=== PATIENT | male | born 1955 | race Caucasian/White ===

== ENCOUNTER 2018-09-17 19:09 | Observation (INO) | payer SELFPAY ==
--- NOTE | 2018-09-17 08:00 | DI.ECHO.S_ITS ---
Echocardiogram Report + + :Name: NEPTALI PEARSON Study Date: 09/18/2018 Height: 72 in : :Hospital Exam Location: [facility] Weight: 197 lb : : Gender: Male BSA: 2.1 m2 : :: 1955 Age: 62 yrs BP: 148/93 mmHg: :Reason For Study: Atrial fibrillation/ Hypertension : :Ordering Physician: [place] : :Hospitalist Performed By: Kylie Page : :Referring: AURA CHRISTINE : + + Interpretation Summary The left ventricle is normal in size. The ejection fraction is estimated to be 65-70%. The right ventricle is normal in size and function. The left atrium is severely dilated. No significant valvular pathology seen. The aortic root is mildly dilated. The ascending aorta is mild-moderately enlarged. The IVC is dilated (diameter is greater than 2.1 cm) yet it collapses greater than 50% with a sniff. This suggests a right atrial pressure of 8 mm Hg. Procedure: A two-dimensional transthoracic echocardiogram with color flow and Doppler was performed. The study quality was technically adequate. There is no prior echocardiogram noted for this patient. The patient was in normal sinus rhythm during the exam. Left Ventricle: Left ventricular wall thickness is mildly increased. The left ventricle is normal in size. Proximal septal thickening is noted. There is no echo evidence for significant left ventricular outflow tract obstruction. A false chord is noted (normal variant). The ejection fraction is estimated to be 65-70%. There are no focal wall motion abnormalities. MV E/A: 1.1 Med Peak E' Román: 6.7 cm/sec E/E' med: 10.9. Right Ventricle: The right ventricle is normal in size and function. Atria: The left atrium is severely dilated. Right atrial size is normal. There is no Doppler evidence for an interatrial shunt. Mitral Valve: The mitral valve is normal. There is mild mitral regurgitation. Aortic Valve: The aortic valve is not well visualized. The aortic valve opens well. There is no aortic valve stenosis. No aortic regurgitation is present. Tricuspid Valve: The tricuspid valve is normal in structure and function. There is a trace or physiologic amount of tricuspid regurgitation. Pulmonary artery pressures cannot be estimated because of the lack of a measurable TR jet velocity. Pulmonic Valve: The pulmonic valve is not well visualized. There is trace pulmonic regurgitation. Great Vessels: The aortic root is mildly dilated. The ascending aorta is mild-moderately enlarged. The pulmonary is not well visualized. The IVC is dilated (diameter is greater than 2.1 cm) yet it collapses greater than 50% with a sniff. This suggests a right atrial pressure of 8 mm Hg. Pericardium/ Pleura There is no pericardial effusion. There is no pleural effusion. MMode/2D Measurements & Calculations LVIDd: 5.4 cm LVOT diam: 2.5 cm LVIDs: 3.4 cm Ao root diam: 4.2 cm FS: 36.5 % asc Aorta Diam: 4.1 cm EPSS: 0.37 cm IVSd: 1.3 cm LVPWd: 1.0 cm LV gutierrez. diameter/BSA (cm/m^2): 2.5 LV sys. diameter/BSA (cm/m^2): 1.6 LA A2 area: 38.9 cm2 RA long axis: 5.4 cm LA A4 area: 28.4 cm2 RA area: 21.1 cm2 LA length (vol): 6.3 cm RA vol: 69.5 ml LA vol: 149.8 ml RA : 32.8 ml/m2 LA vol index: 70.8 ml/m2 IVC diam: 2.3 cm RVD1 (basal): 3.7 cm Doppler Measurements & Calculations Ao V2 max: 150.6 cm/sec LVOT Max Román: 111.6 cm/sec Ao V2 mean: 105.8 cm/sec LV V1 max P.0 mmHg Ao max P.1 mmHg LV V1 VTI: 21.2 cm Ao mean P.9 mmHg AARON(I,D): 3.4 cm2 Ao V2 VTI: 29.9 cm AARON(V,D): 3.5 cm2 sev ratio: 0.71 AARON indexed to BSA (cm^2/m^2): 1.6 MV E max román: 73.2 cm/sec PA V2 max: 91.2 cm/sec MV A max román: 69.7 cm/sec PA V2 mean: 63.4 cm/sec MV E/A: 1.1 PA mean P.8 mmHg Med Peak E' Román: 6.7 cm/sec E/E' med: 10.9 Lat Peak E' Román: 10.3 cm/sec E/E' lat: 7.1 E/e' average: 9.0 MV dec time: 0.24 sec MV P1/2t: 69.3 msec MV P1/2t max román: 72.8 cm/sec SV(LVOT): 100.6 ml MVA(P1/2t): 3.2 cm2 _ Reading Physician:NADEEN
[2018-09-17 19:11] VITALS: BP 204/103; PULSE 133; RESP 20; TEMP 37.3; O2SAT 100; BMI 27.1
--- NOTE | 2018-09-17 19:26 | DI.RAD.S_ITS ---
PROCEDURE: XR CHEST 1V INDICATIONS: chest pain TECHNIQUE: One view of the chest was acquired. COMPARISON: [facility], , CHEST 2 VIEW, 02/08/2017, 15:23. FINDINGS: Surgical changes and devices: None. Lungs and pleura: Mild diffuse reticulonodular density. No pleural effusions or pneumothorax. Mediastinum: Mediastinal contours appear normal. Heart size is normal. Bones and chest wall: No suspicious bony lesions. Overlying soft tissues appear unremarkable. IMPRESSION: Mild atypical pneumonia. Dictated by: Marzena Perales M.D. on 09/17/2018 at 19:45 Approved by: Marzena Perales M.D. on 09/17/2018 at 19:46
[2018-09-17] MEDS: SODIUM CHLORIDE 0.9% 1,000 ML 1000 ML IV (19:37)
[2018-09-17 19:39] LABS: Add Manual Diff / Slide Review NO; Basophils Absolute Auto 100 /uL (0-100); Basophils Percent Auto 0.7 % (0-2); Eosinophils Absolute Auto 500 /uL (0-450); Hematocrit 45.6 % (41-53); Hemoglobin 15.5 g/dL (13.5-17.5); Lymphocytes Absolute Auto 2800 /uL (1100-4500); Lymphocytes Percent Auto 23.7 % (25-40); Mean Corpuscular HGB Conc 34.1 % (30-36); Mean Corpuscular Hemoglobin 30.8 PG (26-34); Mean Corpuscular Volume 90.4 fL (80-100); Monocytes Absolute Auto 900 /uL (0-900); Monocytes Percent Auto 7.7 % (3-14); Neutrophils Absolute Auto 7500 /uL (1500-7000); Neutrophils Percent Auto 63.9 % (50-75); Platelet Count 266 X10^3/uL (150-400); Red Blood Cell Count 5.04 X10^6/uL (4.5-5.9); Red Cell Distribution Width 14.3 % (11.6-14.8); White Blood Cell Count 11.8 X10^3/uL (4.5-11.0)
[2018-09-17 19:40] VITALS: BP 166/130; PULSE 162
[2018-09-17] MEDS: dilTIAZem 5 MG/ML SDV 20 MG IV (19:40)
[2018-09-17 19:51] LABS: INR 0.9 (0.9-1.3); Prothrombin Time 10.6 SECONDS (10.1-12.7)
[2018-09-17 19:54] LABS: PTT Partial Thromboplastin Tim 32 SECONDS (26.4-36.2)
[2018-09-17 19:55] LABS: Alanine Aminotransferase 44 IU/L (21-72); Albumin 4.6 g/dL (3.5-5.0); Albumin Globulin Ratio 1.3 (1.0-2.8); Alkaline Phosphatase 75 U/L (38-126); Aspartate Aminotransferase 32 IU/L (17-59); Bilirubin Total 0.3 mg/dL (0.2-1.3); Blood Urea Nitrogen 21 mg/dL (9-20); Calcium 9.4 mg/dL (8.4-10.2); Carbon Dioxide 27 mmol/L (22-32); Chloride 102 mmol/L (98-107); Creatine Kinase 129 U/L (55-170); Estimated Glomerular Filt Rate > 60.0 mL/min (>60); Globulin 3.6 g/dL (1.7-4.1); Glucose 146 mg/dL (80-110); HEMOLYSIS 29 (0-50); Magnesium 1.8 mg/dL (1.6-2.3); Potassium 3.8 mmol/L (3.4-5.1); Sodium 141 mmol/L (137-145); Total Protein 8.2 g/dL (6.3-8.2)
[2018-09-17 20:07] LABS: Troponin I 0.026 ng/mL (0.01-0.034)
[2018-09-17 20:11] LABS: CKMB % Relative Index 1.9 % (1.5-5.0)
--- NOTE | 2018-09-17 20:13 | ED_ITS ---
HPI - Chest Pain General Chief Complaint: Chest Pain Stated Complaint: HEART FLUTTER HIGH BLOOD PRESSURE Time Seen by Provider: 09/17/18 19:26 Source: patient Mode of arrival: ambulatory Limitations: no limitations History of Present Illness HPI narrative: Patient is a 62-year-old male who presents with heart fluttering in his chest. He is noted to be in AFib with RVR. He said he laid down after dinner woke up and felt something was wrong in his chest. He has no shortness of breath no dizziness but feels his heart flip-flopping around. This has never happened to him in the past. He states that he does have hypertension but is noncompliant with his medication. He states that he really drinks alcohol. He denies any fever or productive cough. He admits to having 2 beers this evening or yesterday but denies any recent binge drinking. MD complaint: chest pain Onset (ago): minute(s) Duration: constant Related Data Previous Rx's Medication Instructions Recorded ciprofloxacin HCl [Cipro] 500 mg PO BID 14 Days #0 tab 04/03/17 Allergies Allergy/AdvReac Type Severity Reaction Status Date / Time No Known Drug Allergies Allergy Verified 09/17/18 19:11 Review of Systems Review of Systems ROS Unobtainable: All systems reviewed & are unremarkable except as noted in HPI and below Constitutional Denies chills, Denies fever(s), Denies lethargy and Denies weakness ENT Ears, Nose, Mouth, and Throat: Denies change in voice, Denies neck pain and Denies sore throat Cardiovascular Denies chest pain, Reports irregular heart rhythm, Denies lightheadedness, Reports palpitations, Denies dyspnea, Denies dyspnea on exertion and Denies orthopnea Respiratory Denies cough, Denies dyspnea, Denies dyspnea on exertion and Denies wheezing Gastrointestinal Gastrointestinal: Denies abdominal pain, Denies change in bowel habits, Denies diarrhea, Denies nausea and Denies vomiting Musculoskeletal Denies neck pain Integumentary/Breasts Denies pruritus, Denies erythema, Denies rash and Denies wounds Neurologic Denies weakness Endocrine Reports palpitations Allergic/Immunologic Denies wheezing PFSH Medical History Hypertension (Acute) Social History Smoking Status: Current every day smoker Social History Smoking Status: Current every day smoker Exam Initial Vital Signs Initial Vital Signs: Vital Signs Temperature 99.1 F 09/17/18 19:11 Pulse Rate 133 H 09/17/18 19:11 Respiratory Rate 20 09/17/18 19:11 Blood Pressure 204/103 H 09/17/18 19:11 Pulse Oximetry 100 09/17/18 19:11 GENERAL: [Well-appearing, well-nourished] and in [no acute] distress. HEENT: Head atraumatic,EOMI, pupils reactive CARDIOVASCULAR: tachycardic irregularly irregular RESPIRATORY: Breath sounds equal bilaterally, no wheezes rales or rhonchi. ABDOMEN: Soft, nontender. Normoactive bowel sounds all 4 quadrants. No guarding or rebound. EXTREMITIES: Normal range of motion, no clubbing or edema. Neurovascularly intact NEUROLOGICAL: Alert and oriented x4.Normal gait and speech. SKIN: Warm, dry, no laceration, no petechiae, no rashes or lesions. Course Orders Ordered: ED Orders 09/17/18 19:26 XR chest 1V Stat EKG-12 Lead Stat 09/17/18 19:35 Complete Blood Count AUTO DIFF Stat Comprehensive Metabolic Panel Stat Magnesium Stat Partial Thromboplastin Time Stat Prothrombin Time INR Stat Thyroid Stimulating Hormone Stat Troponin & CK Cardiac Panel Stat 09/17/18 20:21 EKG-12 Lead Stat 09/17/18 21:30 Troponin I Stat 09/17/18 23:51 Education, smoking cessation ONGOING Heparin Sodium (Porcine) (Heparin) 5,000 unit SUBCUT BID CONSTANTINO Sodium Chloride (Normal Saline 0.9%) 1,000 mls @ 1,000 mls/hr IV CONT CONSTANTINO Last Infusion: 09/17/18 21:46 Dose: 0 mls/hr Admin: 09/17/18 19:37 Dose: 1,000 mls/hr Discontinued Medications Aspirin (Aspirin Chew) 324 mg PO NOW ONE Stop: 09/17/18 20:39 Last Admin: 09/17/18 20:44 Dose: 324 mg Diltiazem HCl (Cardizem) 20 mg IV NOW ONE Stop: 09/17/18 19:38 Last Admin: 09/17/18 19:40 Dose: 20 mg Vital Signs - 8 hr 09/17/18 19:11 09/17/18 19:40 09/17/18 20:30 Temperature 99.1 F Pulse Rate 133 H 162 H 75 Respiratory Rate 20 17 Blood Pressure 204/103 H 166/130 H Blood Pressure [Left Arm] 128/68 Pulse Oximetry 100 96 09/17/18 22:12 09/17/18 22:39 09/18/18 00:34 Temperature Pulse Rate 97 H 82 64 Respiratory Rate 18 19 14 Blood Pressure 137/76 Blood Pressure [Left Arm] 120/61 137/53 L Pulse Oximetry 98 100 98 MDM - Chest Pain Lab Data Attestation: I reviewed the patient's lab results. Result diagrams: 09/17/18 19:35 09/17/18 19:35 Lab Results 09/17/18 09/17/18 09/17/18 Range/Units 19:35 19:35 19:35 WBC 11.8 H (4.5-11.0) X10^3/uL RBC 5.04 (4.5-5.9) X10^6/uL Hgb 15.5 (13.5-17.5) g/dL Hct 45.6 (41-53) % MCV 90.4 (80-100) fL MCH 30.8 (26-34) PG MCHC 34.1 (30-36) % RDW 14.3 (11.6-14.8) % Plt Count 266 (150-400) X10^3/uL Neut % (Auto) 63.9 (50-75) % Lymph % (Auto) 23.7 L (25-40) % [place] % (Auto) 7.7 (3-14) % Eos % (Auto) 4.0 (2-4) % Baso % (Auto) 0.7 (0-2) % Neut # (Auto) 7500 H (6037-9330) /uL Lymph # (Auto) 2800 (2192-7504) /uL [place] # (Auto) 900 (0-900) /uL Eos # (Auto) 500 H (0-450) /uL Baso # (Auto) 100 (0-100) /uL PT 10.6 (10.1-12.7) SECONDS INR 0.9 (0.9-1.3) APTT 32 (26.4-36.2) SECONDS Sodium 141 (137-145) mmol/L Potassium 3.8 (3.4-5.1) mmol/L Chloride 102 (98-107) mmol/L Carbon Dioxide 27 (22-32) mmol/L BUN 21 H (9-20) mg/dL Creatinine 0.70 (0.66-1.25) mg/dL Estimated GFR > 60.0 (>60) mL/min BUN/Creatinine Ratio 30.0 H (6-22) Glucose 146 H (80-110) mg/dL Calcium 9.4 (8.4-10.2) mg/dL Magnesium 1.8 (1.6-2.3) mg/dL Total Bilirubin 0.3 (0.2-1.3) mg/dL AST 32 (17-59) IU/L ALT 44 (21-72) IU/L Alkaline Phosphatase 75 (38-126) U/L Total Creatine Kinase 129 (55-170) U/L CK-MB (CK-2) 2.50 H (<2.37) ng/mL CK-MB (CK-2) Rel Index 1.9 (1.5-5.0) % Troponin I 0.026 (0.01-0.034) ng/mL Total Protein 8.2 (6.3-8.2) g/dL Albumin 4.6 (3.5-5.0) g/dL Globulin 3.6 (1.7-4.1) g/dL Albumin/Globulin Ratio 1.3 (1.0-2.8) TSH (0.47-4.68) uIU/mL 09/17/18 09/17/18 Range/Units 19:35 21:30 WBC (4.5-11.0) X10^3/uL RBC (4.5-5.9) X10^6/uL Hgb (13.5-17.5) g/dL Hct (41-53) % MCV (80-100) fL MCH (26-34) PG MCHC (30-36) % RDW (11.6-14.8) % Plt Count (150-400) X10^3/uL Neut % (Auto) (50-75) % Lymph % (Auto) (25-40) % [place] % (Auto) (3-14) % Eos % (Auto) (2-4) % Baso % (Auto) (0-2) % Neut # (Auto) (3160-6849) /uL Lymph # (Auto) (7747-6226) /uL M[place] # (Auto) (0-900) /uL Eos # (Auto) (0-450) /uL Baso # (Auto) (0-100) /uL PT (10.1-12.7) SECONDS INR (0.9-1.3) APTT (26.4-36.2) SECONDS Sodium (137-145) mmol/L Potassium (3.4-5.1) mmol/L Chloride (98-107) mmol/L Carbon Dioxide (22-32) mmol/L BUN (9-20) mg/dL Creatinine (0.66-1.25) mg/dL Estimated GFR (>60) mL/min BUN/Creatinine Ratio (6-22) Glucose (80-110) mg/dL Calcium (8.4-10.2) mg/dL Magnesium (1.6-2.3) mg/dL Total Bilirubin (0.2-1.3) mg/dL AST (17-59) IU/L ALT (21-72) IU/L Alkaline Phosphatase (38-126) U/L Total Creatine Kinase (55-170) U/L CK-MB (CK-2) (<2.37) ng/mL CK-MB (CK-2) Rel Index (1.5-5.0) % Troponin I 0.039 H (0.01-0.034) ng/mL Total Protein (6.3-8.2) g/dL Albumin (3.5-5.0) g/dL Globulin (1.7-4.1) g/dL Albumin/Globulin Ratio (1.0-2.8) TSH 2.06 (0.47-4.68) uIU/mL Imaging Data Chest x-ray: Radiologist's impression: PROCEDURE: XR CHEST 1V INDICATIONS: chest pain TECHNIQUE: One view of the chest was acquired. COMPARISON: [facility], , CHEST 2 VIEW, 02/08/2017, 15:23. FINDINGS: Surgical changes and devices: None. Lungs and pleura: Mild diffuse reticulonodular density. No pleural effusions or pneumothorax. Mediastinum: Mediastinal contours appear normal. Heart size is normal. Bones and chest wall: No suspicious bony lesions. Overlying soft tissues appear unremarkable. IMPRESSION: Mild atypical pneumonia. Dictated by: Marzena Perales M.D. on 09/17/2018 at 19:45 ECG Data Attestation: I personally reviewed and interpreted this ECG as follows: Prior ECG tracings: not available for review Interpretation: EKG 1.: AFib with RVR rate 137 no priors to compare EKG 2. Normal sinus rhythm rate 72 WV interval 151 LVH strain noted, inferior leads 2 and AVF have some slight ST depression less than [address] elevation no T-wave inversions is no sign of ischemia EKG 3. Sinus rhythm rate 71 LVH noted, LVH strain noted no overall ST depressions in inferior leads the artifact is noted MDM Narrative Medical decision making narrative: patient's heart rate responded well to Cardizem. He actually converted back to normal sinus rhythm on his own. The patient's x-ray does show mild atypical pneumonia however patient has no signs or symptoms of pneumonia. I do notice a left upper lobe nodule patient is a known smoker. Patient does not have any PCP at this time. He has a rising troponin, may be due to demand ischemia or recent tachycardia. the patient remains completely asymptomatic. patient has new onset AFib now converted his with rising troponin, without close followup. At this time patient should be admitted to observation her echocardiogram and serial troponins. Hospitalist Dexter agrees with observation. TAYLOR?DS?-VASc Score for Atrial Fibrillation Stroke Risk from [email or web address] on 2018 All calculations should be rechecked by clinician prior to use RESULT SUMMARY: 1 points Stroke risk was 0.6% per year in >90,000 patients (the [place] Atrial Fibrillation Cohort Study) and 0.9% risk of stroke/TIA/systemic embolism. One recommendation suggests a 0 score is ?low? risk and may not require anticoagulation; a 1 score is ?low-moderate? risk and should consider antiplatelet or anticoagulation, and score 2 or greater is ?moderate-high? risk and should otherwise be an anticoagulation candidate. INPUTS: Age ?> 0 = <65 Sex ?> 0 = Male <abbr title='Congestive heart failure'>CHF</abbr> history ?> 0 = No Hypertension history ?> 1 = Yes Stroke / TIA / Thromboembolism history ?> 0 = No Vascular disease history ?> 0 = No Diabetes history ?> 0 = No Discharge Plan Departure Patient Disposition: Admitted as Observation Clinical Impression: Atrial fibrillation, new onset Discharge Date/Time: 09/18/18 00:34 Interventions: ED Discharge Assessment Last Done: 09/18/18 00:34 Admit Date/Time: 09/17/18 22:59 Admit Provider: Hayley Renteria
[2018-09-17 20:28] LABS: Thyroid Stimulating Hormone 2.06 uIU/mL (0.47-4.68)
[2018-09-17 20:30] VITALS: BP 128/68; PULSE 75; RESP 17; O2SAT 96
[2018-09-17] MEDS: ASPIRIN 81 MG TAB 324 MG PO (20:44)
[2018-09-17 22:05] LABS: Troponin I 0.039 ng/mL (0.01-0.034)
[2018-09-17 22:12] VITALS: BP 120/61; PULSE 97; RESP 18; O2SAT 98
[2018-09-17 22:39] VITALS: BP 137/53; PULSE 82; RESP 19; O2SAT 100
[2018-09-18] VITALS (13 sets, daily range): BP systolic 130–165; BP diastolic 72–103; PULSE 64–74; RESP 14–18; TEMP 36.6–37.5; O2SAT 93–100; BMI 26.8
--- NOTE | 2018-09-18 00:03 | PM.HP.1 ---
History of Present Illness Date Patient Seen: 09/18/18 Time Patient Seen: 00:04 Chief complaint: HEART FLUTTER HIGH BLOOD PRESSURE Narrative: The patient is a 62-year-old male with PMH significant for HTN, cardiomyopathy, and tobacco dependence. Patient presented to the ED on 09/17/2018 at approximately 1911 with palpitations. In the ED found to be in AFIB RVR. Onset of symptoms as sudden at approximately 1800. Patient just finished eating dinner. Onset of symptoms is acute. Associated symptoms include headache. Denies change in vision, chest pain, arm heaviness/paresthesia, diaphoresis, dizziness, lightheadedness, syncopal events, PND, orthopnea, peripheral edema, dyspnea, nausea, and vomiting. Patient reports being off anti-hypertensives for two months. Does not have a PCP. Previously on lisinopril-HCTZ 20-25 mg QD. Reports elevated BP at home but unable to provide range. Patient reports experiencing headache for period of 6 months. Does not wish to elaborate on the headache and further believes it is related to his neck. Headache noted to be constant and described to have a pressure like sensation at the base of the skull. Denies focal neurological symptoms with the headache. Denies prior history of a stroke, TIA, thrombosis, vascular disease. No prior history of a cardiac workup per patient. ED Work-Up BP 204/103 HR 133 RR 20 SpO2 100% RA T 99.1F GCS 15 EKG AFIB / RVR Received 1L NS bolus PMH: HTN, cardiomyopathy (from remote viral infection), COPD, tobacco dependence, cannabis use, and persistent headache PSH: cervical spine surgery, FHx: father () - heart disease; mother (alive) - DM2T Patient History Medical History Hypertension (Acute) Social History household members: none Smoking Status: Current every day smoker alcohol intake: current Family & Social History Safety & Behavioral: Feels Safe in Current Yes Environment Been Physically Hurt or No Threatened By a Person Tobacco & Substance use: Smoking Status Current every day smoker alcohol intake frequency a few times a week Substance Use Type marijuana Meds Home Medications Medication Instructions Recorded Confirmed Type ciprofloxacin HCl [Cipro] 500 mg PO BID 14 Days #0 tab 04/03/17 Rx Allergies Allergy/AdvReac Type Severity Reaction Status Date / Time No Known Drug Allergies Allergy Verified 09/17/18 19:11 Review of Systems Review of Systems All systems reviewed & are unremarkable except as noted in HPI and below Exam Vital Signs (past 8 hours): - 09/17/18 19:11 09/17/18 19:40 09/17/18 20:30 Temperature 99.1 F Pulse Rate 133 H 162 H 75 Respiratory Rate 20 17 Blood Pressure 204/103 H 166/130 H Blood Pressure [Left Arm] 128/68 Pulse Oximetry 100 96 09/17/18 22:12 09/17/18 22:39 Temperature Pulse Rate 97 H 82 Respiratory Rate 18 19 Blood Pressure Blood Pressure [Left Arm] 120/61 137/53 L Pulse Oximetry 98 100 Oxygen Delivery Method Room Air Narrative Exam Narrative: Constitutional: NAD Neurologic: AOx3, no focal neurological deficits Head: NC, AT Eyes: PERRL, EOMI, gaze conjugate Ears: external ears normal, no otorrhea Nose: external nose normal, no rhinorrhea or epistaxis Throat: dry MM, oropharynx w/o exudate Neck: no masses, lymphadenopathy, or JVD Chest / Respiratory: equal chest rise, unlabored respiratory effort, no tachypnea, breath sounds diminished Heart / CV: S1S2, no murmur Abdomen / GI: round, NT, ND, + BS, no organomegaly : no suprapubic tenderness, no CVA Peripheral / Vascular: warm to touch, DP and PT pulses palpable, no edema Musc: full ROM of upper and lower extremities, adequate muscle tone and bulk Skin: no ecchymosis or suspicious lesions / ulcers Objective Labs Result Diagrams: 09/17/18 19:35 09/18/18 05:14 Labs: Laboratory Results - last 24 hr 09/17/18 09/17/18 09/17/18 19:35 19:35 19:35 WBC 11.8 H RBC 5.04 Hgb 15.5 Hct 45.6 MCV 90.4 MCH 30.8 MCHC 34.1 RDW 14.3 Plt Count 266 Neut % (Auto) 63.9 Lymph % (Auto) 23.7 L [place] % (Auto) 7.7 Eos % (Auto) 4.0 Baso % (Auto) 0.7 Neut # (Auto) 7500 H Lymph # (Auto) 2800 [place] # (Auto) 900 Eos # (Auto) 500 H Baso # (Auto) 100 PT 10.6 INR 0.9 APTT 32 Sodium 141 Potassium 3.8 Chloride 102 Carbon Dioxide 27 BUN 21 H Creatinine 0.70 Estimated GFR > 60.0 BUN/Creatinine Ratio 30.0 H Glucose 146 H Calcium 9.4 Magnesium 1.8 Total Bilirubin 0.3 AST 32 ALT 44 Alkaline Phosphatase 75 Total Creatine Kinase 129 CK-MB (CK-2) 2.50 H CK-MB (CK-2) Rel Index 1.9 Troponin I 0.026 Total Protein 8.2 Albumin 4.6 Globulin 3.6 Albumin/Globulin Ratio 1.3 TSH 09/17/18 09/17/18 19:35 21:30 WBC RBC Hgb Hct MCV MCH MCHC RDW Plt Count Neut % (Auto) Lymph % (Auto) [place] % (Auto) Eos % (Auto) Baso % (Auto) Neut # (Auto) Lymph # (Auto) [place] # (Auto) Eos # (Auto) Baso # (Auto) PT INR APTT Sodium Potassium Chloride Carbon Dioxide BUN Creatinine Estimated GFR BUN/Creatinine Ratio Glucose Calcium Magnesium Total Bilirubin AST ALT Alkaline Phosphatase Total Creatine Kinase CK-MB (CK-2) CK-MB (CK-2) Rel Index Troponin I 0.039 H Total Protein Albumin Globulin Albumin/Globulin Ratio TSH 2.06 Assessment & Plan Plan: Assessment/Plan Narrative: Atrial fibrillation with rapid ventricular rate, new onset RF: HTN, cardiomyopathy, suspected sleep apnea Converted to sinus rhythm with bolus dose of 20 mg IV Cardizem [id number] (HTN), potentially to given degree of cardiomyopathy. - Echo - Check BNP, TSH, UA, and UDS now; CBC, BMP, Mg in am - Replete electrolyte deficiencies accordingly, goal K >4 and Mg > 2 - ASA 81 mg q.d., patient is an intermediate risk for cardio-embolic events - Consider starting oral BB (metoprolol tartrate) for BP and rhythm control, avoid lowering BP more than 25% in the 1st 24 hrs Hypertensive urgency, SBP 204/103 mmHg on presentation H/O noncompliance with antihypertensive medication regimen - Trend BP, do not lower more than 25 percent in the first 24 hours - Start on metoprolol tartrate 12.5 mg BID in am Elevated troponin No chest pain or angina like symptoms - Trend troponin New daily persistent headache Headache in the setting of hypertensive urgency versus new daily persistent headache Patient believes the headache is related to neck pain and does not wish to provide any further details. Headache is constant, predominantly over occipital aspect of the head, No change in level of consciousness. No focal neurological deficits. - Consider CT of Head w/o contrast COPD without acute exacerbation, stable chronic condition Tobacco dependence - Nicotine patch - Smoking cessation education
--- NOTE | 2018-09-18 01:57 | PC.ADMIT ---
[id number] Admission Note: The patient,Evaristo Reynolds,62 y/o, was given written information regarding hospital policies, unit procedures and contact persons. Patient's smoking status: Current every day smoker. Vital Signs - 8 hr 09/17/18 19:11 09/17/18 19:40 09/17/18 20:30 Temperature 99.1 F Pulse Rate 133 H 162 H 75 Respiratory Rate 20 17 Blood Pressure 204/103 H 166/130 H Blood Pressure [Left Arm] 128/68 Pulse Oximetry 100 96 09/17/18 22:12 09/17/18 22:39 09/18/18 00:30 Temperature 98.2 F Pulse Rate 97 H 82 69 Respiratory Rate 18 19 15 Blood Pressure 148/93 H Blood Pressure [Left Arm] 120/61 137/53 L Pulse Oximetry 98 100 95 09/18/18 00:34 Temperature Pulse Rate 64 Respiratory Rate 14 Blood Pressure 137/76 Blood Pressure [Left Arm] Pulse Oximetry 98 Pt arrived from ED via stretcher at approx 0030. Denies chest pain, pressure, palpitations, or sob. Reports chronic headache. Tele on. Hospitalist in for assessment. Oriented to room and Call system. Pt verbalized he will call for needs.
[2018-09-18 02:36] LABS: Lactate (Lactic Acid) 0.9 mmol/L (0.7-2.1)
[2018-09-18 02:48] LABS: Hemoglobin A1C% w Est Avg Glu 5.7 % (4.0-6.0)
[2018-09-18 02:49] LABS: B Type Natriuretic Peptide < 100 (<100)
[2018-09-18 03:03] LABS: Troponin I 0.042 ng/mL (0.01-0.034)
[2018-09-18 03:07] LABS: Procalcitonin < 0.05 ng/mL (<0.5)
[2018-09-18 03:24] LABS: Bacteria Urine None Seen; WBC Urine None Seen (0-5/HPF)
[2018-09-18] MEDS: MAGNESIUM SULFATE 2 GM/50 ML PIGGYBACK IV (03:24)
[2018-09-18] MEDS: POTASSIUM CHLORIDE 20 MEQ/15 ML UDC PO (03:24)
[2018-09-18 03:25] LABS: Appearance Urine UA CLEAR; Bilirubin Urine UA NEGATIVE (NEGATIVE); Color Urine UA YELLOW; Glucose Urine UA NEGATIVE (Negative); Ketones Urine UA NEGATIVE (NEGATIVE); Leukocyte Esterase Urine UA NEGATIVE (NEGATIVE); Nitrite Urine UA NEGATIVE (Negative); Occult Blood Urine UA 1+ (Negative); Protein Urine UA NEGATIVE (Negative); Specific Gravity Urine UA 1.025 (1.000-1.035); Urobilinogen Urine UA 0.2 E.U./dL (0.2); pH Urine UA 5.5 (4.5-8.0)
[2018-09-18 03:29] LABS: Urine Amphetamines Negative (Negative); Urine Barbiturates Negative (Negative); Urine Benzodiazepines Negative (Negative); Urine Cocaine Negative (Negative); Urine MDMA Negative (Negative); Urine Methadone Negative (Negative); Urine Methamphetamines Negative (Negative); Urine Morphine/Opi cutoff 2000 Negative (Negative); Urine Oxycodone Negative (Negative); Urine Phencyclidine Negative (Negative); Urine Tetrahydrocannabinol Negative (Negative); Urine Tricyclic Antidepressant Negative (Negative)
[2018-09-18 03:38] LABS: Culture Indicated Urine Cult Not Indicated; RBC Urine 0-1/HPF (0-5/HPF)
[2018-09-18 07:00] LABS: BUN Creatinine Ratio 26.7 (6-22); Blood Urea Nitrogen 16 mg/dL (9-20); Calcium 8.5 mg/dL (8.4-10.2); Carbon Dioxide 24 mmol/L (22-32); Chloride 108 mmol/L (98-107); Cholesterol 125 mg/dL (140-199); Estimated Glomerular Filt Rate > 60.0 mL/min (>60); Glucose 123 mg/dL (80-110); HDL Cholesterol 39 mg/dL (40-60); HEMOLYSIS < 15 (0-50); LDL Cholesterol Calculated 76 mg/dL (<100); Magnesium 1.8 mg/dL (1.6-2.3); Potassium 4.3 mmol/L (3.4-5.1); Sodium 139 mmol/L (137-145); Triglycerides 48 mg/dL (35-150); Troponin I 0.033 ng/mL (0.01-0.034); VLDL Cholesterol Calculated 10 mg/dL (2-30)
[2018-09-18 09:08] LABS: Add Manual Diff / Slide Review NO; Basophils Percent Auto 0.7 % (0-2); Eosinophils Percent Auto 3.5 % (2-4); Hematocrit 42.5 % (41-53); Lymphocytes Percent Auto 19.9 % (25-40); Mean Corpuscular Hemoglobin 30.3 PG (26-34); Mean Corpuscular Volume 91.8 fL (80-100); Neutrophils Absolute Auto 7 /uL (1500-7000); Neutrophils Percent Auto 67.9 % (50-75); Platelet Count 240 X10^3/uL (150-400); Red Blood Cell Count 4.63 X10^6/uL (4.5-5.9); Red Cell Distribution Width 14.3 % (11.6-14.8); White Blood Cell Count 10.4 X10^3/uL (4.5-11.0)
[2018-09-18 09:09] LABS: Basophils Absolute Auto 0 /uL (0-100); Eosinophils Absolute Auto 0 /uL (0-450); Lymphocytes Absolute Auto 2 /uL (1100-4500); Monocytes Absolute Auto 1 /uL (0-900)
--- NOTE | 2018-09-18 09:11 | CM.DANOTE ---
Addendum entered by Denise Coreas R.N. 09/18/18 13:36: Patient's [employer] insurance is inactive. Is currently making 20.00 per hour, 40 hours a week, and does not qualify. Was given a dedrick application to fill out, by admissions counselor Original Note: Addendum entered by Denise Coreas R.N. 09/18/18 12:12: Called [facility] here in [place] to inquire if they are taking new patients, and if they accepted [facility], and stated that they do accept, and are taking new patients. Gave phone number to patient, since he has no primary provider. Original Note: DCP: Case received, EMR reviewed and met with patient. Introduced self and role. DCP template completed with information currently available. Patient is a 62 year old male who admitted yesterday evening to the care of the hospitalist team. PCP: Has no primary doctor at this time. Payer: confirmed: [facility] Healthy Options/Medicaid. Patient came to hospital with symptoms of racing heart, flutter. Patient has history of cardiomyopathy, and was noted to be in A-Fib/RVR. Met briefly with patient, alert and oriented. Stated, he is feeling better, but this has never happened before. Discussed getting primary provider, and he is aware that he needs to locate someone to follow up. Lives alone, and is independent. P: DCP to continue to follow. Should be able to go home when stable, but will need to follow up with primary doctor or package checker. Denise Coreas RN/[employer]
[2018-09-18] MEDS: ASPIRIN EC 81 MG TABLET PO (09:49)
[2018-09-18] MEDS: NICOTINE 21 MG PATCH TOP (09:53)
[2018-09-18] MEDS: HEPARIN 5,000 UNIT/ML VIAL 5000 UNIT SUBCUT ×2 (10:00→22:08)
--- NOTE | 2018-09-18 10:19 | PC.NURSE ---
Addendum entered by Dilia Dixon R.N. 09/18/18 14:09: CARDIAC - per discussion with , the stress test is cancelled, new orders for bp meds lisinipril and hctz, per , may continue with the 12.5mg earlier metoprolol, held this am for stress test. Original Note: Addendum entered by Dilia Dixon R.N. 09/18/18 12:26: CARDIAC - the pt echo completed, verified with Natal[facility] that the stress test cannot be done today, per will prob be done as outpt, may have reg diet. Original Note: AM NOTE - pt mildly anxious as he was trying to reach friends and employer and his cell phone battery , assisted pt w/phone charge, denies chest pain or headache, does have some chronic neck discomfort w/hx surgery, hr reg, no nausea, spoke to Natalia in nuclear med re stress test and unable to determine yet this am if they will be able to complete this am, did give pt ice chips, fluids and dish oatmeal, no caffeine or beta renato.
[2018-09-18] MEDS: LISINOPRIL 20 MG TABLET 40 MG PO (14:04)
[2018-09-18] MEDS: METOPROLOL IR 25 MG TABLET 12.5 MG PO ×2 (14:04→22:08)
[2018-09-18] MEDS: hydroCHLOROthiazide 25 MG TABLET PO (14:05)
--- NOTE | 2018-09-18 19:03 | PC.NURSE ---
Addendum entered by Kassandra Stockton R.N. 09/18/18 22:56: Relatively uneventful evening. Condition remains essentially unchanged. Denies any discomfort. Call light w/in reach. Continue w/plan of care. Original Note: Pt resting quietly, Had a shower this evening. Lungs clear, SpO2 97% RA. Tele showing NSR per ICU staff. Denies any C/O @ this time. Call light w/in reach.
[2018-09-19 00:25] VITALS: BP 156/92; PULSE 64; RESP 16; TEMP 36.8; O2SAT 95
[2018-09-19 04:27] VITALS: BP 139/92; PULSE 65; TEMP 36.8; O2SAT 95
[2018-09-19 06:19] LABS: Add Manual Diff / Slide Review NO; Basophils Absolute Auto 100 /uL (0-100); Basophils Percent Auto 0.7 % (0-2); Eosinophils Absolute Auto 300 /uL (0-450); Hematocrit 43.3 % (41-53); Hemoglobin 14.7 g/dL (13.5-17.5); Lymphocytes Absolute Auto 1900 /uL (1100-4500); Lymphocytes Percent Auto 22.3 % (25-40); Mean Corpuscular HGB Conc 33.9 % (30-36); Mean Corpuscular Hemoglobin 30.8 PG (26-34); Mean Corpuscular Volume 90.8 fL (80-100); Monocytes Absolute Auto 800 /uL (0-900); Monocytes Percent Auto 8.8 % (3-14); Neutrophils Absolute Auto 5600 /uL (1500-7000); Neutrophils Percent Auto 65.2 % (50-75); Platelet Count 241 X10^3/uL (150-400); Red Blood Cell Count 4.77 X10^6/uL (4.5-5.9); Red Cell Distribution Width 14.1 % (11.6-14.8); White Blood Cell Count 8.5 X10^3/uL (4.5-11.0)
[2018-09-19 06:31] LABS: Blood Urea Nitrogen 21 mg/dL (9-20); Calcium 8.9 mg/dL (8.4-10.2); Carbon Dioxide 26 mmol/L (22-32); Chloride 102 mmol/L (98-107); Estimated Glomerular Filt Rate > 60.0 mL/min (>60); Glucose 113 mg/dL (80-110); HEMOLYSIS < 15 (0-50); Potassium 4.2 mmol/L (3.4-5.1); Sodium 138 mmol/L (137-145)
[2018-09-19 08:00] VITALS: BP 145/85; PULSE 65; RESP 16; TEMP 36.6; O2SAT 95
[2018-09-19 09:00] VITALS: O2SAT 93
[2018-09-19] MEDS: hydroCHLOROthiazide 25 MG TABLET PO (09:01)
[2018-09-19] MEDS: METOPROLOL IR 25 MG TABLET 12.5 MG PO (09:01)
[2018-09-19] MEDS: ASPIRIN EC 81 MG TABLET PO (09:01)
[2018-09-19 09:02] VITALS: BP 145/85; PULSE 65
[2018-09-19] MEDS: LISINOPRIL 20 MG TABLET 40 MG PO (09:02)
[2018-09-19] MEDS: HEPARIN 5,000 UNIT/ML VIAL 5000 UNIT SUBCUT (09:03)
[2018-09-19] MEDS: NICOTINE 21 MG PATCH TOP (09:03)
--- NOTE | 2018-09-19 09:43 | PC.NURSE ---
Addendum entered by Dilia Dixon R.N. 09/19/18 12:38: dc - pt stated he had to leave for the job site now was dressed and heading out, spoke to who came in to dc pt, removed the tele and hep lock, spoke about pt will not wait for dc paperwork, his scripts will be sent electronically to the [facility] in [facility], the student nurse assisted with gathering belongings, including cell phone and clothing and the pt was escorted by student nurse to his car. Original Note: AM NOTE - Alert, no complaint chest discomfort or sob, hr reg 66, ra 93%, no nausea, wyatt gen diet, anxious to dc home today.
--- NOTE | 2018-09-19 12:46 | P.DS_ITS ---
History of Present Illness Chief complaint: HEART FLUTTER HIGH BLOOD PRESSURE Narrative: The patient is a 62-year-old male with PMH significant for HTN, cardiomyopathy, and tobacco dependence. Patient presented to the ED on 09/17/2018 at approximately 1911 with palpitations. In the ED found to be in AFIB RVR. Onset of symptoms as sudden at approximately 1800. Patient just finished eating dinner. Onset of symptoms is acute. Associated symptoms include headache. Denies change in vision, chest pain, arm heaviness/paresthesia, diaphoresis, dizziness, lightheadedness, syncopal events, PND, orthopnea, peripheral edema, dyspnea, nausea, and vomiting. Patient reports being off anti-hypertensives for two months. Does not have a PCP. Previously on lisinopril-HCTZ 20-25 mg QD. Reports elevated BP at home but unable to provide range. Patient reports experiencing headache for period of 6 months. Does not wish to elaborate on the headache and further believes it is related to his neck. Headache noted to be constant and described to have a pressure like sensation at the base of the skull. Denies focal neurological symptoms with the headache. Denies prior history of a stroke, TIA, thrombosis, vascular disease. No prior history of a cardiac workup per patient. Discharge Providers Date of admission: 09/17/18 22:59 Discharge provider: Taurus Aleman MD Discharge Date: 09/19/18 Summary Discharge Diagnosis: 1. Paroxysmal atrial fibrillation with RVR 2. Hypertensive urgency 3. Cigarette dependence Hospital Course: Patient presented with rapid heart rate due to AFib, headache, severe hypertension BP 204/103, had been off of his antihypertensive m edications. He received IV Cardizem in the ER for AFib and converted to sinus rhythm. TSH was normal. Renal function normal. He is not good candidate for anticoagulation due to current lack of insurance, limited finances, and no established PCP. For hypertension, he was started back on his regimen of lisinopril and HCTZ. He was also started on low-dose of metoprolol for the atrial fibrillation. At time of discharge she is feeling back to baseline with blood pressure of 145/85 and resting heart rate in the 60s. He received prescriptions for 1 month supply without refills. He understands need to establish with primary care provider for continuation of care. He is also advised to quit smoking. Status at Discharge Functional status at discharge: independent ambulation Overall status at discharge: patient is back to baseline Time Spent with Patient Less than 30 minutes Exam Vital Signs (past 8 hours): - 09/19/18 08:00 09/19/18 09:00 09/19/18 09:02 Temperature 98 F Pulse Rate 65 65 Respiratory Rate 16 Blood Pressure 145/85 H 145/85 H Pulse Oximetry 95 93 Oxygen Delivery Method Room Air Objective Labs Result Diagrams: 09/19/18 05:49 09/19/18 05:49 Labs: Laboratory Results - last 24 hr 09/19/18 09/19/18 05:49 05:49 WBC 8.5 RBC 4.77 Hgb 14.7 Hct 43.3 MCV 90.8 MCH 30.8 MCHC 33.9 RDW 14.1 Plt Count 241 Neut % (Auto) 65.2 Lymph % (Auto) 22.3 L [place] % (Auto) 8.8 Eos % (Auto) 3.0 Baso % (Auto) 0.7 Neut # (Auto) 5600 Lymph # (Auto) 1900 [place] # (Auto) 800 Eos # (Auto) 300 Baso # (Auto) 100 Sodium 138 Potassium 4.2 Chloride 102 Carbon Dioxide 26 BUN 21 H Creatinine 0.60 L Estimated GFR > 60.0 BUN/Creatinine Ratio 35.0 H Glucose 113 H Calcium 8.9 Magnesium 2.0 Discharge Plan Discharge Plan Patient Disposition: Home Discharge Med Rec/Prescriptions Prescriptions: New aspirin 81 mg Tablet,Delayed Release (Dr/Ec) 81 mg PO DAILY Qty: 30 RF: 0 hydrochlorothiazide 25 mg Tablet 25 mg PO DAILY Qty: 30 RF: 0 metoprolol succinate 25 mg tablet extended release 24 hr 25 mg PO DAILY Qty: 30 RF: 0 lisinopril 40 mg tablet 40 mg PO DAILY Qty: 30 RF: 0 Discontinued ciprofloxacin HCl [Cipro] 500 MG tablet 500 mg PO BID 14 Days Qty: 0 RF: 0 Provider Discharge Instructions Diet: Diet as Tolerated Visit Report/Discharge Packet Instructions: Essential Hypertension, DI for Arrhythmias Discharge Data Attending Provider: Hayley Renteria Admit Date/Time: 09/17/18 22:59 Quality VTE Deep Vein Thrombosis/Pulmonary Embolism Present on Admission: No
== END 2018-09-19 13:00 | disposition home or self-care (01) ==
LOC: ED 22:54 → AC 23:00
PROVIDERS: Internal Medicine; Admitting Provider Nurse Practitioner Gerontology; Emergency Provider Emergency Medicine; Visit Provider Nurse Practitioner Gerontology
DX: I48.0 Paroxysmal atrial fibrillation (principal); R07.9 Chest pain, unspecified; I10 Essential (primary) hypertension; F17.210 Nicotine dependence, cigarettes, uncomplicated; J44.9 Chronic obstructive pulmonary disease, unspecified; I16.0 Hypertensive urgency; T46.4X6A Underdosing of angiotensin-converting-enzyme inhibitors, initial encounter; I42.9 Cardiomyopathy, unspecified; R51 Headache
CPT/HCPCS: 36415; 36591; 71045; 80048; 80053; 80061; 80305; 81001; 82550; 82553; 83036; 83605; 83735; 83880; 84145; 84443; 84484; 85025; 85610; 85730; 93005; 93306; 96361; 96374; 99283; 99285; G0378; J1644

== ENCOUNTER 2018-10-23 23:25 | Emergency (ER) | payer SELFPAY ==
[2018-09-18 01:41] VITALS: BMI 26.8
[2018-10-23 23:47] VITALS: BMI 25.7
[2018-10-24] VITALS (9 sets, daily range): BP systolic 100–151; BP diastolic 40–95; PULSE 71–134; RESP 18–22; O2SAT 94–100
[2018-10-24 00:08] LABS: Add Manual Diff / Slide Review NO; Basophils Absolute Auto 0 /uL (0-100); Basophils Percent Auto 0.6 % (0-2); Eosinophils Absolute Auto 300 /uL (0-450); Eosinophils Percent Auto 3.5 % (2-4); Hematocrit 42.9 % (41-53); Hemoglobin 14.6 g/dL (13.5-17.5); Lymphocytes Absolute Auto 2400 /uL (1100-4500); Lymphocytes Percent Auto 32.1 % (25-40); Mean Corpuscular HGB Conc 33.9 % (30-36); Mean Corpuscular Hemoglobin 30.6 PG (26-34); Monocytes Absolute Auto 700 /uL (0-900); Monocytes Percent Auto 8.8 % (3-14); Neutrophils Absolute Auto 4200 /uL (1500-7000); Platelet Count 241 X10^3/uL (150-400); Red Blood Cell Count 4.77 X10^6/uL (4.5-5.9); Red Cell Distribution Width 13.8 % (11.6-14.8); White Blood Cell Count 7.6 X10^3/uL (4.5-11.0)
[2018-10-24] MEDS: METOPROLOL TARTRATE 5 MG/5 ML INJ IV (00:16)
[2018-10-24] MEDS: SODIUM CHLORIDE 0.9% 1,000 ML 150 ML IV (00:17)
[2018-10-24 00:19] LABS: INR 0.9 (0.9-1.3); Prothrombin Time 10.6 SECONDS (10.1-12.7)
[2018-10-24 00:21] LABS: PTT Partial Thromboplastin Tim 32 SECONDS (26.4-36.2)
[2018-10-24 00:23] LABS: Alanine Aminotransferase 41 IU/L (21-72); Albumin 4.2 g/dL (3.5-5.0); Albumin Globulin Ratio 1.2 (1.0-2.8); Alkaline Phosphatase 66 U/L (38-126); Aspartate Aminotransferase 27 IU/L (17-59); BUN Creatinine Ratio 24.3 (6-22); Bilirubin Total 0.2 mg/dL (0.2-1.3); Blood Urea Nitrogen 17 mg/dL (9-20); Calcium 9.3 mg/dL (8.4-10.2); Carbon Dioxide 27 mmol/L (22-32); Chloride 104 mmol/L (98-107); Creatine Kinase 97 U/L (55-170); Estimated Glomerular Filt Rate > 60.0 mL/min (>60); Globulin 3.4 g/dL (1.7-4.1); Glucose 113 mg/dL (80-110); HEMOLYSIS 19 (0-50); Lipase 142 U/L (23-300); Potassium 3.8 mmol/L (3.4-5.1); Sodium 143 mmol/L (137-145); Total Protein 7.6 g/dL (6.3-8.2)
[2018-10-24 00:24] LABS: Magnesium 1.9 mg/dL (1.6-2.3)
[2018-10-24 00:54] LABS: Thyroid Stimulating Hormone 2.36 uIU/mL (0.47-4.68)
--- NOTE | 2018-10-24 01:51 | ED.ARRPALP ---
HPI - Arrhythmia/Palpitations General Chief Complaint: Arrhythmia/Palpitations Stated Complaint: Heart racing/fluttering Time Seen by Provider: 10/23/18 23:36 Source: patient and family Mode of arrival: ambulatory Limitations: no limitations History of Present Illness HPI narrative: 62-year-old male smoker with history of hypertension and recent diagnosis of atrial fibrillation presents with a rapid heart rate and palpitations that started about 45 min ago. He denies chest pain or shortness of breath. He is not anticoagulated. His initial diagnosis of AFib was about 1 month ago. He denies nausea, vomiting or diarrhea. MD complaint: rapid heart beat and heart racing Duration: constant Severity: moderate Context: occurred during rest Arrhythmia history: atrial fibrillation Associated symptoms: denies other symptoms Related Data Previous Rx's Medication Instructions Recorded aspirin 81 mg PO DAILY #30 tab 09/19/18 hydrochlorothiazide 25 mg PO DAILY #30 tab 09/19/18 lisinopril 40 mg PO DAILY #30 tab 09/19/18 metoprolol succinate 25 mg PO DAILY #30 tab 09/19/18 hydrochlorothiazide 25 mg PO DAILY #30 tab 10/24/18 lisinopril 40 mg PO DAILY #30 tab 10/24/18 metoprolol succinate 25 mg PO DAILY #30 tab 10/24/18 Allergies Allergy/AdvReac Type Severity Reaction Status Date / Time No Known Drug Allergies Allergy Verified 09/17/18 19:11 Review of Systems Constitutional Denies chills, Denies fever(s), Denies lethargy and Denies weakness Eyes Denies change in vision, Denies eye discharge, Denies irritation and Denies loss of vision ENT Ears, Nose, Mouth, and Throat: Denies change in voice, Denies neck pain and Denies sore throat Cardiovascular Denies chest pain, Denies irregular heart rhythm, Denies lightheadedness, Reports palpitations, Denies dyspnea, Denies dyspnea on exertion and Denies orthopnea Respiratory Denies cough, Denies dyspnea, Denies dyspnea on exertion and Denies wheezing Gastrointestinal Gastrointestinal: Denies abdominal pain, Denies change in bowel habits, Denies diarrhea, Denies nausea and Denies vomiting Genitourinary Denies hematuria, Denies flank pain, Denies urinary incontinence and Denies urinary urgency Musculoskeletal Denies neck pain Integumentary/Breasts Denies pruritus, Denies erythema, Denies rash and Denies wounds Neurologic Denies confusion, Denies loss of vision and Denies weakness Psychiatric Denies anxiety, Denies confusion, Denies depression, Denies homicidal ideation and Denies suicidal ideation Endocrine Reports palpitations Hematologic/Lymphatic Denies easy bruising Allergic/Immunologic Denies wheezing [facility] Medical History Hypertension (Acute) Social History household members: none Smoking Status: Current every day smoker alcohol intake: current Social History household members: none Smoking Status: Current every day smoker alcohol intake: current Exam Narrative Exam Narrative: GENERAL: This is a well-nourished, well-developed patient, in mild distress. HEAD: Atraumatic. Normocephalic. No temporal or scalp tenderness. EYES: Pupils equal round and reactive. Extraocular motions intact. No scleral icterus. No injection or drainage. ENT: Nose without bleeding, purulent drainage or septal hematoma. Throat without erythema, tonsillar hypertrophy or exudate. Uvula midline. Airway patent. NECK: Trachea midline. No JVD or lymphadenopathy. Supple, nontender, no meningeal signs. CARDIOVASCULAR: Rapid rate and irregular rhythm without murmurs, gallops, or rubs. RESPIRATORY: Clear to auscultation. Breath sounds equal bilaterally. No wheezes, rales, or rhonchi. GASTROINTESTINAL: Abdomen soft, non-tender, nondistended. No hepato-splenomegaly, or palpable masses. No guarding. EXTREMITIES: No clubbing, cyanosis, or edema. No joint tenderness, effusion, or edema noted. BACK: Nontender without deformity or crepitance. No flank tenderness. NEURO: AOx3. SKIN: No rash or erythema. Initial Vital Signs Initial Vital Signs: Vital Signs Pulse Rate 110 H 10/24/18 00:17 Blood Pressure 121/81 10/24/18 00:17 Procedures Cardioversion Consent Signed: Yes Cardiac rhythm prior to cardioversion: Rapid AFib Stability: Stable Time out performed: Yes Preparation: campus monitor applied, pulse oximeter, supplemental O2 applied and suction/airway equipment at bedside IV Propofol Dose (mgs): 100 Total Time of Sedation (Min): 10 Number of attempts (shocks): 1 Joules used: 150 Cardiac rhythm post-cardioversion: Normal sinus Patient tolerated procedure sedation: Well Complications sedation: none Procedural Sedation Patient Age: Patient is 5yrs or older Consent signed: Yes Time out performed: Yes Indication: other (Cardioversion) ASA Class: II Mallampati Airway Classification: Class I Time of Last PO Intake: 14:00 Preparation: campus monitor applied, pulse oximeter, capnometry used, supplemental O2 applied, suction/airway equipment at bedside and IV secured IV Propofol dose (mg): 100 Intraservice time/total sedation time (min): 10 ED Sedation Level: Moderate (Concious) Patient Tolerated Procedure: Well Complications: none Scores CHADS-VASc Congestive heart failure: no Hypertension: yes Age 75 years or older: no Diabetes mellitus: no Stroke, TIA, or TE: no Vascular disease: no Age 65 to 74 years: no Sex category (female): Male CHADS-VASc Score: 1 Course Orders Ordered: ED Orders 10/24/18 00:01 Complete Blood Count AUTO DIFF Stat Comprehensive Metabolic Panel Stat Lipase Stat Magnesium Stat Partial Thromboplastin Time Stat Prothrombin Time INR Stat Thyroid Stimulating Hormone Stat Troponin & CK Cardiac Panel Stat Discontinued Medications Sodium Chloride (Normal Saline 0.9%) 1,000 mls @ 150 mls/hr IV CONT CONSTANTINO Last Infusion: 10/24/18 02:06 Dose: 0 mls/hr Admin: 10/24/18 00:17 Dose: 150 mls/hr Metoprolol Tartrate (Lopressor) 5 mg IV NOW ONE Stop: 10/24/18 00:02 Last Admin: 10/24/18 00:16 Dose: 5 mg Propofol (Diprivan) 100 mg IV NOW ONE Stop: 10/24/18 01:56 Last Admin: 10/24/18 01:57 Dose: 100 mg Vital Signs - 8 hr 10/24/18 00:17 10/24/18 00:30 10/24/18 01:02 Pulse Rate 110 H 120 H 101 H Respiratory Rate 18 22 Blood Pressure [Left Arm] 121/81 113/75 151/95 H Pulse Oximetry 99 97 10/24/18 01:15 10/24/18 01:22 10/24/18 01:24 Pulse Rate 132 H 134 H 90 Respiratory Rate 18 18 18 Blood Pressure [Left Arm] 143/84 H 130/95 H 134/80 Pulse Oximetry 100 99 94 10/24/18 01:30 10/24/18 01:35 10/24/18 01:58 Pulse Rate 81 78 71 Respiratory Rate 18 18 18 Blood Pressure [Left Arm] 124/81 100/40 L 135/84 Pulse Oximetry 94 100 98 MDM - Arrhythmia/Palpitations Lab Data Attestation: I reviewed the patient's lab results. Result diagrams: 10/24/18 00:01 10/24/18 00:01 Lab Results 10/24/18 10/24/18 10/24/18 Range/Units 00:01 00:01 00:01 WBC 7.6 (4.5-11.0) X10^3/uL RBC 4.77 (4.5-5.9) X10^6/uL Hgb 14.6 (13.5-17.5) g/dL Hct 42.9 (41-53) % MCV 90.0 (80-100) fL MCH 30.6 (26-34) PG MCHC 33.9 (30-36) % RDW 13.8 (11.6-14.8) % Plt Count 241 (150-400) X10^3/uL Neut % (Auto) 55.0 (50-75) % Lymph % (Auto) 32.1 (25-40) % [place] % (Auto) 8.8 (3-14) % Eos % (Auto) 3.5 (2-4) % Baso % (Auto) 0.6 (0-2) % Neut # (Auto) 4200 (1863-0567) /uL Lymph # (Auto) 2400 (4166-3051) /uL [place] # (Auto) 700 (0-900) /uL Eos # (Auto) 300 (0-450) /uL Baso # (Auto) 0 (0-100) /uL PT 10.6 (10.1-12.7) SECONDS INR 0.9 (0.9-1.3) APTT 32 (26.4-36.2) SECONDS Sodium 143 (137-145) mmol/L Potassium 3.8 (3.4-5.1) mmol/L Chloride 104 (98-107) mmol/L Carbon Dioxide 27 (22-32) mmol/L BUN 17 (9-20) mg/dL Creatinine 0.70 (0.66-1.25) mg/dL Estimated GFR > 60.0 (>60) mL/min BUN/Creatinine Ratio 24.3 H (6-22) Glucose 113 H (80-110) mg/dL Calcium 9.3 (8.4-10.2) mg/dL Magnesium (1.6-2.3) mg/dL Total Bilirubin 0.2 (0.2-1.3) mg/dL AST 27 (17-59) IU/L ALT 41 (21-72) IU/L Alkaline Phosphatase 66 (38-126) U/L Total Creatine Kinase 97 (55-170) U/L CK-MB (CK-2) TNP CK-MB (CK-2) Rel Index TNP Troponin I 0.020 (0.01-0.034) ng/mL Total Protein 7.6 (6.3-8.2) g/dL Albumin 4.2 (3.5-5.0) g/dL Globulin 3.4 (1.7-4.1) g/dL Albumin/Globulin Ratio 1.2 (1.0-2.8) Lipase 142 (23-300) U/L TSH (0.47-4.68) uIU/mL 10/24/18 10/24/18 Range/Units 00:01 00:01 WBC (4.5-11.0) X10^3/uL RBC (4.5-5.9) X10^6/uL Hgb (13.5-17.5) g/dL Hct (41-53) % MCV (80-100) fL MCH (26-34) PG MCHC (30-36) % RDW (11.6-14.8) % Plt Count (150-400) X10^3/uL Neut % (Auto) (50-75) % Lymph % (Auto) (25-40) % [place] % (Auto) (3-14) % Eos % (Auto) (2-4) % Baso % (Auto) (0-2) % Neut # (Auto) (3986-6965) /uL Lymph # (Auto) (6344-9041) /uL [place] # (Auto) (0-900) /uL Eos # (Auto) (0-450) /uL Baso # (Auto) (0-100) /uL PT (10.1-12.7) SECONDS INR (0.9-1.3) APTT (26.4-36.2) SECONDS Sodium (137-145) mmol/L Potassium (3.4-5.1) mmol/L Chloride (98-107) mmol/L Carbon Dioxide (22-32) mmol/L BUN (9-20) mg/dL Creatinine (0.66-1.25) mg/dL Estimated GFR (>60) mL/min BUN/Creatinine Ratio (6-22) Glucose (80-110) mg/dL Calcium (8.4-10.2) mg/dL Magnesium 1.9 (1.6-2.3) mg/dL Total Bilirubin (0.2-1.3) mg/dL AST (17-59) IU/L ALT (21-72) IU/L Alkaline Phosphatase (38-126) U/L Total Creatine Kinase (55-170) U/L CK-MB (CK-2) CK-MB (CK-2) Rel Index Troponin I (0.01-0.034) ng/mL Total Protein (6.3-8.2) g/dL Albumin (3.5-5.0) g/dL Globulin (1.7-4.1) g/dL Albumin/Globulin Ratio (1.0-2.8) Lipase (23-300) U/L TSH 2.36 (0.47-4.68) uIU/mL ECG Data Attestation: I personally reviewed and interpreted this ECG as follows: Prior ECG tracings: not available for review Interpretation: Rapid AFib without signs of ischemia Post cardioversion notes a normal sinus rhythm in the 70s Discharge Plan Departure Patient Disposition: Home Clinical Impression: Atrial fibrillation Qualifiers: Atrial fibrillation type: paroxysmal Qualified Code(s): I48.0 - Paroxysmal atrial fibrillation Discharge Date/Time: 10/24/18 02:08 Interventions: ED Discharge Assessment Last Done: 10/24/18 02:07 Instructions: DI for Atrial Fibrillation Activity Restrictions/Additional Instructions: *You have been diagnosed with [ rapid AFib] *What to do: *Take medications as directed *Follow up with your primary care provider in 2-3 days, call for an appointment. Let them know you were seen in the Emergency Department and that we ask that you be seen in follow up *Return to ER if you should have any new, worsening or concerning symptoms Prescriptions: New hydrochlorothiazide 25 mg tablet 25 mg PO DAILY Qty: 30 RF: 0 metoprolol succinate 25 mg tablet extended release 24 hr 25 mg PO DAILY Qty: 30 RF: 0 lisinopril 40 mg tablet 40 mg PO DAILY Qty: 30 RF: 0 Continued hydrochlorothiazide 25 mg Tablet 25 mg PO DAILY Qty: 30 RF: 0 metoprolol succinate 25 mg tablet extended release 24 hr 25 mg PO DAILY Qty: 30 RF: 0 lisinopril 40 mg tablet 40 mg PO DAILY Qty: 30 RF: 0 No Action aspirin 81 mg Tablet,Delayed Release (Dr/Ec) 81 mg PO DAILY Qty: 30 RF: 0
[2018-10-24] MEDS: PROPOFOL 200 MG/20 ML VIAL 100 MG IV (01:57)
--- NOTE | 2018-10-24 06:10 | ED_ITS ---
HPI - Arrhythmia/Palpitations General Chief Complaint: Arrhythmia/Palpitations Stated Complaint: Heart racing/fluttering Time Seen by Provider: 10/23/18 23:36 Source: patient and family Mode of arrival: ambulatory Limitations: no limitations History of Present Illness HPI narrative: 62-year-old male smoker with history of hypertension and recent diagnosis of atrial fibrillation presents with a rapid heart rate and palpitations that started about 45 min ago. He denies chest pain or shortness of breath. He is not anticoagulated. His initial diagnosis of AFib was about 1 month ago. He denies nausea, vomiting or diarrhea. MD complaint: rapid heart beat and heart racing Duration: constant Severity: moderate Context: occurred during rest Arrhythmia history: atrial fibrillation Associated symptoms: denies other symptoms Related Data Previous Rx's Medication Instructions Recorded aspirin 81 mg PO DAILY #30 tab 09/19/18 hydrochlorothiazide 25 mg PO DAILY #30 tab 09/19/18 lisinopril 40 mg PO DAILY #30 tab 09/19/18 metoprolol succinate 25 mg PO DAILY #30 tab 09/19/18 hydrochlorothiazide 25 mg PO DAILY #30 tab 10/24/18 lisinopril 40 mg PO DAILY #30 tab 10/24/18 metoprolol succinate 25 mg PO DAILY #30 tab 10/24/18 Allergies Allergy/AdvReac Type Severity Reaction Status Date / Time No Known Drug Allergies Allergy Verified 09/17/18 19:11 Review of Systems Constitutional Denies chills, Denies fever(s), Denies lethargy and Denies weakness Eyes Denies change in vision, Denies eye discharge, Denies irritation and Denies loss of vision ENT Ears, Nose, Mouth, and Throat: Denies change in voice, Denies neck pain and Denies sore throat Cardiovascular Denies chest pain, Denies irregular heart rhythm, Denies lightheadedness, Reports palpitations, Denies dyspnea, Denies dyspnea on exertion and Denies orthopnea Respiratory Denies cough, Denies dyspnea, Denies dyspnea on exertion and Denies wheezing Gastrointestinal Gastrointestinal: Denies abdominal pain, Denies change in bowel habits, Denies diarrhea, Denies nausea and Denies vomiting Genitourinary Denies hematuria, Denies flank pain, Denies urinary incontinence and Denies urinary urgency Musculoskeletal Denies neck pain Integumentary/Breasts Denies pruritus, Denies erythema, Denies rash and Denies wounds Neurologic Denies confusion, Denies loss of vision and Denies weakness Psychiatric Denies anxiety, Denies confusion, Denies depression, Denies homicidal ideation and Denies suicidal ideation Endocrine Reports palpitations Hematologic/Lymphatic Denies easy bruising Allergic/Immunologic Denies wheezing [facility] Medical History Hypertension (Acute) Social History household members: none Smoking Status: Current every day smoker alcohol intake: current Social History household members: none Smoking Status: Current every day smoker alcohol intake: current Exam Narrative Exam Narrative: GENERAL: This is a well-nourished, well-developed patient, in mild distress. HEAD: Atraumatic. Normocephalic. No temporal or scalp tenderness. EYES: Pupils equal round and reactive. Extraocular motions intact. No scleral icterus. No injection or drainage. ENT: Nose without bleeding, purulent drainage or septal hematoma. Throat without erythema, tonsillar hypertrophy or exudate. Uvula midline. Airway patent. NECK: Trachea midline. No JVD or lymphadenopathy. Supple, nontender, no meningeal signs. CARDIOVASCULAR: Rapid rate and irregular rhythm without murmurs, gallops, or rubs. RESPIRATORY: Clear to auscultation. Breath sounds equal bilaterally. No wheezes, rales, or rhonchi. GASTROINTESTINAL: Abdomen soft, non-tender, nondistended. No hepato- splenomegaly, or palpable masses. No guarding. EXTREMITIES: No clubbing, cyanosis, or edema. No joint tenderness, effusion, or edema noted. BACK: Nontender without deformity or crepitance. No flank tenderness. NEURO: AOx3. SKIN: No rash or erythema. Initial Vital Signs Initial Vital Signs: Vital Signs Pulse Rate 110 H 10/24/18 00:17 Blood Pressure 121/81 10/24/18 00:17 Procedures Cardioversion Consent Signed: Yes Cardiac rhythm prior to cardioversion: Rapid AFib Stability: Stable Time out performed: Yes Preparation: cardiac tech applied, pulse oximeter, supplemental O2 applied and suction/airway equipment at bedside IV Propofol Dose (mgs): 100 Total Time of Sedation (Min): 10 Number of attempts (shocks): 1 Joules used: 150 Cardiac rhythm post-cardioversion: Normal sinus Patient tolerated procedure sedation: Well Complications sedation: none Procedural Sedation Patient Age: Patient is 5yrs or older Consent signed: Yes Time out performed: Yes Indication: other (Cardioversion) ASA Class: II Mallampati Airway Classification: Class I Time of Last PO Intake: 14:00 Preparation: cardiac tech applied, pulse oximeter, capnometry used, supplemental O2 applied, suction/airway equipment at bedside and IV secured IV Propofol dose (mg): 100 Intraservice time/total sedation time (min): 10 ED Sedation Level: Moderate (Concious) Patient Tolerated Procedure: Well Complications: none Scores CHADS-VASc Congestive heart failure: no Hypertension: yes Age 75 years or older: no Diabetes mellitus: no Stroke, TIA, or TE: no Vascular disease: no Age 65 to 74 years: no Sex category (female): Male CHADS-VASc Score: 1 Course Orders Ordered: ED Orders 10/24/18 00:01 Complete Blood Count AUTO DIFF Stat Comprehensive Metabolic Panel Stat Lipase Stat Magnesium Stat Partial Thromboplastin Time Stat Prothrombin Time INR Stat Thyroid Stimulating Hormone Stat Troponin & CK Cardiac Panel Stat Discontinued Medications Sodium Chloride (Normal Saline 0.9%) 1,000 mls @ 150 mls/hr IV CONT CONSTANTINO Last Infusion: 10/24/18 02:06 Dose: 0 mls/hr Admin: 10/24/18 00:17 Dose: 150 mls/hr Metoprolol Tartrate (Lopressor) 5 mg IV NOW ONE Stop: 10/24/18 00:02 Last Admin: 10/24/18 00:16 Dose: 5 mg Propofol (Diprivan) 100 mg IV NOW ONE Stop: 10/24/18 01:56 Last Admin: 10/24/18 01:57 Dose: 100 mg Vital Signs - 8 hr 10/24/18 00:17 10/24/18 00:30 10/24/18 01:02 Pulse Rate 110 H 120 H 101 H Respiratory Rate 18 22 Blood Pressure [Left Arm] 121/81 113/75 151/95 H Pulse Oximetry 99 97 10/24/18 01:15 10/24/18 01:22 10/24/18 01:24 Pulse Rate 132 H 134 H 90 Respiratory Rate 18 18 18 Blood Pressure [Left Arm] 143/84 H 130/95 H 134/80 Pulse Oximetry 100 99 94 10/24/18 01:30 10/24/18 01:35 10/24/18 01:58 Pulse Rate 81 78 71 Respiratory Rate 18 18 18 Blood Pressure [Left Arm] 124/81 100/40 L 135/84 Pulse Oximetry 94 100 98 MDM - Arrhythmia/Palpitations Lab Data Attestation: I reviewed the patient's lab results. Result diagrams: 10/24/18 00:01 10/24/18 00:01 Lab Results 10/24/18 10/24/18 10/24/18 Range/Units 00:01 00:01 00:01 WBC 7.6 (4.5-11.0) X10^3/uL RBC 4.77 (4.5-5.9) X10^6/uL Hgb 14.6 (13.5-17.5) g/dL Hct 42.9 (41-53) % MCV 90.0 (80-100) fL MCH 30.6 (26-34) PG MCHC 33.9 (30-36) % RDW 13.8 (11.6-14.8) % Plt Count 241 (150-400) X10^3/uL Neut % (Auto) 55.0 (50-75) % Lymph % (Auto) 32.1 (25-40) % [place] % (Auto) 8.8 (3-14) % Eos % (Auto) 3.5 (2-4) % Baso % (Auto) 0.6 (0-2) % Neut # (Auto) 4200 (5359-7691) /uL Lymph # (Auto) 2400 (0308-3795) /uL [place] # (Auto) 700 (0-900) /uL Eos # (Auto) 300 (0-450) /uL Baso # (Auto) 0 (0-100) /uL PT 10.6 (10.1-12.7) SECONDS INR 0.9 (0.9-1.3) APTT 32 (26.4-36.2) SECONDS Sodium 143 (137-145) mmol/L Potassium 3.8 (3.4-5.1) mmol/L Chloride 104 (98-107) mmol/L Carbon Dioxide 27 (22-32) mmol/L BUN 17 (9-20) mg/dL Creatinine 0.70 (0.66-1.25) mg/dL Estimated GFR > 60.0 (>60) mL/min BUN/Creatinine Ratio 24.3 H (6-22) Glucose 113 H (80-110) mg/dL Calcium 9.3 (8.4-10.2) mg/dL Magnesium (1.6-2.3) mg/dL Total Bilirubin 0.2 (0.2-1.3) mg/dL AST 27 (17-59) IU/L ALT 41 (21-72) IU/L Alkaline Phosphatase 66 (38-126) U/L Total Creatine Kinase 97 (55-170) U/L CK-MB (CK-2) TNP CK-MB (CK-2) Rel Index TNP Troponin I 0.020 (0.01-0.034) ng/mL Total Protein 7.6 (6.3-8.2) g/dL Albumin 4.2 (3.5-5.0) g/dL Globulin 3.4 (1.7-4.1) g/dL Albumin/Globulin Ratio 1.2 (1.0-2.8) Lipase 142 (23-300) U/L TSH (0.47-4.68) uIU/mL 10/24/18 10/24/18 Range/Units 00:01 00:01 WBC (4.5-11.0) X10^3/uL RBC (4.5-5.9) X10^6/uL Hgb (13.5-17.5) g/dL Hct (41-53) % MCV (80-100) fL MCH (26-34) PG MCHC (30-36) % RDW (11.6-14.8) % Plt Count (150-400) X10^3/uL Neut % (Auto) (50-75) % Lymph % (Auto) (25-40) % [place] % (Auto) (3-14) % Eos % (Auto) (2-4) % Baso % (Auto) (0-2) % Neut # (Auto) (7786-4454) /uL Lymph # (Auto) (9768-0615) /uL [place] # (Auto) (0-900) /uL Eos # (Auto) (0-450) /uL Baso # (Auto) (0-100) /uL PT (10.1-12.7) SECONDS INR (0.9-1.3) APTT (26.4-36.2) SECONDS Sodium (137-145) mmol/L Potassium (3.4-5.1) mmol/L Chloride (98-107) mmol/L Carbon Dioxide (22-32) mmol/L BUN (9-20) mg/dL Creatinine (0.66-1.25) mg/dL Estimated GFR (>60) mL/min BUN/Creatinine Ratio (6-22) Glucose (80-110) mg/dL Calcium (8.4-10.2) mg/dL Magnesium 1.9 (1.6-2.3) mg/dL Total Bilirubin (0.2-1.3) mg/dL AST (17-59) IU/L ALT (21-72) IU/L Alkaline Phosphatase (38-126) U/L Total Creatine Kinase (55-170) U/L CK-MB (CK-2) CK-MB (CK-2) Rel Index Troponin I (0.01-0.034) ng/mL Total Protein (6.3-8.2) g/dL Albumin (3.5-5.0) g/dL Globulin (1.7-4.1) g/dL Albumin/Globulin Ratio (1.0-2.8) Lipase (23-300) U/L TSH 2.36 (0.47-4.68) uIU/mL ECG Data Attestation: I personally reviewed and interpreted this ECG as follows: Prior ECG tracings: not available for review Interpretation: Rapid AFib without signs of ischemia Post cardioversion notes a normal sinus rhythm in the 70s Discharge Plan Departure Patient Disposition: Home Clinical Impression: Atrial fibrillation Qualifiers: Atrial fibrillation type: paroxysmal Qualified Code(s): I48.0 - Paroxysmal atrial fibrillation Discharge Date/Time: 10/24/18 02:08 Interventions: ED Discharge Assessment Last Done: 10/24/18 02:07 Instructions: DI for Atrial Fibrillation Activity Restrictions/Additional Instructions: *You have been diagnosed with [ rapid AFib] *What to do: *Take medications as directed *Follow up with your primary care provider in 2-3 days, call for an appointment. Let them know you were seen in the Emergency Department and that we ask that you be seen in follow up *Return to ER if you should have any new, worsening or concerning symptoms Prescriptions: New hydrochlorothiazide 25 mg tablet 25 mg PO DAILY Qty: 30 RF: 0 metoprolol succinate 25 mg tablet extended release 24 hr 25 mg PO DAILY Qty: 30 RF: 0 lisinopril 40 mg tablet 40 mg PO DAILY Qty: 30 RF: 0 Continued hydrochlorothiazide 25 mg Tablet 25 mg PO DAILY Qty: 30 RF: 0 metoprolol succinate 25 mg tablet extended release 24 hr 25 mg PO DAILY Qty: 30 RF: 0 lisinopril 40 mg tablet 40 mg PO DAILY Qty: 30 RF: 0 No Action aspirin 81 mg Tablet,Delayed Release (Dr/Ec) 81 mg PO DAILY Qty: 30 RF: 0
--- NOTE | 2020-05-18 10:19 | ONC.MSW ---
Description: T/C re: referral Activity: Left message for pt re: confirming that we've received his referral, requested a call back to discuss scheduling.
== END 2018-10-24 02:08 | disposition home or self-care (01) ==
PROVIDERS: Emergency Provider Emergency Medicine
DX: I48.0 Paroxysmal atrial fibrillation (principal)
CPT/HCPCS: 36591; 80053; 82550; 83690; 83735; 84443; 84484; 85025; 85610; 85730; 92960; 93005; 94770; 96361; 96374; 96375; 99152; 99284; 99285; J2704

== ENCOUNTER 2018-11-28 13:13 | Emergency (ER) | payer SELFPAY ==
[2018-09-18 01:41] VITALS: BMI 26.8
[2018-11-28 13:15] VITALS: BP 162/75; PULSE 74; RESP 15; TEMP 36.6; O2SAT 98; BMI 25.7
--- NOTE | 2018-11-28 13:31 | ED_ITS ---
HPI - Recheck/Abnormal Lab/Rx <DERECK Maldonado - Last Filed: 11/28/18 13:39> General Chief Complaint: Recheck/Abnormal Lab/Rx Stated Complaint: High blood pressure Time Seen by Provider: 11/28/18 13:23 Source: patient Mode of arrival: ambulatory Limitations: no limitations History of Present Illness HPI narrative: The patient is a 62-year-old male current smoker who presents by himself requesting medication refills. He has a history of hypertension AFib and has been out of his lisinopril, hydrochlorothiazide and metoprolol for 4 days. He states he is trying to get in with a primary care provider, but he is unable to at this point time. He also states he needs to get pain before anything. He denies any chest pain headache nausea vomiting diarrhea or any symptoms. He states he only wants medication refills and does not want any workup. Related Data Previous Rx's Medication Instructions Recorded aspirin 81 mg PO DAILY #30 tab 09/19/18 hydrochlorothiazide 25 mg PO DAILY #30 tab 09/19/18 lisinopril 40 mg PO DAILY #30 tab 09/19/18 metoprolol succinate 25 mg PO DAILY #30 tab 09/19/18 hydrochlorothiazide 25 mg PO DAILY #30 tab 10/24/18 lisinopril 40 mg PO DAILY #30 tab 10/24/18 metoprolol succinate 25 mg PO DAILY #30 tab 10/24/18 hydrochlorothiazide 25 mg PO DAILY #30 tab 11/28/18 lisinopril 40 mg PO DAILY #30 tab 11/28/18 metoprolol succinate 25 mg PO DAILY #30 tab 11/28/18 Allergies Allergy/AdvReac Type Severity Reaction Status Date / Time No Known Drug Allergies Allergy Verified 11/28/18 13:15 Review of Systems <DERECK Maldonado - Last Filed: 11/28/18 13:39> Review of Systems GENERAL: Denies chills, fatigue, malaise, fever, sweats. HEENT: Denies sinus pain, ear pain, sore throat, difficulty swallowing, dizziness. RESPIRATORY: Denies dyspnea, cough, wheezing, hemoptysis, sputum. CARDIOVASCULAR: Denies chest pain, palpitations, orthopnea, edema, GASTROINTESTINAL: Denies nausea, vomiting, abdominal pain, diarrhea, constipation, melena. : Denies dysuria, frequency, incontinence, hematuria, urinary retention. MUSCULOSKELETAL: denies weakness, joint pain, or bony pain SKIN: Denies rash, skin lesions, or other NEUROLOGIC: Denies weakness, headache, numbness, change in speech, confusion, seizures, incoordination. PSYCHIATRIC: No concerning psychosocial issues. 12 point review of systems is negative except for those stated above PFSH <DERECK Maldonado - Last Filed: 11/28/18 13:39> Medical History Hypertension (Acute) Social History household members: none Smoking Status: Current every day smoker alcohol intake: current Social History household members: none Smoking Status: Current every day smoker alcohol intake: current Exam <DERECK Maldonado - Last Filed: 11/28/18 13:39> Narrative Exam Narrative: GENERAL: This is a well-nourished, well-developed patient, in no acute distress HEAD: Atraumatic. Normocephalic. No temporal or scalp tenderness. EYES: Pupils equal round and reactive. Extraocular motions intact. No scleral icterus. No injection or drainage. ENT: Nose without bleeding, purulent drainage or septal hematoma. Throat without erythema, tonsillar hypertrophy or exudate. Uvula midline. Airway patent. poor dentition noted NECK: Trachea midline. No JVD or lymphadenopathy. Supple, nontender, no meningeal signs. CARDIOVASCULAR: Regular rate and rhythm without murmurs, gallops, or rubs. RESPIRATORY: Clear to auscultation. Breath sounds equal bilaterally. No wheezes, rales, or rhonchi. No cough. No increased respiratory effort. GASTROINTESTINAL: Abdomen soft, non-tender, nondistended. No hepato- splenomegaly, or palpable masses. No guarding. EXTREMITIES: No clubbing, cyanosis, or edema. No joint tenderness, effusion, or edema noted. active bowel sounds. No palpable pulsatile mass. BACK: Nontender without deformity or crepitance. No flank tenderness. NEURO: AOx3. SKIN: No rash or erythema. Initial Vital Signs Initial Vital Signs: Vital Signs Temperature 97.9 F 11/28/18 13:15 Pulse Rate 74 11/28/18 13:15 Respiratory Rate 15 11/28/18 13:15 Blood Pressure 162/75 H 11/28/18 13:15 Pulse Oximetry 98 11/28/18 13:15 <Terri Brooks DO - Last Filed: 12/01/18 19:02> Initial Vital Signs Initial Vital Signs: Vital Signs Temperature 97.9 F 11/28/18 13:15 Pulse Rate 74 11/28/18 13:15 Respiratory Rate 15 11/28/18 13:15 Blood Pressure 162/75 H 11/28/18 13:15 Pulse Oximetry 98 11/28/18 13:15 Course <DERECK Maldonado - Last Filed: 11/28/18 13:39> Vital Signs - 8 hr 11/28/18 13:15 Temperature 97.9 F Pulse Rate 74 Respiratory Rate 15 Blood Pressure 162/75 H Pulse Oximetry 98 <Terri Brooks DO - Last Filed: 12/01/18 19:02> Vital Signs - 8 hr 11/28/18 13:15 Temperature 97.9 F Pulse Rate 74 Respiratory Rate 15 Blood Pressure 162/75 H Pulse Oximetry 98 MDM - Recheck/Abnormal Lab/Rx <DERECK Maldonado - Last Filed: 11/28/18 13:39> MDM Narrative Medical decision making narrative: The patient is a 62-year-old male who presents requesting medication refills. He denies any symptoms such as chest pain or headache. I did discuss that his medications need monitoring, such as monitoring his kidney function for his lisinopril and his electrolytes for his hydrochlorothiazide. The patient declined any workup or evaluation or lab work today. He states he just wants refills. He does agree to follow up with primary care provider, so I gave him contact information for the [facility] at [facility]. Discussed the importance of follow-up. Patient has no questions or concerns upon discharge and is hemodynamically stable sergiou mauricio. Discharge Plan Departure Patient Disposition: Home Clinical Impression: Encounter for medication refill Discharge Date/Time: 11/28/18 13:39 Interventions: ED Discharge Assessment Last Done: 11/28/18 13:38 Instructions: DI for High Blood Pressure, DI for Safely Taking and Storing Medications -- Adults Activity Restrictions/Additional Instructions: I am giving you 1 month's worth of her lisinopril hydrochlorothiazide and metoprolol. As I discussed these medications need monitoring and you need follow-up. Please contact the [facility] [place] at [phone]. They can help you find a primary care provider. Prescriptions: New hydrochlorothiazide 25 mg tablet 25 mg PO DAILY Qty: 30 RF: 0 metoprolol succinate 25 mg tablet extended release 24 hr 25 mg PO DAILY Qty: 30 RF: 0 lisinopril 40 mg tablet 40 mg PO DAILY Qty: 30 RF: 0 No Action aspirin 81 mg Tablet,Delayed Release (Dr/Ec) 81 mg PO DAILY Qty: 30 RF: 0 hydrochlorothiazide 25 mg Tablet 25 mg PO DAILY Qty: 30 RF: 0 metoprolol succinate 25 mg tablet extended release 24 hr 25 mg PO DAILY Qty: 30 RF: 0 lisinopril 40 mg tablet 40 mg PO DAILY Qty: 30 RF: 0 hydrochlorothiazide 25 mg tablet 25 mg PO DAILY Qty: 30 RF: 0 metoprolol succinate 25 mg tablet extended release 24 hr 25 mg PO DAILY Qty: 30 RF: 0 lisinopril 40 mg tablet 40 mg PO DAILY Qty: 30 RF: 0 <Terri Brooks DO - Last Filed: 12/01/18 19:02> [facility] ED Attending Cathy Attestation: I was immediately available in the department for consultation. Documentation has been reviewed. I agree with assessment and plan.
== END 2018-11-28 13:39 | disposition home or self-care (01) ==
PROVIDERS: Emergency Provider Nurse Practitioner Family
DX: Z76.0 Encounter for issue of repeat prescription (principal)
CPT/HCPCS: 99281; 99282

== ENCOUNTER 2020-05-08 06:52 | Inpatient (IN) | payer OTHER, MEDICAID, SELFPAY ==
[2018-09-18 01:41] VITALS: BMI 26.8
[2020-05-08] VITALS (65 sets, daily range): BP systolic 69–191; BP diastolic 46–114; PULSE 48–136; RESP 13–59; TEMP 36.3–36.7; O2SAT 67–98; BMI 3831.6
--- NOTE | 2020-05-08 07:03 | ED.SOB ---
HPI - SOB/Dyspnea General Chief Complaint: Arrhythmia/Palpitations Stated Complaint: SOB, cough, no BP meds Time Seen by Provider: 05/08/20 06:55 Source: patient Mode of arrival: Ambulatory Limitations: no limitations History of Present Illness HPI Narrative: 64-year-old male daily smoker with history of hypertension and AFib (not anticoagulated) presents with a chief complaint of a few days of shortness of breath and fatigue. He denies any chest pain or palpitations. He denies runny nose, sore throat or cough. He denies any fever, chest, nausea, vomiting or diarrhea. He states that he has been without his medications for quite some time because he is just not taken them. Related Data Previous Rx's Medication Instructions Recorded aspirin 81 mg PO DAILY #30 tab 09/19/18 hydrochlorothiazide 25 mg PO DAILY #30 tab 09/19/18 lisinopril 40 mg PO DAILY #30 tab 09/19/18 metoprolol succinate 25 mg PO DAILY #30 tab 09/19/18 hydrochlorothiazide 25 mg PO DAILY #30 tab 10/24/18 lisinopril 40 mg PO DAILY #30 tab 10/24/18 metoprolol succinate 25 mg PO DAILY #30 tab 10/24/18 hydrochlorothiazide 25 mg PO DAILY #30 tab 11/28/18 lisinopril 40 mg PO DAILY #30 tab 11/28/18 metoprolol succinate 25 mg PO DAILY #30 tab 11/28/18 Allergies Allergy/AdvReac Type Severity Reaction Status Date / Time No Known Drug Allergies Allergy Verified 05/08/20 07:11 Review of Systems Constitutional Constitutional: Denies chills, Denies fatigue, Denies fever(s), Denies frequent falls, Denies lethargy and Denies weakness Eyes Eyes: Denies change in vision, Denies eye discharge, Denies irritation and Denies loss of vision ENT Ears, Nose, Mouth, and Throat: Denies change in voice, Denies dizziness, Denies neck pain, Denies sore throat and Denies throat swelling Cardiovascular Cardiovascular: Denies chest pain, Denies irregular heart rhythm, Denies lightheadedness, Denies palpitations, Reports dyspnea, Reports dyspnea on exertion and Denies orthopnea Respiratory Respiratory: Reports cough, Reports dyspnea, Reports dyspnea on exertion and Denies wheezing Gastrointestinal Gastrointestinal: Denies abdominal pain, Denies change in bowel habits, Denies diarrhea, Denies nausea and Denies vomiting Musculoskeletal Musculoskeletal: Denies neck pain and Denies numbness Integumentary/Breasts Skin/Breast: Denies pruritus, Denies erythema, Denies rash and Denies wounds Neurologic Neurologic: Denies behavioral changes, Denies confusion, Denies dizziness, Denies frequent falls, Denies loss of vision, Denies numbness and Denies weakness Psychiatric Psychiatric: Denies anxiety, Denies behavioral changes, Denies confusion, Denies depression, Denies homicidal ideation and Denies suicidal ideation Endocrine Endocrine: Denies fatigue, Denies flushing and Denies palpitations Hematologic/Lymphatic Hematologic/Lymphatic: Denies easy bruising Allergic/Immunologic Allergic/Immunologic: Denies urticaria, Denies throat swelling and Denies wheezing Patient History Medical History Hypertension (Acute) Social History household members: none Smoking Status: Current every day smoker alcohol intake: current Smoking Status: Current every day smoker alcohol intake frequency: a few times a week Substance Use Type: marijuana Exam Narrative Exam Narrative: GENERAL: [64] year old patient appears older than stated age. Well-nourished, well-developed patient, in moderate distress. HEAD: Atraumatic. Normocephalic. EYES: Pupils equal round and reactive. Extraocular motions intact. No scleral icterus. No injection or drainage. ENT: Nose without bleeding, purulent drainage. Throat without erythema, tonsillar hypertrophy or exudate. Airway patent. NECK: Trachea midline. Non tender CARDIOVASCULAR: Regular rate and rhythm without murmurs, gallops, or rubs. RESPIRATORY: Clear to auscultation. Breath sounds equal bilaterally. No wheezes, rales, or rhonchi. GASTROINTESTINAL: Abdomen soft, non-tender, nondistended. EXTREMITIES: No edema or joint tenderness. BACK: Nontender without deformity or crepitance. No flank tenderness. NEURO: AOx3. SKIN: No rash or erythema of visible areas Initial Vital Signs Initial Vital Signs: Vital Signs Temperature 98.1 F 05/08/20 07:06 Pulse Rate 119 H 05/08/20 07:06 Respiratory Rate 28 H 05/08/20 07:06 Blood Pressure 191/114 H 05/08/20 07:06 Pulse Oximetry 96 05/08/20 07:06 Course Course Course Narrative: Patient not a candidate for cardioversion given lack of ST changes, extremities on history, use of blood thinners and time of onset is unclear. Patient was trialed oral metoprolol but after 2 hours there is very little change, at which point he was given Cardizem. His blood pressures have been quite high and heart rate in the 140s and rather quickly after initiation of Cardizem patient's heart rate improved, however blood pressure dropped precipitously, as low as the 60s and 70s. This was associated with nausea and dizziness but quickly followed with severe epigastric pain. This pain was not present initially. Ultrasound was performed and unremarkable. He then proceeded to have a large bowel movement at which point his abdominal pain resolved. Largely his blood pressure returned back to the 140s but he did have a few episodes where it dropped low again. Repeat EKG is also nonischemic Orders Ordered: ED Orders 05/08/20 07:20 XR chest 1V Stat 05/08/20 07:25 Complete Blood Count AUTO DIFF Stat Comprehensive Metabolic Panel Stat D Dimer Stat NT-proBNP (BNP-Adult 18+) Stat Prothrombin Time INR Stat Troponin & CK Cardiac Panel Stat 05/08/20 08:26 CT angio chest PE protocol Stat 05/08/20 09:22 COVID19 -ED/INPAT/OR/L&D Stat Sodium Chloride (Normal Saline 0.9%) 1,000 mls @ 125 mls/hr IV CONT CONSTANTINO Last Infusion: 05/08/20 12:57 Dose: 0 mls/hr Documented by: Infusion: 05/08/20 12:15 Dose: 0 mls/hr Documented by: Admin: 05/08/20 07:39 Dose: 125 mls/hr Documented by: ERNST DILTIAZEM (Diltiazem 125 Mg/125 [id number]) 125 mg in 125 mls @ 5 mls/hr IV TITRATE CONSTANTINO; Protocol Last Titration: 05/08/20 11:24 Dose: 0 mg/hr, 0 mls/hr Documented by: Titration: 05/08/20 11:00 Dose: 0 mg/hr, 0 mls/hr Documented by: Admin: 05/08/20 10:06 Dose: 5 mg/hr, 5 mls/hr Documented by: JUAN Discontinued Medications Diltiazem HCl (Cardizem) 10 mg IV NOW ONE Stop: 05/08/20 09:17 Last Admin: 05/08/20 10:06 Dose: 10 mg Documented by: JUAN Ceftriaxone Sodium/Dextrose (Rocephin) 1 gm in 50 mls @ 100 mls/hr IV NOW ONE Stop: 05/08/20 09:44 Last Infusion: 05/08/20 12:15 Dose: 0 mls/hr Documented by: Admin: 05/08/20 11:16 Dose: 100 mls/hr Documented by: ERNST Azithromycin 500 mg/ Dextrose 250 mls @ 250 mls/hr IV NOW ONE Stop: 05/08/20 09:16 Last Infusion: 05/08/20 12:15 Dose: 0 mls/hr Documented by: Admin: 05/08/20 10:07 Dose: 250 mls/hr Documented by: JUAN Sodium Chloride (Normal Saline 0.9%) 500 mls @ 1,000 mls/hr IV BOLUS ONE Stop: 05/08/20 11:44 Last Infusion: 05/08/20 11:29 Dose: 0 mls/hr Documented by: Admin: 05/08/20 11:00 Dose: 1,000 mls/hr Documented by: ERNST Metoprolol Tartrate (Lopressor) 50 mg PO NOW ONE Stop: 05/08/20 07:21 Last Admin: 05/08/20 07:39 Dose: 50 mg Documented by: ERNST Vital Signs Vital signs: Vital Signs - 8 hr 05/08/20 07:06 05/08/20 08:22 05/08/20 08:30 Temperature 98.1 F Pulse Rate 119 H 136 H 121 H Respiratory Rate 28 H 28 H 31 H Blood Pressure 191/114 H Pulse Oximetry 96 91 90 L 05/08/20 08:31 05/08/20 08:55 05/08/20 09:00 Temperature Pulse Rate 128 H 75 117 H Respiratory Rate 30 H 28 H Blood Pressure 147/95 H Pulse Oximetry 91 91 90 L 05/08/20 09:15 05/08/20 09:35 05/08/20 09:45 Temperature Pulse Rate 120 H 118 H 116 H Respiratory Rate 25 H 36 H 29 H Blood Pressure Pulse Oximetry 90 L 98 91 05/08/20 10:00 05/08/20 10:05 05/08/20 10:06 Temperature Pulse Rate 116 H 109 H 116 H Respiratory Rate 34 H 35 H Blood Pressure 128/99 H 128/99 H Pulse Oximetry 93 93 05/08/20 10:15 05/08/20 10:20 05/08/20 10:25 Temperature Pulse Rate 103 H 105 H 103 H Respiratory Rate 32 H 29 H 30 H Blood Pressure 107/80 Pulse Oximetry 90 L 89 L 90 L 05/08/20 10:30 05/08/20 10:35 05/08/20 10:40 Temperature Pulse Rate 99 H 103 H 95 H Respiratory Rate 30 H 41 H 38 H Blood Pressure 102/86 Pulse Oximetry 91 91 91 05/08/20 10:45 Temperature Pulse Rate 89 Respiratory Rate 40 H Blood Pressure Pulse Oximetry 93 MDM - SOB/Dyspnea Lab Data Result diagrams: 05/08/20 07:25 05/08/20 07:25 Labs: Lab Results 05/08/20 05/08/20 05/08/20 Range/Units 07:25 07:25 07:25 WBC 10.5 (4.5-11.0) X10^3/uL RBC 4.80 (4.5-5.9) X10^6/uL Hgb 14.6 (13.5-17.5) g/dL Hct 44.3 (41-53) % MCV 92.4 (80-100) fL MCH 30.5 (26-34) PG MCHC 33.0 (30-36) % RDW 14.9 H (11.6-14.8) % Plt Count 245 (150-400) X10^3/uL Neut % (Auto) 71.4 (50-75) % Lymph % (Auto) 19.2 L (25-40) % Cottle % (Auto) 6.8 (3-14) % Eos % (Auto) 1.8 L (2-4) % Baso % (Auto) 0.8 (0-2) % Neut # (Auto) 7500 H (7035-4617) /uL Lymph # (Auto) 2000 (7038-2676) /uL Cottle # (Auto) 700 (0-900) /uL Eos # (Auto) 200 (0-450) /uL Baso # (Auto) 100 (0-100) /uL PT 13.4 H (10.1-12.7) SECONDS INR 1.2 (0.9-1.3) D-Dimer 394 H (<230) ng/mL Sodium (137-145) mmol/L Potassium (3.4-5.1) mmol/L Chloride (98-107) mmol/L Carbon Dioxide (22-32) mmol/L BUN (9-20) mg/dL Creatinine (0.66-1.25) mg/dL Estimated GFR (>60) mL/min BUN/Creatinine Ratio (6-22) Glucose (80-110) mg/dL Calcium (8.4-10.2) mg/dL Total Bilirubin (0.2-1.3) mg/dL AST (17-59) IU/L ALT (<50) IU/L Alkaline Phosphatase (38-126) U/L Total Creatine Kinase (55-170) U/L CK-MB (CK-2) (<2.37) ng/mL CK-MB (CK-2) Rel Index (1.5-5.0) % Troponin I (0.01-0.034) ng/mL NT-Pro-B Natriuret Pep (<125) pg/mL Total Protein (6.3-8.2) g/dL Albumin (3.5-5.0) g/dL Globulin (1.7-4.1) g/dL Albumin/Globulin Ratio (1.0-2.8) Lipase (23-300) U/L COVID-19 PCR (Negative) 05/08/20 05/08/20 05/08/20 Range/Units 07:25 07:25 09:22 WBC (4.5-11.0) X10^3/uL RBC (4.5-5.9) X10^6/uL Hgb (13.5-17.5) g/dL Hct (41-53) % MCV (80-100) fL MCH (26-34) PG MCHC (30-36) % RDW (11.6-14.8) % Plt Count (150-400) X10^3/uL Neut % (Auto) (50-75) % Lymph % (Auto) (25-40) % Cottle % (Auto) (3-14) % Eos % (Auto) (2-4) % Baso % (Auto) (0-2) % Neut # (Auto) (8436-1296) /uL Lymph # (Auto) (5007-2557) /uL Cottle # (Auto) (0-900) /uL Eos # (Auto) (0-450) /uL Baso # (Auto) (0-100) /uL PT (10.1-12.7) SECONDS INR (0.9-1.3) D-Dimer (<230) ng/mL Sodium 140 (137-145) mmol/L Potassium 4.8 (3.4-5.1) mmol/L Chloride 107 (98-107) mmol/L Carbon Dioxide 24 (22-32) mmol/L BUN 25 H (9-20) mg/dL Creatinine 0.84 (0.66-1.25) mg/dL Estimated GFR > 60.0 (>60) mL/min BUN/Creatinine Ratio 29.8 H (6-22) Glucose 137 H (80-110) mg/dL Calcium 9.1 (8.4-10.2) mg/dL Total Bilirubin 0.7 (0.2-1.3) mg/dL AST 53 (17-59) IU/L ALT 72 H (<50) IU/L Alkaline Phosphatase 79 (38-126) U/L Total Creatine Kinase 113 (55-170) U/L CK-MB (CK-2) 3.16 H (<2.37) ng/mL CK-MB (CK-2) Rel Index 2.8 (1.5-5.0) % Troponin I 0.050 H (0.01-0.034) ng/mL NT-Pro-B Natriuret Pep 2310 H (<125) pg/mL Total Protein 7.6 (6.3-8.2) g/dL Albumin 4.1 (3.5-5.0) g/dL Globulin 3.5 (1.7-4.1) g/dL Albumin/Globulin Ratio 1.2 (1.0-2.8) Lipase 186 (23-300) U/L COVID-19 PCR Negative (Negative) Imaging Data CT scan - chest: Radiologist's Impression: 8 Ceasar Dickson DO Find Patient Imaging - Evaristo Reynolds 64 M 1955 ACTIVITY DATE EXAM STATUS AUTHOR 05/08/20 08:26 Signed Jarod Goldberg 05/08/20 07:[address] [address] [address] Scan Report Signed Patient: Evaristo Reynolds PMR#: [id number] : 8Acct:[id number] Age/Sex: 64 / MDate of Service: 05/08/20 Loc: ED Accession Number: [id number] Procedure: CT angio chest PE protocol Ordering Provider: Ceasar Dickson D.O. PROCEDURE: CT ANGIO CHEST PE PROTOCOL INDICATIONS: Shortness of breath, tachycardia, elevated DDimer, elevated BNP TECHNIQUE: After the administration of intravenous contrast, 2 mm thick sections acquired from the pulmonary apices to the posterior costophrenic angles. 3-dimensional maximum intensity projection (MIP) coronal and sagittal reformats were then acquired through the thorax. For radiation dose reduction, the following was used: automated exposure control, adjustment of mA and/or kV according to patient size. COMPARISON: [facility], CR, XR CHEST 1V, 05/08/2020, 7:40. FINDINGS: Image quality: Excellent. Pulmonary arteries: Pulmonary arteries are normal in size, and demonstrate no intraluminal filling defects to suggest central pulmonary embolism. Lungs and pleura: Small to moderate bilateral pleural effusions are seen. Overlying atelectasis is seen. Patchy interstitial-type infiltrates are seen. Scattered ground-glass opacities are also seen. No pneumothorax is seen. The central airways are patent. Mediastinum: Heart size is mildly enlarged, without pericardial effusion. Enlarged mediastinal lymph nodes are seen, including a precarinal lymph node that measures 2.1 x 2 cm. Generalized prominence of perihilar lymph nodes can also be seen. Thoracic aorta is normal in caliber and enhancement. Esophagus is normal in caliber, without hiatal hernia. Bones and chest wall: No suspicious bony lesions. Age-appropriate bony degenerative changes are seen. No rib fractures are seen. Several mild anterior wedge deformities are seen within the thoracic spine, with associated accentuated thoracic kyphosis. Thyroid gland demonstrates no significant abnormality. No axillary or supraclavicular adenopathy. Abdomen: Incidental note is made of an accessory splenule along the anterior aspect of the primary spleen. Mild reflux of contrast can be seen into the inferior vena cava and into the patent veins. IMPRESSION: Small to moderate bilateral pleural effusions are seen. Patchy interstitial fight infiltrates are seen, which may be related to infection. Ground-glass opacities are also seen, which are likely related to pulmonary edema. Mild cardiomegaly is seen. There is also reflux of contrast seen into the inferior vena cava and into the patent veins. Please consider CHF. Enlarged mediastinal and perihilar lymph nodes are seen, which are likely reactive. Negative for pulmonary embolism. Incidental note is made of: Accessory splenule Dictated by: Jarod Goldberg M.D. on 05/08/2020 at 8:00 Approved by: Jarod Goldberg M.D. on 05/08/2020 at 8:04 Discharge Plan Departure Patient Disposition: Admitted as Observation Clinical Impression: Atrial fibrillation with rapid ventricular response Discharge Date/Time: 05/08/20 13:33 Admit Date/Time: 05/08/20 10:48 Admit Provider: Taurus Aleman
--- NOTE | 2020-05-08 07:20 | DI.RAD.S_ITS ---
PROCEDURE: XR CHEST 1V INDICATIONS: Short of breath TECHNIQUE: One view of the chest was acquired. COMPARISON: [facility], CHEST 2 VIEW, 07/31/2010, 11:21. [facility], CHEST 2 VIEW, 02/08/2017, 15:23. [facility], , XR CHEST 1V, 09/17/2018, 19:30. FINDINGS: Surgical changes and devices: Apparent postoperative clips are seen involving left inferior neck. Lungs and pleura: Patchy interstitial-type infiltrates are seen. No large pneumothorax or large pleural effusions are seen. Mediastinum: The cardiac contours are mildly enlarged. The aorta demonstrates calcification and tortuosity. Bones and chest wall: Age-appropriate bony degenerative changes are seen. No suspicious bony lesions. Overlying soft tissues appear unremarkable. IMPRESSION: Patchy interstitial-type infiltrates are seen. Please consider pulmonary edema versus atypical infection (including COVID pneumonia). Mild cardiomegaly. Dictated by: Jarod Goldberg M.D. on 05/08/2020 at 7:44 Approved by: Jarod Goldberg M.D. on 05/08/2020 at 7:46
[2020-05-08 07:35] LABS: Add Manual Diff / Slide Review NO; Basophils Absolute Auto 100 /uL (0-100); Basophils Percent Auto 0.8 % (0-2); Eosinophils Absolute Auto 200 /uL (0-450); Eosinophils Percent Auto 1.8 % (2-4); Hematocrit 44.3 % (41-53); Hemoglobin 14.6 g/dL (13.5-17.5); Lymphocytes Absolute Auto 2000 /uL (1100-4500); Lymphocytes Percent Auto 19.2 % (25-40); Mean Corpuscular Hemoglobin 30.5 PG (26-34); Mean Corpuscular Volume 92.4 fL (80-100); Monocytes Absolute Auto 700 /uL (0-900); Monocytes Percent Auto 6.8 % (3-14); Neutrophils Absolute Auto 7500 /uL (1500-7000); Neutrophils Percent Auto 71.4 % (50-75); Platelet Count 245 X10^3/uL (150-400); Red Cell Distribution Width 14.9 % (11.6-14.8); White Blood Cell Count 10.5 X10^3/uL (4.5-11.0)
[2020-05-08] MEDS: METOPROLOL IR 25 MG TABLET 50 MG PO (07:39)
[2020-05-08] MEDS: SODIUM CHLORIDE 0.9% 1,000 ML 125 ML IV (07:39)
[2020-05-08 07:44] LABS: INR 1.2 (0.9-1.3); Prothrombin Time 13.4 SECONDS (10.1-12.7)
[2020-05-08 07:47] LABS: Alanine Aminotransferase 72 IU/L (<50); Albumin 4.1 g/dL (3.5-5.0); Albumin Globulin Ratio 1.2 (1.0-2.8); Alkaline Phosphatase 79 U/L (38-126); Aspartate Aminotransferase 53 IU/L (17-59); BUN Creatinine Ratio 29.8 (6-22); Bilirubin Total 0.7 mg/dL (0.2-1.3); Blood Urea Nitrogen 25 mg/dL (9-20); Calcium 9.1 mg/dL (8.4-10.2); Carbon Dioxide 24 mmol/L (22-32); Chloride 107 mmol/L (98-107); Creatine Kinase 113 U/L (55-170); Estimated Glomerular Filt Rate > 60.0 mL/min (>60); Globulin 3.5 g/dL (1.7-4.1); Glucose 137 mg/dL (80-110); HEMOLYSIS < 15 (0-50); Potassium 4.8 mmol/L (3.4-5.1); Sodium 140 mmol/L (137-145); Total Protein 7.6 g/dL (6.3-8.2)
--- NOTE | 2020-05-08 07:47 | PC.NURSE ---
reports about three days of SOB with exertion. States seen here recently and inpatient stay for a-fib. States he is not compliant with medications, has not taken any prescribed metoprolol, lisinipril, HCTZ, or baby asparin for some time now. States I ran out and didnt get it refilled. Patient presents SOB with exertion with considerable work of breathing in triage. Upon sitting in triage for a few minutes after ambulating in patient RR in the mid to upper twenties. After ambulating to room 12 respiratory rate increased into the 30s with deep heavy breaths. Patient now recovered to normal breathing while sitting up on stretcher.
[2020-05-08 07:55] LABS: D Dimer 394 ng/mL (<230)
[2020-05-08 07:59] LABS: NT-proBNP (BNP-Adult 18+) 2310 pg/mL (<125)
[2020-05-08 08:02] LABS: CKMB % Relative Index 2.8 % (1.5-5.0); Creatine Kinase MB 3.16 ng/mL (<2.37)
--- NOTE | 2020-05-08 08:26 | DI.CT.S_ITS ---
PROCEDURE: CT ANGIO CHEST PE PROTOCOL INDICATIONS: Shortness of breath, tachycardia, elevated DDimer, elevated BNP TECHNIQUE: After the administration of intravenous contrast, 2 mm thick sections acquired from the pulmonary apices to the posterior costophrenic angles. 3-dimensional maximum intensity projection (MIP) coronal and sagittal reformats were then acquired through the thorax. For radiation dose reduction, the following was used: automated exposure control, adjustment of mA and/or kV according to patient size. COMPARISON: [facility], CR, XR CHEST 1V, 05/08/2020, 7:40. FINDINGS: Image quality: Excellent. Pulmonary arteries: Pulmonary arteries are normal in size, and demonstrate no intraluminal filling defects to suggest central pulmonary embolism. Lungs and pleura: Small to moderate bilateral pleural effusions are seen. Overlying atelectasis is seen. Patchy interstitial-type infiltrates are seen. Scattered ground-glass opacities are also seen. No pneumothorax is seen. The central airways are patent. Mediastinum: Heart size is mildly enlarged, without pericardial effusion. Enlarged mediastinal lymph nodes are seen, including a precarinal lymph node that measures 2.1 x 2 cm. Generalized prominence of perihilar lymph nodes can also be seen. Thoracic aorta is normal in caliber and enhancement. Esophagus is normal in caliber, without hiatal hernia. Bones and chest wall: No suspicious bony lesions. Age-appropriate bony degenerative changes are seen. No rib fractures are seen. Several mild anterior wedge deformities are seen within the thoracic spine, with associated accentuated thoracic kyphosis. Thyroid gland demonstrates no significant abnormality. No axillary or supraclavicular adenopathy. Abdomen: Incidental note is made of an accessory splenule along the anterior aspect of the primary spleen. Mild reflux of contrast can be seen into the inferior vena cava and into the patent veins. IMPRESSION: Small to moderate bilateral pleural effusions are seen. Patchy interstitial fight infiltrates are seen, which may be related to infection. Ground-glass opacities are also seen, which are likely related to pulmonary edema. Mild cardiomegaly is seen. There is also reflux of contrast seen into the inferior vena cava and into the patent veins. Please consider CHF. Enlarged mediastinal and perihilar lymph nodes are seen, which are likely reactive. Negative for pulmonary embolism. Incidental note is made of: Accessory splenule Dictated by: Jarod Goldberg M.D. on 05/08/2020 at 8:00 Approved by: Jarod Goldberg M.D. on 05/08/2020 at 8:04
[2020-05-08 10:03] LABS: COVID19 -Nasal RAPID Negative (Negative)
[2020-05-08] MEDS: dilTIAZem 5 MG/ML SDV 10 MG IV ×2 (10:06→20:54)
[2020-05-08] MEDS: DILTIAZEM 125 MG/125 ML PIGGYBACK IV (10:06)
[2020-05-08] MEDS: AZITHROMYCIN 500 MG in DEXTROSE 5% IN WATER 250 ML IV (10:07)
--- NOTE | 2020-05-08 10:16 | PC.NURSE ---
2 sets blood cultured drawn prior to abx being started.
--- NOTE | 2020-05-08 10:25 | PC.NURSE ---
paient o2 saturations dipping to 88, placed on 2L NC. spo2 93%
[2020-05-08] MEDS: SODIUM CHLORIDE 0.9% 500 ML 1000 ML IV (11:00)
--- NOTE | 2020-05-08 11:07 | DI.US.S_ITS ---
PROCEDURE: US ABDOMEN COMPLETE INDICATIONS: SEVERE EPIGASTRIC PAIN TECHNIQUE: Real-time scanning was performed of the abdominal and retroperitoneal organs, with image documentation. COMPARISON: [facility], CT, CT ANGIO CHEST PE PROTOCOL, 05/08/2020, 8:43. FINDINGS: Liver: Liver is prominent in size and homogeneous in echotexture. Gallbladder: No stones or sludge can be seen. The gallbladder wall is thickened, and edematous, measuring up to 1.8 cm. Pericholecystic fluid is seen. A positive sonographic Carpenter sign is elicited. Biliary ducts: Intrahepatic bile ducts are non-dilated. Extrahepatic bile duct caliber measures 5 mm. Normal is 6-7 mm or less in diameter, or 10 mm or less post-cholecystectomy. Pancreas: Visualized portions of the pancreas are sonographically normal. Spleen: Spleen is normal in size and homogeneous in echotexture. Kidneys: Kidneys are normal in size and echotexture. Right kidney measures 11.8 cm long; left kidney measures 13.7 cm long. No hydronephrosis or nephrolithiasis. No solid masses. A solid appearing mass is seen a long the inferior anterior aspect of the left kidney that measures 5.3 x 3.9 x 4.6 cm. Aorta: Poorly seen, secondary to bowel gas. Iliacs: Not seen, obscured by overlying bowel gas. IVC: Intrahepatic inferior vena cava is patent. Miscellaneous: No free abdominal fluid. Bilateral pleural effusions can be seen. IMPRESSION: These imaging findings are highly suspicious for acute cholecystitis, with a thickened gallbladder wall, pericholecystic fluid, and a sonographic Carpenter sign. However, no stones or sludge can be seen. There is no biliary dilatation seen. There is an apparent left renal mass seen that measures up to 5.3 cm. When clinically appropriate, please consider a dedicated renal mass protocol CT for further evaluation. Dictated by: Jarod Goldberg M.D. on 05/08/2020 at 11:31 Approved by: Jarod Goldberg M.D. on 05/08/2020 at 11:34
--- NOTE | 2020-05-08 11:10 | PC.NURSE ---
caled to patient room with call light. Patient visibly sweaty stating his stomach feels like it's on fire. Provider at bedside, verbal order recieved for 500ml NS bolus IV. Ditliazem stopped. NS bolus started. EKG repeated.
[2020-05-08] MEDS: CEFTRIAXONE 1 GM/50 ML FROZ.PIGGY IV (11:16)
[2020-05-08 11:21] LABS: Lipase 186 U/L (23-300)
--- NOTE | 2020-05-08 11:23 | PC.NURSE ---
patient needing urgent bedpan, placed on martines, nurse at bedside
--- NOTE | 2020-05-08 11:35 | PC.NURSE ---
patient required a second bedpan after filling the first with light brown stool. Patient now stating he feels better. He is no longer diaphoretic. BP normalizing.
--- NOTE | 2020-05-08 13:39 | DI.ECHO.S_ITS ---
[facility] +---------+ : : [address] : : : : [id number] : : : : Phone: [phone]+ Echocardiogram Report + + :Name: NEPTALI PEARSON Study Date: 05/09/2020 Height: 70 in : :[facility] Weight: 200 lb : : Gender: Male BSA: 2.1 m2 : :: 1955 Age: 64 yrs BP: 104/82 mmHg: :Reason For Study: A-FIB : :Ordering Physician: Celestine : :Hospitalist Performed By: Kylie Page : :Referring: ROSIE PLATA : + + Interpretation Summary The patient was in atrial fibrillation with heart rates between 81-120 bpm during the exam. Mildly dilated left ventricle with ejection fraction 50-55%. Moderately dilated right ventricle with moderately reduced right ventricular systolic function. Severely dilated both atria. Moderate mitral regurgitation. Mild to moderate tricuspid regurgitation. The right ventricular systolic pressure is estimated to be at least 44 mmHg based on an estimated right atrial pressure of 15 mm Hg. Mild-moderately enlarged ascending aorta. Moderate left-sided pleural effusion. Comparison is made with the echocardiogram of 09/18/2018, AF has replaced sinus rhythm, LV & RV function has worsen, MR & TR severity has worsen. Procedure: A two-dimensional transthoracic echocardiogram with color flow and Doppler was performed. The study quality was technically adequate. Comparison is made with the echocardiogram of 09/18/2018. The patient was in atrial fibrillation with heart rates between 81-120 bpm during the exam. Left Ventricle: The left ventricle is mildly dilated. The estimated left ventricular end diastolic volume is 157 ml. The ejection fraction is estimated to be 50-55%. There is a significant dyssynchronous contraction pattern, consistent with a conduction abnormality. There are no focal wall motion abnormalities. Diastolic function could not be accurately assessed due to atrial fibrillation. Right Ventricle: The right ventricle is moderately dilated. Right ventricular systolic function is moderately reduced. Atria: Both atria are severely dilated. Both atria have significantly increased in size since the prior echo exam. There is no Doppler evidence for an interatrial shunt. Mitral Valve: The mitral valve is normal. There is moderate mitral regurgitation. Compared to the prior echo study, there has been an increase in the severity of mitral regurgitation. Aortic Valve: The aortic valve is grossly normal. The aortic valve opens well. There is trace aortic regurgitation. Tricuspid Valve: The tricuspid valve is normal. There is mild to moderate tricuspid regurgitation. The right ventricular systolic pressure is estimated to be at least 44 mmHg based on an estimated right atrial pressure of 15 mm Hg. Compared to the prior echo exam, there has been an increase in TR severity. Pulmonic Valve: Not visualized on today's exam. Great Vessels: The aortic root is mildly dilated. The ascending aorta is mild-moderately enlarged. The IVC is dilated (diameter is greater than 2.1 cm) and it collapses less than 50% with a sniff. This suggests a high right atrial pressure of 15 mm Hg. Pericardium/ Pleura There is a trace loculated pericardial effusion. There is a moderate left-sided pleural effusion. Probable right sided pleural effusion, but is not well visualized. MMode/2D Measurements & Calculations LVIDd: 5.4 cm LVOT diam: 2.1 cm LVIDs: 4.0 cm Ao root diam: 4.0 cm FS: 26.7 % asc Aorta Diam: 4.2 cm IVSd: 1.1 cm LVPWd: 0.98 cm LV gutierrez. diameter/BSA (cm/m^2): 2.6 LV sys. diameter/BSA (cm/m^2): 1.9 LA A2 area: 47.3 cm2 RA long axis: 5.8 cm LA A4 area: 35.7 cm2 RA area: 26.1 cm2 LA length (vol): 7.1 cm RA vol: 99.7 ml LA vol: 201.2 ml RA : 47.8 ml/m2 LA vol index: 96.4 ml/m2 IVC diam: 3.0 cm RVD1 (basal): 5.6 cm TAPSE: 1.9 cm Doppler Measurements & Calculations LVOT Max Román: 82.6 cm/sec MVA(VTI): 2.2 cm2 LV V1 max P.8 mmHg LV V1 VTI: 12.5 cm TR max román: 268.6 cm/sec MV V2 mean: 81.5 cm/sec TR max P.9 mmHg MV mean P.2 mmHg MV V2 VTI: 20.2 cm MR PISA: 5.7 cm2 SV(LVOT): 43.7 ml MR flow rate: 199.9 cm3/sec MR PISA radius: 0.95 cm Electronically signed by: Katherine Boggs on Reading Physician:05/10/2020 12:47 PM
--- NOTE | 2020-05-08 14:16 | PC.NURSE ---
ADMIT NOTE- PT DENIES PAIN BUT DOES ENDORSE FEELING SICK X SEVERAL DAYS- VSS AFEBRILE ALERT/ORIENTED SOMEWHAT DISHEVELED/DIRTY. AFIB 72-120 BPM - NONPRODUCTIVE COUGH NOTED ROOM AIR SPO2 93% WITH FEW FINE BIBASILAR CRACKLES- NO NOTED EDEMA- TAKING NO MEDS REGULARLY DUE TO SOCIO-ECONOMIC- HAS NOT VOIDED SINCE ADMIT- SALINE LOCKED X 2 - ADMITED AT THIS TIME
--- NOTE | 2020-05-08 14:26 | PM.HP.1 ---
History of Present Illness History of Present Illness Date Patient Seen: 05/08/20 Time Patient Seen: 14:00 Chief complaint: SOB, cough, no BP meds Narrative: Patient is a 64-year-old male with history of hypertension, paroxysmal AFib, tobacco dependence, medication noncompliance who presented to the emergency department because shortness of breath and fatigue for the past 3 days. Patient was admitted here in October 2018 due to initial diagnosis of paroxysmal atrial fibrillation. He was started on metoprolol at that time. He is also on lisinopril and HCTZ for blood pressure management. He states he has been out of his medications for several months. He has been unable to establish with a primary care provider due to lack of insurance and limited finances and was getting medications refilled periodically through the walking clinic. Patient states that he was feeling fine up to about 3 days ago when began noticing exertional dyspnea and fatigue. He also noticed a cough with clear phlegm upon lying down. He denies fevers or chills. On ER evaluation he was noted to be in AFib with ventricular rate in the 140s to 150s. He was also hypertensive with BP of 191/114. He had chest x-ray and chest CTA consistent with diffuse pulmonary edema. He received dose of oral metoprolol 50 mg and started on diltiazem drip but subsequently he became acutely hypotensive and developed some abdominal discomfort. An abdominal ultrasound showed thickened gallbladder wall and pericholecystic fluid, likely not significant, as well as a 5.3 cm left renal mass. Patient's BP improved with IV bolus and subsequently he was admitted for further management AFib with RVR. Patient History Medical History (Updated 05/08/20 @ 14:33 by Taurus Aleman MD) Atrial fibrillation with rapid ventricular response (Acute) Cigarette nicotine dependence (Acute) Hypertension (Acute) Family & Social History Social History: household members none Prior Living Arrangements Apartment/Condo Safety & Behavioral: Feels Safe in Current Yes Environment Been Physically Hurt or No Threatened By a Person Tobacco & Substance use: Tobacco type cigarettes,cannabis/marijuana Smoking Status Current every day smoker alcohol intake current alcohol intake frequency a few times a week Substance Use Type marijuana Meds Home Medications and Allergies Home Medications Medication Instructions Recorded Confirmed Type aspirin 81 mg PO DAILY #30 tab 09/19/18 Rx hydrochlorothiazide 25 mg PO DAILY #30 tab 09/19/18 Rx lisinopril 40 mg PO DAILY #30 tab 09/19/18 Rx metoprolol succinate 25 mg PO DAILY #30 tab 09/19/18 Rx hydrochlorothiazide 25 mg PO DAILY #30 tab 10/24/18 Rx lisinopril 40 mg PO DAILY #30 tab 10/24/18 Rx metoprolol succinate 25 mg PO DAILY #30 tab 10/24/18 Rx hydrochlorothiazide 25 mg PO DAILY #30 tab 11/28/18 Rx lisinopril 40 mg PO DAILY #30 tab 11/28/18 Rx metoprolol succinate 25 mg PO DAILY #30 tab 11/28/18 Rx Allergies Allergy/AdvReac Type Severity Reaction Status Date / Time No Known Drug Allergies Allergy Verified 05/08/20 07:11 Review of Systems Review of Systems ROS: Yes All systems reviewed with the patient and are negative except as otherwise documented Exam Vital Signs (past 8 hours): - 05/08/20 07:06 05/08/20 08:22 05/08/20 08:30 Temperature 98.1 F Pulse Rate 119 H 136 H 121 H Respiratory Rate 28 H 28 H 31 H Blood Pressure 191/114 H Pulse Oximetry 96 91 90 L 05/08/20 08:31 05/08/20 08:55 05/08/20 09:00 Temperature Pulse Rate 128 H 75 117 H Respiratory Rate 30 H 28 H Blood Pressure 147/95 H Pulse Oximetry 91 91 90 L 05/08/20 09:15 05/08/20 09:35 05/08/20 09:45 Temperature Pulse Rate 120 H 118 H 116 H Respiratory Rate 25 H 36 H 29 H Blood Pressure Pulse Oximetry 90 L 98 91 05/08/20 10:00 05/08/20 10:05 05/08/20 10:06 Temperature Pulse Rate 116 H 109 H 116 H Respiratory Rate 34 H 35 H Blood Pressure 128/99 H 128/99 H Pulse Oximetry 93 93 05/08/20 10:15 05/08/20 10:20 05/08/20 10:25 Temperature Pulse Rate 103 H 105 H 103 H Respiratory Rate 32 H 29 H 30 H Blood Pressure 107/80 Pulse Oximetry 90 L 89 L 90 L 05/08/20 10:30 05/08/20 10:35 05/08/20 10:40 Temperature Pulse Rate 99 H 103 H 95 H Respiratory Rate 30 H 41 H 38 H Blood Pressure 102/86 Pulse Oximetry 91 91 91 05/08/20 10:45 05/08/20 10:50 05/08/20 10:52 Temperature Pulse Rate 89 93 H 93 H Respiratory Rate 40 H 33 H 39 H Blood Pressure 86/56 L Pulse Oximetry 93 95 95 05/08/20 10:55 05/08/20 11:00 05/08/20 11:05 Temperature Pulse Rate 91 H 79 72 Respiratory Rate 42 H 44 H 35 H Blood Pressure 73/46 L 69/48 L Pulse Oximetry 96 95 95 05/08/20 11:09 05/08/20 11:10 05/08/20 11:15 Temperature Pulse Rate 48 L 100 H 101 H Respiratory Rate 57 H 41 H 37 H Blood Pressure 71/52 L 84/55 L 75/50 L Pulse Oximetry 90 L 05/08/20 11:20 05/08/20 11:21 05/08/20 11:25 Temperature Pulse Rate 93 H 80 100 H Respiratory Rate 44 H 44 H 43 H Blood Pressure 147/82 H Pulse Oximetry 05/08/20 11:26 05/08/20 11:30 05/08/20 11:32 Temperature Pulse Rate 114 H 97 H 105 H Respiratory Rate 43 H 39 H 38 H Blood Pressure 141/84 H 89/61 L Pulse Oximetry 05/08/20 11:35 05/08/20 11:36 05/08/20 11:40 Temperature Pulse Rate 94 H 89 100 H Respiratory Rate 40 H 38 H 35 H Blood Pressure 88/63 L 94/72 Pulse Oximetry 05/08/20 11:45 05/08/20 11:50 05/08/20 11:55 Temperature Pulse Rate 92 H 91 H 80 Respiratory Rate 37 H 35 H 35 H Blood Pressure 106/78 Pulse Oximetry 96 67 L 96 05/08/20 11:56 05/08/20 12:00 05/08/20 12:03 Temperature Pulse Rate 91 H 88 80 Respiratory Rate 20 13 37 H Blood Pressure 91/54 L 80/49 L 91/67 Pulse Oximetry 96 80 L 97 05/08/20 12:05 05/08/20 12:10 05/08/20 12:11 Temperature Pulse Rate 80 54 L 107 H Respiratory Rate 45 H 59 H 41 H Blood Pressure 95/78 139/89 Pulse Oximetry 98 80 L 98 05/08/20 12:12 05/08/20 12:15 05/08/20 12:16 Temperature Pulse Rate 100 H 90 93 H Respiratory Rate 36 H 23 32 H Blood Pressure 142/85 H 122/66 Pulse Oximetry 98 97 96 05/08/20 12:20 05/08/20 12:25 05/08/20 12:30 Temperature Pulse Rate 83 75 90 Respiratory Rate 30 H 29 H 19 Blood Pressure 91/53 L 88/65 L 94/76 Pulse Oximetry 96 97 96 05/08/20 12:35 05/08/20 12:40 05/08/20 12:45 Temperature Pulse Rate 89 86 86 Respiratory Rate 31 H 31 H 23 Blood Pressure 96/74 94/72 Pulse Oximetry 96 96 96 05/08/20 12:50 05/08/20 12:55 05/08/20 13:00 Temperature Pulse Rate 100 H 94 H 87 Respiratory Rate 28 H 32 H 28 H Blood Pressure 115/91 H 112/76 Pulse Oximetry 96 95 95 05/08/20 13:01 05/08/20 13:05 05/08/20 13:10 Temperature Pulse Rate 85 94 H 95 H Respiratory Rate 36 H 29 H 29 H Blood Pressure 134/76 114/66 125/84 Pulse Oximetry 96 97 96 05/08/20 13:25 Temperature 97.4 F L Pulse Rate 113 H Respiratory Rate 23 Blood Pressure 104/86 Pulse Oximetry 94 Oxygen Delivery Method Room Air Oxygen Flow Rate 0 Narrative Exam Narrative: General: He is alert and cooperative male currently NAD HEENT: Pupils equal and reactive, normocephalic and atraumatic Neck: No lymphadenopathy Lungs: Clear to auscultation Heart: Normal S1 and S2, irregularly irregular rhythm, no murmur Abdomen: Soft, nontender, no HSM Extremities: Trace pretibial edema bilaterally Neurological: Sensorium intact, speech fluent, nonfocal Objective Labs Result Diagrams: 05/08/20 07:25 05/08/20 07:25 Labs: Laboratory Results - last 24 hr 05/08/20 05/08/20 05/08/20 07:25 07:25 07:25 WBC 10.5 RBC 4.80 Hgb 14.6 Hct 44.3 MCV 92.4 MCH 30.5 MCHC 33.0 RDW 14.9 H Plt Count 245 Neut % (Auto) 71.4 Lymph % (Auto) 19.2 L [place] % (Auto) 6.8 Eos % (Auto) 1.8 L Baso % (Auto) 0.8 Neut # (Auto) 7500 H Lymph # (Auto) 2000 [place] # (Auto) 700 Eos # (Auto) 200 Baso # (Auto) 100 PT 13.4 H INR 1.2 D-Dimer 394 H Sodium Potassium Chloride Carbon Dioxide BUN Creatinine Estimated GFR BUN/Creatinine Ratio Glucose Calcium Total Bilirubin AST ALT Alkaline Phosphatase Total Creatine Kinase CK-MB (CK-2) CK-MB (CK-2) Rel Index Troponin I NT-Pro-B Natriuret Pep Total Protein Albumin Globulin Albumin/Globulin Ratio Lipase COVID-19 PCR 05/08/20 05/08/20 05/08/20 07:25 07:25 09:22 WBC RBC Hgb Hct MCV MCH MCHC RDW Plt Count Neut % (Auto) Lymph % (Auto) [place] % (Auto) Eos % (Auto) Baso % (Auto) Neut # (Auto) Lymph # (Auto) [place] # (Auto) Eos # (Auto) Baso # (Auto) PT INR D-Dimer Sodium 140 Potassium 4.8 Chloride 107 Carbon Dioxide 24 BUN 25 H Creatinine 0.84 Estimated GFR > 60.0 BUN/Creatinine Ratio 29.8 H Glucose 137 H Calcium 9.1 Total Bilirubin 0.7 AST 53 ALT 72 H Alkaline Phosphatase 79 Total Creatine Kinase 113 CK-MB (CK-2) 3.16 H CK-MB (CK-2) Rel Index 2.8 Troponin I 0.050 H NT-Pro-B Natriuret Pep 2310 H Total Protein 7.6 Albumin 4.1 Globulin 3.5 Albumin/Globulin Ratio 1.2 Lipase 186 COVID-19 PCR Negative Assessment & Plan Assessment & Plan narrative: Patient is a 64-year-old male with hypertension, paroxysmal atrial fibrillation, tobacco dependence, medication noncompliance with lack of health insurance who presents with 3 days shortness of breath, orthopnea and fatigue. 1. Atrial fibrillation with RVR, unknown chronicity, present on admission, active -patient presenting with ventricular rate in the 140-150 range associated with dyspnea and fatigue -he became hypotensive in ED after oral metoprolol and started on IV diltiazem drip -ordered additional metoprolol tartrate 50 mg this afternoon as patient remains mildly tachycardic with improved BPs -start metoprolol succinate 50 mg daily on 05/09 -telemetry monitoring -transthoracic echo -TSH was normal on 2019 admission 2. Acute congestive heart failure, present on admission, active -likely acute diastolic associated with AFib -chest x-ray and CT consistent with diffuse pulmonary edema -Lasix 20 mg IV x1 -echo 3. Hypertension, chronic, active -ordered lisinopril 40 mg q.d. and HCTZ 25 mg q.d. to start 05/09 a.m. in addition to the metoprolol 4. Tobacco dependence -ordered nicotine patch -encouraged patient to quit smoking 5. Left renal mass on ultrasound -evaluate further with renal mass protocol CT prior to discharge 6. Psychosocial concerns -consult BRISTLE MACHINE OPERATOR regarding patient's lack of access to insurance and medication affordability, patient does note he has been unemployed for the last few months and waiting for unemployment benefits DVT prophylaxis: Enoxaparin Code status: Full code
[2020-05-08] MEDS: FUROSEMIDE 20 MG/2 ML VIAL IV (14:55)
[2020-05-08] MEDS: METOPROLOL IR 50 MG TABLET PO (14:55)
[2020-05-08] MEDS: NICOTINE 21 MG PATCH TOP ×2 (14:55→20:54)
[2020-05-08 16:19] LABS: Troponin I 0.044 ng/mL (0.01-0.034)
[2020-05-08 20:47] LABS: Magnesium 1.9 mg/dL (1.6-2.3)
[2020-05-08] MEDS: MAGNESIUM SULFATE 1 GM in DEXTROSE 5 % IN WATER 100 ML 102 ML IV (21:32)
[2020-05-08] MEDS: MELATONIN 3 MG TABLET 6 MG PO (21:58)
[2020-05-09] VITALS (13 sets, daily range): BP systolic 111–144; BP diastolic 61–95; PULSE 60–121; RESP 18–29; TEMP 36.3–36.7; O2SAT 95–97; BMI 26.6
[2020-05-09] MEDS: dilTIAZem 5 MG/ML SDV 10 MG IV (02:04)
[2020-05-09] MEDS: ACETAMINOPHEN 325 MG TABLET 650 MG PO (03:11)
--- NOTE | 2020-05-09 06:03 | PC.NURSE ---
city library director note: Patient remains in a fib throughout the shift. 1 dose of PRN Diltiazem given for heart rate sustaining over 115 bpm. Patient responded well, heart rate down to 80-90's after administration. Patient with complaint of not being able to sleep. PRN Tylenol 650 mg administered per request of JOSÉ Bautista. Patient remains on 2L NC, resting in bed. No distress noted.
--- NOTE | 2020-05-09 07:24 | DI.CT.S_ITS ---
PROCEDURE: CT ABDOMEN WO/W CON INDICATIONS: left renal mass on US TECHNIQUE: Optional 5 mm thick noncontrast images acquired from the diaphragm to the iliac crests. After the administration of intravenous contrast, 5 mm thick images again acquired from the diaphragm to the iliac crests in the arterial and urographic phases. 5 mm thick coronal and sagittal reformats were then acquired. For radiation dose reduction, the following was used: automated exposure control, adjustment of mA and/or kV according to patient size. COMPARISON: [facility], CT, CT ANGIO CHEST PE PROTOCOL, 05/08/2020, 8:43. [facility], US, US ABDOMEN COMPLETE, 05/08/2020, 11:52. FINDINGS: Image quality: Excellent. Lung bases: Small to moderate bilateral pleural effusions are seen. Associated overlying atelectasis can be seen. The heart size is mildly enlarged. Genitourinary: There is enhancing mass seen involving the anterior inferior aspect of the left kidney that measures 4.9 x 4.4 cm in greatest axial dimension, with a craniocaudal extent of 5.7 cm. On the 10 minutes delayed images, the internal density is 52 Hounsfield units. On the precontrast images, the internal density is 25 Hounsfield units. There is a tiny nonobstructing left-sided kidney stone seen. No additional solid renal masses are seen. There is no hydronephrosis. On postcontrast imaging, the visualized ureters demonstrate an unremarkable appearance. Other solid organs: Liver is normal in size and enhancement. Mild reflux of contrast can the seen into the inferior vena cava and into the hepatic veins. Gallbladder wall is not thickened. Biliary system is non dilated. Pancreas enhances normally. Spleen is normal in size and enhancement. Incidental note is made of an accessory splenule along the anterior aspect of the primary spleen. No adrenal nodules. Peritoneum and bowel: Unenhanced bowel loops are normal in wall thickness and caliber. No free fluid or air. A normal appendix is incidentally noted. Nodes and vessels: Mildly enlarged left periaortic lymph nodes are seen, with the largest measuring 2 x 1.4 cm in greatest axial dimension. Aorta and inferior vena cava are normal in caliber. Atherosclerotic calcification is noted. Bones: No suspicious bony lesions. No vertebral body compression fractures. There is focal degenerative change seen at the L4-5 level. Milder degenerative changes are seen elsewhere. Several levels of bridging anterior osteophytes can be seen involving the thoracic spine and the lumbar spine. Miscellaneous: No ventral hernias. IMPRESSION: 5.6 cm enhancing mass involving the anterior aspect of the left kidney inferiorly, which represents a renal cell cancer until proven otherwise. Mildly enlarged left periaortic lymph nodes are seen. Metastatic disease is suspected. A urology consultation is recommended. Small to moderate bilateral pleural effusions are seen. There is reflux of contrast seen into the inferior vena cava and into the patent veins. This is typically seen in patients with congestive heart failure. There is mild cardiomegaly. Incidental note is made of: Accessory splenule Focal L4-5 degenerative change Normal appendix Dictated by: Jarod Goldberg M.D. on 05/09/2020 at 10:51 Approved by: Jarod Goldberg M.D. on 05/09/2020 at 10:59
[2020-05-09] MEDS: ENOXAPARIN 40 MG/0.4 ML SYRINGE SUBCUT (08:55)
[2020-05-09] MEDS: hydroCHLOROthiazide 25 MG TABLET PO (08:56)
[2020-05-09] MEDS: lisinopriL 20 MG TABLET PO (08:57)
[2020-05-09] MEDS: METOPROLOL ER 50 MG TABLET 100 MG PO (08:57)
[2020-05-09] MEDS: NICOTINE 21 MG PATCH TOP (08:58)
[2020-05-09] MEDS: SODIUM CHLORIDE 0.9% FLUSH 10 ML IV ×2 (08:58→20:40)
--- NOTE | 2020-05-09 10:26 | CM.DANOTE ---
Patient is a 64 year old male who was admitted on 05/08/20 for AFIB RVR. Pt has no insurance and no PCP. EMR was reviewed. Per MD, pt was here last year for similar and now admitted likely due to pt being noncompliant with medications due to lack of medical insurance and cost. Pt not stable for d/c today but likely tomorrow if remains stable. SW met bedside with pt and explained role and pt confirms that he lives in [place] in an apartment alone and is independent and active at baseline and drives and has local supportive family. 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 Pt very appreciative if Admissions Counselors could help determine if he would qualify for [employer] and help him enroll because he then plans to establish with a PCP and be compliant with medication recommendations. THOMAS emailed Admissions Counselors requesting they meet with pt bedside, but they may not be available today but SW informed pt that tomorrow Sunday there should be staff coverage to assist with medical insurance. Plan: SW to follow closely in the morning to coordinate with Admissions Counselors to determine if pt qualifies for medical insurance and likely d/c home if remains stable. BEVERLEY Pal Discharge Planning/Care Management CM Discharge Assessment Start: 05/09/20 10:24 Freq: Status: Active Protocol: Document 05/09/20 10:25 BF (Rec: 05/09/20 10:26 BF [id number]) Discharge Planning Assessment Assigned Check Writing Machine Operator BEVERLEY Carver DPOA/Assigned Designee Name none Advance Directives? No Advance Directives on File No History Provided By Patient,Medical Record Has Patient been admitted in last 30 No days? Prior Living Arrangements Apartment/Condo Household Members none Type of transporation used prior to Drives own vehicle admit Independent with ADL's Yes Is patient alert and oriented? Yes Caregiver for Another No Barriers to Discharge No Discharge Plan Home Transportation Arrangement Friend Referrals Initiated Medicaid Application Additional Comment Request for Admissions Counselors to see if pt qualifies for health insurance and help him enroll to reduce risk of readmit Whiteboard Updated in Patient Room with Yes name and ext. # of Check Writing Machine Operator Review Status In Process Please Provide Date Initial DC 05/09/20 Assessment Was Performed Next Review Type Continued Stay Review
--- NOTE | 2020-05-09 12:36 | P.PN_ITS ---
Subjective Subjective Date Patient Seen: 05/09/20 Interval history: Patient is a 64-year-old male with hypertension, paroxysmal atrial fibrillation, tobacco dependence, medication noncompliance with lack of health insurance who presents with 3 days shortness of breath, orthopnea and fatigue due to atrial fibrillation with RVR. Patient notes improvement in dyspnea after dose of IV Lasix yesterday. His ventricular rate remains in the 120s on 100 mg daily metoprolol. Exam Vital Signs (past 8 hours): - 05/09/20 05:12 05/09/20 08:00 05/09/20 08:57 Temperature 97.5 F L 97.3 F L Pulse Rate 106 H 93 H 110 H Respiratory Rate 29 H 21 Blood Pressure 120/95 H 138/86 138/86 Pulse Oximetry 95 95 05/09/20 10:36 05/09/20 12:00 Temperature 97.8 F Pulse Rate 110 H 111 H Respiratory Rate 18 Blood Pressure 111/61 144/84 H Pulse Oximetry 97 Oxygen Delivery Method Room Air Oxygen Flow Rate 0 Narrative Exam Narrative: General: Alert and cooperative male in no acute distress Lungs: Clear to auscultation Heart: Irregularly irregular with tachycardia Abdomen: Nontender Extremities: Warm, dry without edema Neurological: Sensorium intact, nonfocal Objective Labs Result Diagrams: 05/08/20 07:25 05/08/20 07:25 Labs: Laboratory Results - last 24 hr 05/08/20 05/08/20 05/08/20 15:20 15:35 15:35 Magnesium 1.9 Troponin I 0.044 H Nasal Screen MRSA (PCR) Negative for mrsa Assessment & Plan Assessment & Plan narrative: Patient is a 64-year-old male with hypertension, paroxysmal atrial fibrillation, tobacco dependence, medication noncompliance with lack of health insurance who presents with 3 days shortness of breath, orthopnea and fatigue due to atrial fibrillation with RVR. 1. Atrial fibrillation with RVR, unknown chronicity, present on admission, active -patient presenting with ventricular rate in the 140-150 range associated with dyspnea and fatigue -he became temporarily hypotensive in ED after started on oral metoprolol and IV diltiazem drip -remains tachycardic on metoprolol ER 100 mg daily -increase metoprolol ER to 150 mg each a.m. -diltiazem 30 mg IR q.6 hours as needed for heart rate > 115 -telemetry monitoring -transthoracic echo pending -TSH was normal on 2019 admission 2. Acute congestive heart failure, present on admission, active -likely acute diastolic associated with AFib, patient also was given NS bolus for hypotension in the ED -chest x-ray and CT consistent with diffuse pulmonary edema -Lasix 20 mg IV x1 given on 05/08 with diuresis -consider additional Lasix after review of echo 3. Hypertension, chronic, active -ordered lisinopril 20 mg q.d. and HCTZ 25 mg q.d. to start 05/09 a.m. in addition to the metoprolol, the lisinopril is reduced from his previous dose of 40 mg to avoid hypotension 4. Tobacco dependence -ordered nicotine patch -encouraged patient to quit smoking 5. Left renal mass suspicious for renal cell carcinoma -ultrasound showed a left renal mass -dedicated contrast CT shows 5.6 cm enhancing mass consistent with RCC -enlarged left periaortic lymph node on CT concerning for metastatic disease -patient informed of results and will need further definitive workup with outpatient Oncology 6. Psychosocial concerns -consult FISHING VESSEL OPERATOR regarding patient's lack of access to insurance and medication affordability, patient does note he has been unemployed for the last few months and waiting for unemployment benefits DVT prophylaxis: Enoxaparin Code status: Full code
[2020-05-09] MEDS: METOPROLOL ER 50 MG TABLET PO (12:54)
[2020-05-09] MEDS: FUROSEMIDE 40 MG/4 ML VIAL IV (13:26)
[2020-05-09] MEDS: POTASSIUM CHLORIDE 20 MEQ TAB PO (13:26)
--- NOTE | 2020-05-09 14:52 | PC.NURSE ---
Dayshift Note: Pt remains in a-fib, HR up to 130s at times. Given PO metoprolol, dose increased to 150 mg po xl daily. Pt with abdominal CT scan today, see reports for details. Pt with echo today, results pending. Pt with persistent moist sounding cough this shift, progressively more frequent. Pt progressively more tachypneic and lung sounds worsening from coarse initially to coarse crackles. Pt did not complain of subjective SOB but was not able to lay flat and was sleeping in bed with HOB at [address] Aleman notified and 40 mg iv lasix and po potassium was given with good response. Will continue to monitor, notify MD with changes.
[2020-05-09] MEDS: MELATONIN 3 MG TABLET 6 MG PO (20:39)
[2020-05-10] VITALS (7 sets, daily range): BP systolic 118–144; BP diastolic 70–95; PULSE 71–98; RESP 18; TEMP 36.3–36.8; O2SAT 94–98
[2020-05-10] MEDS: ACETAMINOPHEN 325 MG TABLET 650 MG PO (00:01)
[2020-05-10 05:05] LABS: BUN Creatinine Ratio 30.7 (6-22); Blood Urea Nitrogen 27 mg/dL (9-20); Calcium 8.8 mg/dL (8.4-10.2); Carbon Dioxide 27 mmol/L (22-32); Chloride 105 mmol/L (98-107); Estimated Glomerular Filt Rate > 60.0 mL/min (>60); Glucose 121 mg/dL (80-110); HEMOLYSIS < 15 (0-50); Sodium 139 mmol/L (137-145)
--- NOTE | 2020-05-10 06:59 | PC.NURSE ---
Pt desatting to 85% throughout the night, placed on 2L o2 while sleeping. O2 sats stable at 94% now
[2020-05-10] MEDS: METOPROLOL ER 50 MG TABLET 150 MG PO (08:19)
[2020-05-10] MEDS: ENOXAPARIN 40 MG/0.4 ML SYRINGE SUBCUT (08:19)
[2020-05-10] MEDS: hydroCHLOROthiazide 25 MG TABLET PO (08:19)
[2020-05-10] MEDS: lisinopriL 20 MG TABLET PO (08:20)
[2020-05-10] MEDS: NICOTINE 21 MG PATCH TOP (08:20)
--- NOTE | 2020-05-10 14:35 | CM.DPC ---
Addendum entered by BEVERLEY Pal 05/10/20 15:12: ADD: Per MD request, THOMAS spoke with pt and confirmed his pharmacy of preference is [facility] in [place] and THOMAS called [facility] and updated on pt new insurance and requested they run patient's new med Zorolto blood thinner to determine if any out of pocket expense prior to pt d/c today and MD sent medication through [facility] to [facility]. THOMAS updated RN and pt and sister and between [employer] and RN will need to follow up with pharmacy to confirm pt able to pay for new medication if any out of pocket expense. BF Original Note: DCP Discharge Home Per MD, pt is medically stable to d/c home after medical insurance can be confirmed and plan for establishing with PCP and Oncology as pt had some imaging/lab results return with concerns for malignancy. THOMAS contacted Admission Counselors and updated on pt d/c today and they kindly agreed to meet with pt and confirm if he qualifies for [employer] prior to d/c. THOMAS met with pt and confirmed that AD Counselors were able to re-enroll him in [facility] for coverage and pt requests list of PCP in [place] to attempt to establish here rather than [place]. THOMAS printed off the [facility] list of providers for [place] and gave to pt and his adult sister who is bedside and they plan to begin calling the clinics listed to schedule an establish of care appointment. Pt also requests support with determining how to get referral to [facility] and RN kindly willing to call [facility] to inquire for the patient. Plan: Patient to d/c home via sister POSandoval and her assist after d/c with follow up appointments. BEVERLEY Pal
--- NOTE | 2020-05-10 14:53 | PC.NURSE ---
pt remains in afib rate controlled - planning for dc later this date after admission overage shortage and damage clerk assesses insurance coverage and med coverage - removed telemetry and iv access x2 awaitng dc orders
--- NOTE | 2020-05-11 08:19 | P.DS_ITS ---
History of Present Illness History of Present Illness Date Patient Seen: 05/10/20 Chief complaint: SOB, cough, no BP meds Narrative: Patient is a 64-year-old male with history of hypertension, paroxysmal AFib, tobacco dependence, medication noncompliance who presented to the emergency department because shortness of breath and fatigue for the past 3 days. Patient was admitted here in October 2018 due to initial diagnosis of paroxysmal atrial fibrillation. He was started on metoprolol at that time. He is also on lisinopril and HCTZ for blood pressure management. He states he has been out of his medications for several months. He has been unable to establish with a primary care provider due to lack of insurance and limited finances and was getting medications refilled periodically through the walking clinic. Patient states that he was feeling fine up to about 3 days ago when began noticing exertional dyspnea and fatigue. He also noticed a cough with clear phlegm upon lying down. He denies fevers or chills. On ER evaluation he was noted to be in AFib with ventricular rate in the 140s to 150s. He was also hypertensive with BP of 191/114. He had chest x-ray and chest CTA consistent with diffuse pulmonary edema. He received dose of oral metoprolol 50 mg and started on diltiazem drip but subsequently he became acutely hypotensive and developed some abdominal discomfort. An abdominal ultrasound showed thickened gallbladder wall and pericholecystic fluid, likely n ot significant, as well as a 5.3 cm left renal mass. Patient's BP improved with IV bolus and subsequently he was admitted for further management AFib with RVR. Discharge Providers Provider Date of admission: 05/08/20 10:48 Discharge Date: 05/10/20 Discharge provider: Antonia Torrez MD Summary Hospital Course Discharge Diagnosis: 1. Acute congestive heart failure with preserved ejection fraction 2. Chronic atrial fibrillation 3. Hypertension 4. 5.6 cm enhancing left kidney mass with a mildly enlarged para-aortic lymph node Hospital Course: Patient was admitted to the hospital for acute decompensated congestive heart failure, paroxysmal atrial fibrillation, hypertension felt to be related to medication non adherence. The patient was diuresed, he was also placed on metoprolol and Cardizem for rate control. He underwent a cardiac echo which showed a mildly dilated left ventricle with an ejection fraction of 50- 55%, he had a mildly dilated right ventricle with decreased right ventricular function. He had severely dilated biatrial enlargement. The patient had a CT scan of the abdomen. This confirmed a 5.6 cm enhancing left renal mass. There was associated left kidney enlarged. Aortic node. CT initially suggest cholecystitis. However this was felt to not be clinically significant. The patient improved with breathing following diuresis. His rate control improved with medication management. As he did not have health insurance the patient met with social work and the admitting office to apply for insurance. He was referred to the the [facility] medical clinic for primary care in addition to follow-up referral with oncology regarding the left renal mass. Given the patient's Hank Vasc score greater than to he was started on Coumadin anticoagulation. He can subsequently be considered for switched to Xarelto as an outpatient once payment for that medication can be confirmed. Patient made significant improvement. He felt his breathing was back to normal. His rate was controlled. As such she was deemed appropriate for discharge and arrang ements were made for him to discharge home. Status at Discharge Cognitive/behavioral status at discharge: oriented Functional status at discharge: independent ambulation Overall status at discharge: patient is back to baseline Time Spent with Patient Time spent: Less than 30 minutes Time spent discussing smoking cessation with patient: 3 to 10 minutes Exam Vital Signs (past 8 hours): Oxygen Delivery Method Room Air Oxygen Flow Rate 0 Narrative Exam Narrative: Pleasant gentleman in no acute distress Lungs: Clear to auscultation Cardiac exam irregularly irregular normal S1-S2 with a 2/6 systolic ejection Abdomen: Soft nontender nondistended Extremities no edema Objective Labs Result Diagrams: 05/08/20 07:25 05/10/20 04:40 Discharge Assessment & Plan Assessment and Plan Assessment: 1. Acute congestive heart failure, with preserved ejection fraction 2. Chronic paroxysmal atrial fibrillation 3. Hypertension 4. Left renal mass Plan of Treatment: Patient will be discharged on medications as prescribed above He has been referred to the a clinic for primary care appointment in further referral to oncology regarding the further workup and evaluation of the left renal mass Discharge Plan Discharge Plan Patient Disposition: Home Discharge comment: Need protime in 1-2 days Discharge orders & Medications Prescriptions: New metoprolol succinate 50 mg Tablet Extended Release 24 Hr 150 mg PO DAILY Qty: 30 RF: 0 lisinopril 20 mg Tablet 20 mg PO DAILY Qty: 30 RF: 0 diltiazem HCl 30 mg Tablet 30 mg PO Q6HR PRN (Reason: HR > 115) 30 Days RF: 0 warfarin 3 mg tablet 3 mg PO DAILY Qty: 30 RF: 0 Continued aspirin 81 mg Tablet,Delayed Release (Dr/Ec) 81 mg PO DAILY Qty: 30 RF: 0 hydrochlorothiazide 25 mg Tablet 25 mg PO DAILY Qty: 30 RF: 0 Discontinued metoprolol succinate 25 mg tablet extended release 24 hr 25 mg PO DAILY Qty: 30 RF: 0 lisinopril 40 mg tablet 40 mg PO DAILY Qty: 30 RF: 0 Diet/Activity/Treatments Diet: Low-fat and Low-sodium Visit Report/Discharge Packet Instructions: DI for Heart Failure, DI for Atrial Fibrillation Visit Report Forms: Patient Portal/API, Stroke Signs & Symptoms Discharges patient from system. Discharge Date/Time: 05/10/20 16:10
--- NOTE | 2020-05-19 11:10 | ONC.MSW ---
Description: New Referral Navigation T/C Reason for Referral: Renal Mass Activity: Called pt to confirm that we've received his referral, introduced myself as the navigator, and briefly explained the ongoing availability of support, assistance, and resources. Pt was recently admitted to the ER after being dyspneic and fatigued, CT imaging showed the left sided renal mass. Pt is single, disabled, finances are identified as difficult. No immediate needs identified at this time. Confirmed his initial consult visit time for 05/25 at 3:00pm.
== END 2020-05-13 10:15 | disposition home or self-care (01) | DRG 201 ==
LOC: ED 08:05 → AC 13:31 → ICU 05-09 11:57 → AC 05-10 11:04 → ICU 05-10 11:37 → SSU 05-28 16:09
PROVIDERS: Nurse Practitioner Adult Health; Admitting Provider Internal Medicine; Emergency Provider Emergency Medicine; Referring Provider Emergency Medicine; Visit Provider Internal Medicine
DX: I48.0 Paroxysmal atrial fibrillation (principal); I50.31 Acute diastolic (congestive) heart failure; I11.0 Hypertensive heart disease with heart failure; N28.89 Other specified disorders of kidney and ureter; F17.210 Nicotine dependence, cigarettes, uncomplicated; Z91.14 Patient's other noncompliance with medication regimen
CPT/HCPCS: 36415; 71045; 71275; 74170; 76700; 80048; 80053; 82550; 82553; 83690; 83735; 83880; 84145; 84484; 85025; 85379; 85610; 85730; 87635; 87797; 93005; 93306; 94760; 94762; 96361; 96365; 96367; 96368; 96374; 99284; 99285; 99291; 99292; 99406; J1650; J1940; J3475; Q9967

== ENCOUNTER 2020-05-11 20:21 | Inpatient (IN) | payer OTHER, MEDICAID, SELFPAY ==
[2020-05-09 11:13] VITALS: BMI 26.6
--- NOTE | 2020-05-11 20:30 | DI.RAD.S_ITS ---
PROCEDURE: XR CHEST 1V INDICATIONS: chest pain TECHNIQUE: One view of the chest was acquired. COMPARISON: [facility], CT, CT ANGIO CHEST PE PROTOCOL, 05/08/2020, 8:43. [facility], CR, XR CHEST 1V, 09/17/2018, 19:30. [facility], CR, CHEST 2 VIEW, 02/08/2017, 15:23. [facility], CR, XR CHEST 1V, 05/08/2020, 7:40. FINDINGS: Surgical changes and devices: None. Lungs and pleura: Bilateral reticular nodular infiltrates. There are small pleural effusions. No pneumothorax. Mediastinum: Mediastinal contours appear normal. Heart size is normal. Bones and chest wall: No suspicious bony lesions. Overlying soft tissues appear unremarkable. IMPRESSION: Bilateral reticular nodular infiltrates and small pleural effusions, consistent with bilateral pneumonia. Superimposed pulmonary edema may be present. Dictated by: Renetta Leonardo M.D. on 05/11/2020 at 21:17 Approved by: Renetta Leonardo M.D. on 05/11/2020 at 21:20
[2020-05-11 20:31] VITALS: BP 145/90; PULSE 61; RESP 18; TEMP 36.8; O2SAT 94; BMI 27.1
[2020-05-11 20:50] VITALS: PULSE 97; O2SAT 96
[2020-05-11 21:00] VITALS: PULSE 100; O2SAT 95
[2020-05-11 21:16] LABS: Add Manual Diff / Slide Review NO; Basophils Absolute Auto 100 /uL (0-100); Basophils Percent Auto 1.2 % (0-2); Eosinophils Absolute Auto 200 /uL (0-450); Eosinophils Percent Auto 2.5 % (2-4); Hematocrit 44.2 % (41-53); Hemoglobin 14.8 g/dL (13.5-17.5); Lymphocytes Absolute Auto 2900 /uL (1100-4500); Lymphocytes Percent Auto 29.9 % (25-40); Mean Corpuscular HGB Conc 33.5 % (30-36); Mean Corpuscular Hemoglobin 30.5 PG (26-34); Monocytes Absolute Auto 900 /uL (0-900); Neutrophils Absolute Auto 5600 /uL (1500-7000); Neutrophils Percent Auto 57.4 % (50-75); Platelet Count 244 X10^3/uL (150-400); Red Blood Cell Count 4.86 X10^6/uL (4.5-5.9); Red Cell Distribution Width 14.9 % (11.6-14.8); White Blood Cell Count 9.7 X10^3/uL (4.5-11.0)
--- NOTE | 2020-05-11 21:16 | ED_ITS ---
HPI - Chest Pain General Chief Complaint: Chest Pain Stated Complaint: cardiac issues Time Seen by Provider: 05/11/20 20:46 Source: patient and family Mode of arrival: Ambulatory Limitations: no limitations History of Present Illness HPI narrative: Patient is a 64-year-old male who was recently discharged from this facility after being admitted for what was atrial fibrillation and CHF. Please see the note from the prior ER visit in the admission for further information regarding this. Patient states that after discharge he was sent home with new medications. He states that he was not sent home with any diur etic. He feels that since he was discharged from the hospital his breathing has become worse. He states he cannot lay flat. Cannot walk more than just a few steps without becoming short of breath and having to sit out. He feels like his lower extremities are more swollen than normal and that his abdomen is swollen. Denies any fevers. No chest pain. No palpitations. Related Data Previous Rx's Medication Instructions Recorded aspirin 81 mg PO DAILY #30 tab 09/19/18 hydrochlorothiazide 25 mg PO DAILY #30 tab 09/19/18 diltiazem HCl 30 mg PO Q6HR PRN 30 Days tab 05/10/20 lisinopril 20 mg PO DAILY #30 tab 05/10/20 metoprolol succinate 150 mg PO DAILY #30 tab 05/10/20 warfarin 3 mg PO DAILY #30 tab 05/10/20 Allergies Allergy/AdvReac Type Severity Reaction Status Date / Time No Known Drug Allergies Allergy Verified 05/10/20 10:15 Review of Systems Constitutional Constitutional: Denies fever(s) and Denies headache(s) ENT Ears, Nose, Mouth, and Throat: Denies headache(s) Cardiovascular Cardiovascular: Denies chest pain, Reports leg edema, Reports dyspnea, Reports dyspnea on exertion and Reports orthopnea Respiratory Respiratory: Denies cough, Reports dyspnea and Reports dyspnea on exertion Gastrointestinal Gastrointestinal: Denies abdominal pain, Reports bloating, Denies nausea and Denies vomiting Genitourinary Genitourinary: Denies dysuria Genitourinary: Denies dysuria Musculoskeletal Musculoskeletal: Denies arthralgias and Denies myalgias Integumentary/Breasts Skin/Breast: Denies rash Neurologic Neurologic: Denies behavioral changes and Denies headache(s) Psychiatric Psychiatric: Denies behavioral changes Hematologic/Lymphatic Comments: On Coumadin Allergic/Immunologic Allergic/Immunologic: Denies urticaria Patient History Medical History Atrial fibrillation with rapid ventricular response (Acute) Cigarette nicotine dependence (Acute) Hypertension (Acute) Social History household members: none Smoking Status: Current every day smoker alcohol intake: current Smoking Status: Current every day smoker alcohol intake frequency: a few times a week Substance Use Type: marijuana Exam Initial Vital Signs Initial Vital Signs: Vital Signs Temperature 98.2 F 05/11/20 20:31 Pulse Rate 61 05/11/20 20:31 Respiratory Rate 18 05/11/20 20:31 Blood Pressure 145/90 H 05/11/20 20:31 Pulse Oximetry 94 05/11/20 20:31 Const General: cooperative and ill appearing Limitations: mental status not altered HENMT Head: normal to inspection and normocephalic Resp Effort & Inspection: labored, no retractions and tachypneic Auscultation: rales and rhonchi Cardio Rate: regular rate Rhythm: abnormal rhythm GI Inspection: distended Palpation: soft Skin Lesions: no lesions Rashes: no rashes Neuro General: patient alert and patient awake Cognition: normal cognition Speech: speech normal Extrem General: No edema Course Orders Ordered: ED Orders 05/11/20 20:30 XR chest 1V Stat EKG-12 Lead Stat 05/11/20 21:00 Complete Blood Count AUTO DIFF Stat Comprehensive Metabolic Panel Stat Lipase Stat Magnesium Routine NT-proBNP (BNP-Adult 18+) Stat Partial Thromboplastin Time Stat Prothrombin Time INR Stat Troponin & CK Cardiac Panel Stat 05/11/20 22:34 Education, smoking cessation ONGOING Education, smoking cessation ONGOING 05/11/20 22:46 Consult to Dietitian, Adult Routine Consult to Discharge Planning Routine 05/12/20 05:00 Basic Metabolic Panel Routine Complete Blood Count AUTO DIFF Routine NT-proBNP (BNP-Adult 18+) Routine Acetaminophen (Tylenol) 650 mg PO Q6HR PRN PRN Reason: Fever/Mild Pain (1-3) Last Admin: 05/12/20 00:56 Dose: 650 mg Documented by: HALLEY Al Hydrox/Mg Hydrox/Simethicone (Maalox Plus) 30 ml PO Q6HR PRN PRN Reason: Dyspepsia Calcium Carbonate (Tums) 1,000 mg PO Q4HR PRN PRN Reason: Dyspepsia Enoxaparin Sodium (Lovenox) 40 mg SUBCUT DAILY [facility] Furosemide (Lasix) 40 mg IV DAILY [facility] Magnesium Oxide (Mag Ox) 400 mg PO DAILY CONST[facility]INO Last Admin: 05/12/20 00:56 Dose: 400 mg Documented by: HALLEY Melatonin (Melatonin) 6 mg PO BEDTIME CONSTANTINO Last Admin: 05/12/20 00:56 Dose: 6 mg Documented by: HALLEY Naloxone HCl (Narcan) 0.2 mg IV Q2MIN PRN PRN Reason: Opiate Reversal Ondansetron HCl (Zofran) 4 mg IV Q8HR PRN PRN Reason: Nausea And Vomiting Discontinued Medications Furosemide (Lasix) 60 mg IV NOW ONE Stop: 05/11/20 22:00 Last Admin: 05/11/20 22:12 Dose: 60 mg Documented by: RHETT Nicotine (Nicoderm) 14 mg TOP NOW ONE Stop: 05/11/20 22:47 Last Admin: 05/11/20 23:06 Dose: 14 mg Documented by: RHETT Potassium Chloride (Klor-Con M20) 40 meq PO NOW ONE Stop: 05/12/20 00:47 Last Admin: 05/12/20 00:56 Dose: 40 meq Documented by: HALLEY Vital Signs Vital signs: Vital Signs - 8 hr 05/11/20 21:00 Pulse Rate 100 H Pulse Oximetry 95 MDM - Chest Pain Medical Records Data Attestation: I reviewed the patient's medical records. Lab Data Attestation: I reviewed the patient's lab results. Result diagrams: 05/11/20 21:00 05/11/20 21:00 Labs: Lab Results 05/11/20 05/11/20 05/11/20 Range/Units 21:00 21:00 21:00 WBC 9.7 (4.5-11.0) X10^3/uL RBC 4.86 (4.5-5.9) X10^6/uL Hgb 14.8 (13.5-17.5) g/dL Hct 44.2 (41-53) % MCV 91.0 (80-100) fL MCH 30.5 (26-34) PG MCHC 33.5 (30-36) % RDW 14.9 H (11.6-14.8) % Plt Count 244 (150-400) X10^3/uL Neut % (Auto) 57.4 (50-75) % Lymph % (Auto) 29.9 (25-40) % [place] % (Auto) 9.0 (3-14) % Eos % (Auto) 2.5 (2-4) % Baso % (Auto) 1.2 (0-2) % Neut # (Auto) 5600 (7853-7316) /uL Lymph # (Auto) 2900 (3946-4001) /uL [place] # (Auto) 900 (0-900) /uL Eos # (Auto) 200 (0-450) /uL Baso # (Auto) 100 (0-100) /uL PT 13.3 H (10.1-12.7) SECONDS INR 1.2 (0.9-1.3) APTT 32 (26.4-36.2) SECONDS Sodium 139 (137-145) mmol/L Potassium 4.1 (3.4-5.1) mmol/L Chloride 106 (98-107) mmol/L Carbon Dioxide 26 (22-32) mmol/L BUN 26 H (9-20) mg/dL Creatinine 0.91 (0.66-1.25) mg/dL Estimated GFR > 60.0 (>60) mL/min BUN/Creatinine Ratio 28.6 H (6-22) Glucose 125 H (80-110) mg/dL Calcium 9.2 (8.4-10.2) mg/dL Magnesium (1.6-2.3) mg/dL Total Bilirubin 0.6 (0.2-1.3) mg/dL AST 46 (17-59) IU/L ALT 120 H (<50) IU/L Alkaline Phosphatase 82 (38-126) U/L Total Creatine Kinase 43 L (55-170) U/L CK-MB (CK-2) TNP CK-MB (CK-2) Rel Index TNP Troponin I 0.035 H (0.01-0.034) ng/mL NT-Pro-B Natriuret Pep (<125) pg/mL Total Protein 7.1 (6.3-8.2) g/dL Albumin 3.8 (3.5-5.0) g/dL Globulin 3.3 (1.7-4.1) g/dL Albumin/Globulin Ratio 1.2 (1.0-2.8) Lipase 160 (23-300) U/L Procalcitonin (<0.5) ng/mL 05/11/20 05/11/20 05/11/20 Range/Units 21:00 21:00 21:00 WBC (4.5-11.0) X10^3/uL RBC (4.5-5.9) X10^6/uL Hgb (13.5-17.5) g/dL Hct (41-53) % MCV (80-100) fL MCH (26-34) PG MCHC (30-36) % RDW (11.6-14.8) % Plt Count (150-400) X10^3/uL Neut % (Auto) (50-75) % Lymph % (Auto) (25-40) % [place] % (Auto) (3-14) % Eos % (Auto) (2-4) % Baso % (Auto) (0-2) % Neut # (Auto) (3010-0588) /uL Lymph # (Auto) (5836-7924) /uL [place] # (Auto) (0-900) /uL Eos # (Auto) (0-450) /uL Baso # (Auto) (0-100) /uL PT (10.1-12.7) SECONDS INR (0.9-1.3) APTT (26.4-36.2) SECONDS Sodium (137-145) mmol/L Potassium (3.4-5.1) mmol/L Chloride (98-107) mmol/L Carbon Dioxide (22-32) mmol/L BUN (9-20) mg/dL Creatinine (0.66-1.25) mg/dL Estimated GFR (>60) mL/min BUN/Creatinine Ratio (6-22) Glucose (80-110) mg/dL Calcium (8.4-10.2) mg/dL Magnesium 1.9 (1.6-2.3) mg/dL Total Bilirubin (0.2-1.3) mg/dL AST (17-59) IU/L ALT (<50) IU/L Alkaline Phosphatase (38-126) U/L Total Creatine Kinase (55-170) U/L CK-MB (CK-2) CK-MB (CK-2) Rel Index Troponin I (0.01-0.034) ng/mL NT-Pro-B Natriuret Pep 2440 H (<125) pg/mL Total Protein (6.3-8.2) g/dL Albumin (3.5-5.0) g/dL Globulin (1.7-4.1) g/dL Albumin/Globulin Ratio (1.0-2.8) Lipase (23-300) U/L Procalcitonin < 0.05 (<0.5) ng/mL Imaging Data Chest x-ray: Radiologist's Impression: [address] [address] XRay Report Signed Patient: Evaristo Reynolds PMR#: [id number] : 8Acct:[id number] Age/Sex: 64 / MDate of Service: 05/11/20 Loc: ED Accession Number: [id number] Procedure: XR chest 1V Ordering Provider: Evaristo Milan D.O. PROCEDURE: XR CHEST 1V INDICATIONS: chest pain TECHNIQUE: One view of the chest was acquired. COMPARISON: [facility], CT, CT ANGIO CHEST PE PROTOCOL, 05/08/2020, 8:43. [facility], CR, XR CHEST 1V, 09/17/2018, 19:30. [facility], CR, CHEST 2 VIEW, 02/08/2017, 15:23. [facility], CR, XR CHEST 1V, 05/08/2020, 7:40. FINDINGS: Surgical changes and devices: None. Lungs and pleura: Bilateral reticular nodular infiltrates. There are small pleural effusions. No pneumothorax. Mediastinum: Mediastinal contours appear normal. Heart size is normal. Bones and chest wall: No suspicious bony lesions. Overlying soft tissues appear unremarkable. IMPRESSION: Bilateral reticular nodular infiltrates and small pleural effusions, consistent with bilateral pneumonia. Superimposed pulmonary edema may be present. Dictated by: Renetta Leonardo M.D. on 05/11/2020 at 21:17 Approved by: Renetta Leonardo M.D. on 05/11/2020 at 21:20 ECG Data Attestation: I personally reviewed and interpreted this ECG as follows: Prior ECG tracings: not available for review Interpretation: Atrial fibrillation Ventricular rate 93 LVH Normal axis Nonspecific ST T-wave abnormality MDM Narrative Medical decision making narrative: Patient is AFib on his EKG but is rate controlled. His chest x-ray is concerning for pulmonary edema. There is also mention the chest x-ray about pneumonia however clinically he does not have pneumonia. He has orthopnea and dyspnea on exertion. Has very coarse breath sounds that can be heard even without a stethoscope. Does have mild abdominal distention. He is complaining of lower extremity edema however this was not seen on the exam. His BNP is elevated. Is not hypoxic. Patient was given Lasix here in the emergency department. I feel given his elevated BNP, his chest x-ray, his physical exam findings any symptoms that patient should be admitted to the hospital for diuresis. Discussed the case with AUGUSTA Camejo the night hospitalist will accept. Discussed this with patient who expressed understanding and agreement. Discharge Plan Departure Patient Disposition: Admitted As Inpatient Clinical Impression: CHF (congestive heart failure) Qualifiers: Heart failure type: other Qualified Code(s): I50.9 - Heart failure, unspecified Atrial fibrillation Qualifiers: Atrial fibrillation type: unspecified Qualified Code(s): I48.91 - Unspecified atrial fibrillation Discharge Date/Time: 05/12/20 00:17 Admit Date/Time: 05/11/20 23:22 Admit Provider: Reese Camejo
[2020-05-11 21:22] LABS: INR 1.2 (0.9-1.3); Prothrombin Time 13.3 SECONDS (10.1-12.7)
[2020-05-11 21:25] LABS: PTT Partial Thromboplastin Tim 32 SECONDS (26.4-36.2)
[2020-05-11 21:29] LABS: Alanine Aminotransferase 120 IU/L (<50); Albumin 3.8 g/dL (3.5-5.0); Albumin Globulin Ratio 1.2 (1.0-2.8); Alkaline Phosphatase 82 U/L (38-126); Aspartate Aminotransferase 46 IU/L (17-59); BUN Creatinine Ratio 28.6 (6-22); Bilirubin Total 0.6 mg/dL (0.2-1.3); Blood Urea Nitrogen 26 mg/dL (9-20); Calcium 9.2 mg/dL (8.4-10.2); Carbon Dioxide 26 mmol/L (22-32); Chloride 106 mmol/L (98-107); Creatine Kinase 43 U/L (55-170); Estimated Glomerular Filt Rate > 60.0 mL/min (>60); Globulin 3.3 g/dL (1.7-4.1); Glucose 125 mg/dL (80-110); HEMOLYSIS < 15 (0-50); Lipase 160 U/L (23-300); Potassium 4.1 mmol/L (3.4-5.1); Sodium 139 mmol/L (137-145); Total Protein 7.1 g/dL (6.3-8.2)
[2020-05-11 21:37] LABS: NT-proBNP (BNP-Adult 18+) 2440 pg/mL (<125)
[2020-05-11 21:41] LABS: Troponin I 0.035 ng/mL (0.01-0.034)
[2020-05-11] MEDS: FUROSEMIDE 100 MG/10 ML VIAL 60 MG IV (22:12)
[2020-05-11 23:00] LABS: Magnesium 1.9 mg/dL (1.6-2.3)
[2020-05-11] MEDS: NICOTINE 14 PATCH 14 MG TOP (23:06)
[2020-05-12] VITALS (10 sets, daily range): BP systolic 122–137; BP diastolic 68–94; PULSE 67–107; RESP 16–22; TEMP 36.3–37.2; O2SAT 90–96; BMI 24.7
--- NOTE | 2020-05-12 00:48 | P.HP_ITS ---
History of Present Illness History of Present Illness Date Patient Seen: 05/12/20 Time Patient Seen: 00:31 Chief complaint: cardiac issues Narrative: Mr. Evaristo Reynolds is a 64-year-old male with history of hypertension, paroxysmal AFib, tobacco dependence, medication noncompliance who presents to the ER for complaints of shortness of breath. Patient had been ad mitted to the hospital and discharged on 05/10/2020 with following treatment for atrial fibrillation with RVR and acute exacerbation of congestive heart failure. Echocardiogram on 05/08 finds an EF 50-55% with severe biatrial enlargement mitral regurgitation. On imaging is also found to have an incidental finding of a renal mass with [place] aortic lymph node enlargement suspicious for metastasis. The patient was discharged after volume status optimized and discharged on Toprol 150 mg daily, hydrochlorothiazide 25 mg daily diltiazem 30 mg every 6 hours as needed for heart rate greater than 115 and warfarin 3 mg. The patient states he did not receive diuretic any quickly developed shortness of breath return to the level he felt he was on his prior admission. Patient was to follow-up with [facility] to establish primary care provider and further evaluation renal mass. The patient denies chest fevers or chills, headaches or dizziness. He has no chest pain only shortness of breath and dry nonproductive cough. He denies abdominal pain, nausea vomiting. He has had lower extremity edema. Under upon arrival to the ER the patient is afebrile with a temperature of 98.2? . Chest x-ray finds bilateral reticular nodular infiltrates and small pleural effusions, consistent with bilateral pneumonia. On laboratory analysis the patient has white count of 9.7 no shift, hemoglobin 14.8, hematocrit 44.2 and platelets 244. He has a PT of 13.3, INR 1.2 and PTT of 32. His electrolytes are within normal range with a potassium of 4.1 and magnesium 1.9, nonfasting glucose is 125. His liver functions remain within normal range. He has a total CK of 43, troponin is 0.035 and is proBNP is 2440. Twelve lead EKG demonstrates continuing atrial fibrillation of ventricular rate of 93 with left ventricular hypertrophy. The patient received 60 mg of Lasix in the ER. He is admitted to the hospitalist service for exacerbation of CHF. Patient History Medical History Atrial fibrillation with rapid ventricular response (Acute) Cigarette nicotine dependence (Acute) Hypertension (Acute) Family & Social History Social History: household members none Safety & Behavioral: Feels Safe in Current Yes Environment Been Physically Hurt or No Threatened By a Person Tobacco & Substance use: Tobacco type cigarettes,cannabis/marijuana Smoking Status Current every day smoker alcohol intake current alcohol intake frequency a few times a week Substance Use Type marijuana Meds Home Medications and Allergies Home Medications Medication Instructions Recorded Confirmed Type aspirin 81 mg PO DAILY #30 tab 09/19/18 05/12/20 Rx hydrochlorothiazide 25 mg PO DAILY #30 tab 09/19/18 05/12/20 Rx diltiazem HCl 30 mg PO Q6HR PRN 30 Days tab 05/10/20 05/12/20 Rx lisinopril 20 mg PO DAILY #30 tab 05/10/20 05/12/20 Rx metoprolol succinate 150 mg PO DAILY #30 tab 05/10/20 05/12/20 Rx warfarin 3 mg PO DAILY #30 tab 05/10/20 05/12/20 Rx Allergies Allergy/AdvReac Type Severity Reaction Status Date / Time No Known Drug Allergies Allergy Verified 05/10/20 10:15 Review of Systems Review of Systems ROS: Yes All systems reviewed with the patient and are negative except as otherwise documented Exam Vital Signs (past 8 hours): - 05/11/20 20:31 05/11/20 20:50 05/11/20 21:00 Temperature 98.2 F Pulse Rate 61 97 H 100 H Respiratory Rate 18 Blood Pressure 145/90 H Pulse Oximetry 94 96 95 05/12/20 00:17 05/12/20 00:36 Temperature 97.4 F L Pulse Rate 84 67 Respiratory Rate 22 18 Blood Pressure 137/94 H 128/68 Pulse Oximetry 96 90 L Oxygen Delivery Method Room Air Oxygen Flow Rate 0 Narrative Exam Narrative: GENERAL APPEARANCE: well developed, well nourished, no respiratory distress on room air. HEENT: Normocephalic, PERRLA, conjunctiva clear, EOMs intact without nystagmus, mucous membranes are moist and pink. NECK/THYROID: neck supple, JVD present, no carotid bruit, no thyromegaly, trachea midline. LYMPH NODES: no cervical or supraclavicular lymphadenopathy. SKIN: [place], warm and dry, no visible rashes HEART: Irregularly irregular rhythm, S1-S2, no murmur, no rubs or gallops, brisk capillary refill, no edema LUNGS: Essential coarseness with diminished breath sounds bibasilar without wheezing, non productive cough present CHEST: Symmetrical movement, no accessory muscle use, good tidal volume. ABDOMEN: Soft, no distention, no abdominal tenderness, no organomegaly, active bowel tones. EXTREMITIES: moves all extremities, strength is 5/5 and symmetrical, no deformities or joint effusions. NEUROLOGIC: AAO x4, no focal neurologic deficits, sensation intact to light touch, hearing grossly normal to speech. PSYCH: Mildly agitated voices frustration for returning to the hospital, selectively cooperative. Objective Labs Result Diagrams: 05/12/20 04:50 05/12/20 04:50 Labs: Laboratory Results - last 24 hr 05/11/20 05/11/20 05/11/20 21:00 21:00 21:00 WBC 9.7 RBC 4.86 Hgb 14.8 Hct 44.2 MCV 91.0 MCH 30.5 MCHC 33.5 RDW 14.9 H Plt Count 244 Neut % (Auto) 57.4 Lymph % (Auto) 29.9 [place] % (Auto) 9.0 Eos % (Auto) 2.5 Baso % (Auto) 1.2 Neut # (Auto) 5600 Lymph # (Auto) 2900 [place] # (Auto) 900 Eos # (Auto) 200 Baso # (Auto) 100 PT 13.3 H INR 1.2 APTT 32 Sodium 139 Potassium 4.1 Chloride 106 Carbon Dioxide 26 BUN 26 H Creatinine 0.91 Estimated GFR > 60.0 BUN/Creatinine Ratio 28.6 H Glucose 125 H Calcium 9.2 Magnesium Total Bilirubin 0.6 AST 46 ALT 120 H Alkaline Phosphatase 82 Total Creatine Kinase 43 L CK-MB (CK-2) TNP CK-MB (CK-2) Rel Index TNP Troponin I 0.035 H NT-Pro-B Natriuret Pep Total Protein 7.1 Albumin 3.8 Globulin 3.3 Albumin/Globulin Ratio 1.2 Lipase 160 05/11/20 05/11/20 21:00 21:00 WBC RBC Hgb Hct MCV MCH MCHC RDW Plt Count Neut % (Auto) Lymph % (Auto) [place] % (Auto) Eos % (Auto) Baso % (Auto) Neut # (Auto) Lymph # (Auto) [place] # (Auto) Eos # (Auto) Baso # (Auto) PT INR APTT Sodium Potassium Chloride Carbon Dioxide BUN Creatinine Estimated GFR BUN/Creatinine Ratio Glucose Calcium Magnesium 1.9 Total Bilirubin AST ALT Alkaline Phosphatase Total Creatine Kinase CK-MB (CK-2) CK-MB (CK-2) Rel Index Troponin I NT-Pro-B Natriuret Pep 2440 H Total Protein Albumin Globulin Albumin/Globulin Ratio Lipase Assessment & Plan Assessment & Plan narrative: this is a 64-year-old male patient who appears older than stated age returns to the ER with return of shortness of breath following discharge 1 day ago. 1. Acute congestive heart failure with preserved ejection fraction, present on admission, active - a prior hospitalization the patient was in decompensated congestive heart failure and returns today with dyspnea cough in fluid overload. During his hospitalization he was effectively diuresed. - On admission today the patient has elevated troponin at 0.035 which is reduced from 0.044 two days ago. BNP is elevated at 2440 elevated over his previous admission BNP of 2310. - Cardiac echo on last admission finds ejection fraction of 50-55% mild dilated right ventricle and decreased ventricular function, severely dilated bilateral atria. - chest x-ray is consistent with pulmonary edema with bilateral reticular infiltrates and small pulmonary effusions identified by radiologist. - In the ER the patient received 60 mg Lasix. The patient states his breathing is markedly improved. Ordered Lasix 40 mg daily. 2. Chronic atrial fibrillation, present on admission, stable -The patient presents with atrial fibrillation with a ventricular rate of 93 presented with LVH unchanged from EKG on prior admission. -Patient was started on warfarin discharge 3 mg daily, INR today is 1.2. Continue warfarin 3 mg daily for chads Vasc score greater than 2. Plan to transition to Xarelto when feasible. -will continue metoprolol succinate 150 mg daily -continue diltiazem 30 mg by mouth as needed for heart rate greater than 115. 3. Hypertension, chronic, stable -patient with well controlled blood pressure of 118/86 upon arrival. -will continue metoprolol succinate 150 mg daily for both cardiac and hypertensive management. -may consider low-dose Jeremy with good renal function. 4. Left kidney mass with a mildly enlarged para-aortic lymph node, stable -patient obtains is stable renal function with a creatinine of 0.97, no complaints of abdominal or flank pain. - This confirmed a 5.6 cm enhancing left renal mass with kidney enlargement concerning for metastasis. -appointment has been set up with [facility] to establish primary care and further evaluate renal mass. VTE prophylaxis: Enoxaparin IV fluid: Saline lock Diet: Heart healthy low-sodium Code status full code The patient is admitted to the hospital due to severity of his symptoms and risk of further decompensation and the need for further treatment and evaluation. The patient is admitted as observation with expected length of stay to be less than 2 midnights. Scores GCS Jess coma scale eye opening: Spontaneous [place] coma scale verbal response: Orientated Jess coma scale motor response: Obey commands Jess coma scale total score: 15
[2020-05-12] MEDS: MELATONIN 3 MG TABLET 6 MG PO ×2 (00:56→23:45)
[2020-05-12] MEDS: POTASSIUM CHLORIDE 20 MEQ TAB 40 MEQ PO (00:56)
[2020-05-12] MEDS: MAGNESIUM OXIDE 400 MG TABLET PO ×2 (00:56→09:45)
[2020-05-12] MEDS: ACETAMINOPHEN 325 MG TABLET 650 MG PO (00:56)
[2020-05-12 01:15] LABS: COVID19 -Nasal RAPID Negative (Negative)
[2020-05-12 01:18] LABS: Procalcitonin < 0.05 ng/mL (<0.5)
[2020-05-12 05:19] LABS: Add Manual Diff / Slide Review NO; Basophils Absolute Auto 100 /uL (0-100); Eosinophils Absolute Auto 200 /uL (0-450); Eosinophils Percent Auto 2.4 % (2-4); Hematocrit 43.4 % (41-53); Hemoglobin 14.8 g/dL (13.5-17.5); Lymphocytes Absolute Auto 1900 /uL (1100-4500); Lymphocytes Percent Auto 20.8 % (25-40); Monocytes Absolute Auto 800 /uL (0-900); Monocytes Percent Auto 8.7 % (3-14); Neutrophils Absolute Auto 6300 /uL (1500-7000); Neutrophils Percent Auto 67.1 % (50-75); Platelet Count 231 X10^3/uL (150-400); Red Blood Cell Count 4.77 X10^6/uL (4.5-5.9); Red Cell Distribution Width 15.1 % (11.6-14.8); White Blood Cell Count 9.4 X10^3/uL (4.5-11.0)
[2020-05-12 05:27] LABS: BUN Creatinine Ratio 32.5 (6-22); Blood Urea Nitrogen 27 mg/dL (9-20); Carbon Dioxide 26 mmol/L (22-32); Chloride 107 mmol/L (98-107); Estimated Glomerular Filt Rate > 60.0 mL/min (>60); Glucose 135 mg/dL (80-110); HEMOLYSIS < 15 (0-50); Potassium 4.1 mmol/L (3.4-5.1); Sodium 138 mmol/L (137-145)
[2020-05-12 05:35] LABS: NT-proBNP (BNP-Adult 18+) 2080 pg/mL (<125)
[2020-05-12] MEDS: FUROSEMIDE 40 MG/4 ML VIAL IV ×2 (09:45→20:27)
[2020-05-12] MEDS: lisinopriL 20 MG TABLET PO (09:45)
[2020-05-12] MEDS: METOPROLOL ER 50 MG TABLET 150 MG PO (09:45)
[2020-05-12] MEDS: ENOXAPARIN 40 MG/0.4 ML SYRINGE SUBCUT (09:45)
[2020-05-12] MEDS: ASPIRIN EC 81 MG TABLET PO (09:45)
[2020-05-12] MEDS: NICOTINE 21 MG PATCH TOP ×2 (11:06→20:26)
--- NOTE | 2020-05-12 11:21 | CM.DANOTE ---
DCP: Case received, EMR reviewed and met with patient. Introduced self and role. Was able to obtain information from patient regarding his baseline activity level and living situation. DCP assessment completed with information currently available. Patient is a 64 year old male who admitted yesterday evening to the care of the hospitalist team. PCP: [facility] Payer: confirmed: [facility] [employer]. Patient came to the hospital via private vehicle secondary to having some cardiac issues. Patient had been here at the hospital recently with the same issues. He had just established with primary care provider at [facility], and was supposed to have his first appointment today. Patient cancelled his appointment for today, and made a follow up tomorrow. There was some question regarding compliance with his medication. Met with patient. He is alert and oriented, independent at baseline. He could not remember the name of the primary provider that he was set up with at [facility], but made another appointment for tomorrow. P: DCP to continue to follow. Patient should be able to go home when he is medically stable. Denise Coreas RN/Piling Setter
--- NOTE | 2020-05-12 15:24 | PC.NURSE ---
Resp: SI'm breathing a lot better. Lasix IV this am, has had 1900mls out so far. Had audible and auscultated crackles. Likes hob elevated. Lungs with course crackles this am, had occ cough. Hx of smoking and abdiel patch obtained. Abdiel patch has been helpful. Hopes to d/c home in the am.
--- NOTE | 2020-05-12 15:50 | DIET.PN ---
Dietary Progress Note Assessment: 64y M admitted for cardiac issues found to be fluid overload referred to nutrition for CHF exacerbation. Pt was very candid that he was not good about following up with medical providers but feels like he is ready to take care of his health. Pt reports having high BP for many years and has stopped eating salty foods and does not use salt in cooking. Pt reports if he eats a potato chip it lorenzo his tongue and is telling his friends they shouldn't eat so much salt. Pt is interested in continuing low sodium diet and taking his medications as prescribed. Pt retired at the start of the pandemic and is interested in doing outdoor activities and other things which reduce his stress. HT: 182.8cm WT: 83kg BMI: 24.8 Labs: Troponin 0.035 H, BNP 0 H MNA: 12 Howard: 22 Interventions: 1. Educated pt on importance of continued sodium restriction to avoid further CHF exacerbations. Pt seems motivated to do this, pt declined handout as he has had high BP for 10y so understands reducing sodium in the diet. Pt feels proper medication regime will support his health moving forward. Diet Order: Heart Healthy 2g Na limit EER: 2g Na limit
[2020-05-12] MEDS: WARFARIN 3 MG TABLET PO (17:04)
[2020-05-13 05:28] VITALS: BP 135/74; PULSE 87; RESP 20; TEMP 36.3; O2SAT 93
[2020-05-13 08:36] LABS: BUN Creatinine Ratio 32.6 (6-22); Blood Urea Nitrogen 28 mg/dL (9-20); Calcium 9.4 mg/dL (8.4-10.2); Carbon Dioxide 29 mmol/L (22-32); Chloride 104 mmol/L (98-107); Estimated Glomerular Filt Rate > 60.0 mL/min (>60); Glucose 124 mg/dL (80-110); HEMOLYSIS < 15 (0-50); Potassium 4.4 mmol/L (3.4-5.1); Sodium 140 mmol/L (137-145)
[2020-05-13 08:42] LABS: INR 1.2 (0.9-1.3); Prothrombin Time 13.6 SECONDS (10.1-12.7)
[2020-05-13 09:00] VITALS: BP 136/97; PULSE 91; RESP 18; TEMP 36.3; O2SAT 92
--- NOTE | 2020-05-13 09:15 | P.DS_ITS ---
History of Present Illness History of Present Illness Date Patient Seen: 05/12/20 Chief complaint: cardiac issues Narrative: Written by Reese KUMAR: Mr. Evaristo Reynolds is a 64-year-old male with history of hypertension, paroxysmal AFib, tobacco dependence, medication noncompliance who presents to the ER for complaints of shortness of breath. Patient had been admitted to the hospital and discharged on 05/10/2020 with following treatment for atrial fibrillation with RVR and acute exacerbation of congestive heart failure. Echocardiogram on 05/08 finds an EF 50-55% with severe biatrial enlargement mitral regurgitation. On imaging is also found to have an incidental finding of a renal mass with federica aortic lymph node enlargement suspicious for metastasis. The patient was discharged after volume status optimized and discharged on Toprol 150 mg daily, hydrochlorothiazide 25 mg daily diltiazem 30 mg every 6 hours as needed for heart rate greater than 115 and warfarin 3 mg. The patient states he did not receive diuretic any quickly developed shortness of breath return to the level he felt he was on his prior admission. Patient was to follow-up with [facility] to establish primary care provider and further evaluation renal mass. The patient denies chest fevers or chills, headaches or dizziness. He has no chest pain only shortness of breath and dry nonproductive cough. He denies abdominal pain, nausea vomiting. He has had lower extremity edema. Under upon arrival to the ER the patient is afebrile with a temperature of 98.2?. Chest x-ray finds bilateral reticular nodular infiltrates and small pleural effusions, consistent with bilateral pneumonia. On laboratory analysis the patient has white count of 9.7 no shift, hemoglobin 14.8, hematocrit 44.2 and platelets 244. He has a PT of 13.3, INR 1.2 and PTT of 32. His nancy ctrolytes are within normal range with a potassium of 4.1 and magnesium 1.9, nonfasting glucose is 125. His liver functions remain within normal range. He has a total CK of 43, troponin is 0.035 and is proBNP is 2440. Twelve lead EKG demonstrates continuing atrial fibrillation of ventricular rate of 93 with left ventricular hypertrophy. The patient received 60 mg of Lasix in the ER. He is admitted to the hospitalist service for exacerbation of CHF. Discharge Providers Provider Date of admission: 05/11/20 23:22 Discharge Date: 05/13/20 Consults: 05/11/20 22:46 Consult to Dietitian, Adult Routine Comment: Reason For Exam: Exacerbation CHF Consult to Discharge Planning Routine Comment: Discharge provider: Betty Pacheco DO Summary Hospital Course Discharge Diagnosis: 1. Acute congestive heart failure with preserved ejection fraction exacerbation, present on admission. Resolved. 2. Chronic atrial fibrillation, present on admission. Stable. 3. Hypertension, chronic, present on admission. Stable. 4. Left kidney mass with a mildly enlarged para-aortic lymph node, chronic, present on admission. Stable. 5. Tobacco dependence, chronic, present on admission. Stable. Hospital Course: Evaristo Reynolds is a 64-year-old male with a past medical history significant for hypertension, paroxysmal atrial fibrillation, tobacco dependence, and medication noncompliance who presented to the ED for complaints of shortness of breath. 1. Acute congestive heart failure with preserved ejection fraction exacerbation, present on admission. Resolved. -Patient was recently admitted for atrial fibrillation with RVR and decompensated congestive heart failure and returned day after discharge with dyspnea, cough and fluid overload. -Initial troponin slightly elevated at 0.035 but reduced from 0.044 two days ago. -ProBNP elevated at 2440 which is slightly higher than previous admission at 2310. -Previous echocardiogram demonstrated EF 50-55% mild dilated right ventricle and decreased ventricular function, severely dilated bilateral atria. -Chest x-ray demonstrated pulmonary edema with bilateral reticular infiltrates and small pulmonary effusions. -Received furosemide 60 mg IV x 1 in ED. Continued furosemide 40 mg IV daily and discharged on furosemide 40 mg daily. Discontinued HCTZ. -Continued strict I&Os and daily weights. Net -2.5 L. -Continued heart healthy low sodium diet. 2. Paroxysmal atrial fibrillation, present on admission. Stable. -EKG demonstrated atrial fibrillation with a ventricular rate of 93 and LVH without acute ischemic changes and unchanged from EKG on prior admission. -Continued metoprolol succinate 150 mg daily for rate control and diltiazem 30 mg every 6 hours as needed for heart rate greater than 115. -Patient recently started on warfarin 3 mg daily on prior admission. Warfarin was increased to 6 mg daily at discharge as INR was unchanged at 1.2. Recommended continued warfarin management with PCP once established at appointment on Sunday05/14/20. 3. Hypertension, chronic, present on admission. Stable. -Patient with well controlled blood pressure of 118/86 upon arrival. -Continued aspirin 81 mg daily, metoprolol succinate 150 mg daily for both cardiac and hypertensive management. 4. Left kidney mass with a mildly enlarged para-aortic lymph node, chronic, present on admission. Stable. -Patient with stable renal function with a creatinine of 0.97. No complaints of abdominal or flank pain. -CT abdomen and pelvis with contrast demonstrated 5.6 cm enhancing left renal mass with kidney enlargement concerning for metastasis. -Patient with scheduled appointment to establish care with Dr. Valadez at [facility] on 05/14/20 and recommend expedited referral to urology for left renal mass. 5. Tobacco dependence, chronic, present on admission. Stable. -Patient reports he smokes 1 ppd every 2 days. -Discussed smoking cessation in detail and recommended indefinite cessation especially in lieu of left renal mass. Exam Vital Signs (past 8 hours): - 05/13/20 05:28 05/13/20 09:00 Temperature 97.4 F L 97.4 F L Pulse Rate 87 91 H Respiratory Rate 20 18 Blood Pressure 135/74 136/97 H Pulse Oximetry 93 92 Oxygen Delivery Method Room Air Oxygen Flow Rate 0 Narrative Exam Narrative: General:Older male sitting in bed and in no acute distress, appears older than stated age and chronically ill, well-developed, well-nourished, appropriately interactive. HEENT: Normocephalic, atraumatic. External ears without defect. Pupils equal, round, and reactive to light. Anicteric sclerae, moist conjunctivae, and no lid lag. Oropharynx free of erythema and cobble stoning with moist mucosa. Neck: Supple with full range of motion. No jugular venous distension. No lymphadenopathy or thyromegaly. Cardiovascular: Irregularly irregular without murmurs, rubs, or gallops appreciated Pulmonary: Clear to auscultation bilaterally without crackles, wheezes, or rhonchi. Normal respiratory effort with no use of accessory muscles. Abdomen: Soft, bowel tones present, nontender, nondistended. No hepatosplenomegaly or masses appreciated. Extremities: No clubbing, cyanosis, or edema. Skin: Normal temperature, turgor, and texture; no rash, ulcers, or subcutaneous nodules appreciated. Neurological: Cranial nerves grossly intact. Psychiatric: Normal mood and affect. Alert and oriented to person, place, and time. Objective Labs Result Diagrams: 05/12/20 04:50 05/13/20 08:11 Labs: Laboratory Results - last 24 hr 05/13/20 05/13/20 08:11 08:11 PT 13.6 H INR 1.2 Sodium 140 Potassium 4.4 Chloride 104 Carbon Dioxide 29 BUN 28 H Creatinine 0.86 Estimated GFR > 60.0 BUN/Creatinine Ratio 32.6 H Glucose 124 H Calcium 9.4 Magnesium 2.0 Discharge Plan Discharge Plan Patient Disposition: Home Provider Discharge Comment: You are being discharged home. You had mild heart failure due to atrial fibrillation. You have been diuresed and prescribed a diuretic called furosemide 40 mg daily. Please keep measure your weight daily and keep a log to take to all your doctor's appointments. Continue your blood thinner warfarin or Coumadin at an increased dose of 6 mg daily (2 tabs) and continued Coumadin clinic for monitoring of your INR and adjustment of your warfarin dose as needed to keep your INR between 2-3. Please keep your scheduled appointment tomorrow with, Dr. Valadez, to establish care, continued Coumadin monitoring, and expedited referral to urology for left kidney mass. Please try to stop smoking and you have been prescribed Nicoderm patch. Discharge orders & Medications Prescriptions: New furosemide 40 mg tablet 40 mg PO DAILY Qty: 30 RF: 0 Continued metoprolol succinate 50 mg Tablet Extended Release 24 Hr 150 mg PO DAILY Qty: 30 RF: 0 lisinopril 20 mg Tablet 20 mg PO DAILY Qty: 30 RF: 0 diltiazem HCl 30 mg Tablet 30 mg PO Q6HR PRN (Reason: HR > 115) 30 Days RF: 0 Discontinued warfarin 3 mg tablet 3 mg PO DAILY Qty: 30 RF: 0 hydrochlorothiazide 25 mg Tablet 25 mg PO DAILY Qty: 30 RF: 0 No Action aspirin 81 mg tablet,delayed release (DR/EC) 81 mg PO DAILY RF: 0 Follow up/Referrals: Crescencio Valadez MD [Physician] - 05/14/20 2:00 pm (Please arrive 20-30 minutes early tomorrow to fill out paperwork) Diet/Activity/Treatments Diet: Diet as Tolerated, Low-fat, Low-sodium and Low-cholesterol Visit Report/Discharge Packet Instructions: DI for Heart Failure, DI for Atrial Fibrillation, Low-Sodium Diet, How to Quit Smoking, Nicotine Transdermal Patch, DI for Warfarin Therapy, Furosemide (By mouth) Visit Report Forms: Patient Portal/API, Stroke Signs & Symptoms Discharges patient from system. Discharge Date/Time: 05/13/20 10:15 Quality VTE Deep Vein Thrombosis/Pulmonary Embolism Present on Admission: No
[2020-05-13] MEDS: ASPIRIN EC 81 MG TABLET PO (09:52)
[2020-05-13] MEDS: lisinopriL 20 MG TABLET PO (09:53)
[2020-05-13] MEDS: MAGNESIUM OXIDE 400 MG TABLET PO (09:53)
--- NOTE | 2020-05-13 10:14 | PC.NURSE ---
Pt is dressed and ready for discharge home with family member. Went over d/c instructions, discussed new medications and dosage changes. Discussed stroke education and CHF guidelines and encouraged Pt to post CHF on his fridge. Reminded Pt to watch his vitamin k containing foods to keep a consistent INR. Also to monitor for potassium level changes related to starting furosemide. Pt to follow up tomorrow with new PCP. Pt denies further questions and was taken out via w/c by CAKE MAKER to POV with family member and all belongings.
== END 2020-05-13 10:15 | disposition home or self-care (01) | DRG 194 ==
LOC: ED 22:27 → AC 23:23
PROVIDERS: Internal Medicine; Admitting Provider Nurse Practitioner Adult Health; Emergency Provider Emergency Medicine; Referring Provider Emergency Medicine; Visit Provider Nurse Practitioner Adult Health
DX: I11.0 Hypertensive heart disease with heart failure (principal); I50.31 Acute diastolic (congestive) heart failure; I48.20 Chronic atrial fibrillation, unspecified; Z79.01 Long term (current) use of anticoagulants; N28.89 Other specified disorders of kidney and ureter; Z91.14 Patient's other noncompliance with medication regimen; F17.210 Nicotine dependence, cigarettes, uncomplicated
CPT/HCPCS: 36415; 71045; 80048; 80053; 82550; 83690; 83735; 83880; 84145; 84484; 85025; 85610; 85730; 87635; 93005; 94760; 94762; 96374; 99284; 99406; J1650; J1940

== ENCOUNTER → 2020-05-21 10:00 | Outpatient (CLI) | payer OTHER, MEDICAID, SELFPAY ==
[2020-05-18 10:23] VITALS: BMI 24.7
[2020-05-21 11:52] LABS: BUN Creatinine Ratio 25.9 (6-22); Blood Urea Nitrogen 22 mg/dL (9-20); Calcium 9.6 mg/dL (8.4-10.2); Carbon Dioxide 32 mmol/L (22-32); Chloride 101 mmol/L (98-107); Estimated Glomerular Filt Rate > 60.0 mL/min (>60); Glucose 152 mg/dL (80-110); HEMOLYSIS < 15 (0-50); Sodium 141 mmol/L (137-145)
== END ==
PROVIDERS: PCP Family Medicine; Referring Provider Family Medicine; Visit Provider Family Medicine
DX: I50.9 Heart failure, unspecified (principal); N28.89 Other specified disorders of kidney and ureter
CPT/HCPCS: 36415; 80048

== ENCOUNTER → 2020-05-28 14:06 | Outpatient (CLI) | payer OTHER, MEDICAID, SELFPAY ==
[2020-05-18 10:23] VITALS: BMI 24.7
[2020-05-28 15:12] LABS: Hemoglobin A1C% w Est Avg Glu 6.3 % (4.0-6.0)
== END ==
PROVIDERS: PCP Family Medicine; Referring Provider Family Medicine; Visit Provider Family Medicine
DX: R73.9 Hyperglycemia, unspecified (principal)
CPT/HCPCS: 36415; 83036

== ENCOUNTER → 2020-07-10 11:17 | Outpatient (CLI) | payer OTHER, MEDICAID, SELFPAY ==
[2020-05-18 10:23] VITALS: BMI 24.7
[2020-07-10 12:19] LABS: COVID19 -Nasal RAPID Negative (Negative)
== END ==
PROVIDERS: PCP Family Medicine; Visit Provider Nurse Practitioner
DX: Z11.59 Encounter for screening for other viral diseases (principal)
CPT/HCPCS: 87635

== ENCOUNTER 2020-07-12 10:17 | Inpatient (IN) | payer OTHER, MEDICAID, SELFPAY ==
[2020-05-18 10:23] VITALS: BMI 24.7
[2020-07-02 12:49] VITALS: BMI 26.4
[2020-07-12] VITALS (18 sets, daily range): BP systolic 124–189; BP diastolic 84–102; PULSE 85–142; RESP 13–20; TEMP 35.9–36.6; O2SAT 90–98; BMI 25.9
--- NOTE | 2020-07-12 | PATH_ITS ---
[facility] Accession Number: [id number] . 01 Material submitted: . kidney - LEFT KIDNEY, ADRENAL AND PROXIMAL URETER . 01 Clinical history: . LEFT LAPAROSCOPIC HAND ASSISTED NEPBHRECTOMY . 02 Diagnosis: Left Kidney and Adrenal, Radical Nephrectomy: Clear cell renal cell carcinoma; see Cancer Case Summary. Adrenal gland with no evidence of neoplasm. . . CANCER CASE SUMMARY - KIDNEY . Procedure: Radical nephrectomy. Specimen laterality: Left. Tumor site: Middle and lower pole. Tumor size: 6.5 cm in greatest dimension. Tumor focality: Unifocal. Histologic type: Clear cell renal cell carcinoma. Sarcomatoid features: Not identified. Rhabdoid features: Not identified. Histologic grade: G4 (multinuclear giant cells present). Tumor necrosis: Not identified. Tumor extension: Tumor limited to kidney. Margins: Uninvolved by invasive carcinoma. Lymphovascular invasion: Not identified. Regional lymph nodes: No lymph nodes submitted or found. Pathologic stage classification (pTNM, AJCC 85th Ed): Primary tumor: pT1b Regional lymph nodes: pNX Pathologic findings in nonneoplastic kidney: None identified. Additional pathologic findings: Grossly bifurcated ureter. V 07/14/2020 1434 Local . 02 Comment: As part of routine quality rep, Dr. Ko has reviewed select slides from this case, and agrees with the diagnosis of clear cell renal cell carcinoma, G4. . 02 Electronically signed: . Jace Sharp MD, PhD, Pathologist NPI- [id number] . 01 Gross description: . Received in formalin, labeled left kidney, adrenal and proximal ureter, and consists of an 1145-gram, 21.0 x 15.0 x 9.0 cm kidney with attached perinephric adipose tissue. There are two ureters present averaging 11.0 cm in length by 0.5 cm in diameter each. Opening reveals a jeter urothelium with longitudinal striations. The ureteral and vascular margins are shaved and the specimen is bivalved to reveal a pink-red cortex measuring 0.7 cm in thickness. There is a 6.5 x 5.5 x 3.5 cm jeter-yellow, focally hemorrhagic, well-circumscribed mass within the mid/lower poles, located greater than 2 cm from the ureteral and vascular margins. The mass does not extend into the perinephric adipose tissue, coming to within 0.5 cm from the closest margin. Additionally, the mass does not involve the renal pelvis or sinus. There are multiple cortical cysts ranging from 0.1 to 0.4 cm. The pelvis and calices are unremarkable. An adrenal gland is identified measuring 5.5 x 3.0 x 2.5 cm. The cortex is jeter-yellow and measures 0.3 cm in thickness. No hilar lymph nodes are identified. Washing Machine Repairer sections are submitted. . A1 - ureteral and vascular margins (black, en face). A2-A3 - mass in relation to sinus and pelvis. A4 - mass in relation to perinephric adipose tissue margin (black). A5-A7 - additional sections of mass. A8 - cortex and pyramids, upper pole. A9 - indirect sales representative adrenal gland. ([id number]) /MRV 07/13/2020 1135 Local . 02 Pathologist provided ICD-10: C64.2 . 02 CPT . 422442 Performed at: 01 [facility] [address] [address], [place], [place] [id number] MD Carmine Interiano MD Phone: [phone] Performed at: 02 [facility] [address] [place], [place] [id number] MD Kacey Ko MD Phone: [phone]
--- NOTE | 2020-07-12 12:47 | PM.PREOP ---
Pre-operative Note Interval Note History & Physical reviewed/Exam performed by Physician: Yes Changes to H&P: No
[2020-07-12] MEDS: CEFAZOLIN 2 GM/100 ML FROZ.PIGGY IV (12:54)
[2020-07-12] MEDS: BUPIVACAINE 0.5% W/ EPI (PF) 30 ML VIAL INJ (14:05)
[2020-07-12] MEDS: BUPIVACAINE LIPOSOME 266 MG/20 ML VIAL INJ (14:06)
[2020-07-12] MEDS: LACTATED RINGERS 1,000 ML 42 ML IV (14:08)
--- NOTE | 2020-07-12 16:23 | PM.OP.1 ---
Operative Date/Time/Diagnoses Date of procedure: 07/12/20 Time of procedure: 16:24 Pre-op diagnosis: Left renal mass Post-op diagnosis: same Procedure & Clinicians Procedure: 1. Left hand assisted laparoscopic radical nephrectomy. 2. Lysis of extensive intra-abdominal adhesions. Same procedure as scheduled: No (Lysis of adhesion) Indications: 1. 6 cm left anterior lower pole renal mass 2. A hand frame surgical elastic knitter was indicated due to the complexity of the operative intervention. Hadley petty assisted in Port placement and closure, retraction, video visualization with the laparoscoped, hemostasis, and suture closure of the abdominal wounds. Surgeon: Daniella Cook Slide Fastener Repairer: Tonya Petty Click Yes if Unassisted: No Anesthesia Type: General, Epidural and Local (1.33% Exparel -20 cc. Also 0.5% Marcaine with epinephrine) Operative Notes Findings: There were extensive adhesions of the omentum to the anterior abdominal wall across the upper abdomen and along the splenorenal ligaments and splenic flexure of the colon. The renal mass was readily palpable. There was a single renal artery and a single renal vein identified. Intraoperative decision was made to remove the left adrenal gland with the specimen. It appeared that the left system was at least partially duplicated. Division of the ureter was obtained at what looked like the bifurcation point at the pelvic brim. A careful search was undertaken to identify a pathologic lymph node or group of lymph nodes the anterior surface of the aorta was exposed over length of approximately 8 cm. No palpable abnormality could be appreciated in the inter aortal-caval lymphatics. Closure Type: primary Specimen(s): other (Left kidney with adrenal and proximal ureters) Applied: catheter (Sixteen Ukrainian Juarez catheter) Estimated Blood Loss (mL): 50 Blood products transfused: none Tourniquet time (min): 0 Procedure in detail: The patient was positioned in supine and was administered general anesthesia after successful placement of epidural spinal anesthesia. He was then repositioned into modified left flank period the table was flexed and the beanbag was firmed after axillary roll was placed and pressure points were checked and padded appropriately. The torso abdomen and left back were then prepped and draped in sterile fashion. Solution of 0.5% Marcaine with epinephrine was then used to infiltrate a midline area immediately above the umbilicus or length of about 9 cm. An additional 2 areas were infiltrated with local anesthetic in the left and mammary line, 1 being just below the costal margin, and the other being placed nearly lateral to the umbilicus. A midline incision was made above the umbilicus using sharp and cautery technique. Once the rectus fascia midline was opened the peritoneum was identified and opened the lengthy incision. A hand port were then positioned carefully taking care to to make sure the anterior abdominal wall and hand port were clear of impingement of large bowel, or small bowel. A pneumoperitoneum was created through the hand port cryptographic clerk scope was then placed and a 5 mm port was placed at the superior site and a 10/12 mm port was placed at the left lower port-both under direct visualization. The pneumoperitoneum was reestablished. Careful assessment was then undertaken with the findings as described above meticulous blunt cautery take down of the extensive adhesions were then undertaken using the LigaSure Impact device. Next, the white line was divided along the left lateral border of the descending colon the level of the sigmoid. Further dissection using the LigaSure device was then brought along the region of the splenorenal ligament, attachments, and small vascular communications. The left colon was then carefully rolled off the anterior surface of the left kidney and across the root of the mesentery. The surface the anterior aorta was then identified and careful continued blunt and cautery dissection with the LigaSure Impact device was carried out superiorly, were upon renal artery was identified. Using careful blunt technique the left renal artery was isolated. Large plastic hemo lock clips were applied double on both the specimen and patient side. Next, left renal vein was identified and carefully isolated exposed. The left adrenal vein was identified and divided using large hemoclips. The left gonadal vein was identified and was divided and the same manner. Next, a 45 mm Endo-MARJORIE dividing stapler was advanced through the 10/12 port. It was positioned across the left renal vein engaged in the left renal vein was divided without incident. A search for the left ureter was then conducted inferiorly or upon 2 structures were identified the will remain separate to at least 2 a point near the pelvic inlet. Large hemo lock clips were applied proximally and distally at this location and the ureters were divided. Remaining loose attachments laterally and posteriorly were then divided using blunt as well as cautery technique with the left hand and the LigaSure Impact device. The left kidney, left adrenal and left proximal ureters were then removed in their entirety through the midline upper abdominal incision. Specimen was then submitted for routine gross and microscopic examination. A careful examination of the entire operative region and up renal hilum were then undertaken to assure hemostasis. Indeed the operative bed and hilum were dry. The left colon was then repositioned anatomically in the left gutter and the omentum was then gently brought down as a skirt again and anatomic manner. A Ashok Cortez port closure was then utilized with 0 Vicryl at the 10/12 mm port site under direct visualization. The midline upper abdominal incision was then closed with a running 0 PDS beginning at each the superior and the superior apex conducting a running closure and isha 1 another together at the midpoint of the incision. The subcutaneous layers of all incisions were then reapproximated with 2-0 Vicryl. The skin of each of the operative sites were then reapproximated a running subcuticular 4-0 Monocryl. Small Telfa dressings were then tailored appropriately and the fitted over each of the sites. Op site dressing was then carefully applied over these to create a Bioclusive dressing. The patient was then repositioned in supine, was awakened, and was transferred to a rboaz in stable condition. Complications: none Post-operative Condition: stable Disposition: Acute Care Plan for aftercare: Acute care
--- NOTE | 2020-07-12 18:28 | SUR.PHASEI ---
PACU Pt arrived from OR, VSS, somnolent. Arrousable to pain, able to deny pain and follow directions such as move your legs please. Report to Gianna REEVES. Sister called and will go to pt's room. Pt snoring, on RA sats in upper 80's to low 90's. NC doesn't help, placed on simple mask at 6LPM and sats up to 97-99% RA. BP climbing slightly, anesthesia aware, no new orders.
[2020-07-12] MEDS: LACTATED RINGERS 1,000 ML 125 ML IV (19:18)
--- NOTE | 2020-07-12 20:32 | PC.NURSE ---
Addendum entered by Juana Lucas R.N. 07/12/20 23:31: At 2215 patient woke up, requesting water. When asked if he was nauseated he said just give me water before we do anything else-I'm just trying to wake up. Water given along with 2 puddings. BP still elevated, now 171/111 & 189/102. Pulse very irregular, going from 120's to 140's while this nurse standing & conversing with him. He reports pain /, medicated with Dilaudid 0.5 mg IV. I also medicated him with the prn dose of Diltiazem 30 mg. While talking with him more, I saw his pulse on oximeter read 150's-160's, slowly going back down to 110-120's. I tried to call Dr Cook 3 times via phone, between 2235 & 2300, each time getting voice mail that said his mailbox was full. I tried calling office number but it just rang. I notified Nemo, Nurse Bevel Face Stoner And Polisher & barrel washer Krista of this situation. Full report given to Sindi PACHECO RN. She is aware of patient's VS as well as patient's request for Nicotine patch. Original Note: Post-op note: Evaristo brought from PACU to room 205, he is sleeping, snoring at times. He is mouth breathing, was brought up on 6L O2 via simple mask, still wearing simple mask, 6L O2 sats are 91-97% He wakes to loud voice/touch, when asked if having pain he mumbles no & falls back asleep. Hypertensive 150/102, HR irregular, rate fluxuates from 90's-110, sometimes as high as 120's for a moment, but not sustaining >115. Lap sites dry/intact, small midline abd drsg is CDI. Juarez with clear yellow output. We cannot orient patient to room or call button because he cannot wake up for more than a few seconds then falls back asleep. His sister Genna was here for a while, now gone for the night, said she would be back in the morning.
[2020-07-12] MEDS: dilTIAZem 30 MG TABLET PO (22:26)
[2020-07-12] MEDS: HYDROMORPHONE 0.5 MG INJ IV (22:27)
[2020-07-13] VITALS (14 sets, daily range): BP systolic 131–161; BP diastolic 80–101; PULSE 77–136; RESP 16–24; TEMP 36.7–37.6; O2SAT 91–97
--- NOTE | 2020-07-13 00:31 | PC.NURSE ---
Placed on telemetry r/t tachycardia. Pulse ox demonstrating HR intermittently into the 140's. Primary RN to notify MD. HR per telemetry, A-fib, pt has history of the same, rate variable 110-130's.
--- NOTE | 2020-07-13 01:40 | PC.NURSE ---
Addendum entered by Sindi Mcclain R.N. 07/13/20 06:10: HR improved and now seeing more rates in 100-115 range but still intermittent increases into 120 range. Addendum entered by Sindi Mcclain R.N. 07/13/20 05:38: Since giving po Diltiazem, patient's HR more often seen in 110-120 range but still noted to fluctuate frequently into 130-140 range so now medicated with morning dose of Metoprolol. Addendum entered by Sindi Mcclain R.N. 07/13/20 04:35: Medicated with Dilaudid for complaint of 5/10 incisional pain that feels like a hot poker. Oxygen has been decreased to 2L/min with sat maintaining at 93-95%. Addendum entered by Sindi Mcclain R.N. 07/13/20 04:33: HR continuing to fluctuate from 115 up to as high as [address] Cook has not yet returned call. Discussed with coordinator and REVIEW ASSISTANT, Kristel. Plan to give po Diltiazem now and if HR still elevated in 1 hour will give morning dose of Metoprolol and call Dr Chau if that does not resolve/improve HR. Original Note: Patient assessed at 0015. Found to have HR of 131 and irregular. Discussed with glazier supervisor, Lu Rodriguez, and patient placed on telemetry for closer monitoring overnight. Found to be in afib RVR; has hx of same. BP elevated at 143/90 but improved from earlier. Call placed to Dr Cook at 0033 and got answering machine so left message to call this RN at [facility]. Informed glazier supervisor and coordinator that Dr Cook was not able to be reached so was instructed to continue to monitor and should HR sustain 130-140's next option would be to call anesthesiology medical doctor, Dr. Chau. Patient is oriented. Breath sounds CTA. On oxygen at 7L/min per simple mask as mouth breaths and was dropping sat when asleep; beginning to titrate down to keep sat > 92% as per MD order; on continuous oximetry. Denies nausea. BT hypoactive and denies flatus. Indwelling catheter is patent with clear yellow urine. Midline dressings and laps sites with small amount dark red drainage noted but no leakage. Is able to move with some assistance. Gait not assessed as has not yet been out of bed. Denies pain at present time. Wearing bilateral calf SCD's. Fall risk score is moderate and bed alarm is activated.
[2020-07-13] MEDS: LACTATED RINGERS 1,000 ML 125 ML IV (02:42)
[2020-07-13] MEDS: HYDROMORPHONE 0.5 MG INJ IV ×6 (04:27→21:10)
[2020-07-13] MEDS: dilTIAZem 30 MG TABLET PO ×3 (04:28→21:09)
[2020-07-13] MEDS: METOPROLOL ER 50 MG TABLET 150 MG PO (05:33)
--- NOTE | 2020-07-13 07:48 | PM.PN.1 ---
Subjective Subjective Date Patient Seen: 07/13/20 Time Patient Seen: 07:48 Interval history: Postoperative day 1. Status post left hand assisted radical nephrectomy for 6 cm left renal mass. Uneventful night with the exception of pattern of AFib with rapid ventricular response. He has remained afebrile. Pulse rate has ranged from 100-145. He denies issues with pain. He denies nausea or vomiting. Exam Vital Signs (past 8 hours): - 07/13/20 00:10 07/13/20 04:15 07/13/20 04:28 Temperature 98.3 F 99.7 F H Pulse Rate 131 H 110 H 136 H Respiratory Rate 18 18 Blood Pressure 143/90 H 161/90 H 161/90 H Pulse Oximetry 97 95 07/13/20 05:33 07/13/20 06:02 Temperature Pulse Rate 130 H 104 H Respiratory Rate Blood Pressure 153/97 H 150/81 H Pulse Oximetry Oxygen Delivery Method Simple Mask Oxygen Flow Rate 0 Narrative Exam Narrative: He is sitting upright in bed in no acute distress. Chest-clear, equal and unlabored expansion bilaterally. Heart-irregular rate approximately 120. No extra sounds Abdomen-dressings are intact. Present but decreased bowel sounds. No distention. Extremities-no edema, cyanosis, or pallor. PFSH Medical History Atrial fibrillation with rapid ventricular response BPH w urinary obs/LUTS Cancer of left kidney Cigarette nicotine dependence Diastolic heart failure History of cardioversion (10/2018) History of heart disease Hypertension Left renal mass Left renal mass Measles (~196) Mumps (~1960) Nonrheumatic mitral valve regurgitation Rheumatic fever (~1961) Smoking Surgical History (Updated 07/02/20 @ 13:10 by Radha Mckeon RN) Anesthesia History of neck surgery Hx of circumcision Hx of eye surgery Family History Father Diabetes mellitus History of heart disease Hypertension Mother Diabetes mellitus Hypertension Brother History of bipolar disorder Sister Uterine cancer Diabetes mellitus Grandfather No problems noted. Grandmother History of heart disease Hypertension Stroke Grandfather Cancer Grandmother Diabetes mellitus Social History household members: none Smoking Status: Current every day smoker Tobacco: How many years used: 49 second hand exposure: No alcohol intake: current substance use type: does not use Assessment & Plan Assessment & Plan narrative: Assessment: 1. overall stable postoperative day 1. Status post left hand assisted laparoscopic radical nephrectomy. 2. Atrial fibrillation with rapid ventricular response. Patient has history of same. 3. Pathology pending. Plan: 1. Hospitalist consultation submitted. 2. Increase diet and activity. 3. Follow-up final pathology report.
[2020-07-13] MEDS: METOPROLOL TARTRATE 5 MG/5 ML INJ IV (07:57)
[2020-07-13] MEDS: ENOXAPARIN 30 MG/0.3 ML SYRINGE SUBCUT (07:58)
[2020-07-13] MEDS: NICOTINE 21 MG PATCH TOP (07:58)
--- NOTE | 2020-07-13 08:02 | PC.NURSE ---
Addendum entered by Genna Reese R.N. 07/13/20 13:24: Patient with one assist to dangle at edge of bed. Patient given 0.5mg IVP dilaudid prior to sitting up. Rates pain to abd 6/10. NO nausea but min PO intake besides fluids and pudding. Patient refused to ambulate or sit in the chair at this time. Addendum entered by Genna Reese R.N. 07/13/20 09:35: Patients HR 100-118 afib, Dr Torrez in to assess patient. Patient refuses at this time to get out of bed and dangle. Original Note: Dr Cook in at 0745 to assess patient, patients HR continues at rate of 110-145, afib, patient denies chest pain and shortness of breath. 5mg IVP metoprolol given x1 as ordered. Hospitalist consult ordered.
--- NOTE | 2020-07-13 09:07 | CM.DANOTE ---
DCP/Assessment: Reviewed chart. Patient is a 64yr old male admitted to [facility] for elective radical nephrectomy performed on 07-12-[address] Cook. PCP is Crescencio Valadez. Primary payor is 1)[facility] 2)Medicaid. Met with patient explained CM/SW role. Patient alert and oriented, resting in bed comfortably at time of visit. Patient reports that he was completely I with all ADL's prior to admit. Patient does not anticipate any d/c planning needs. Patient reports that he has been staying with his sister/Melani. Patient plans to return there when medically stable. P: Home when stable. CM team to continue to follow for any needs that may arise. BEVERLEY Balderas Discharge Planning/Care Management CM Discharge Assessment Start: 07/13/20 09:04 Freq: Status: Active Protocol: Document 07/13/20 09:04 KJ (Rec: 07/13/20 09:07 KJ [id number]) Discharge Planning Assessment Assigned Medicine Tech BEVERLEY Balderas Contact Information Melani Damico (sister) # [phone] Advance Directives? No Advance Directives on File No History Provided By Patient,Medical Record Prior Living Arrangements House Household Members family,none Type of transporation used prior to Drives own vehicle admit Independent with ADL's Yes Is patient alert and oriented? Yes Caregiver for Another No Discharge Plan Home Transportation Arrangement Family Whiteboard Updated in Patient Room with Yes name and ext. # of Medicine Tech Review Status In Process Next Review Type Continued Stay Review Pre-Anesthesia Assessment Start: 07/02/20 12:49 Freq: Status: Complete Protocol: Document 07/02/20 12:49 CAB (Rec: 07/02/20 13:27 CAB [id number]) Pre-Anesthesia Assessment PAC Comment Pt would like nicotine patch while inpatient Preferred Name Mitchell Patient Information Reviewed Via Phone Assessment Assessment Completed With Patient Comment COVID screen @ 07/10 Primary Care Provider Crescencio Valadez Seen Specialist in Last 12 Months Yes Specialist Seen Coordinator Of Placement,Urologist Primary Language Ukrainian Preferred Language Ukrainian Global Recruiter Required No Height 182.88 cm Weight 88.451 kg Body Mass Index (BMI) 26.4 Hearing Ability Normal Visual Assist None Dentition Type Full- Upper & Lower Barriers to Learning None Hx Anesthesia Reactions No Hx Family Anesthesia Reaction Yes: My brother didn't make it out of surgery not able to provide specifics Hx Malignant Hyperthermia No Hx Blood Transfusions No Anesthesia Review Requested No Social Professionals No alcohol intake current alcohol intake frequency 0-2 drinks per day Smoking Status Current every day smoker Tobacco type cigarettes,cannabis/marijuana Smoking cigarettes per day 1 Smoking pack-years 50 Substance Use Type marijuana Comment Pt advised not to smoke marijuana 24 hours prior to surgery Pain Present Pain Reported Comment Chronic neck pain Musculoskeletal Symptoms Neck Pain History of Falling (Recent or History of No ) Patient is completely paralyzed or No completely immobile Mental Status Oriented to own ability Is patient on oxygen? No Does patient have RUBIO/SOB Yes Currently Taking a Beta Max Yes: Metoprolol Can You Climb a Flight of Stairs Without > 4METS without symptoms SOB Hx Chest Pain No Hx SOB Yes Hx Syncope or Dizziness No Anti-Coagulant Therapy Yes: Only ASA 81mg-pt will check w/Cardiology to see if needed to stop Has a Coordinator Of Placement Yes: Dr. Duarte-last visit Cardiac Testing No Hx Pacemaker/ICD No Pacemaker Rep Required? No Cardiac Clearance Received Yes Comment Cardiac records scanned Diet Type At Home Regular dysphagia No Urinary Catheter Present No Hx Urinary Self Catheterization No Diabetes No Hx Drug Resistant Organism No Presence of External or Internal Medical No Devices Have you had any close contact with No someone diagnosed with COVID-19? Marital Status Lives With family Support System Sibling(s) Does the Patient Have Assistance After Yes: Living w/sister to assist Surgery w/care at [facility] Patient Discharge Plan Description Return Home Comment Pt advised 3-5 day length of stay per surgeon Feels Safe in Current Environment Yes Been Physically Hurt or Threatened By a No Person in Current Environment Do you have thoughts of harming yourself None or others? Are you currently considering suicide? No Do you have a plan to hurt yourself or No Plan others? Do You Have Any Spiritual Beliefs That No May Affect Your HC Choices? Do You Have Any Cultural Practices That No May Affect Your HC Choices? Who Can We Speak to About Patient's Care Family, friends Identifying Code for Release of Patient Declines to issue Information Health Care Proxy/Next of Kin Melani (sister) Woodrow (son) Health Care Proxy Phone Number Melani: [phone] Woodrow: [phone] Emergency Contact Name Melani (sister) Woodrow (son) Emergency Contact Phone Number Melani: [phone] Woodrow: [phone] Advance Directives? No Advance Directives on File No Power of Hearse Driver No PAC Instructions Medications to take/avoid,No ETOH/petroleum product on skin DOS,NPO,Ortho class,Sensory aids,Sturdy shoes/comfortable clothes,Do not bring valuables and remove jewelry
[2020-07-13] MEDS: METOPROLOL IR 50 MG TABLET PO ×3 (10:13→21:10)
[2020-07-13] MEDS: SODIUM CHLORIDE 0.9% FLUSH 10 ML IV ×2 (12:48→21:10)
--- NOTE | 2020-07-13 13:04 | PM.CN ---
History of Present Illness Consult details Date Patient Seen: 07/13/20 Chief complaint: Left Laparoscopic Hand Assisted Nepbhrectomy Reason for consult: Atrial fibrillation with rapid ventricular response rate Narrative: The patient is a 64-year-old male with a history of diastolic heart failure, chronic atrial fibrillation, previously treated with metoprolol and Cardizem. Patient was admitted for a left nephrectomy due to probable renal cell carcinoma. The patient did not take his usual metoprolol the morning of surgery. He had his procedure without difficulty. Last evening the patient developed rapid AFib. He received several doses of IV metoprolol but continues to have a rapid ventricular response rate. He denies any shortness of breath. He denies any chest pain. The patient states he cannot since any palpitation is due to pain medications for his kidney surgery. The patient was hospitalized a few months ago for acute decompensated heart failure with associated atrial fibrillation. He initially was placed on Coumadin. He was in transition to aspirin and continues on Lasix for his diastolic heart failure. The patient's rate had been controlled until admission for his surgery. After several doses of vitamin the metoprolol the patient's heart rate has improved. I am asked to consult to manage atrial fibrillation. Meds Home Medications and Allergies Home Medications Medication Instructions Recorded Confirmed Type aspirin 81 mg tablet,delayed 81 mg PO DAILY 05/25/20 07/12/20 History release furosemide 40 mg tablet 40 mg PO DAILY #90 tab 05/27/20 07/12/20 Rx lisinopril 20 mg tablet 20 mg PO DAILY #90 tab 05/27/20 07/12/20 Rx metoprolol succinate 50 mg 150 mg PO DAILY #270 tab 05/27/20 07/12/20 Rx tablet,extended release 24 hr diltiazem HCl 30 mg PO Q6H PRN 07/02/20 07/12/20 History Allergies Allergy/AdvReac Type Severity Reaction Status Date / Time No Known Drug Allergies Allergy Verified 07/12/20 10:54 Review of Systems Review of Systems ROS: Yes All systems reviewed with the patient and are negative except as otherwise documented Constitutional Comments: Pleasant gentleman resting in bed somewhat uncomfortable from recent surgery HEENT: Normocephalic atraumatic, extraocular muscles are intact oropharynx is clear, sclerae anicteric Lungs: Clear to auscultation, decreased breath sounds bilateral Cardiac exam: Tachycardic, irregularly irregular, normal S1-S2 Abdomen: Hypoactive bowel tones, midline surgical incision with dressing in place with minimal says sanguinous drainage, mildly tender to palpation, no board-like rigidity, no rebound tenderness Extremities: No edema Neuro exam: Nonfocal Exam Vital Signs (past 8 hours): - 07/13/20 05:33 07/13/20 06:02 07/13/20 08:00 Temperature 98.4 F Pulse Rate 130 H 104 H 116 H Respiratory Rate 16 Blood Pressure 153/97 H 150/81 H 154/91 H Pulse Oximetry 94 07/13/20 08:31 07/13/20 08:53 07/13/20 10:00 Temperature Pulse Rate 109 H 117 H 95 H Respiratory Rate 24 16 Blood Pressure 135/80 Pulse Oximetry 92 07/13/20 10:19 07/13/20 11:43 Temperature 98.1 F Pulse Rate 110 H 104 H Respiratory Rate 16 Blood Pressure 131/101 H Pulse Oximetry 93 93 Oxygen Delivery Method Room Air Oxygen Flow Rate 0 Assessment & Plan Assessment & Plan narrative: 64-year-old male with a history of chronic atrial fibrillation admitted to the hospital for resection of left kidney for presumed renal cell carcinoma -patient developed rapid AFib likely related to holding his usual home medication -he is no longer NPO, therefore were resume metoprolol at 50 p.o. q.6 -once the patient's rate is controlled would consider resuming his usual home dose of metoprolol XL 150 q.day -will resume aspirin per surgery -patient has as needed IV metoprolol for rate control as well. -will consider addition of Cardizem if needed Chronic diastolic heart failure -patient recent echo showed a preserved ejection fraction of 50% -hospitalized in May for decompensated diastolic heart failure -no evidence of heart failure at this time -will continue Lasix as usually prescribed Hypertension -continue lisinopril Status post left nephrectomy -postoperative management per surgery DVT prophylaxis -Chaim Thank you very much for this consultation
[2020-07-13] MEDS: OXYCODONE IR 5 MG TABLET PO ×3 (14:25→20:47)
[2020-07-13 14:44] LABS: Add Manual Diff / Slide Review NO; Basophils Absolute Auto 100 /uL (0-100); Basophils Percent Auto 0.8 % (0-2); Eosinophils Absolute Auto 0 /uL (0-450); Eosinophils Percent Auto 0.3 % (2-4); Hematocrit 39.7 % (41-53); Hemoglobin 13.1 g/dL (13.5-17.5); Lymphocytes Absolute Auto 1300 /uL (1100-4500); Lymphocytes Percent Auto 11.7 % (25-40); Mean Corpuscular Hemoglobin 30.4 PG (26-34); Mean Corpuscular Volume 92.1 fL (80-100); Monocytes Absolute Auto 1100 /uL (0-900); Monocytes Percent Auto 9.8 % (3-14); Neutrophils Absolute Auto 8400 /uL (1500-7000); Neutrophils Percent Auto 77.4 % (50-75); Platelet Count 182 X10^3/uL (150-400); Red Blood Cell Count 4.31 X10^6/uL (4.5-5.9); Red Cell Distribution Width 15.4 % (11.6-14.8); White Blood Cell Count 10.8 X10^3/uL (4.5-11.0)
[2020-07-13 16:05] LABS: BUN Creatinine Ratio 19.1 (6-22); Blood Urea Nitrogen 26 mg/dL (9-20); Carbon Dioxide 31 mmol/L (22-32); Chloride 104 mmol/L (98-107); Estimated Glomerular Filt Rate 53.1 mL/min (>60); Glucose 130 mg/dL (80-110); HEMOLYSIS < 15 (0-50); Magnesium 2.1 mg/dL (1.6-2.3); Potassium 4.4 mmol/L (3.4-5.1); Sodium 136 mmol/L (137-145)
[2020-07-13] MEDS: HYDROMORPHONE 2 MG TABLET PO (21:33)
[2020-07-14] VITALS (12 sets, daily range): BP systolic 135–167; BP diastolic 80–109; PULSE 68–102; RESP 16–44; TEMP 36.4–37.2; O2SAT 89–97
[2020-07-14] MEDS: SODIUM CHLORIDE 0.9% FLUSH 10 ML IV ×3 (00:11→22:36)
[2020-07-14] MEDS: HYDROMORPHONE 0.5 MG INJ IV (00:11)
--- NOTE | 2020-07-14 00:26 | PC.NURSE ---
Addendum entered by Sindi Mcclain R.N. 07/15/20 02:22: late entry: 07/14 @ 0650 catheter was d'cd as per MD order. Patient instructed in sx/prevention of UTI. Addendum entered by Sindi Mcclain R.N. 07/14/20 05:10: Complains of 4/10 abdominal pain so medicated with Oxycodone. States he has been coughing more than normal and noted to cough up some thick yellow sputum. States he feels a little SOB. Oxygen at 2L/min with sat of 92% Addendum entered by Sindi Mcclain R.N. 07/14/20 02:16: Awakened for scheduled Diltiazem and states pain is 4/10 so medicated with Oxycodone. Original Note: Patient is alert and oriented. Breath sounds CTA. On RA at shift change noted to have sat of 88% so placed back on oxygen at 2L/min per NC and sat currently at 95%. HR irregular w/hx of afib; last telemetry reading recorded was afib CVR with current HR of 92 bpm on tele monitor. Denies nausea. Complains of 7/10 abdominal pain stating it feels like hunger pains but more intense; medicated with IV Dilaudid. BT hypoactive and patient denies passing any flatus as yet. Abdomen is tender and mildly distended. Indwelling catheter is patent; urine is clear yellow. Assisted to reposition in bed. Gait not assessed but patient reports he was up during the day shift yesterday with 2 assists. Dressing to abdomen intact with red/reddish brown drainage. Lap site dressings are intact with no increase in drainage from last night observation. Wearing bilateral calf SCD's. Fall risk score is moderate and bed alarm is activated.
[2020-07-14] MEDS: dilTIAZem 30 MG TABLET PO ×3 (02:12→14:20)
[2020-07-14] MEDS: OXYCODONE IR 5 MG TABLET PO ×2 (02:14→05:09)
[2020-07-14] MEDS: METOPROLOL IR 50 MG TABLET PO ×2 (03:52→12:46)
--- NOTE | 2020-07-14 06:45 | PM.PN.1 ---
Subjective Subjective Date Patient Seen: 07/14/20 Time Patient Seen: 06:45 Interval history: Postoperative day 2. Status post left hand assisted laparoscopic radical nephrectomy. He is tolerating general diet. Denies nausea or vomiting. His only had small flat us and no BM. Sat up and ambulated short distances in the room yesterday. Pain is reasonably controlled with change in agent to Dilaudid. Appreciate Internal Medicine involvement. Exam Vital Signs (past 8 hours): - 07/14/20 00:00 07/14/20 02:12 07/14/20 04:00 Temperature 98.2 F 97.8 F Pulse Rate 85 96 H 91 H Respiratory Rate 16 18 Blood Pressure 144/88 H 135/97 H 155/98 H Pulse Oximetry 95 92 Oxygen Delivery Method Nasal Cannula Oxygen Flow Rate 2 Narrative Exam Narrative: He is sitting upright in bed, awake, and in no acute distress. Chest-clear, equal, nonlabored expansion bilaterally. Heart-regular rate and rhythm. Abdomen-again decreased but active bowel sounds. Nondistended, but mildly tender to palpation. Dressings are intact. No visible ecchymosis. Extremities-SCDs are on and intact. No cyanosis or pallor. Objective Labs Result Diagrams: 07/13/20 14:35 07/13/20 15:35 Labs: Laboratory Results - last 24 hr 07/13/20 07/13/20 14:35 15:35 WBC 10.8 RBC 4.31 L Hgb 13.1 L Hct 39.7 L MCV 92.1 MCH 30.4 MCHC 33.0 RDW 15.4 H Plt Count 182 Neut % (Auto) 77.4 H Lymph % (Auto) 11.7 L O'Brien % (Auto) 9.8 Eos % (Auto) 0.3 L Baso % (Auto) 0.8 Neut # (Auto) 8400 H Lymph # (Auto) 1300 O'Brien # (Auto) 1100 H Eos # (Auto) 0 Baso # (Auto) 100 Sodium 136 L Potassium 4.4 Chloride 104 Carbon Dioxide 31 BUN 26 H Creatinine 1.36 H Estimated GFR 53.1 L BUN/Creatinine Ratio 19.1 Glucose 130 H Calcium 9.0 Magnesium 2.1 PFSH Medical History Atrial fibrillation with rapid ventricular response BPH w urinary obs/LUTS Cancer of left kidney Cigarette nicotine dependence Diastolic heart failure History of cardioversion (10/2018) History of heart disease Hypertension Left renal mass Left renal mass Measles (~1961) Mumps (~1960) Nonrheumatic mitral valve regurgitation Rheumatic fever (~1961) Smoking Surgical History Anesthesia History of neck surgery Hx of circumcision Hx of eye surgery Family History Father Diabetes mellitus History of heart disease Hypertension Mother Diabetes mellitus Hypertension Brother History of bipolar disorder Sister Uterine cancer Diabetes mellitus Grandfather No problems noted. Grandmother History of heart disease Hypertension Stroke Grandfather Cancer Grandmother Diabetes mellitus Social History household members: family and none Smoking Status: Current every day smoker Tobacco: How many years used: 49 second hand exposure: No alcohol intake: current substance use type: does not use Assessment & Plan Assessment and plan (1) History of kidney cancer: Status: Acute Assessment & Plan narrative: Assessment: 1. Stable postop day 2. Status post left hand assisted laparoscopic radical nephrectomy. 2. History of AFib with RVR. Rate is markedly improved and currently about 90. He remains asymptomatic. 3. Pathology pending. Plan: 1. Increase diet and activity. 2. Follow-up pathology when available.
[2020-07-14] MEDS: NICOTINE 21 MG PATCH TOP (07:37)
[2020-07-14] MEDS: ENOXAPARIN 40 MG/0.4 ML SYRINGE SUBCUT (07:37)
[2020-07-14] MEDS: HYDROMORPHONE 2 MG TABLET PO ×5 (07:38→20:50)
[2020-07-14] MEDS: ACETAMINOPHEN 325 MG TABLET 650 MG PO ×2 (07:38→14:21)
[2020-07-14] MEDS: lisinopriL 20 MG TABLET PO (07:38)
[2020-07-14] MEDS: guaiFENesin ER 600 MG TAB 1200 MG PO ×2 (08:53→20:49)
[2020-07-14] MEDS: LORazepam 0.5 MG TABLET PO (08:53)
--- NOTE | 2020-07-14 09:50 | PT.IIE ---
Current Diagnoses Unspecified atrial fibrillation (07/12/20) Unspecified diastolic (congestive) heart failure (07/12/20) Other specified disorders of kidney and ureter (07/12/20) Personal history of other malignant neoplasm of kidney (07/12/20) Surgery Performed Operation Date: 07/12/20 12:15 Actual Procedures p Laparoscopic Hand Assisted Radical Nephrectomy(Left) - Daniella Cook MD Surgical History (Last Reviewed 07/13/20 @ 13:06 by Antonia Torrez MD) Anesthesia History of neck surgery Hx of circumcision Hx of eye surgery Medical History Atrial fibrillation with rapid ventricular response BPH w urinary obs/LUTS Cancer of left kidney Cigarette nicotine dependence Diastolic heart failure History of cardioversion (10/2018) History of heart disease Hypertension Left renal mass Left renal mass Measles (~1961) Mumps (~1960) Nonrheumatic mitral valve regurgitation Rheumatic fever (~1961) Smoking Physical Therapy Inpatient Evaluation/Re-Eval M1 PT/OT-IP Prior Functional Status Start: 07/14/20 10:53 Freq: NEEDED Status: Active Protocol: Document 07/14/20 09:50 AB (Rec: 07/14/20 11:12 AB [id number]) Medical Review Prior Functional Status Medical History Reviewed Yes Communication able to make needs known Mobility and Gait pt stated that he is indpendent with all mobilities and ambulation without AD Social History Household Members none Living Arrangements House Number of Floors (Floors) One Floor Number of Stairs To Enter/Railing? pt plans to stay at his sister 's house upon d/c and stated that his sister will be able to assist him; home set-up infor is regarding sister's house 1 step to enter Home Environment Standard Height Toilet,Walk in Shower Employment Status Retired M2 PT-IP Current Condition Start: 07/14/20 10:53 Freq: NEEDED Status: Active Protocol: Document 07/14/20 09:50 AB (Rec: 07/14/20 11:12 AB [email or web address]) Physical Therapy Current Condition Current Condition Evaluation Date 07/14/20 Treatment Diagnosis s/p nephrectomy; difficulty in walking Onset Date 07/12/20 Precautions Abdominal Surgery Precautions Log Roll,Lifting Restrictions, Gait Belt above Incisional Area M3 PT-IP Subjective Start: 07/14/20 10:53 Freq: NEEDED Status: Active Protocol: Document 07/14/20 09:50 AB (Rec: 07/14/20 11:12 AB [id number]) Subjective Physical Therapy Visit Type Type Initial Evaluation Visit Start Time 09:50 Visit Stop Time 10:20 Total Visit Minutes 30 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 of 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 GRINDER 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 Visits 0 Physical Therapy Visit Comments Patient Comments pt is agreeable to do PT Therapy Pain Assessment Pain When Pain Assessed At Rest Pain Present Pain Present Pain Reported Location incision Scale Used pain scale not stated M4 PT-IP Mobility and Gait Start: 07/14/20 10:53 Freq: NEEDED Status: Active Protocol: Document 07/14/20 09:50 AB (Rec: 07/14/20 11:12 AB [id number]) PT-Bed Mobility Assessment Supine to Sit Supine to Sit Standby Assistance,Head of Bed Elevated PT-Transfer Assessment Sit to and From Stand Sit to and from Stand Contact Guard Assistance,1 Person Assistance Equipment Transfer Assistive Device Gait Belt,Front Wheeled Walker Orthotic/Prosthetic Devices or Brace: No Transfers Transfer Destination Chair Transfer Technique ambulated Transfer Ability Level of Assist Contact Guard Assistance,1 Person Assistance,Use of Upper Extremities Comments Mobility Comments pt educated on abdominal precautions and log roll bed mobility. PT was still setting up chair and pt just sat up to EOB with HOB elevated. pt is impulsive. educated on safety and agreed. c/o dizziness upon sitting. BP chekced: 130/98. O2 at rest with O2 on 94%. pt took his O2 off and stated that he does not need it and only needs it when he has his coughing bouts. pt ambulated using FWW in room 20 ft CGA. assessed ambulation without AD CGA ~ 20 ft. pt agreed to sit on chair. continues to c/ o dizziness and stated that it is because of the meds he has been taking. BP checked 133/ 103. O2 sat 85%. put O2 back on and O2 sat increased to 91 % in ~ 10 sec. positioned pt on chair. call light and table placed within reach. Gait Assessment Gait Gait Assistance Required: Contact Guard Assist Distance (Feet) 20 Able to Maintain Weight Bearing Status Yes During Gait Assistive Devices Assistive Device None,Gait Belt,Front Wheeled Walker Orthotic/Prosthetic Devices or Brace: No Gait Deviations General Gait Pattern Antalgic,Decreased Stride Length,Decreased Feet Clearance,Lateral Trunk Lean, Step-to Gait Factors Limiting Gait Function Factors Limiting Gait Function Decreased Activity Tolerance, Decreased Strength,Pain,Poor Balance,Respiratory Distress Comments Gait Comments pls refer to mobility section. assessed ambulation using FWW initially requiring CGA. assessed ambulation without AD and pt also requires CGA but with increase gait deviation of antalgic gait and lateral trunk lean to the R but without LOB. PT-Balance Assessment Sitting Balance and Reactions Static Sitting Balance Ability Good Dynamic Sitting Balance Ability Good Standing Balance and Reactions Static Standing Balance Ability Fair Dynamic Standing Balance Ability Fair Device Used without AD M5 PT-IP Objective Assessments Start: 07/14/20 10:53 Freq: NEEDED Status: Active Protocol: Document 07/14/20 09:50 AB (Rec: 07/14/20 11:12 AB [email or web address]) Orientation Orientation/Cognition Level of Alertness Alert Orientation Name,Place,Situation Language Function Ability No Deficits Noted Safety Awareness Decreased Safety Awareness Gross Range of Motion Lower Extremity ROM Assessment Within Functional Limits Strength Lower Extremity Strength Assessment Within Functional Limits Sensation Assessment Sensation Gross Sensation WNL Muscle Tone Muscle Tone WNL Yes M6 PT-IP Treatment Start: 07/14/20 10:53 Freq: NEEDED Status: Active Protocol: Document 07/14/20 09:50 AB (Rec: 07/14/20 11:12 AB [email or web address]) Physical Therapy Treatment Education Education Provided Precautions,Safety M7 PT-IP Assessment and Plan Start: 07/14/20 10:53 Freq: NEEDED Status: Active Protocol: Document 07/14/20 09:50 AB (Rec: 07/14/20 11:12 AB [id number]) PT Summary Assessment and Plan Potential Rehabilitation Potential Good Status of Condition at Evaluation Evolving Summary Impairments Pain,ROM,Strength,Balance, Cognition,Bed Mobility, Transfers,Gait,Activity Tolerance Assessment Summary pt requiring CGA with mobility but with decrease activity tolerance with decrease in O2 sat with activity. pt also is impulsive. pt plans to go home with his sister to assist him. will continue to assess progress. pt may require HHPT. Goals Bed Mobility Goal Independent Transfer Goal Independent,Front Wheeled Walker Gait Goal Independent,Front Wheel Walker Gait Distance 150 Other Goals improve ambulation without AD mod I 200 ft up/down 1 step mod I Days to Meet Goals 10 Frequency of Treatment Frequency Of Treatment Once a Day Treatment Plan Physical Therapy Treatment Plan Bed Mobility Training,Transfer Training,Gait Training, Therapeutic Exercise,Balance Retraining,Post Op Education, Discharge Planning,Hot or Cold Pack,Neuromuscular Re-ed, Coordination Retraining,Manual Therapy Other Recommendations and Next Treatment log roll bed mobility, Focus ambulation, stair climbing Recommendations To Nursing Amount of Assist Needed 1 Person Assist Discharge Recommendations PT Discharge Recommendations Home with Assistance,Home Health Transportation Needs at Discharge Private Vehicle
--- NOTE | 2020-07-14 10:23 | PM.PN.1 ---
Subjective Subjective Date Patient Seen: 07/14/20 Interval history: Evaristo Reynolds is a 64-year-old male with a past medical history significant for hypertension, diastolic congestive heart failure, paroxysmal atrial fibrillation on aspirin, tobacco dependence, and medication noncompliance who presented for elective left nephrectomy due to probable renal cell carcinoma. Medicine team was consulted to help manage atrial fibrillation. The patient is resting in bed comfortably. He was short of breath this morning likely due to splinting from pain due to recent left nephrectomy. He has also had a mildly productive cough from smoking and have started Mucinex. He inquires regarding restarting his furosemide and informed him that his shortness of breath is pain related and not a fluid overload problem. His atrial fibrillation is well controlled with average heart rate 70 to 90s with occasional RVR with pain. He reports his pain is much better controlled on oral Dilaudid. Discussed splinting and encouraged incentive spirometer and Acapella. He currently denies headache, chest pain, shortness of breath, nausea, vomiting, fever, chills, dysuria, diarrhea constipation. He is voiding via Juarez catheter. He has not yet had a bowel movement and have implemented a bowel regimen to avoid opiate induced constipation. He is up minimally with assistance. Exam Vital Signs (past 8 hours): - 07/14/20 04:00 07/14/20 08:00 07/14/20 08:18 Temperature 97.8 F 98.0 F Pulse Rate 91 H 81 Respiratory Rate 18 44 H Blood Pressure 155/98 H 148/99 H Pulse Oximetry 92 89 L 93 Oxygen Delivery Method Nasal Cannula Oxygen Flow Rate 5 Narrative Exam Narrative: General: Older male sitting in bed and in no acute distress, well-developed, well-nourished, appropriately interactive. HEENT: Normocephalic, atraumatic. External ears without defect. Pupils equal, round, and reactive to light. Anicteric sclerae, moist conjunctivae, and no lid lag. Oropharynx free of erythema and cobble stoning with moist mucosa. Poor dentition. Neck: Supple with full range of motion. No jugular venous distension. No lymphadenopathy or thyromegaly. Cardiovascular: Irregularly irregular without murmurs, rubs, or gallops appreciated. Pulmonary: Clear to auscultation bilaterally with fine bibasilar crackles. No wheezes, or rhonchi. Normal respiratory effort with mild splinting due to pain. Abdomen: Soft, bowel sounds present, nondistended, mild tenderness to palpation on left, dressing in place C/D/I without surrounding erythema. Extremities: No clubbing, cyanosis, or edema. Skin: Normal temperature, turgor, and texture; no rash, ulcers, or subcutaneous nodules appreciated. Neurological: Cranial nerves grossly intact. Psychiatric: Normal mood and affect. Alert and oriented to person, place, and time. Objective Labs Result Diagrams: 07/13/20 14:35 07/13/20 15:35 Labs: Laboratory Results - last 24 hr 07/13/20 07/13/20 14:35 15:35 WBC 10.8 RBC 4.31 L Hgb 13.1 L Hct 39.7 L MCV 92.1 MCH 30.4 MCHC 33.0 RDW 15.4 H Plt Count 182 Neut % (Auto) 77.4 H Lymph % (Auto) 11.7 L [place] % (Auto) 9.8 Eos % (Auto) 0.3 L Baso % (Auto) 0.8 Neut # (Auto) 8400 H Lymph # (Auto) 1300 [place] # (Auto) 1100 H Eos # (Auto) 0 Baso # (Auto) 100 Sodium 136 L Potassium 4.4 Chloride 104 Carbon Dioxide 31 BUN 26 H Creatinine 1.36 H Estimated GFR 53.1 L BUN/Creatinine Ratio 19.1 Glucose 130 H Calcium 9.0 Magnesium 2.1 PFSH Medical History Atrial fibrillation with rapid ventricular response BPH w urinary obs/LUTS Cancer of left kidney Cigarette nicotine dependence Diastolic heart failure History of cardioversion (10/2018) History of heart disease Hypertension Left renal mass Left renal mass Measles (~1961) Mumps (~1960) Nonrheumatic mitral valve regurgitation Rheumatic fever (~1961) Smoking Surgical History Anesthesia History of neck surgery Hx of circumcision Hx of eye surgery Family History Father Diabetes mellitus History of heart disease Hypertension Mother Diabetes mellitus Hypertension Brother History of bipolar disorder Sister Uterine cancer Diabetes mellitus Grandfather No problems noted. Grandmother History of heart disease Hypertension Stroke Grandfather Cancer Grandmother Diabetes mellitus Social History household members: none Smoking Status: Current every day smoker Tobacco: How many years used: 49 second hand exposure: No alcohol intake: current substance use type: does not use Assessment & Plan Assessment & Plan narrative: Evaristo Reynolds is a 64-year-old male with a past medical history significant for hypertension, diastolic congestive heart failure, paroxysmal atrial fibrillation on aspirin, tobacco dependence, and medication noncompliance who presented for elective left nephrectomy due to probable renal cell carcinoma. Medicine team was consulted to help manage atrial fibrillation. 1. Paroxysmal atrial fibrillation with RVR, not present on admission. RVR resolved. -Patient developed rapid atrial fibrillation postoperatively likely related to holding his usual home beta-renato. -Switched metoprolol tartrate 50 mg every 6 hours to 100 mg twice daily and diltiazem 30 mg every 6 hours to 60 twice daily for rate control as patient's heart rate is well controlled now 70 to 90s. Plan to switch to long-acting tomorrow. -Resume aspirin when allowed per urology. 2. Left renal mass, status post left nephrectomy, present on admission. Active. -Continue postoperative management, pain control and VTE prophylaxis per Urology. 3. Chronic diastolic congestive heart failure with preserved ejection fraction exacerbation, present on admission. Stable. -Does not represent acute CHF exacerbation and without signs of fluid overload currently. Patient was recently hospitalized in May for decompensated heart failure. -Previous echocardiogram demonstrated EF 50-55% mild dilated right ventricle and decreased ventricular function, severely dilated bilateral atria. -Continue to hold furosemide per urology and will resume if he has signs of fluid overload. -Continue strict I&Os and daily weights. Net +500 cc. -Continue heart healthy diet. 4. Hypertension, chronic, present on admission. Stable. -Continue lisinopril 20 mg daily and metoprolol and diltiazem for rate control as above. 5. Tobacco dependence, chronic, present on admission. Stable. -Patient continues to smoke 1 PPD every 2 days. -Discussed smoking cessation in detail and continued to recommend indefinite cessation especially in lieu of left renal mass. -Continue nicotine patch daily to avoid nicotine withdrawal. Code status: Full code VTE prophylaxis: SQ Heparin, SCDs Thank you for this interesting consult. Medicine will continue follow along with you.
[2020-07-14] MEDS: polyethylene glycoL 3350 17 GM POWD.PACK PO (12:46)
--- NOTE | 2020-07-14 15:33 | PC.NURSE ---
Pain/Postop: Pain issues this am. Changed to dilaudid and he reported pain was much better controlled with same. Pt report he slept little last night and had to much pain as well as awakened freq for meds. Patient finally got some sleep later in the morning and felt much better. He did work with PT, got up to the chair and walked in the room. He refused his bkft, but did take bites at lunch. Second issue was resp. He reports when he was admitted before he went into fluid over load. This am he his sats were 89-90. Then later they dropped to 80 and he was placed on O2 at 3L. RT did come up to the room to eval and treat. MD made aware. Pt was very concerned about his lasix dose and MD explained reason he is not receiving it at this time. Pt was satisfied with the response. His saha was d/c today and he has voided. He is resting comfortably at this moment.
[2020-07-14] MEDS: HEPARIN 5,000 UNIT/ML VIAL 5000 UNIT SUBCUT (20:49)
[2020-07-14] MEDS: DOCUSATE 100 MG CAPSULE PO (20:49)
[2020-07-14] MEDS: METOPROLOL IR 50 MG TABLET 100 MG PO (20:49)
[2020-07-14] MEDS: dilTIAZem 30 MG TABLET 60 MG PO (20:50)
[2020-07-15] VITALS (15 sets, daily range): BP systolic 130–163; BP diastolic 73–99; PULSE 67–99; RESP 16–22; TEMP 36.6–37; O2SAT 90–94
[2020-07-15] MEDS: HYDROMORPHONE 2 MG TABLET PO ×7 (00:47→21:51)
--- NOTE | 2020-07-15 02:33 | PC.NURSE ---
Patient assessed at 2335. Is alert and oriented. Breath sounds diminished throughout. Currently on oxygen at 8L/min per HFNC with sat of 94%. Continues to have intermittent cough but states it has lessened but still with small amounts thick yellow sputum. HR irregular and tachy at 101 bpm; telemetry reading was afib RVR. BP also remains elevated at 149/93. JOSÉ Camejo, informed of HR, BP and O2 needs. Denies nausea. BT present and states he has been passing flatus. Abdomen still mildly distended. Dressings to abdomen intact with no new drainage noted. Is moving self in bed. Reportedly has been out of bed with walker and 1 assist. Refusing to wear SCD's tonight so reminded to ankle wave. Catheter was removed yesterday morning and has been voiding using urinal; denies dysuria, frequency or urgency. Fall risk assessment is moderate and bed alarm is activated.
--- NOTE | 2020-07-15 06:00 | DI.RAD.S_ITS ---
PROCEDURE: XR CHEST 1V INDICATIONS: Hypoxia TECHNIQUE: One view of the chest was acquired. COMPARISON: [facility], CR, XR CHEST 1V, 05/11/2020, 21:03. FINDINGS: Surgical changes and devices: None. Lungs and pleura: Bilateral interstitial infiltrates. No pleural effusions or pneumothorax. Mediastinum: Mediastinal contours appear normal. Heart size is normal. Bones and chest wall: There is free air under the right hemidiaphragm. No suspicious bony lesions. Overlying soft tissues appear unremarkable. IMPRESSION: 1. There is free air under the right hemidiaphragm, likely related to recent surgery. 2. Bibasilar opacity may be secondary to pleural effusions and compression atelectasis. 3. Mild bilateral interstitial prominence. The result was discussed with Dr. Pacheco. Dictated by: Renetta Leonardo M.D. on 07/15/2020 at 9:17 Approved by: Renetta Leonardo M.D. on 07/15/2020 at 9:23
[2020-07-15 06:59] LABS: Add Manual Diff / Slide Review NO; Basophils Absolute Auto 0 /uL (0-100); Basophils Percent Auto 0.4 % (0-2); Eosinophils Absolute Auto 200 /uL (0-450); Eosinophils Percent Auto 1.6 % (2-4); Hematocrit 40.5 % (41-53); Hemoglobin 13.7 g/dL (13.5-17.5); Lymphocytes Absolute Auto 1000 /uL (1100-4500); Lymphocytes Percent Auto 10.2 % (25-40); Mean Corpuscular HGB Conc 33.8 % (30-36); Mean Corpuscular Hemoglobin 30.9 PG (26-34); Mean Corpuscular Volume 91.6 fL (80-100); Monocytes Absolute Auto 900 /uL (0-900); Monocytes Percent Auto 9.3 % (3-14); Neutrophils Absolute Auto 8000 /uL (1500-7000); Neutrophils Percent Auto 78.5 % (50-75); Platelet Count 175 X10^3/uL (150-400); Red Blood Cell Count 4.42 X10^6/uL (4.5-5.9); Red Cell Distribution Width 14.8 % (11.6-14.8); White Blood Cell Count 10.2 X10^3/uL (4.5-11.0)
[2020-07-15 07:10] LABS: BUN Creatinine Ratio 17.8 (6-22); Blood Urea Nitrogen 21 mg/dL (9-20); Calcium 9.1 mg/dL (8.4-10.2); Carbon Dioxide 28 mmol/L (22-32); Chloride 101 mmol/L (98-107); Estimated Glomerular Filt Rate > 60.0 mL/min (>60); Glucose 104 mg/dL (80-110); HEMOLYSIS < 15 (0-50); Potassium 4.4 mmol/L (3.4-5.1); Sodium 132 mmol/L (137-145)
[2020-07-15 07:18] LABS: NT-proBNP (BNP-Adult 18+) 2750 pg/mL (<125)
--- NOTE | 2020-07-15 07:29 | PM.PN.1 ---
Subjective Subjective Date Patient Seen: 07/15/20 Time Patient Seen: 07:33 Interval history: For day 3. Status post left hand assisted laparoscopic radical nephrectomy. Patient's only complaint is that of being tired. He is tolerating moderate general p.o. without incident. He had a moderate-sized bowel movement in the interval. He is passing flatus. He denies nausea or vomiting. He is ambulating without assistance. Final pathology is that of a grade 4, pT1b, NX clear cell carcinoma. Exam Vital Signs (past 8 hours): - 07/14/20 23:40 07/15/20 05:20 Temperature 98.2 F 98.0 F Pulse Rate 101 H 94 H Respiratory Rate 18 16 Blood Pressure 149/93 H 142/99 H Pulse Oximetry 94 94 Oxygen Delivery Method High Flow Nasal Cannula Oxygen Flow Rate 8 Narrative Exam Narrative: He is sitting upright in bed and in no acute distress. Chest-equal, clear and unlabored expansion bilaterally no rales or rhonchi appreciated. Heart regular rhythm in regular rate. Abdomen-bowel sounds are active. Abdomen is nondistended. Dressing sites are intact. Extremity-no edema cyanosis or pallor. SCDs in place. Objective Labs Result Diagrams: 07/15/20 06:39 07/15/20 06:39 Labs: Laboratory Results - last 24 hr 07/15/20 07/15/20 06:39 06:39 WBC 10.2 RBC 4.42 L Hgb 13.7 Hct 40.5 L MCV 91.6 MCH 30.9 MCHC 33.8 RDW 14.8 Plt Count 175 Neut % (Auto) 78.5 H Lymph % (Auto) 10.2 L [place] % (Auto) 9.3 Eos % (Auto) 1.6 L Baso % (Auto) 0.4 Neut # (Auto) 8000 H Lymph # (Auto) 1000 L [place] # (Auto) 900 Eos # (Auto) 200 Baso # (Auto) 0 Sodium 132 L Potassium 4.4 Chloride 101 Carbon Dioxide 28 BUN 21 H Creatinine 1.18 Estimated GFR > 60.0 BUN/Creatinine Ratio 17.8 Glucose 104 Calcium 9.1 NT-Pro-B Natriuret Pep 2750 H PFSH Medical History Atrial fibrillation with rapid ventricular response BPH w urinary obs/LUTS Cancer of left kidney Cigarette nicotine dependence Diastolic heart failure History of cardioversion (10/2018) History of heart disease Hypertension Left renal mass Left renal mass Measles (~1961) Mumps (~1960) Nonrheumatic mitral valve regurgitation Rheumatic fever (~1961) Smoking Surgical History Anesthesia History of neck surgery Hx of circumcision Hx of eye surgery Family History Father Diabetes mellitus History of heart disease Hypertension Mother Diabetes mellitus Hypertension Brother History of bipolar disorder Sister Uterine cancer Diabetes mellitus Grandfather No problems noted. Grandmother History of heart disease Hypertension Stroke Grandfather Cancer Grandmother Diabetes mellitus Social History household members: none Smoking Status: Current every day smoker Tobacco: How many years used: 49 second hand exposure: No alcohol intake: current substance use type: does not use Assessment & Plan Assessment and plan (1) History of kidney cancer: Status: Acute Assessment & Plan narrative: Assessment: 1. Stable postop day 3. Status post left hand assisted laparoscopic nephrectomy. 2. Grade 4, pT1b, NX clear cell carcinoma. Will obtain follow-up imaging in 12 weeks. 3. History of AFib and RVR, diastolic heart failure, COPD, etc. Plan: 1. Discussed case with Dr. patino. Will restart Lasix today and observe urine output, renal function, clinical status. 2. Overall stable for discharge from standpoint. Hospitalist service is monitoring ongoing medical issues. Final timing a discharge per hospitalist service.
--- NOTE | 2020-07-15 07:50 | PM.PN.1 ---
Subjective Subjective Date Patient Seen: 07/15/20 Interval history: Evaristo Reynolds is a 64-year-old male with a past medical history significant for hypertension, diastolic congestive heart failure, paroxysmal atrial fibrillation on aspirin, tobacco dependence, and medication noncompliance who presented for elective left nephrectomy due to probable renal cell carcinoma. Medicine team was consulted to help manage atrial fibrillation. The patient is resting in bed comfortably. He continues to have abdominal pain related to left nephrectomy and mild splinting from pain. Continue pulmonary toilet with incentive spirometer and Acapella to prevent postoperative pneumonia. His pain is well controlled with oral Dilaudid. His productive cough due to smoking has improved with Mucinex. His atrial fibrillation remains well controlled with average heart rate 80 to 90s with occasional runs to 120s due to activity. He reports his pain is much better controlled on oral Dilaudid. He currently denies headache, chest pain, shortness of breath, nausea, vomiting, fever, chills, dysuria, diarrhea or constipation. He is voiding via Juarez catheter and eliminating without difficulty. He has not yet had a bowel movement and have implemented a bowel regimen to avoid opiate induced constipation. He is up minimally with assistance. Exam Vital Signs (past 8 hours): - 07/15/20 05:20 Temperature 98.0 F Pulse Rate 94 H Respiratory Rate 16 Blood Pressure 142/99 H Pulse Oximetry 94 Oxygen Delivery Method High Flow Nasal Cannula Oxygen Flow Rate 8 Narrative Exam Narrative: General: Older male sitting in bed and in no acute distress, well-developed, well-nourished, appropriately interactive. HEENT: Normocephalic, atraumatic. External ears without defect. Pupils equal, round, and reactive to light. Anicteric sclerae, moist conjunctivae, and no lid lag. Oropharynx free of erythema and cobble stoning with moist mucosa. Poor dentition. Neck: Supple with full range of motion. No jugular venous distension. No lymphadenopathy or thyromegaly. Cardiovascular: Irregularly irregular without murmurs, rubs, or gallops appreciated. Pulmonary: Clear to auscultation bilaterally with fine bibasilar crackles. No wheezes, or rhonchi. Normal respiratory effort with mild splinting due to pain. Abdomen: Soft, bowel sounds present, nondistended, mild tenderness to palpation especially on left, dressing in place with small amount dried heme without surrounding erythema and lap sites intact without drainage. Extremities: No clubbing, cyanosis, or edema. Skin: Normal temperature, turgor, and texture; no rash, ulcers, or subcutaneous nodules appreciated. Neurological: Cranial nerves grossly intact. Psychiatric: Normal mood and affect. Alert and oriented to person, place, and time. Objective Labs Result Diagrams: 07/15/20 06:39 07/15/20 06:39 Labs: Laboratory Results - last 24 hr 07/15/20 07/15/20 06:39 06:39 WBC 10.2 RBC 4.42 L Hgb 13.7 Hct 40.5 L MCV 91.6 MCH 30.9 MCHC 33.8 RDW 14.8 Plt Count 175 Neut % (Auto) 78.5 H Lymph % (Auto) 10.2 L [place] % (Auto) 9.3 Eos % (Auto) 1.6 L Baso % (Auto) 0.4 Neut # (Auto) 8000 H Lymph # (Auto) 1000 L [place] # (Auto) 900 Eos # (Auto) 200 Baso # (Auto) 0 Sodium 132 L Potassium 4.4 Chloride 101 Carbon Dioxide 28 BUN 21 H Creatinine 1.18 Estimated GFR > 60.0 BUN/Creatinine Ratio 17.8 Glucose 104 Calcium 9.1 NT-Pro-B Natriuret Pep 2750 H PFSH Medical History Atrial fibrillation with rapid ventricular response BPH w urinary obs/LUTS Cancer of left kidney Cigarette nicotine dependence Diastolic heart failure History of cardioversion (10/2018) History of heart disease Hypertension Left renal mass Left renal mass Measles (~1962) Mumps (~1960) Nonrheumatic mitral valve regurgitation Rheumatic fever (~1961) Smoking Surgical History Anesthesia History of neck surgery Hx of circumcision Hx of eye surgery Family History Father Diabetes mellitus History of heart disease Hypertension Mother Diabetes mellitus Hypertension Brother History of bipolar disorder Sister Uterine cancer Diabetes mellitus Grandfather No problems noted. Grandmother History of heart disease Hypertension Stroke Grandfather Cancer Grandmother Diabetes mellitus Social History household members: none Smoking Status: Current every day smoker Tobacco: How many years used: 49 second hand exposure: No alcohol intake: current substance use type: does not use Assessment & Plan Assessment & Plan narrative: Evaristo Reynodls is a 64-year-old male with a past medical history significant for hypertension, diastolic congestive heart failure, paroxysmal atrial fibrillation on aspirin, tobacco dependence, and medication noncompliance who presented for elective left nephrectomy due to probable renal cell carcinoma. Medicine team was consulted to help manage atrial fibrillation. 1. Paroxysmal atrial fibrillation with RVR, not present on admission. RVR resolved. -Patient developed rapid atrial fibrillation postoperatively likely related to holding his usual home beta-renato. -Restarted home metoprolol succinate 150 mg daily and switched short-acting diltiazem 60 twice daily to diltiazem CD 120 mg daily for better rate control and the patient should be discharged on these medications. Patient remains in atrial fibrillation with controlled heart rate 80s to 90s at rest. -Restarted home aspirin 81 mg daily. 2. Left renal mass, status post left nephrectomy, present on admission. Active. -Continue postoperative management, pain control and VTE prophylaxis per Urology. 3. Chronic diastolic congestive heart failure with preserved ejection fraction exacerbation, present on admission. Stable. -Does not represent acute CHF exacerbation and without signs of fluid overload currently. Patient was recently hospitalized in May for decompensated heart failure. -Previous echocardiogram demonstrated EF 50-55% mild dilated right ventricle and decreased ventricular function, severely dilated bilateral atria. -Restarted home furosemide 40 mg daily. -Continue strict I&Os and daily weights. Net +250 cc. -Continue heart healthy diet. 4. Hypertension, chronic, present on admission. Stable. -Continue lisinopril 20 mg daily and metoprolol and diltiazem for rate control as above. 5. Tobacco dependence, chronic, present on admission. Stable. -Patient continues to smoke 1 PPD every 2 days. -Discussed smoking cessation in detail and continued to recommend indefinite cessation especially in lieu of left renal mass. -Continue nicotine patch daily to avoid nicotine withdrawal. Code status: Full code VTE prophylaxis: SQ Heparin, SCDs Thank you for this interesting consult. Patient likely to discharge home tomorrow and medicine will continue follow along with you.
[2020-07-15 08:24] LABS: Procalcitonin 0.42 ng/mL (<0.5)
[2020-07-15] MEDS: NICOTINE 21 MG PATCH TOP (08:50)
[2020-07-15] MEDS: polyethylene glycoL 3350 17 GM POWD.PACK PO (08:52)
[2020-07-15] MEDS: ACETAMINOPHEN 325 MG TABLET 650 MG PO (08:52)
[2020-07-15] MEDS: guaiFENesin ER 600 MG TAB 1200 MG PO ×2 (08:53→21:51)
[2020-07-15] MEDS: DOCUSATE 100 MG CAPSULE PO (08:53)
[2020-07-15] MEDS: lisinopriL 20 MG TABLET PO (08:53)
[2020-07-15] MEDS: FUROSEMIDE 40 MG TABLET PO (08:53)
[2020-07-15] MEDS: METOPROLOL ER 50 MG TABLET 150 MG PO (08:53)
[2020-07-15] MEDS: HEPARIN 5,000 UNIT/ML VIAL 5000 UNIT SUBCUT (08:53)
[2020-07-15] MEDS: dilTIAZem CD 120 MG CAP PO (09:07)
[2020-07-15] MEDS: CEFTRIAXONE 2 GM/50 ML FROZ.PIGGY IV (09:08)
[2020-07-15] MEDS: SODIUM CHLORIDE 0.9% FLUSH 10 ML IV ×2 (09:08→21:51)
--- NOTE | 2020-07-15 10:55 | RT ---
Pt only wanted to perform 2 on IS teaching, stated he has pain. Found on 3 lpm nc, no distress noted
--- NOTE | 2020-07-15 11:22 | PT.IPTN ---
Current Diagnoses Unspecified atrial fibrillation (07/12/20) Unspecified diastolic (congestive) heart failure (07/12/20) Other specified disorders of kidney and ureter (07/12/20) Personal history of other malignant neoplasm of kidney (07/12/20) Surgery Performed Operation Date: 07/12/20 12:15 Actual Procedures p Laparoscopic Hand Assisted Radical Nephrectomy(Left) - Daniella Cook MD Physical Therapy Treatment Note M2 PT-IP Current Condition Start: 07/14/20 10:53 Freq: NEEDED Status: Active Protocol: Document 07/14/20 09:50 AB (Rec: 07/14/20 11:12 AB [id number]) Physical Therapy Current Condition Current Condition Evaluation Date 07/14/20 Treatment Diagnosis s/p nephrectomy; difficulty in walking Onset Date 07/12/20 Precautions Abdominal Surgery Precautions Log Roll,Lifting Restrictions, Gait Belt above Incisional Area M3 PT-IP Subjective Start: 07/14/20 10:53 Freq: NEEDED Status: Active Protocol: Document 07/15/20 12:08 KS (Rec: 07/15/20 12:11 KS [id number]) Subjective Physical Therapy Visit Type Type Treatment Note Visit Start Time 11:12 Visit Stop Time 11:22 Total Visit Minutes 10 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 M4 PT-IP Mobility and Gait Start: 07/14/20 10:53 Freq: NEEDED Status: Active Protocol: Document 07/15/20 12:08 KS (Rec: 07/15/20 12:11 KS [id number]) PT-Transfer Assessment Comments Mobility Comments Pt not agreeable to get out of bed and stating he was just up and does not need to get up again. Instructed pt and pt performed bilateral ankle pumps, quad sets, and glute sets which he tolerated well. Encouraged pt to mobilize w/ nursing later and discussed importance of ambulation. Gait Assessment Comments Gait Comments Pt refused ambulation M5 PT-IP Objective Assessments Start: 07/14/20 10:53 Freq: NEEDED Status: Active Protocol: Document 07/14/20 09:50 AB (Rec: 07/14/20 11:12 AB [id number]) Orientation Orientation/Cognition Level of Alertness Alert Orientation Name,Place,Situation Language Function Ability No Deficits Noted Safety Awareness Decreased Safety Awareness Gross Range of Motion Lower Extremity ROM Assessment Within Functional Limits Strength Lower Extremity Strength Assessment Within Functional Limits Sensation Assessment Sensation Gross Sensation WNL Muscle Tone Muscle Tone WNL Yes M6 PT-IP Treatment Start: 07/14/20 10:53 Freq: NEEDED Status: Active Protocol: Document 07/15/20 12:12 KS (Rec: 07/15/20 12:12 KS [id number]) Physical Therapy Treatment Exercises Exercises Ankle Pumps,Gluteal Sets,Quad Sets M7 PT-IP Assessment and Plan Start: 07/14/20 10:53 Freq: NEEDED Status: Active Protocol: Document 07/15/20 12:08 KS (Rec: 07/15/20 12:11 KS [id number]) PT Summary Assessment and Plan Potential Rehabilitation Potential Good Status of Condition at Evaluation Evolving Summary Impairments Pain,ROM,Strength,Balance, Cognition,Bed Mobility, Transfers,Gait,Activity Tolerance Assessment Summary Pt refused ambulation today, but was able to complete LE exercises including ankle pumps, quad sets, and glute sets to increase blood flow and strengthening. Pt will need to increase ambulation distance and ascend/descend 1 step prior to d/c. Goals Bed Mobility Goal Independent Transfer Goal Independent,Front Wheeled Walker Gait Goal Independent,Front Wheel Walker Gait Distance 150 Other Goals improve ambulation without AD mod I 200 ft up/down 1 step mod I Days to Meet Goals 10 Frequency of Treatment Frequency Of Treatment Once a Day Treatment Plan Physical Therapy Treatment Plan Bed Mobility Training,Transfer Training,Gait Training, Therapeutic Exercise,Balance Retraining,Post Op Education, Discharge Planning,Hot or Cold Pack,Neuromuscular Re-ed, Coordination Retraining,Manual Therapy Other Recommendations and Next Treatment log roll bed mobility, Focus ambulation, stair climbing Recommendations To Nursing Amount of Assist Needed 1 Person Assist Discharge Recommendations PT Discharge Recommendations Home with Assistance,Home Health Transportation Needs at Discharge Private Vehicle
[2020-07-15] MEDS: ASPIRIN EC 81 MG TABLET PO (13:42)
--- NOTE | 2020-07-15 14:41 | PC.NURSE ---
Addendum entered by Abihjeet Juarez R.N. 07/15/20 15:26: Patient reports had a loose BM, this RN did not visualize (patient flushed). Patient back in bed with urinal and call light within reach. Evening shift here to assume care. Original Note: Patient alert and oriented, withdrawn most of shift, but answers questions appropriately. Patient has needed a lot of encouragement and education to increase activity levels today. Sat up in the chair for the morning, and finally agreed to ambulate in the halls later in the shift. Patient declined use of walker, but used gait belt, and tolerated well. Patient weaned from oxygen today, tolerating room air at this time, order to maintain o2 sat greater than 88%. Incision sites remain intact with dry drainage noted but unchanged. Voiding without difficulty using urinal. Denies bowel movement yet, agreed to take stool softners as ordered, but declined suppository. Call light and urinal within reach.
--- NOTE | 2020-07-15 19:28 | PC.NURSE ---
shift overview VSS. pt states pain to abdomen and finding some relief from PO dilaudid. Generally not feeling well, denies appetite, refusing ambulation out of room (has been up ambulating in room to BR with steady gait), refusing to use I.S. reports being short of breath when up and back to BR, RA O2 sats checked after activity and are 93%. HR tachy in low 100s. Pt able to voice needs/questions and instructed to continue with the same.
[2020-07-15] MEDS: APIXABAN 5 MG TABLET PO (21:52)
[2020-07-16] MEDS: HYDROMORPHONE 2 MG TABLET PO ×4 (00:39→11:39)
[2020-07-16 05:43] VITALS: BP 150/92; PULSE 98; RESP 20; TEMP 36.7; O2SAT 91
[2020-07-16 07:23] LABS: Add Manual Diff / Slide Review NO; Basophils Absolute Auto 0 /uL (0-100); Basophils Percent Auto 0.5 % (0-2); Eosinophils Absolute Auto 200 /uL (0-450); Eosinophils Percent Auto 1.9 % (2-4); Hemoglobin 14.5 g/dL (13.5-17.5); Lymphocytes Absolute Auto 1000 /uL (1100-4500); Lymphocytes Percent Auto 9.7 % (25-40); Mean Corpuscular HGB Conc 33.8 % (30-36); Mean Corpuscular Hemoglobin 30.6 PG (26-34); Mean Corpuscular Volume 90.5 fL (80-100); Monocytes Absolute Auto 800 /uL (0-900); Monocytes Percent Auto 8.4 % (3-14); Neutrophils Absolute Auto 7800 /uL (1500-7000); Neutrophils Percent Auto 79.5 % (50-75); Platelet Count 201 X10^3/uL (150-400); Red Blood Cell Count 4.75 X10^6/uL (4.5-5.9); White Blood Cell Count 9.8 X10^3/uL (4.5-11.0)
[2020-07-16 07:37] LABS: Alanine Aminotransferase 34 IU/L (<50); Albumin 3.9 g/dL (3.5-5.0); Alkaline Phosphatase 80 U/L (38-126); Aspartate Aminotransferase 36 IU/L (17-59); BUN Creatinine Ratio 19.1 (6-22); Bilirubin Total 0.9 mg/dL (0.2-1.3); Blood Urea Nitrogen 22 mg/dL (9-20); Calcium 9.2 mg/dL (8.4-10.2); Carbon Dioxide 27 mmol/L (22-32); Chloride 100 mmol/L (98-107); Estimated Glomerular Filt Rate > 60.0 mL/min (>60); Globulin 3.9 g/dL (1.7-4.1); Glucose 109 mg/dL (80-110); HEMOLYSIS < 15 (0-50); Potassium 3.9 mmol/L (3.4-5.1); Sodium 134 mmol/L (137-145); Total Protein 7.8 g/dL (6.3-8.2)
[2020-07-16 07:50] VITALS: BP 156/102; PULSE 109; RESP 14; TEMP 37.1; O2SAT 92
[2020-07-16] MEDS: NICOTINE 21 MG PATCH TOP (08:00)
[2020-07-16 08:01] VITALS: BP 156/102; PULSE 109
[2020-07-16] MEDS: METOPROLOL ER 50 MG TABLET 150 MG PO (08:01)
[2020-07-16] MEDS: dilTIAZem CD 120 MG CAP PO (08:01)
[2020-07-16 08:02] VITALS: BP 156/102; PULSE 109
[2020-07-16] MEDS: guaiFENesin ER 600 MG TAB 1200 MG PO (08:02)
[2020-07-16] MEDS: FUROSEMIDE 40 MG TABLET PO (08:02)
[2020-07-16] MEDS: APIXABAN 5 MG TABLET PO (08:02)
[2020-07-16] MEDS: lisinopriL 20 MG TABLET PO (08:02)
[2020-07-16] MEDS: SODIUM CHLORIDE 0.9% FLUSH 10 ML IV (08:03)
[2020-07-16 09:20] VITALS: BP 141/109; PULSE 97
[2020-07-16 09:22] VITALS: BP 141/109; PULSE 97
--- NOTE | 2020-07-16 09:41 | PC.NURSE ---
Addendum entered by Mary Ann Sevilla R.N. 07/16/20 11:40: Patient educated about new medications, diet, exercise, activity, follow up apt.'s, ss of stroke, CHF, prevention of falls. Patient and sister verbalized understanding of all teaching and hand outs were given to them regarding new medications, and diet. Patient left facility via private vehicle with sister and has all belongings. Prescriptions were sent electronically to [facility] in [place]. Addendum entered by Mary Ann Sevilla R.N. 07/16/20 10:39: Pt had patient laying/ sitting/standing BP's were elevated. 183/116, 162/114-Dr. Pacheco notified of patient's vital signs. Still planning for discharge today. Original Note: Patient is hypertensive this AM 156/102, 141/109. Patient has no complaints of SOB, chest pain, dizziness or nausea. Dr. Pacheco notified of patient's vital signs. Patient states that it is hard for me to eat, I feel pain when I eat. Patient states that pain is 7/10. Patient medicated w/ 2mg oral dilaudid Q3 PRN.
--- NOTE | 2020-07-16 10:02 | P.PN_ITS ---
Subjective Subjective Date Patient Seen: 07/16/20 Interval history: Evaristo Reynolds is a 64-year-old male with a past medical history significant for hypertension, diastolic congestive heart failure, paroxysmal atrial fibrillation on aspirin, tobacco dependence, and medication noncompliance who presented for elective left nephrectomy due clear cell renal cell carcinoma. Medicine team was consulted to help manage atrial fibrillation. The patient is resting in bed comfortably. He reports he feels better. He continues to have abdominal pain related to left nephrectomy now without splinting. Continue pulmonary toilet with incentive spirometer and Acapella to prevent postoperative pneumonia and recommend continuing at home. His pain is well controlled with oral Dilaudid. His atrial fibrillation remains well controlled with average heart rate 90s with occasional runs to 110s due to activity. He currently denies headache, chest pain, shortness of breath, nausea, vomiting, fever, chills, dysuria, diarrhea or constipation. His appetite is improving. He is voiding and eliminating without difficulty. He is up ambulating with assistance. Exam Vital Signs (past 8 hours): - 07/16/20 05:43 07/16/20 07:50 07/16/20 08:01 Temperature 98.1 F 98.7 F Pulse Rate 98 H 109 H 109 H Respiratory Rate 20 14 Blood Pressure 150/92 H 156/102 H 156/102 H Pulse Oximetry 91 92 07/16/20 08:02 07/16/20 09:20 07/16/20 09:22 Temperature Pulse Rate 109 H 97 H 97 H Respiratory Rate Blood Pressure 156/102 H 141/109 H 141/109 H Pulse Oximetry Oxygen Delivery Method Room Air Oxygen Flow Rate 0 Narrative Exam Narrative: General: Older male sitting in bed and in no acute distress, well-developed, well-nourished, appropriately interactive. HEENT: Normocephalic, atraumatic. External ears without defect. Pupils equal, round, and reactive to light. Anicteric sclerae, moist conjunctivae, and no lid lag. Oropharynx free of erythema and cobble stoning with moist mucosa. Poor dentition. Neck: Supple with full range of motion. No jugular venous distension. No lymp hadenopathy or thyromegaly. Cardiovascular: Irregularly irregular without murmurs, rubs, or gallops appreciated. Pulmonary: Clear to auscultation bilaterally without crackles, wheezes, or rhonchi. Normal respiratory effort and splinting due to pain resolved. Abdomen: Soft, bowel sounds present, nondistended, mild tenderness to palpation especially on left, dressing in place with small amount dried heme without surrounding erythema and lap sites intact without drainage. Extremities: No clubbing, cyanosis, or edema. Skin: Normal temperature, turgor, and texture; no rash, ulcers, or subcutaneous nodules appreciated. Neurological: Cranial nerves grossly intact. Psychiatric: Normal mood and affect. Alert and oriented to person, place, and time. Objective Labs Result Diagrams: 07/16/20 07:13 07/16/20 07:13 Labs: Laboratory Results - last 24 hr 07/16/20 07/16/20 07/16/20 07:13 07:13 07:13 WBC 9.8 RBC 4.75 Hgb 14.5 Hct 43.0 MCV 90.5 MCH 30.6 MCHC 33.8 RDW 15.0 H Plt Count 201 Neut % (Auto) 79.5 H Lymph % (Auto) 9.7 L [place] % (Auto) 8.4 Eos % (Auto) 1.9 L Baso % (Auto) 0.5 Neut # (Auto) 7800 H Lymph # (Auto) 1000 L [place] # (Auto) 800 Eos # (Auto) 200 Baso # (Auto) 0 Sodium 134 L Potassium 3.9 Chloride 100 Carbon Dioxide 27 BUN 22 H Creatinine 1.15 Estimated GFR > 60.0 BUN/Creatinine Ratio 19.1 Glucose 109 Calcium 9.2 Magnesium 2.0 Total Bilirubin 0.9 AST 36 ALT 34 Alkaline Phosphatase 80 Total Protein 7.8 Albumin 3.9 Globulin 3.9 Albumin/Globulin Ratio 1.0 Procalcitonin 0.30 PFSH Medical History Atrial fibrillation with rapid ventricular response BPH w urinary obs/LUTS Cancer of left kidney Cigarette nicotine dependence Diastolic heart failure History of cardioversion (10/2018) History of heart disease Hypertension Left renal mass Left renal mass Measles (~1961) Mumps (~1960) Nonrheumatic mitral valve regurgitation Rheumatic fever (~1961) Smoking Surgical History Anesthesia History of neck surgery Hx of circumcision Hx of eye surgery Family History Father Diabetes mellitus History of heart disease Hypertension Mother Diabetes mellitus Hypertension Brother History of bipolar disorder Sister Uterine cancer Diabetes mellitus Grandfather No problems noted. Grandmother History of heart disease Hypertension Stroke Grandfather Cancer Grandmother Diabetes mellitus Social History household members: none Smoking Status: Current every day smoker Tobacco: How many years used: 49 second hand exposure: No alcohol intake: current substance use type: does not use Assessment & Plan Assessment & Plan narrative: Evaristo Reynolds is a 64-year-old male with a past medical history significant for hypertension, diastolic congestive heart failure, paroxysmal atrial fibrillation on aspirin, tobacco dependence, and medication noncompliance who presented for elective left nephrectomy due to clear cell renal cell carcinoma. Medicine team was consulted to help manage atrial fibrillation. 1. Paroxysmal atrial fibrillation with RVR, not present on admission. RVR resolved. -Patient developed rapid atrial fibrillation postoperatively likely related to holding his usual home beta-renato. -Continue home metoprolol succinate 150 mg daily and changed as needed home diltiazem to scheduled diltiazem CD 120 mg daily for better rate control and the patient should be discharged on these medications. Patient remains in atrial fibrillation with controlled heart rate at rest average 90s. -Restarted and continue Eliquis 5 mg twice daily. 2. Left clear cell renal cell carcinoma, status post left nephrectomy, present on admission. Active. -Continue postoperative management and pain control per Urology. Patient will need to be evaluated by Oncology and Urology will facilitate. 3. Chronic diastolic congestive heart failure with preserved ejection fraction exacerbation, present on admission. Stable. -Does not represent acute CHF exacerbation and without signs of fluid overload currently. Patient was recently hospitalized in May for decompensated heart failure. -Previous echocardiogram demonstrated EF 50-55% mild dilated right ventricle and decreased ventricular function, severely dilated bilateral atria. -Restarted and continue home furosemide 40 mg daily. -Continue strict I&Os and daily weights. Net - 625 cc. -Continue heart healthy low-sodium diet. 4. Hypertension, chronic, present on admission. Stable. -Blood pressure continues to be elevated with SBP 140-150s of which there is a significant pain component and continue to optimize pain control. -Continue lisinopril 20 mg daily, furosemide 40 mg daily, metoprolol succinate 150 mg daily and diltiazem CD 120 mg daily. 5. Tobacco dependence, chronic, present on admission. Stable. -Patient continues to smoke 1 PPD every 2 days. -Discussed smoking cessation in detail and continued to recommended indefinite cessation especially in lieu of left renal mass. -Continue nicotine patch daily to avoid nicotine withdrawal. Code status: Full code VTE prophylaxis: Amira SCDs Thank you for this interesting consult. Medicine team will sign at this time but feel free to contact us with any further needs.
--- NOTE | 2020-07-16 10:11 | PM.DS.1 ---
History of Present Illness History of Present Illness Date Patient Seen: 07/16/20 Time Patient Seen: 10:11 Chief complaint: Left Laparoscopic Hand Assisted Nepbhrectomy Narrative: Patient was admitted on 07/12/2020, for scheduled left hand assisted laparoscopic radical nephrectomy for 6 cm enhancing left renal mass. Discharge Providers Provider Date of admission: 07/12/20 10:17 Discharge Date: 07/16/20 Primary care physician: Crescencio Valadez MD Consults: 07/02/20 13:27 Consult to Respiratory Therapy Evaluate & Treat Comment: INPT 07/12-pt would like nicotine patch 1PPD Physician Instructions: Evaluate and treat 07/12/20 11:14 Consult to Respiratory Therapy Evaluate & Treat Comment: Physician Instructions: Evaluate and treat 07/13/20 07:38 Consult to Internal Medicine Routine Comment: Consulting Provider: Antonia Torrez Reason for consultation: Atrial fibrillation with rapid response Has provider been notified: Yes 07/13/20 14:08 Consult to Physical Therapy Evaluate & Treat Comment: Physician Instructions: Evaluate and Treat Discharge provider: Daniella Cook MD Summary Hospital Course Discharge Diagnosis: 1. Left renal cell carcinoma (clear cell). 2. Atrial fibrillation. 3. COPD. Hospital Course: Patient was admitted on the morning of 07/12/2020 and underwent uncomplicated left hand assisted laparoscopic radical nephrectomy under general anesthesia. His postoperative course was remarkable for developing AFib with rapid ventricular response on evening of immediately postop. He remained hemodynamically stable and asymptomatic. Hospitalist service was consulted and their assistance in managing his cardiac rhythm is greatly appreciated. I late morning 1st postoperative day rate was controlled period patient remained asymptomatic. He tolerated general diet beginning the 1st postoperative morning. He had spontaneous return of bowel function. Pain was adequately controlled with Dilaudid. Final pathology was returned as representing a grade 4 clear cell carcinoma left kidney with negative margins. Stage is pT1b, NX. Postoperative hygiene, activity, and activity instructions and restrictions were reviewed at discharge. Prescription for Dilaudid provided. Adjustments in diltiazem and metoprolol and addition of Eliquis were provided at discharge per 's preoperative instruction and those of the hospitalist service during this hospitalization. A postop visit will be arranged in 2-3 weeks for wound check. A nephrology consultation will be arranged after discharge. Status at Discharge Cognitive/behavioral status at discharge: oriented Functional status at discharge: independent ambulation Overall status at discharge: patient is back to baseline Exam Vital Signs (past 8 hours): - 07/16/20 05:43 07/16/20 07:50 07/16/20 08:01 Temperature 98.1 F 98.7 F Pulse Rate 98 H 109 H 109 H Respiratory Rate 20 14 Blood Pressure 150/92 H 156/102 H 156/102 H Pulse Oximetry 91 92 07/16/20 08:02 07/16/20 09:20 07/16/20 09:22 Temperature Pulse Rate 109 H 97 H 97 H Respiratory Rate Blood Pressure 156/102 H 141/109 H 141/109 H Pulse Oximetry Oxygen Delivery Method Room Air Oxygen Flow Rate 0 Objective Labs Result Diagrams: 07/16/20 07:13 07/16/20 07:13 Labs: Laboratory Results - last 24 hr 07/16/20 07/16/20 07/16/20 07:13 07:13 07:13 WBC 9.8 RBC 4.75 Hgb 14.5 Hct 43.0 MCV 90.5 MCH 30.6 MCHC 33.8 RDW 15.0 H Plt Count 201 Neut % (Auto) 79.5 H Lymph % (Auto) 9.7 L [place] % (Auto) 8.4 Eos % (Auto) 1.9 L Baso % (Auto) 0.5 Neut # (Auto) 7800 H Lymph # (Auto) 1000 L [place] # (Auto) 800 Eos # (Auto) 200 Baso # (Auto) 0 Sodium 134 L Potassium 3.9 Chloride 100 Carbon Dioxide 27 BUN 22 H Creatinine 1.15 Estimated GFR > 60.0 BUN/Creatinine Ratio 19.1 Glucose 109 Calcium 9.2 Magnesium 2.0 Total Bilirubin 0.9 AST 36 ALT 34 Alkaline Phosphatase 80 Total Protein 7.8 Albumin 3.9 Globulin 3.9 Albumin/Globulin Ratio 1.0 Procalcitonin 0.30 PFSH Medical History Atrial fibrillation with rapid ventricular response BPH w urinary obs/LUTS Cancer of left kidney Cigarette nicotine dependence Diastolic heart failure History of cardioversion (10/2018) History of heart disease Hypertension Left renal mass Left renal mass Measles (~1961) Mumps (~1960) Nonrheumatic mitral valve regurgitation Rheumatic fever (~1961) Smoking Surgical History Anesthesia History of neck surgery Hx of circumcision Hx of eye surgery Family History Father Diabetes mellitus History of heart disease Hypertension Mother Diabetes mellitus Hypertension Brother History of bipolar disorder Sister Uterine cancer Diabetes mellitus Grandfather No problems noted. Grandmother History of heart disease Hypertension Stroke Grandfather Cancer Grandmother Diabetes mellitus Social History household members: none Smoking Status: Current every day smoker Tobacco: How many years used: 49 second hand exposure: No alcohol intake: current substance use type: does not use Discharge Plan Discharge Plan Patient Disposition: Home Provider Discharge Comment: Contact [facility] 06/19/2020 for follow-up appointment Discharge orders & Medications Prescriptions: New diltiazem HCl 120 mg Capsule,Extended Release 24hr 120 mg PO DAILY Qty: 30 RF: 0 Eliquis 5 mg Tablet 5 mg PO BID Qty: 60 RF: 0 hydromorphone 2 mg Tablet 2 mg PO Q3H PRN (Reason: Pain, Severe (7-10)) Qty: 30 RF: 0 Continued furosemide 40 mg tablet 40 mg PO DAILY Qty: 90 RF: 1 lisinopril 20 mg tablet 20 mg PO DAILY Qty: 90 RF: 1 metoprolol succinate 50 mg tablet extended release 24 hr 150 mg PO DAILY Qty: 270 RF: 1 Discontinued diltiazem HCl 30 mg Tablet 30 mg PO Q6H PRN (Reason: Rapid heart rate >115) RF: 0 aspirin 81 mg tablet,delayed release (DR/EC) 81 mg PO DAILY RF: 0 Follow up/Referrals: Crescencio Valadez MD [Primary Care Provider] - Diet/Activity/Treatments Diet: Low-protein/Renal Activity: No driving x2 weeks. No lifting greater than 15 lb x 4 weeks. Skin/Wound/Dressing Care Report to your healthcare provider any signs of infection, such as:: chills, fever, increased pain, unusual drainage and unusual redness Visit Report/Discharge Packet Instructions: DI for Heart Failure, DI for Laparoscopy, DI for Nephrectomy, DI for Prescription Opioid Use Stand Alone Forms: Surgery Discharge Discharge Data Primary Care Provider: Crescencio Valadez
--- NOTE | 2020-07-16 10:27 | PT.IPTN ---
Current Diagnoses Unspecified atrial fibrillation (07/12/20) Unspecified diastolic (congestive) heart failure (07/12/20) Other specified disorders of kidney and ureter (07/12/20) Personal history of other malignant neoplasm of kidney (07/12/20) Surgery Performed Operation Date: 07/12/20 12:15 Actual Procedures p Laparoscopic Hand Assisted Radical Nephrectomy(Left) - Daniella Cook MD Physical Therapy Treatment Note M2 PT-IP Current Condition Start: 07/14/20 10:53 Freq: NEEDED Status: Discharge Protocol: Document 07/14/20 09:50 AB (Rec: 07/14/20 11:12 AB [id number]) Physical Therapy Current Condition Current Condition Evaluation Date 07/14/20 Treatment Diagnosis s/p nephrectomy; difficulty in walking Onset Date 07/12/20 Precautions Abdominal Surgery Precautions Log Roll,Lifting Restrictions, Gait Belt above Incisional Area M3 PT-IP Subjective Start: 07/14/20 10:53 Freq: NEEDED Status: Discharge Protocol: Document 07/16/20 10:08 SP (Rec: 07/16/20 12:01 SP [id number]) Subjective Physical Therapy Visit Type Type Treatment Note Visit Start Time 10:08 Visit Stop Time 10:27 Total Visit Minutes 19 Notes Vitals taken: Supine: BP 183/116 HR 92 Seated EOB: BP 162/114 HR 111 Post activity: 182/146 HR 117 Premedicated approx 30-40 min pre therapy. Number of FLOOR COVERER Visits 2 Physical Therapy Visit Comments Patient Comments Pt required encouragement to work with therapy, I am able to walk around without anything and won't have any problem doing the stairs at my sister's house but if you want to see, let's go. Everytime I start to relax and get some rest someone comes in to bug me. My blood pressure would probably be better if wasn't have this much pain. Patient Goals Discharge to my sister's house today. Therapy Pain Assessment Pain When Pain Assessed At Rest Pain Present Pain Present Pain Reported Location incision Intensity 6 Scale Used 6/10 at rest and with mobility Pain Behaviors Facial Grimacing Pain Management Techniques Re-positioning,Timing of Activity with Medications M4 PT-IP Mobility and Gait Start: 07/14/20 10:53 Freq: NEEDED Status: Discharge Protocol: Document 07/16/20 10:08 SP (Rec: 07/16/20 12:01 SP [id number]) PT-Bed Mobility Assessment Rolling Type of Rolling Log Rolling,Roll to Right Level of Assist Independent Supine to Sit Supine to Sit Independent Scooting Scooting to Edge of Bed Independent PT-Transfer Assessment Sit to and From Stand Sit to and from Stand Independent,Use of Upper Extremities Equipment Transfer Assistive Device None,Gait Belt Orthotic/Prosthetic Devices or Brace: No Transfers Transfer Destination Bed Transfer Technique ambulated with no AD Transfer Ability Level of Assist Independent,Use of Upper Extremities Comments Mobility Comments Pt was inclined in bed when arrived, reported pain over surgical site 01/20 and did get some pain meds about 30 min ago decreased from 03/22. Log roll to R I with HOB flat, R sidelying> sitting I with no AD and use of gait belt for safety assessment during tx. Pt ambulated approx 200 ft with no AD from R side of bed and back I, stable no LOB or deviations, flexed trunk, provided occasional cuing for upright posture but commented pain was limiting range at this time. Pt ascended/ descended 3 stairs receiprocal patterning with no hand rails required I, stable to assimulate 1 stepneeded to enter sister's home upon DC. Pt decided to sit at EOB when returned to room due to nausea and pain same 01/20, see post activity BP reading in Notes. FLOOR COVERER discussed with patient progress of I from therapy stand point but concerned with his blood pressure readings at this time and will notify nurse and hospitalist. FLOOR COVERER discussed with PT, Daija progress and met all goals, recommending discharge from therapy. Pt is ok to return to sister's home when medically cleared. Gait Assessment Gait Gait Assistance Required: Independent Distance (Feet) 200 Able to Maintain Weight Bearing Status Yes During Gait Assistive Devices Assistive Device None,Gait Belt Orthotic/Prosthetic Devices or Brace: No Gait Deviations General Gait Pattern Flexed Trunk Factors Limiting Gait Function Factors Limiting Gait Function Pain Comments Gait Comments See mobility comments for details. Stair Climbing Assessment Evaluation Level of Assist On Stairs Independent Devices Stair Climbing Assistive Devices None Technique/Endurance Stair Climbing Direction Ascend and Descend Stair Climbing Technique Step Over Step Number of Steps Climbed 3 Stair Climbing Set # Repetitions (reps) 1 Comments Stair Climbing Comments See mobility comments for details. PT-Balance Assessment Sitting Balance and Reactions Static Sitting Balance Ability Normal Dynamic Sitting Balance Ability Normal Standing Balance and Reactions Static Standing Balance Ability Normal Dynamic Standing Balance Ability Good Device Used no AD M5 PT-IP Objective Assessments Start: 07/14/20 10:53 Freq: NEEDED Status: Discharge Protocol: Document 07/14/20 09:50 AB (Rec: 07/14/20 11:12 AB [id number]) Orientation Orientation/Cognition Level of Alertness Alert Orientation Name,Place,Situation Language Function Ability No Deficits Noted Safety Awareness Decreased Safety Awareness Gross Range of Motion Lower Extremity ROM Assessment Within Functional Limits Strength Lower Extremity Strength Assessment Within Functional Limits Sensation Assessment Sensation Gross Sensation WNL Muscle Tone Muscle Tone WNL Yes M6 PT-IP Treatment Start: 07/14/20 10:53 Freq: NEEDED Status: Discharge Protocol: Document 07/16/20 10:08 SP (Rec: 07/16/20 12:01 SP [id number]) Physical Therapy Treatment Education Education Provided Precautions,Safety M7 PT-IP Assessment and Plan Start: 07/14/20 10:53 Freq: NEEDED Status: Discharge Protocol: Document 07/16/20 10:08 SP (Rec: 07/16/20 12:01 SP [id number]) PT Summary Assessment and Plan Potential Rehabilitation Potential Good Status of Condition at Evaluation Evolving Summary Impairments Pain,ROM,Strength,Balance, Cognition,Bed Mobility, Transfers,Gait,Activity Tolerance Progress Towards Goals Goals Met Assessment Summary Pt was I in all mobility. Completed log roll to R, supine> sit, sit<> stand, ambulated further distance into hallway to stairs ascend/ descend 3 stair with no HR to assimulate sister's enterance of 1 step and back to the room sitting at EOB end of tx. Pt reported his pain is unchanged and probably why his BP is so elevated. FLOOR COVERER recommending DC from therapy stand point I in all mobility and ok to return to sister's home when medically cleared. Discussed concern for elevated BP with nurse, PT and equipment planner for futher assessment with medical staff. Goals Bed Mobility Goal Independent Transfer Goal Independent,Front Wheeled Walker Gait Goal Independent,Front Wheel Walker Gait Distance 150 Other Goals improve ambulation without AD mod I 200 ft up/down 1 step mod I Days to Meet Goals 10 Frequency of Treatment Frequency Of Treatment Once a Day Treatment Plan Physical Therapy Treatment Plan Bed Mobility Training,Transfer Training,Gait Training, Therapeutic Exercise,Balance Retraining,Post Op Education, Discharge Planning,Hot or Cold Pack,Neuromuscular Re-ed, Coordination Retraining,Manual Therapy Other Recommendations and Next Treatment DC PT Focus Recommendations To Nursing Amount of Assist Needed Independent Discharge Recommendations PT Discharge Recommendations Home Transportation Needs at Discharge Private Vehicle
--- NOTE | 2020-07-16 10:30 | CM.DPC ---
DCP: continued: case received, dc to home setting noted and met now with pt. He was just finishing his PT session and PT reports he did very well and has no need for any assistive device or HH PT. She does express her concerns over pt's elevated BP. LALA Foster caring for pt expresses same and she says she has informed Dr. Pacheco. Pt says he is ready for d/c today. He confirms that he is living with his sister Melani and that she will be picking him up at d/c. DC summary from Dr. Pacheco remains in draft at this time. P: home when stable for same.
== END 2020-07-16 11:55 | disposition home or self-care (01) | DRG 442 ==
PROVIDERS: Internal Medicine; Nurse Practitioner Adult Health; Admitting Provider Specialist; PCP Family Medicine; Referring Provider Family Medicine; Visit Provider Specialist
PROC: 0TT14ZZ Resection of Left Kidney, Percutaneous Endoscopic Approach (ICD-10-PCS; principal; 2020-07-12 12:15)
DX: C65.2 Malignant neoplasm of left renal pelvis (principal); I48.19 Other persistent atrial fibrillation; I11.0 Hypertensive heart disease with heart failure; I50.32 Chronic diastolic (congestive) heart failure; J44.9 Chronic obstructive pulmonary disease, unspecified; K66.0 Peritoneal adhesions (postprocedural) (postinfection); N40.1 Benign prostatic hyperplasia with lower urinary tract symptoms; F17.210 Nicotine dependence, cigarettes, uncomplicated; Z79.01 Long term (current) use of anticoagulants; Z91.14 Patient's other noncompliance with medication regimen
CPT/HCPCS: 36415; 50545; 71045; 80048; 80053; 82962; 83735; 83880; 84145; 85025; 94760; 94762; 97110; 97116; 97162; C9290; J0330; J0690; J0696; J1100; J1170; J1644; J1650; J2405; J2704; J3010

== ENCOUNTER → 2020-08-23 11:04 | Outpatient (CLI) | payer OTHER, MEDICAID, SELFPAY ==
[2020-08-16 11:27] VITALS: BMI 25.9
--- NOTE | 2020-08-23 12:45 | DI.CT.S_ITS ---
PROCEDURE: CT CHEST ABD PEL WO CON INDICATIONS: History of kidney cancer TECHNIQUE: After the administration of oral contrast, 5 mm thick sections acquired from the lung apices to the symphysis pubis. 5 mm thick coronal and sagittal reformats acquired, with additional 7 mm coronal MIP reformats through the lungs. For radiation dose reduction, the following was used: automated exposure control, adjustment of mA and/or kV according to patient size. COMPARISON: [facility], CT, CT ANGIO CHEST PE PROTOCOL, 05/08/2020, 8:43. [facility], CT, CT ABDOMEN WO/W CON, 05/09/2020, 10:43. FINDINGS: Image quality: Excellent. CHEST: Lungs and pleura: Mild centrilobular and paraseptal emphysematous changes at the lung apices, along with a few scattered punctate subpleural nodular opacities. There is a perivascular nodule in the anterior left upper lobe measuring 5 mm and a juxta fissural nodule in the posterior left upper lobe measuring 2 mm. A pleural-based nodule in the posterior right upper lobe measures 3 mm. There has been interval resolution of large bilateral pleural effusions, patchy ground-glass opacities, and extensive interstitial thickening seen previously. No suspicious nodules or masses. Central and peripheral airways are patent are normal in caliber. Mediastinum: Heart size is normal. Mild coronary artery calcification. No pericardial effusion. No mediastinal adenopathy by CT size criteria. Minor aortic arch calcification. Thoracic aorta and central pulmonary arteries are normal in size. Esophagus is normal in caliber. No hiatal hernia. Chest wall: No axillary or supraclavicular adenopathy by size criteria. Thyroid gland is unremarkable . ABDOMEN: Solid organs: There has been interval left nephrectomy. There is medial displacement of the pancreatic tail into the left renal fossa. The left adrenal gland is not convincingly identified. No right adrenal nodules. There is a splenule anterior to the spleen which was present previously. No definite suspicious soft tissue in the left renal fossa. The right renal contour is stable with a mild lateral cortical indentation suggesting prior scarring. Liver is normal in size. Gallbladder is decompressed . Pancreas is normal in contours. Spleen is normal in size. Peritoneum and bowel: Small and large bowel loops are normal in caliber and wall thickness. Normal appendix. No free fluid or air. Nodes and vessels: A few minimally prominent left periaortic lymph nodes have decreased in size measuring nine and 7 mm in short axis respectively (). No new retroperitoneal or mesenteric adenopathy by size criteria. Aorta and inferior vena cava are normal in size. Mild abdominal aortic atherosclerotic calcification. Miscellaneous: No ventral hernias. Healing anterior midline incision. PELVIS: Genitourinary: Bladder wall thickness is normal. Miscellaneous: No inguinal hernias or adenopathy. Bones: No suspicious bony lesions. Degenerative cystic changes in the superior acetabula bilaterally. Severe degenerative disc and endplate changes in the lower lumbar spine. Partial SI joint ankylosis. No vertebral body compression fractures. IMPRESSION: 1. Interval left nephrectomy without definite residual or recurrent disease in the left renal fossa. Evaluation is slightly limited secondary to lack of IV contrast. 2. Interval resolution of changes of CHF and pulmonary edema. 3. Interval slight decrease in size of borderline left periaortic retroperitoneal adenopathy. Continued attention to this area is recommended. 4. Changes of mild biapical upper lobe emphysema and tiny nonspecific nodules, likely post infectious or inflammatory. 5. No suspicious osseous lesions to suggest metastases. Dictated by: Tram Shannon M.D. on 08/23/2020 at 13:01 Approved by: Tram Shannon M.D. on 08/23/2020 at 13:18
== END ==
PROVIDERS: PCP Family Medicine; Referring Provider Specialist; Visit Provider Specialist
DX: Z08 Encounter for follow-up examination after completed treatment for malignant neoplasm (principal); Z85.528 Personal history of other malignant neoplasm of kidney; J43.9 Emphysema, unspecified; R91.8 Other nonspecific abnormal finding of lung field; Z90.5 Acquired absence of kidney
CPT/HCPCS: 71250; 74176

== ENCOUNTER → 2020-10-18 14:59 | Outpatient (CLI) | payer OTHER, MEDICAID, SELFPAY ==
[2020-08-16 11:27] VITALS: BMI 25.9
[2020-10-18 15:47] LABS: Hemoglobin 14.4 g/dL (13.5-17.5); Mean Corpuscular HGB Conc 33.4 % (30-36); Mean Corpuscular Hemoglobin 31.1 PG (26-34); Mean Corpuscular Volume 92.9 fL (80-100); Platelet Count 232 X10^3/uL (150-400); Red Blood Cell Count 4.62 X10^6/uL (4.5-5.9); Red Cell Distribution Width 15.9 % (11.6-14.8); White Blood Cell Count 9.6 X10^3/uL (4.5-11.0)
[2020-10-18 16:20] LABS: BUN Creatinine Ratio 20.1 (6-22); Blood Urea Nitrogen 33 mg/dL (9-20); Calcium 9.8 mg/dL (8.4-10.2); Carbon Dioxide 31 mmol/L (22-32); Chloride 103 mmol/L (98-107); Estimated Glomerular Filt Rate 42.8 mL/min (>60); Glucose 109 mg/dL (80-110); HEMOLYSIS < 15 (0-50); Potassium 4.5 mmol/L (3.4-5.1); Sodium 141 mmol/L (137-145)
[2020-10-18 16:42] LABS: Creatinine Urine Random 141.8 mg/dL; Protein (Total) Urine Random 34 mg/dL (0-12); Protein Creatinine Ratio Urine 0.23 GRAM/24H
== END ==
PROVIDERS: PCP Family Medicine; Referring Provider Student in an Organized Health Care Education/Training Program; Visit Provider Student in an Organized Health Care Education/Training Program
DX: D70.9 Neutropenia, unspecified (principal); D63.1 Anemia in chronic kidney disease; N05.9 Unspecified nephritic syndrome with unspecified morphologic changes; R80.9 Proteinuria, unspecified
CPT/HCPCS: 36415; 80048; 82570; 84156; 85027

== ENCOUNTER → 2020-11-10 11:11 | Outpatient (CLI) | payer OTHER, MEDICAID, SELFPAY ==
[2020-08-16 11:27] VITALS: BMI 25.9
--- NOTE | 2020-11-10 11:12 | DI.CT.S_ITS ---
PROCEDURE: CT CHEST ABD PEL WO CON INDICATIONS: History of kidney cancer TECHNIQUE: After the administration of oral contrast, 5 mm thick sections acquired from the lung apices to the symphysis pubis. 5 mm thick coronal and sagittal reformats acquired, with additional 7 mm coronal MIP reformats through the lungs. For radiation dose reduction, the following was used: automated exposure control, adjustment of mA and/or kV according to patient size. COMPARISON: [facility], CT, CT CHEST ABD PEL WO CON, 08/23/2020, 11:57. FINDINGS: Image quality: Somewhat limited by absence of both oral and intravenous contrast.. CHEST: Lungs and pleura: No acute pulmonary opacities. No pleural effusions or pneumothorax. Central and peripheral airways are patent are normal in caliber. Mediastinum: Heart size is normal. No pericardial effusion. No mediastinal adenopathy by CT size criteria. Thoracic aorta and central pulmonary arteries are normal in size. Esophagus is normal in caliber. No hiatal hernia. Chest wall: No axillary or supraclavicular adenopathy by size criteria. Thyroid gland is not well seen by this noncontrast technique . ABDOMEN: Solid organs: Liver is normal in size. Gallbladder appears normal . Pancreas is normal in contours. Spleen is normal in size. No adrenal nodules. Both kidneys are normal in size, without hydronephrosis or nephrolithiasis. Peritoneum and bowel: Small and large bowel loops are normal in caliber and wall thickness. No free fluid or air. Nodes and vessels: No retroperitoneal or mesenteric adenopathy by size criteria. Aorta and inferior vena cava are normal in size. Miscellaneous: No ventral hernias. PELVIS: Genitourinary: Bladder wall thickness is normal. Miscellaneous: No inguinal hernias or adenopathy. Bones: No suspicious bony lesions. No vertebral body compression fractures. IMPRESSION: Prior left nephrectomy. The quality of visualization is somewhat limited by absence of both oral and intravenous contrast. No metastatic disease or development of mass at the remaining right kidney is found. No adenopathy is seen. Dictated by: Bashir St M.D. on 11/10/2020 at 12:33 Approved by: Bashir St M.D. on 11/10/2020 at 12:36
== END ==
PROVIDERS: PCP Family Medicine; Referring Provider Specialist; Visit Provider Specialist
DX: Z08 Encounter for follow-up examination after completed treatment for malignant neoplasm (principal); Z85.528 Personal history of other malignant neoplasm of kidney; Z90.5 Acquired absence of kidney
CPT/HCPCS: 71250; 74176

== ENCOUNTER → 2020-11-22 15:42 | Outpatient (CLI) | payer OTHER, MEDICAID, SELFPAY ==
[2020-08-16 11:27] VITALS: BMI 25.9
[2020-11-22 15:50] LABS: Bacteria Urine None Seen
[2020-11-22 17:07] LABS: Hematocrit 44.9 % (41-53); Hemoglobin 15.1 g/dL (13.5-17.5)
[2020-11-22 18:17] LABS: BUN Creatinine Ratio 20.9 (6-22); Blood Urea Nitrogen 42 mg/dL (9-20); Calcium 9.5 mg/dL (8.4-10.2); Carbon Dioxide 25 mmol/L (22-32); Chloride 105 mmol/L (98-107); Estimated Glomerular Filt Rate 33.8 mL/min (>60); Glucose 139 mg/dL (80-110); HEMOLYSIS < 15 (0-50); Potassium 4.1 mmol/L (3.4-5.1); Sodium 143 mmol/L (137-145)
[2020-11-22 18:33] LABS: Appearance Urine UA CLEAR; Bilirubin Urine UA NEGATIVE (NEGATIVE); Color Urine UA YELLOW; Glucose Urine UA TRACE g/dL (Negative); Ketones Urine UA NEGATIVE (NEGATIVE); Leukocyte Esterase Urine UA NEGATIVE (NEGATIVE); Nitrite Urine UA NEGATIVE (Negative); Occult Blood Urine UA 2+ (Negative); Protein Urine UA NEGATIVE (Negative); Specific Gravity Urine UA 1.025 (1.000-1.035); Urobilinogen Urine UA 0.2 E.U./dL (0.2)
[2020-11-22 19:10] LABS: Creatinine Urine Random 149.4 mg/dL; Protein (Total) Urine Random 9 mg/dL (0-12); Protein Creatinine Ratio Urine 0.06 GRAM/24H
[2020-11-22 19:22] LABS: Culture Indicated Urine Cult Not Indicated; RBC Urine 1-5/HPF (0-5/HPF); Squamous Epithelial Cell Urine 0-1 /HPF (0-5/HPF); WBC Urine 0-1/HPF (0-5/HPF)
[2020-11-23 06:11] LABS: Parathyroid Hormone Int 96 pg/mL (15-65)
== END ==
PROVIDERS: PCP Family Medicine; Referring Provider Student in an Organized Health Care Education/Training Program; Visit Provider Student in an Organized Health Care Education/Training Program
DX: N05.9 Unspecified nephritic syndrome with unspecified morphologic changes (principal); D64.9 Anemia, unspecified; N25.81 Secondary hyperparathyroidism of renal origin; N30.00 Acute cystitis without hematuria; R80.9 Proteinuria, unspecified
CPT/HCPCS: 36415; 80048; 81001; 82570; 83970; 84156; 85014; 85018

== ENCOUNTER → 2021-09-12 11:53 | Outpatient (CLI) | payer OTHER, MEDICAID, SELFPAY ==
[2020-08-16 11:27] VITALS: BMI 25.9
--- NOTE | 2021-09-12 | DI.CT.S_ITS ---
PROCEDURE: CT CHEST ABD PEL W CON INDICATIONS: RENAL CANCER TECHNIQUE: After the administration of oral and intravenous contrast, axial sections acquired from the supraclavicular neck to the pubic symphysis. Coronal and sagittal reformats were performed. For radiation dose reduction, the following was used: automated exposure control, adjustment of mA and/or kV according to patient size. COMPARISON: [facility], CT, CT CHEST ABD PEL WO CON, 11/10/2020, 11:14. FINDINGS: Image quality: Excellent. CHEST: Lungs and pleura: No acute air space opacities. No pleural effusions or pneumothorax. Central and peripheral airways are patent and normal in caliber. The lungs have paraseptal emphysematous changes. Mediastinum: Heart size is normal. No pericardial effusion. No mediastinal adenopathy by size criteria. The aorta has atherosclerosis with no aneurysmal dilatation. Esophagus is normal in caliber. No hiatal hernia. Chest wall: No axillary or supraclavicular adenopathy by size criteria. Thyroid gland is normal . ABDOMEN: Solid organs: Liver: The liver has no mass or intrahepatic biliary ductal dilatation. The portal vein and hepatic veins are patent. Biliary: The gallbladder has no gallstones, pericholecystic fluid, gallbladder wall thickening, or surrounding inflammatory change. Pancreas: The pancreas has no mass or ductal dilatation. There is no surrounding inflammation. Spleen: Normal size. There are no masses. Adrenals: No hypertrophy or nodules. Kidneys: Status post left nephrectomy. No solid mass. No cystic mass. Bowel: The distal esophagus and stomach are normal. The small bowel has a normal caliber and appearance. The terminal ileum is normal. The large bowel stool in the cecum consistent with constipation. The appendix is normal. No free fluid or air. Nodes and vessels: No retroperitoneal or mesenteric adenopathy by size criteria. The aorta has atherosclerosis with no aneurysmal dilatation. Abdominal wall: No abdominal wall mass or hernia. PELVIS: Genitourinary: The bladder has no wall thickening or mass. No bladder calcifications. Abdominal wall: There is a fat containing left inguinal hernia. BONES: No lytic or sclerotic lesions to suggest metastatic disease. There are multilevel degenerative changes. There is disc disease at L4-5 and L5-S1. No vertebral body compression fractures. IMPRESSION: 1. Status post left nephrectomy with no evidence of adenopathy, recurrence or metastatic disease. 2. Fat containing left inguinal hernia. Dictated by: Louis Bueno M.D. on 09/12/2021 at 15:00 Approved by: Louis Bueno M.D. on 09/12/2021 at 15:15
== END ==
PROVIDERS: PCP Family Medicine; Referring Provider Internal Medicine Medical Oncology; Visit Provider Internal Medicine Medical Oncology
DX: C64.2 Malignant neoplasm of left kidney, except renal pelvis (principal); K40.90 Unilateral inguinal hernia, without obstruction or gangrene, not specified as recurrent; Z90.5 Acquired absence of kidney
CPT/HCPCS: 71260; 74177; Q9967

== ENCOUNTER → 2022-07-05 10:19 | Outpatient (CLI) | payer OTHER, MEDICAID, SELFPAY ==
[2020-08-16 11:27] VITALS: BMI 25.9
[2022-07-05 11:39] LABS: Alanine Aminotransferase 30 IU/L (<50); Albumin 4.5 g/dL (3.5-5.0); Albumin Globulin Ratio 1.1 (1.0-2.8); Alkaline Phosphatase 83 U/L (38-126); Aspartate Aminotransferase 29 IU/L (17-59); BUN Creatinine Ratio 26.3 (6-22); Bilirubin Total 0.4 mg/dL (0.2-1.3); Blood Urea Nitrogen 40 mg/dL (9-20); Calcium 9.7 mg/dL (8.4-10.2); Carbon Dioxide 25 mmol/L (22-32); Chloride 103 mmol/L (98-107); Cholesterol 162 mg/dL (140-199); Estimated Glomerular Filt Rate 51 mL/min (>60); Globulin 4.1 g/dL (1.7-4.1); Glucose 137 mg/dL (80-110); HDL Cholesterol 40 mg/dL (40-60); HEMOLYSIS < 15 (0-50); LDL Cholesterol Calculated 109 mg/dL (<100); Potassium 4.4 mmol/L (3.4-5.1); Sodium 138 mmol/L (137-145); Total Protein 8.6 g/dL (6.3-8.2); Triglycerides 66 mg/dL (35-150)
[2022-07-05 12:08] LABS: Creatinine Urine Random 11.4 mg/dL; Prostate Specific Antigen Scrn 0.712 ng/mL (0.1-4.0)
[2022-07-05 12:09] LABS: TSH w/ Reflex to FT4 1.37 uIU/mL (0.47-4.68)
[2022-07-05 12:12] LABS: Microalbumi Creatinin Ratio Ur 192.9 ug/mg CR (<30); Microalbumin Urine Random 2.2 mg/dL (0-1.6)
== END ==
PROVIDERS: PCP Family Medicine; Referring Provider Family Medicine; Visit Provider Family Medicine
DX: I48.91 Unspecified atrial fibrillation (principal); I50.9 Heart failure, unspecified; R31.9 Hematuria, unspecified; Z85.528 Personal history of other malignant neoplasm of kidney; Z12.5 Encounter for screening for malignant neoplasm of prostate
CPT/HCPCS: 36415; 80053; 80061; 82043; 82570; 84443; G0103

== ENCOUNTER → 2022-09-11 10:37 | Outpatient (CLI) | payer OTHER, MEDICAID, SELFPAY ==
[2020-08-16 11:27] VITALS: BMI 25.9
--- NOTE | 2022-09-11 10:40 | DI.CT.S_ITS ---
PROCEDURE: CT CHEST ABD PEL W CON INDICATIONS: kidney cancer, mointoring TECHNIQUE: After the administration of oral and intravenous contrast, axial sections acquired from the supraclavicular neck to the pubic symphysis. Coronal and sagittal reformats were performed. For radiation dose reduction, the following was used: automated exposure control, adjustment of mA and/or kV according to patient size. COMPARISON: [facility], CT, CT ABDOMEN WO/W CON, 05/09/2020, 10:43. [facility], CT, CT CHEST ABD PEL WO CON, 11/10/2020, 11:14. [facility], CT, CT CHEST ABD PEL WO CON, 08/23/2020, 11:57. CR, XR CHEST 1V, 07/15/2020, 5:20. CR, XR CHEST 1V, 05/11/2020, 21:03. [facility], CT, CT CHEST ABD PEL W CON, 09/12/2021, 13:00. FINDINGS: Image quality: Excellent. CHEST: Lower Neck: No enlarged lymph nodes. Thyroid: Within normal limits. Axillae: No enlarged lymph nodes. Chest Wall: Unremarkable. Lungs and Airways: Small pulmonary nodules are present, unchanged in size. Reference nodules are listed in the following: Nodule 1: 3 mm; right middle lobe; series 3 image 214. Nodule 2: 3 mm; right upper lobe; series 3 image 96; Nodule 3: 2 mm; left upper lobe; series 3, image 83. Pleura: No pneumothorax or pleural effusions. Heart: Heart size is mildly increased. No pericardial effusion. Mild coronary artery calcification Thoracic Vessels: The aorta and pulmonary arteries demonstrate normal size. Mediastinum and [place]: No enlarged lymph nodes. Esophagus: No wall thickening. Small hiatal hernia. ABDOMEN: Liver: Unremarkable. Gallbladder: Unremarkable. Biliary ducts: Unremarkable. Pancreas: Unremarkable. Spleen: Normal size. There is a 1.5 cm splenule anterior to the inferior aspect of the spleen. Adrenal Glands: Right adrenal is normal. Left adrenal is not well seen, probably surgically removed. Kidneys and Ureters: Left nephrectomy. Right kidney is normal in size. No solid renal renal mass. There is renal cortical scar in right kidney. No stones or hydronephrosis. Stomach and Bowel: Stomach, small bowel loops, and colon are normal in caliber. There is a large amount of stool in colon. Mild diverticulosis. No diverticulitis. Peritoneum: No abnormal intraperitoneal fluid. No free air. Ventral Wall: No hernia. Abdominal Nodes: There are multiple prominent left para-aortic lymph nodes, demonstrating slight interval enlargement. For example, there is a couple of lymph nodes on slight series 2, image 87, measuring 0.8 x 1.4 cm and 0.9 cm in diameter (previously there 0.7 x 1.1 cm and 0.6 cm in diameter). Vessels: Aorta and inferior vena cava are normal in size. PELVIS: Pelvic Organs: Unremarkable. Bladder: Unremarkable. Pelvic Nodes: No enlarged lymph nodes. Miscellaneous: There is a small fat containing left inguinal hernia. Bones: Unremarkable. Moderate to severe degenerative disc and facet disease in lumbar spine. IMPRESSION: 1. Left nephrectomy. No recurrent mass in the left renal fossa. 2. Multiple prominent subcentimeter left para-aortic lymph nodes are present, slightly enlarged when compared to the last exam. Recommend close imaging follow-up. 3. Stable pulmonary nodules bilaterally. Dictated by: Renetta Leonardo M.D. on 09/11/2022 at 14:53 Approved by: Renetta Leonardo M.D. on 09/11/2022 at 16:57
[2022-09-11 10:59] LABS: Add Manual Diff / Slide Review NO; Basophils Absolute Auto 100 /uL (0-100); Eosinophils Absolute Auto 200 /uL (0-450); Eosinophils Percent Auto 2.9 % (2-4); Hematocrit 42.3 % (41-53); Hemoglobin 14.4 g/dL (13.5-17.5); Lymphocytes Absolute Auto 2200 /uL (1100-4500); Lymphocytes Percent Auto 25.9 % (25-40); Mean Corpuscular HGB Conc 33.9 % (30-36); Mean Corpuscular Hemoglobin 30.8 PG (26-34); Mean Corpuscular Volume 90.7 fL (80-100); Monocytes Absolute Auto 1000 /uL (0-900); Monocytes Percent Auto 11.6 % (3-14); Neutrophils Absolute Auto 4900 /uL (1500-7000); Neutrophils Percent Auto 58.6 % (50-75); Platelet Count 221 X10^3/uL (150-400); Red Blood Cell Count 4.67 X10^6/uL (4.5-5.9); Red Cell Distribution Width 14.1 % (11.6-14.8); White Blood Cell Count 8.3 X10^3/uL (4.5-11.0)
[2022-09-11 11:10] LABS: Alanine Aminotransferase 29 IU/L (<50); Albumin 4.2 g/dL (3.5-5.0); Albumin Globulin Ratio 1.1 (1.0-2.8); Alkaline Phosphatase 96 U/L (38-126); Aspartate Aminotransferase 28 IU/L (17-59); BUN Creatinine Ratio 23.8 (6-22); Bilirubin Total 0.4 mg/dL (0.2-1.3); Blood Urea Nitrogen 43 mg/dL (9-20); Calcium 8.8 mg/dL (8.4-10.2); Carbon Dioxide 28 mmol/L (22-32); Chloride 100 mmol/L (98-107); Estimated Glomerular Filt Rate 41 mL/min (>60); Globulin 3.9 g/dL (1.7-4.1); Glucose 122 mg/dL (80-110); HEMOLYSIS < 15 (0-50); Sodium 138 mmol/L (137-145); Total Protein 8.1 g/dL (6.3-8.2)
[2022-09-11 11:18] LABS: Potassium 5.4 mmol/L (3.4-5.1)
== END ==
PROVIDERS: PCP Family Medicine; Referring Provider Internal Medicine Medical Oncology; Visit Provider Internal Medicine Medical Oncology
DX: Z85.528 Personal history of other malignant neoplasm of kidney (principal); Z08 Encounter for follow-up examination after completed treatment for malignant neoplasm; R91.8 Other nonspecific abnormal finding of lung field; R59.0 Localized enlarged lymph nodes; I25.10 Atherosclerotic heart disease of native coronary artery without angina pectoris; K44.9 Diaphragmatic hernia without obstruction or gangrene; K57.90 Diverticulosis of intestine, part unspecified, without perforation or abscess without bleeding; K40.90 Unilateral inguinal hernia, without obstruction or gangrene, not specified as recurrent; M51.36 Other intervertebral disc degeneration, lumbar region; Z90.5 Acquired absence of kidney
CPT/HCPCS: 36415; 71260; 74177; 80053; 85025; Q9967

== ENCOUNTER 2024-01-03 12:59 | Emergency (ER) | payer MEDICARE, MEDICAID, SELFPAY ==
[2020-08-16 11:27] VITALS: BMI 25.9
[2024-01-03 13:31] VITALS: BP 138/84; PULSE 88; RESP 18; TEMP 37.1; O2SAT 100; BMI 27.1
[2024-01-03 13:43] LABS: Appearance Urine UA SL CLOUDY; Bilirubin Urine UA NEGATIVE (NEGATIVE); Color Urine UA YELLOW; Glucose Urine UA NEGATIVE (Negative); Ketones Urine UA NEGATIVE (NEGATIVE); Leukocyte Esterase Urine UA 1+ (NEGATIVE); Nitrite Urine UA NEGATIVE (Negative); Occult Blood Urine UA 3+ (Negative); Protein Urine UA 1+ (Negative); Specific Gravity Urine UA 1.015 (1.000-1.035); Urobilinogen Urine UA 0.2 E.U./dL (0.2); pH Urine UA 5.5 (4.5-8.0)
[2024-01-03 13:45] LABS: Urine Volume 10mL (spun)
[2024-01-03 13:46] LABS: Bacteria Urine None Seen; Culture Indicated Urine Specimen Cultured; RBC Urine 30-100/HPF (0-5/HPF); Squamous Epithelial Cell Urine 1-5 /HPF (0-5/HPF); WBC Urine 10-30/HPF (0-5/HPF)
--- NOTE | 2024-01-03 14:37 | ED_ITS ---
HPI - Male Genitourinary <China Juares PA-C - Last Filed: 01/03/24 15:24> General Chief complaint: Urogenital-Male Stated complaint: possible bladder infection per pt Time Seen by Provider: 01/03/24 13:57 Source: patient Mode of arrival: Ambulatory History of Present Illness HPI Narrative: 68-year-old male with history of CKD, single kidney status post nephrectomy due to cancer. Presents with concern for possible UTI, urgency frequency burning with urination since last night. Patient is trying to push water has had a urinary tract infection once before. Patient denies fevers, chills, nausea, vomiting, change in appetite or energy level flank pain or any other symptoms. He has seen dark urine/blood in his urine today. Related Data Previous Rx's Medication Instructions Recorded metoprolol succinate 100 mg 200 mg (2 x 100 mg) PO DAILY #180 06/18/23 tablet,extended release 24 hr tabs apixaban 5 mg tablet (Eliquis) See Rx Instructions .Route 08/23/23 .COMPLEX #180 tabs bupropion HCl 150 mg 24 hr tablet, 150 mg PO QAM #90 tabs 08/23/23 extended release (Wellbutrin XL) diltiazem HCl 120 mg See Rx Instructions .Route 08/23/23 capsule,extended release 24 hr, .COMPLEX #90 caps controlled (DILT-XR) furosemide 40 mg tablet 40 mg PO DAILY #90 tabs 08/23/23 lisinopril 20 mg tablet See Rx Instructions .Route 08/23/23 .COMPLEX #90 tabs cefpodoxime 100 mg tablet 100 mg PO BID 5 days #10 tabs 01/03/24 Allergies Allergy/AdvReac Type Severity Reaction Status Date / Time No Known Drug Allergies Allergy Verified 08/23/23 12:57 Review of Systems <China Juares PA-C - Last Filed: 01/03/24 15:24> Review of Systems Narrative: See HPI Patient History <China Juares PA-C - Last Filed: 01/03/24 15:24> Medical History CHF (congestive heart failure) Other thrombophilia Chronic kidney disease, stage 3 History of cardioversion (10/2018) Diastolic heart failure Nonrheumatic mitral valve regurgitation Cancer of left kidney BPH w urinary obs/LUTS Left renal mass Smoking Left renal mass Rheumatic fever (~1961) Mumps (~1960) Measles (~1961) History of heart disease Cigarette nicotine dependence Atrial fibrillation with rapid ventricular response Hypertension Surgical History Hx of eye surgery Hx of circumcision Anesthesia History of neck surgery Family History Father Diabetes mellitus History of heart disease Hypertension Mother Diabetes mellitus Hypertension Brother History of bipolar disorder Sister Uterine cancer Diabetes mellitus Grandfather No problems noted. Grandmother History of heart disease Hypertension Stroke Grandfather Cancer Grandmother Diabetes mellitus Social History household members: none Smoking Status: Current every day smoker Tobacco: How many years used: 49 second hand exposure: No alcohol intake: current substance use type: does not use Smoking Status: Current every day smoker alcohol intake frequency: 0-2 drinks per day Substance Use Type: marijuana Exam <China Juares PA-C - Last Filed: 01/03/24 15:24> Narrative Exam Narrative: GENERAL: 68 year old patient appears stated age. Well-developed patient, in mild distress. HEAD: Atraumatic. Normocephalic. EYES: Pupils equal round and reactive. Extraocular motions intact. No scleral icterus. No injection or drainage. ENT: Nose without bleeding, purulent drainage. Airway patent. NECK: Trachea midline. CARDIOVASCULAR: Regular rate and rhythm without murmurs, gallops, or rubs. RESPIRATORY: Clear to auscultation. Breath sounds equal bilaterally. No wheezes, rales, or rhonchi. GASTROINTESTINAL: Abdomen nondistended, no CVA tenderness. EXTREMITIES: Moving all extremities, normal gait BACK: Nontender without deformity or crepitance. No flank tenderness. NEURO: AOx3. SKIN: No rash or erythema of visible areas Initial Vital Signs Initial Vital Signs: Vital Signs Temperature 98.8 F 01/03/24 13:31 Pulse Rate 88 01/03/24 13:31 Respiratory Rate 18 01/03/24 13:31 Blood Pressure 138/84 01/03/24 13:31 Pulse Oximetry 100 01/03/24 13:31 Oxygen Delivery Method Room Air 01/03/24 13:31 <Terri Brooks DO - Last Filed: 01/04/24 09:04> Initial Vital Signs Initial Vital Signs: Vital Signs Temperature 98.8 F 01/03/24 13:31 Pulse Rate 88 01/03/24 13:31 Respiratory Rate 18 01/03/24 13:31 Blood Pressure 138/84 01/03/24 13:31 Pulse Oximetry 100 01/03/24 13:31 Oxygen Delivery Method Room Air 01/03/24 13:31 Course <China Juares PA-C - Last Filed: 01/03/24 15:24> Orders Ordered: Discontinued Medications Ondansetron HCl (Ondansetron 4 Mg Odt) 4 mg SL NOW PRN PRN Reason: Nausea And Vomiting Ondansetron HCl (Ondansetron 4 Mg/2 Ml Inj) 4 mg IV NOW PRN PRN Reason: Nausea And Vomiting Vital Signs Vital signs: Vital Signs - 8 hr 01/03/24 13:31 Temperature 98.8 F Pulse Rate 88 Respiratory Rate 18 Blood Pressure 138/84 Pulse Oximetry 100 Oxygen Delivery Method Room Air <Terri Brooks DO - Last Filed: 01/04/24 09:04> Orders Ordered: Discontinued Medications Ondansetron HCl (Ondansetron 4 Mg Odt) 4 mg SL NOW PRN PRN Reason: Nausea And Vomiting Ondansetron HCl (Ondansetron 4 Mg/2 Ml Inj) 4 mg IV NOW PRN PRN Reason: Nausea And Vomiting Vital Signs Vital signs: Vital Signs - 8 hr 01/03/24 13:31 Temperature 98.8 F Pulse Rate 88 Respiratory Rate 18 Blood Pressure 138/84 Pulse Oximetry 100 Oxygen Delivery Method Room Air MDM - Male Genitourinary <China Juares PA-C - Last Filed: 01/03/24 15:24> Differential Diagnosis Differential diagnosis: Likely urinary tract infection Medical Records Attestation: I reviewed the patient's medical records. Lab Data Attestation: I reviewed the patient's lab results. Labs: Lab Results 01/03/24 Range/Units 13:35 Urine Color Yellow Urine Appearance Sl cloudy Urine pH 5.5 (4.5-8.0) Ur Specific [place] 1.015 (1.000-1.035) Urine Protein 1+ H (Negative) Urine Glucose (UA) Negative (Negative) g/dL Urine Ketones Negative (NEGATIVE) Urine Occult Blood 3+ H (Negative) Urine Nitrate Negative (Negative) Urine Bilirubin Negative (NEGATIVE) Urine Urobilinogen 0.2 (0.2) E.U./dL Ur Leukocyte Esterase 1+ H (NEGATIVE) Urine RBC 30-100/hpf H (0-5/HPF) Urine WBC 10-30/hpf H (0-5/HPF) Ur Squamous Epith Cells 1-5 /hpf (0-5/HPF) Urine Bacteria None seen (None) Ur Culture Indicated? Specimen cultured Vol Urine Centrifuged 10ml (spun) MDM Narrative Medical decision making narrative: This is a 68-year-old male with a history of atrial fibrillation, nephrectomy CKD presenting with concern for UTI symptoms since last night. Urine dip shows 3+ blood 1+ leuks. Patient has no signs or symptoms suggestive of pyelonephritis or sepsis. Also low suspicion for ureterolithiasis. Prescription today for cefpodoxime for 5 day course. Advised to follow up closely with PCP. Return precautions provided, follow-up plan discussed, all questions answered. <Terri Brooks, DO - Last Filed: 01/04/24 09:04> Lab Data Labs: Lab Results 01/03/24 Range/Units 13:35 Urine Color Yellow Urine Appearance Sl cloudy Urine pH 5.5 (4.5-8.0) Ur Specific [place] 1.015 (1.000-1.035) Urine Protein 1+ H (Negative) Urine Glucose (UA) Negative (Negative) g/dL Urine Ketones Negative (NEGATIVE) Urine Occult Blood 3+ H (Negative) Urine Nitrate Negative (Negative) Urine Bilirubin Negative (NEGATIVE) Urine Urobilinogen 0.2 (0.2) E.U./dL Ur Leukocyte Esterase 1+ H (NEGATIVE) Urine RBC 30-100/hpf H (0-5/HPF) Urine WBC 10-30/hpf H (0-5/HPF) Ur Squamous Epith Cells 1-5 /hpf (0-5/HPF) Urine Bacteria None seen (None) Ur Culture Indicated? Specimen cultured Vol Urine Centrifuged 10ml (spun) Discharge Plan Departure Patient Disposition: Home Clinical Impression: Acute UTI Activity Restrictions/Additional Instructions: *You have been diagnosed with [UTI] *What to do: *Please continue to take your regular medications as directed. [ 1] New medication prescriptions sent to your pharmacy: [Cefpodoxime] [ ] New medication written as a paper prescription [ ] No new medications given *Please follow up with your primary care provider in 2-3 days, call for an appointment. Let them know you were seen in the Emergency Department and that we ask that you be seen in follow up. We will electronically transmit a record of today's note if your PCP is in our system. Your urine dip today is consistent with a urinary tract infection. Please start taking the antibiotics today and pick them up from the pharmacy soon as you leave the ER. This is for a 5 day course. If you feel you are not improving within the 1st few days or if you develop new or concerning symptoms such as those below please make sure you seek re-evaluation immediately. Otherwise take all of your regular medications, follow up closely with your primary care provider drink plenty of fluids and try to eat healthy. Hope you feel better soon. *If you do not have a primary care provider please contact the [facility] Resource line at [phone]. They will ask some questions about your medical history and help get you set up with a doctor in the community. *Return to Emergency Department if you should have any new, worsening or concerning symptoms, such as [fever greater than 101 F, shaking chills, worsening pain, persistent vomiting or other bothersome symptoms] Prescriptions: New cefpodoxime 100 mg tablet 100 mg PO BID 5 Days Qty: 10 0RF Rx Instructions: must administer with a meal/food No Action bupropion HCl [Wellbutrin XL] 150 mg tablet extended release 24 hr 150 mg PO QAM Qty: 90 3RF Eliquis 5 mg tablet See Rx Instructions .ROUTE .COMPLEX Qty: 180 3RF Dose Instruction: Take 1 tablet by mouth twice daily Rx Instructions: Take 1 tablet by mouth twice daily lisinopril 20 mg tablet See Rx Instructions .ROUTE .COMPLEX Qty: 90 3RF Dose Instruction: Take 1 tablet by mouth once daily Rx Instructions: Take 1 tablet by mouth once daily diltiazem HCl [DILT-XR] 120 mg capsule,ext.rel 24h degradable See Rx Instructions .ROUTE .COMPLEX Qty: 90 3RF Dose Instruction: TAKE 1 BY MOUTH ONCE DAILY Rx Instructions: TAKE 1 BY MOUTH ONCE DAILY furosemide 40 mg tablet 40 mg PO DAILY Qty: 90 3RF metoprolol succinate 100 mg tablet extended release 24 hr 200 mg PO DAILY Qty: 180 3RF Referrals: Crescencio Valadez MD [Primary Care Provider] - Stand Alone Forms: Patient Portal/API ED Sign-out <Terri Brooks DO - Last Filed: 01/04/24 09:04> Cosign ED Attending Cosignature Attestation: I was available for consultation.
[2024-01-03 15:32] VITALS: BP 137/84; PULSE 86; RESP 18; O2SAT 100
== END 2024-01-03 15:33 | disposition home or self-care (01) ==
PROVIDERS: Emergency Medicine; Emergency Provider Student in an Organized Health Care Education/Training Program; PCP Family Medicine
DX: N39.0 Urinary tract infection, site not specified (principal)
CPT/HCPCS: 81001; 87077; 87086; 87186; 99281; 99283

== ENCOUNTER 2024-01-26 20:53 | Emergency (ER) | payer MEDICARE, MEDICAID, SELFPAY ==
[2020-08-16 11:27] VITALS: BMI 25.9
[2024-01-26 21:14] VITALS: BP 127/83; PULSE 76; RESP 16; TEMP 36.4; O2SAT 97; BMI 27.1
[2024-01-26 21:39] LABS: Appearance Urine UA CLEAR; Bilirubin Urine UA NEGATIVE (NEGATIVE); Color Urine UA YELLOW; Glucose Urine UA NEGATIVE (Negative); Ketones Urine UA NEGATIVE (NEGATIVE); Leukocyte Esterase Urine UA 1+ (NEGATIVE); Nitrite Urine UA NEGATIVE (Negative); Occult Blood Urine UA 3+ (Negative); Protein Urine UA 1+ (Negative); Urobilinogen Urine UA 0.2 E.U./dL (0.2)
[2024-01-26 21:49] LABS: Bacteria Urine Moderate (10-30); Culture Indicated Urine Specimen Cultured; RBC Urine 0-1/HPF (0-5/HPF); Squamous Epithelial Cell Urine 0-1 /HPF (0-5/HPF); Urine Volume 10mL (spun); WBC Urine 1-5/HPF (0-5/HPF)
--- NOTE | 2024-01-26 23:50 | ED_ITS ---
HPI - Male Genitourinary General Chief complaint: Urogenital-Male Stated complaint: UTI Time Seen by Provider: 01/26/24 23:27 Source: patient Mode of arrival: Ambulatory History of Present Illness HPI Narrative: Patient is a 68-year-old male history of nephrectomy secondary to renal cancer, chronic kidney disease atrial fibrillation on Eliquis, presenting today painful frequent urination. He reports that it started today. He has absolutely no back pain no nausea or vomiting or fever. He recently had a UTI E coli pansensitive on 01/03/2024 he was written for cefpodoxime for 5 days. He says it did resolve all of his symptoms but he started noticing return if symptoms today. He denies any sort of fever or chills. Denies any risk of STD. Related Data Previous Rx's Medication Instructions Recorded metoprolol succinate 100 mg 200 mg (2 x 100 mg) PO DAILY #180 06/18/23 tablet,extended release 24 hr tabs apixaban 5 mg tablet (Eliquis) See Rx Instructions .Route 08/23/23 .COMPLEX #180 tabs bupropion HCl 150 mg 24 hr tablet, 150 mg PO QAM #90 tabs 08/23/23 extended release (Wellbutrin XL) diltiazem HCl 120 mg See Rx Instructions .Route 08/23/23 capsule,extended release 24 hr, .COMPLEX #90 caps controlled (DILT-XR) furosemide 40 mg tablet 40 mg PO DAILY #90 tabs 08/23/23 lisinopril 20 mg tablet See Rx Instructions .Route 08/23/23 .COMPLEX #90 tabs cephalexin 500 mg capsule 500 mg PO BID 10 days #20 caps 01/27/24 Allergies Allergy/AdvReac Type Severity Reaction Status Date / Time No Known Drug Allergies Allergy Verified 08/23/23 12:57 Patient History Medical History CHF (congestive heart failure) Other thrombophilia Chronic kidney disease, stage 3 History of cardioversion (10/2018) Diastolic heart failure Nonrheumatic mitral valve regurgitation Cancer of left kidney BPH w urinary obs/LUTS Left renal mass Smoking Left renal mass Rheumatic fever (~1961) Mumps (~1960) Measles (~1961) History of heart disease Cigarette nicotine dependence Atrial fibrillation with rapid ventricular response Hypertension Surgical History Hx of eye surgery Hx of circumcision Anesthesia History of neck surgery Family History Father Diabetes mellitus History of heart disease Hypertension Mother Diabetes mellitus Hypertension Brother History of bipolar disorder Sister Uterine cancer Diabetes mellitus Grandfather No problems noted. Grandmother History of heart disease Hypertension Stroke Grandfather Cancer Grandmother Diabetes mellitus Social History household members: none Smoking Status: Current every day smoker Tobacco: How many years used: 49 second hand exposure: No alcohol intake: current substance use type: does not use Smoking Status: Current every day smoker alcohol intake frequency: 0-2 drinks per day Substance Use Type: marijuana Exam Initial Vital Signs Initial Vital Signs: Vital Signs Temperature 97.5 F L 01/26/24 21:14 Pulse Rate 76 01/26/24 21:14 Respiratory Rate 16 01/26/24 21:14 Blood Pressure 127/83 01/26/24 21:14 Pulse Oximetry 97 01/26/24 21:14 Oxygen Delivery Method Room Air 01/26/24 21:14 GENERAL: Alert very well-appearing 68-year-old male and in no acute distress. HEENT: Head atraumatic,EOMI, pupils reactive, face symmetric, moist mucous membranes CARDIOVASCULAR: Regular rate and rhythm without murmurs, rubs or gallops. RESPIRATORY: Breath sounds equal bilaterally, no wheezes rales or rhonchi. ABDOMEN: Soft, nontender. Normoactive bowel sounds all 4 quadrants. No guarding or rebound. : No CVA tenderness EXTREMITIES: Normal range of motion, no clubbing or edema. Neurovascularly intact NEUROLOGICAL: Alert and oriented x4.Normal gait and speech. SKIN: Warm, dry, no laceration, no petechiae, no rashes or lesions. Course Orders Ordered: ED Orders 01/26/24 21:29 UA dip and micro [Urinalysis and Microscopic] Stat Urine Culture Stat Discontinued Medications Cefazolin Sodium (Cephalexin 250 Mg Cap Prepack) 1 bottle MISC DIRECTED ONE Stop: 01/27/24 00:03 Last Admin: 01/27/24 00:12 Dose: 500 mg Documented By: DARREN Vital Signs Vital signs: Vital Signs - 8 hr 01/26/24 21:14 01/27/24 00:15 Temperature 97.5 F L 97.6 F Pulse Rate 76 68 Respiratory Rate 16 16 Blood Pressure 127/83 124/72 Pulse Oximetry 97 98 Oxygen Delivery Method Room Air Room Air MDM - Male Genitourinary Lab Data Labs: Lab Results 01/26/24 Range/Units 21:29 Urine Color Yellow Urine Appearance Clear Urine pH 6.0 (4.5-8.0) Ur Specific [place] 1.020 (1.000-1.035) Urine Protein 1+ H (Negative) Urine Glucose (UA) Negative (Negative) g/dL Urine Ketones Negative (NEGATIVE) Urine Occult Blood 3+ H (Negative) Urine Nitrate Negative (Negative) Urine Bilirubin Negative (NEGATIVE) Urine Urobilinogen 0.2 (0.2) E.U./dL Ur Leukocyte Esterase 1+ H (NEGATIVE) Urine RBC 0-1/hpf D (0-5/HPF) Urine WBC 1-5/hpf (0-5/HPF) Ur Squamous Epith Cells 0-1 /hpf (0-5/HPF) Urine Bacteria Moderate (10-30) H (None) Ur Culture Indicated? Specimen cultured Vol Urine Centrifuged 10ml (spun) MDM Narrative Medical decision making narrative: Patient is 68-year-old male with multiple comorbidities including chronic kidney disease AFib on Eliquis recent UTI presenting today with UTI like symptoms. He overall appears very well nontoxic minimal symptoms. Urinalysis has many bacteria in it and symptoms consistent with a UTI. He was only given 5 days of antibiotics would consider a longer course this time. I also strongly recommend that he follow-up with his PCP along with probable urology consultation. Discharge Plan Departure Patient Disposition: Home Clinical Impression: UTI (urinary tract infection) Instructions: DI for Urinary Tract Infection (UTI) Activity Restrictions/Additional Instructions: *You have been diagnosed with UTI *What to do: This is your 2nd bladder infection within a couple of weeks. I strongly recommend that he follow up with primary care and probable Urology. *Continue to take medications as directed Keflex 500 mg twice a day for 10 days *Follow up with your primary care provider in 2-3 days or call [phone] *Return to ER if you should have increasing pain confusion fever or any new, worsening or concerning symptoms Prescriptions: New cephalexin 500 mg capsule 500 mg PO BID 10 Days Qty: 20 0RF No Action bupropion HCl [Wellbutrin XL] 150 mg tablet extended release 24 hr 150 mg PO QAM Qty: 90 3RF Eliquis 5 mg tablet See Rx Instructions .ROUTE .COMPLEX Qty: 180 3RF Dose Instruction: Take 1 tablet by mouth twice daily Rx Instructions: Take 1 tablet by mouth twice daily lisinopril 20 mg tablet See Rx Instructions .ROUTE .COMPLEX Qty: 90 3RF Dose Instruction: Take 1 tablet by mouth once daily Rx Instructions: Take 1 tablet by mouth once daily diltiazem HCl [DILT-XR] 120 mg capsule,ext.rel 24h degradable See Rx Instructions .ROUTE .COMPLEX Qty: 90 3RF Dose Instruction: TAKE 1 BY MOUTH ONCE DAILY Rx Instructions: TAKE 1 BY MOUTH ONCE DAILY furosemide 40 mg tablet 40 mg PO DAILY Qty: 90 3RF metoprolol succinate 100 mg tablet extended release 24 hr 200 mg PO DAILY Qty: 180 3RF Referrals: Crescencio Valadez MD [Primary Care Provider] - Stand Alone Forms: Patient Portal/API
[2024-01-27] MEDS: cephALEXin 250 MG CAP PREPACK 1 BOTTLE MISC (00:12)
[2024-01-27 00:15] VITALS: BP 124/72; PULSE 68; RESP 16; TEMP 36.4; O2SAT 98
== END 2024-01-27 00:16 | disposition home or self-care (01) ==
PROVIDERS: Emergency Provider Emergency Medicine; PCP Family Medicine
DX: N39.0 Urinary tract infection, site not specified (principal)
CPT/HCPCS: 81001; 87077; 87086; 87186; 99281; 99283

== ENCOUNTER 2024-02-17 17:36 | Emergency (ER) | payer MEDICARE, MEDICAID, SELFPAY ==
[2020-08-16 11:27] VITALS: BMI 25.9
[2024-02-17 17:44] VITALS: BP 138/69; PULSE 94; RESP 18; TEMP 36.9; O2SAT 97; BMI 27.1
--- NOTE | 2024-02-17 17:49 | ED.MALEGU ---
HPI - Male Genitourinary <Juliano Ivey PA-C - Last Filed: 02/17/24 18:37> General Chief complaint: Urogenital-Male Stated complaint: UTI/ recurrent Time Seen by Provider: 02/17/24 17:49 Source: patient Mode of arrival: Ambulatory History of Present Illness HPI Narrative: This is a 68-year-old male presents to the emergency department due to hematuria and dysuria for the last 2 days. Reports history of frequent UTIs. Denies any fevers, flank pain, abdominal pain. Recently finish a course of Keflex for UTI as well. Has spoken to his primary care doctor about referral to Urology was not seen Urology. Related Data Previous Rx's Medication Instructions Recorded metoprolol succinate 100 mg 200 mg (2 x 100 mg) PO DAILY #180 06/18/23 tablet,extended release 24 hr tabs apixaban 5 mg tablet (Eliquis) See Rx Instructions .Route 08/23/23 .COMPLEX #180 tabs bupropion HCl 150 mg 24 hr tablet, 150 mg PO QAM #90 tabs 08/23/23 extended release (Wellbutrin XL) diltiazem HCl 120 mg See Rx Instructions .Route 08/23/23 capsule,extended release 24 hr, .COMPLEX #90 caps controlled (DILT-XR) furosemide 40 mg tablet 40 mg PO DAILY #90 tabs 08/23/23 lisinopril 20 mg tablet See Rx Instructions .Route 08/23/23 .COMPLEX #90 tabs levofloxacin 750 mg tablet 750 mg PO DAILY #7 tabs 02/17/24 Allergies Allergy/AdvReac Type Severity Reaction Status Date / Time No Known Drug Allergies Allergy Verified 08/23/23 12:57 Review of Systems <Juliano Ivey PA-C - Last Filed: 02/17/24 18:37> Review of Systems Narrative: GENERAL: Denies chills, fatigue, malaise, fever, sweats. HEENT: Denies sinus pain, ear pain, sore throat, difficulty swallowing, dizziness. RESPIRATORY: Denies dyspnea, cough, wheezing, hemoptysis, sputum. CARDIOVASCULAR: Denies chest pain, palpitations, orthopnea, edema, GASTROINTESTINAL: Denies nausea, vomiting, abdominal pain, diarrhea, constipation, melena. : Reports dysuria and hematuria Denies , frequency, incontinence, , urinary retention. MUSCULOSKELETAL: denies weakness, joint pain, or bony pain SKIN: Denies rash, skin lesions, or other NEUROLOGIC: Denies weakness, headache, numbness, change in speech, confusion, seizures, incoordination. PSYCHIATRIC: No concerning psychosocial issues. 12 point review of systems is negative except for those stated above Patient History <Juliano Ivey PA-C - Last Filed: 02/17/24 18:37> Medical History CHF (congestive heart failure) Other thrombophilia Chronic kidney disease, stage 3 History of cardioversion (10/2018) Diastolic heart failure Nonrheumatic mitral valve regurgitation Cancer of left kidney BPH w urinary obs/LUTS Left renal mass Smoking Left renal mass Rheumatic fever (~1961) Mumps (~1960) Measles (~1961) History of heart disease Cigarette nicotine dependence Atrial fibrillation with rapid ventricular response Hypertension Surgical History Hx of eye surgery Hx of circumcision Anesthesia History of neck surgery Family History Father Diabetes mellitus History of heart disease Hypertension Mother Diabetes mellitus Hypertension Brother History of bipolar disorder Sister Uterine cancer Diabetes mellitus Grandfather No problems noted. Grandmother History of heart disease Hypertension Stroke Grandfather Cancer Grandmother Diabetes mellitus Social History household members: none Smoking Status: Current every day smoker Tobacco: How many years used: 49 second hand exposure: No alcohol intake: current substance use type: does not use Smoking Status: Current every day smoker alcohol intake frequency: 0-2 drinks per day Substance Use Type: marijuana Exam <Juliano Ivey PA-C - Last Filed: 02/17/24 18:37> Narrative Exam Narrative: GENERAL: Well-developed patient, in mild distress. HEAD: Atraumatic. Normocephalic. EYES: Pupils equal round and reactive. Extraocular motions intact. No scleral icterus. No injection or drainage. ENT: Nose without bleeding, purulent drainage. Throat without erythema, tonsillar hypertrophy or exudate. Airway patent. NECK: Trachea midline. Non tender EXTREMITIES: No edema or joint tenderness. NEURO: AOx3. SKIN: No rash or erythema of visible areas Back: No CVA tenderness to palpation Initial Vital Signs Initial Vital Signs: Vital Signs Temperature 98.5 F 02/17/24 17:44 Pulse Rate 94 H 02/17/24 17:44 Respiratory Rate 18 02/17/24 17:44 Blood Pressure 138/69 02/17/24 17:44 Pulse Oximetry 97 02/17/24 17:44 Oxygen Delivery Method Room Air 02/17/24 17:44 <Evaristo Milan DO - Last Filed: 02/18/24 06:59> Initial Vital Signs Initial Vital Signs: Vital Signs Temperature 98.5 F 02/17/24 17:44 Pulse Rate 94 H 02/17/24 17:44 Respiratory Rate 18 02/17/24 17:44 Blood Pressure 138/69 02/17/24 17:44 Pulse Oximetry 97 02/17/24 17:44 Oxygen Delivery Method Room Air 02/17/24 17:44 Course <Juliano Ivey PA-C - Last Filed: 02/17/24 18:37> Vital Signs Vital signs: Vital Signs - 8 hr 02/17/24 17:44 Temperature 98.5 F Pulse Rate 94 H Respiratory Rate 18 Blood Pressure 138/69 Pulse Oximetry 97 Oxygen Delivery Method Room Air <DO Charmaine Fam Last Filed: 02/18/24 06:59> Vital Signs Vital signs: Vital Signs - 8 hr 02/17/24 17:44 Temperature 98.5 F Pulse Rate 94 H Respiratory Rate 18 Blood Pressure 138/69 Pulse Oximetry 97 Oxygen Delivery Method Room Air MDM - Male Genitourinary <MELISSA Hurst Last Filed: 02/17/24 18:37> Lab Data Labs: Lab Results 02/17/24 Range/Units 18:15 Urine Color Red Urine Appearance Turbid Urine pH 5.5 (4.5-8.0) Ur Specific [place] 1.020 (1.000-1.035) Urine Protein 3+ H (Negative) Urine Glucose (UA) 1+ H (Negative) g/dL Urine Ketones Trace H (NEGATIVE) Urine Occult Blood 3+ H (Negative) Urine Nitrate Positive H (Negative) Urine Bilirubin 1+ H (NEGATIVE) Ur Bilirubin Confirm Negative (Negative) Urine Urobilinogen 2.0 H (0.2) E.U./dL Ur Leukocyte Esterase Trace H (NEGATIVE) Urine RBC >100/hpf H (0-5/HPF) Urine WBC 10-30/hpf H (0-5/HPF) Ur Squamous Epith Cells 0-1 /hpf (0-5/HPF) Amorphous Sediment 1+ Urine Bacteria Many (>30) H (None) Urine Mucus 1+ H (Negative) Urine Yeast 30-100/hpf H (None) Ur Culture Indicated? Specimen cultured Vol Urine Centrifuged 10ml (spun) MDM Narrative Medical decision making narrative: ED course: This is a 68-year-old male with a frequent history of UTIs presenting to the emergency department for another UTI. His last culture showed susceptibility to levofloxacin which will be prescribed. Patient is still attempting to obtain a referral from his primary care provider for referral to Urology. No lower back pain, fevers, abdominal pain concerning for pyelonephritis. CC: Hematuria Complicating co-morbidities: As below Data collected from: Previous notes Medical records reviewed: Patient was seen roughly 3 weeks ago due to UTI. 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 Recently had UTI E coli pansensitive 01/03/2024 months rib for cefpodoxime for 5 days. Patient was eventually discharged with a 10 day course of Keflex. Differential considered, but not limited to: Simple cystitis, pyelonephritis, kidney stone Exam documented above, pertinent findings include: No CVA tenderness to palpation Lab Test results independently reviewed as above. Pertinent findings: UA shows evidence of UTI Imaging studies independently reviewed: None obtained Scores Used: None MIPS Elements: None Consultations: None Treatments: None Re-evaluations: None Discussion: Discussed plan with the patient was comfortable with the plan Diagnosis: UTI Disposition: see below, along with detailed discharge instructions that have been reviewed with patient as well as indications for ED re-evaluation and additional outpatient follow up <Evaristo Milan, DO - Last Filed: 02/18/24 06:59> Lab Data Labs: Lab Results 02/17/24 Range/Units 18:15 Urine Color Red Urine Appearance Turbid Urine pH 5.5 (4.5-8.0) Ur Specific [place] 1.020 (1.000-1.035) Urine Protein 3+ H (Negative) Urine Glucose (UA) 1+ H (Negative) g/dL Urine Ketones Trace H (NEGATIVE) Urine Occult Blood 3+ H (Negative) Urine Nitrate Positive H (Negative) Urine Bilirubin 1+ H (NEGATIVE) Ur Bilirubin Confirm Negative (Negative) Urine Urobilinogen 2.0 H (0.2) E.U./dL Ur Leukocyte Esterase Trace H (NEGATIVE) Urine RBC >100/hpf H (0-5/HPF) Urine WBC 10-30/hpf H (0-5/HPF) Ur Squamous Epith Cells 0-1 /hpf (0-5/HPF) Amorphous Sediment 1+ Urine Bacteria Many (>30) H (None) Urine Mucus 1+ H (Negative) Urine Yeast 30-100/hpf H (None) Ur Culture Indicated? Specimen cultured Vol Urine Centrifuged 10ml (spun) Discharge Plan Departure Patient Disposition: Home Clinical Impression: Acute UTI Instructions: DI for Urinary Tract Infection (UTI) Activity Restrictions/Additional Instructions: Thank you for coming to the [facility] Emergency Department today. As we discussed please take the antibiotics as prescribed. Strongly advised you speak with the primary care provider for a referral to Urology for complete care regarding her frequent UTIs. Please return to the emergency department if you develop any significant abdominal pain, back pain, fevers, or any other concerning signs or symptoms. I hope you feel better soon. Please follow up with your primary care provider within a week if your symptoms continue. If you do not have a primary care provider please contact the [facility] Resource line at [phone]. They will ask some questions about your medical history and help you get set up with a provider in the community. Prescriptions: New levofloxacin 750 mg tablet 750 mg PO DAILY Qty: 7 0RF No Action bupropion HCl [Wellbutrin XL] 150 mg tablet extended release 24 hr 150 mg PO QAM Qty: 90 3RF Eliquis 5 mg tablet See Rx Instructions .ROUTE .COMPLEX Qty: 180 3RF Dose Instruction: Take 1 tablet by mouth twice daily Rx Instructions: Take 1 tablet by mouth twice daily lisinopril 20 mg tablet See Rx Instructions .ROUTE .COMPLEX Qty: 90 3RF Dose Instruction: Take 1 tablet by mouth once daily Rx Instructions: Take 1 tablet by mouth once daily diltiazem HCl [DILT-XR] 120 mg capsule,ext.rel 24h degradable See Rx Instructions .ROUTE .COMPLEX Qty: 90 3RF Dose Instruction: TAKE 1 BY MOUTH ONCE DAILY Rx Instructions: TAKE 1 BY MOUTH ONCE DAILY furosemide 40 mg tablet 40 mg PO DAILY Qty: 90 3RF metoprolol succinate 100 mg tablet extended release 24 hr 200 mg PO DAILY Qty: 180 3RF Referrals: Crescencio Valadez MD [Primary Care Provider] - Stand Alone Forms: Patient Portal/API ED Sign-out <Evaristo Milan, - Last Filed: 02/18/24 06:59> Cosign ED Attending Cosignature Attestation: Dr Milan Co-Sign Statement: I was available for consultation during this patient's emergency department visit. This chart is signed by myself for administrative purposes only. I did not have direct contact with this patient during this visit. They were seen independently by the APC.
[2024-02-17 18:29] LABS: Bilirubin Urine UA 1+ (NEGATIVE); Glucose Urine UA 1+ g/dL (Negative); Ketones Urine UA TRACE (NEGATIVE); Leukocyte Esterase Urine UA TRACE (NEGATIVE); Nitrite Urine UA POSITIVE (Negative); Occult Blood Urine UA 3+ (Negative); Protein Urine UA 3+ (Negative); pH Urine UA 5.5 (4.5-8.0)
[2024-02-17 18:33] LABS: Appearance Urine UA TURBID; Color Urine UA RED
[2024-02-17 18:34] LABS: Ictotest Urine Negative (Negative); Urine Volume 10mL (spun)
[2024-02-17 18:35] LABS: Amorphous Sediment Urine 1+; Bacteria Urine Many (>30); Culture Indicated Urine Specimen Cultured; Mucus Urine 1+ (Negative); RBC Urine >100/HPF (0-5/HPF); Squamous Epithelial Cell Urine 0-1 /HPF (0-5/HPF); WBC Urine 10-30/HPF (0-5/HPF)
== END 2024-02-17 18:53 | disposition home or self-care (01) ==
PROVIDERS: Emergency Provider Physician Assistant Medical; PCP Family Medicine
DX: N39.0 Urinary tract infection, site not specified (principal); Z87.440 Personal history of urinary (tract) infections
CPT/HCPCS: 81001; 87077; 87086; 87186; 99281; 99283

== ENCOUNTER 2024-02-27 15:20 | Emergency (ER) | payer MEDICARE, MEDICAID, SELFPAY ==
[2020-08-16 11:27] VITALS: BMI 25.9
[2024-02-27 15:23] VITALS: BP 139/86; PULSE 87; RESP 16; TEMP 36.6; O2SAT 98; BMI 26.4
--- NOTE | 2024-02-27 16:05 | ED_ITS ---
HPI - Extremity Problem <Juliano Ivey PA-C - Last Filed: 02/27/24 16:33> General Chief complaint: Extremity Problem,Nontraumatic Stated complaint: Rt hand swelling Time Seen by Provider: 02/27/24 16:03 History of Present Illness HPI Narrative: This is a 68-year-old male presents emergency department due to acute swelling with mild pain to the right PIP joint of the 3rd digit as well as some inflammation to his hand. It has not significantly warm to the touch and patient was no fevers. He states that this began after he drank a couple of beers. No history of gout in the past. No openings in the skin or recollection of any trauma or piercing of the skin. Pain hurts with range of motion of the joint. Related Data Previous Rx's Medication Instructions Recorded metoprolol succinate 100 mg 200 mg (2 x 100 mg) PO DAILY #180 06/18/23 tablet,extended release 24 hr tabs apixaban 5 mg tablet (Eliquis) See Rx Instructions .Route 08/23/23 .COMPLEX #180 tabs bupropion HCl 150 mg 24 hr tablet, 150 mg PO QAM #90 tabs 08/23/23 extended release (Wellbutrin XL) diltiazem HCl 120 mg See Rx Instructions .Route 08/23/23 capsule,extended release 24 hr, .COMPLEX #90 caps controlled (DILT-XR) furosemide 40 mg tablet 40 mg PO DAILY #90 tabs 08/23/23 lisinopril 20 mg tablet See Rx Instructions .Route 08/23/23 .COMPLEX #90 tabs levofloxacin 750 mg tablet 750 mg PO DAILY #7 tabs 02/17/24 prednisone 20 mg tablet 40 mg (2 x 20 mg) PO DAILY #14 tabs 02/27/24 Allergies Allergy/AdvReac Type Severity Reaction Status Date / Time No Known Drug Allergies Allergy Verified 08/23/23 12:57 Review of Systems <Juliano Ivey PA-C - Last Filed: 02/27/24 16:33> Review of Systems Narrative: GENERAL: Denies chills, fatigue, malaise, fever, sweats. HEENT: Denies sinus pain, ear pain, sore throat, difficulty swallowing, dizzines s. RESPIRATORY: Denies dyspnea, cough, wheezing, hemoptysis, sputum. CARDIOVASCULAR: Denies chest pain, palpitations, orthopnea, edema, GASTROINTESTINAL: Denies nausea, vomiting, abdominal pain, diarrhea, constipation, melena. : Denies dysuria, frequency, incontinence, hematuria, urinary retention. MUSCULOSKELETAL: Reports right 3rd finger pain denies weakness, joint pain, or bony pain SKIN: Denies rash, skin lesions, or other NEUROLOGIC: Denies weakness, headache, numbness, change in speech, confusion, seizures, incoordination. PSYCHIATRIC: No concerning psychosocial issues. 12 point review of systems is negative except for those stated above Patient History <Juliano Ivey PA-C - Last Filed: 02/27/24 16:33> Medical History CHF (congestive heart failure) Other thrombophilia Chronic kidney disease, stage 3 History of cardioversion (10/2018) Diastolic heart failure Nonrheumatic mitral valve regurgitation Cancer of left kidney BPH w urinary obs/LUTS Left renal mass Smoking Left renal mass Rheumatic fever (~1961) Mumps (~1960) Measles (~1961) History of heart disease Cigarette nicotine dependence Atrial fibrillation with rapid ventricular response Hypertension Surgical History Hx of eye surgery Hx of circumcision Anesthesia History of neck surgery Family History Father Diabetes mellitus History of heart disease Hypertension Mother Diabetes mellitus Hypertension Brother History of bipolar disorder Sister Uterine cancer Diabetes mellitus Grandfather No problems noted. Grandmother History of heart disease Hypertension Stroke Grandfather Cancer Grandmother Diabetes mellitus Social History household members: none Smoking Status: Current every day smoker Tobacco: How many years used: 49 second hand exposure: No alcohol intake: current substance use type: does not use Smoking Status: Current every day smoker alcohol intake frequency: other Substance Use Type: marijuana Exam <Juliano Ivey PA-C - Last Filed: 02/27/24 16:33> Narrative Exam Narrative: GENERAL: Well-developed patient, in mild distress. HEAD: Atraumatic. Normocephalic. EYES: Pupils equal round and reactive. Extraocular motions intact. No scleral icterus. No injection or drainage. ENT: Nose without bleeding, purulent drainage. Throat without erythema, tonsillar hypertrophy or exudate. Airway patent. NECK: Trachea midline. Non tender EXTREMITIES: Mild edema to the PIP joint of the right 3rd digit. No significant warmth or erythema to the area. Some pain with palpation at the joint. Neurovascularly intact. NEURO: AOx3. SKIN: No rash or erythema of visible areas Initial Vital Signs Initial Vital Signs: Vital Signs Temperature 97.9 F 02/27/24 15:23 Pulse Rate 87 02/27/24 15:23 Respiratory Rate 16 02/27/24 15:23 Blood Pressure 139/86 02/27/24 15:23 Pulse Oximetry 98 02/27/24 15:23 Oxygen Delivery Method Room Air 02/27/24 15:23 <Leesa Jones DO - Last Filed: 03/08/24 07:29> Initial Vital Signs Initial Vital Signs: Vital Signs Temperature 97.9 F 02/27/24 15:23 Pulse Rate 87 02/27/24 15:23 Respiratory Rate 16 02/27/24 15:23 Blood Pressure 139/86 02/27/24 15:23 Pulse Oximetry 98 02/27/24 15:23 Oxygen Delivery Method Room Air 02/27/24 15:23 Course <Juliano Ivey PA-C - Last Filed: 02/27/24 16:33> Vital Signs Vital signs: Vital Signs - 8 hr 02/27/24 15:23 Temperature 97.9 F Pulse Rate 87 Respiratory Rate 16 Blood Pressure 139/86 Pulse Oximetry 98 Oxygen Delivery Method Room Air <Leesa Jones DO - Last Filed: 03/08/24 07:29> Vital Signs Vital signs: Vital Signs - 8 hr 02/27/24 15:23 Temperature 97.9 F Pulse Rate 87 Respiratory Rate 16 Blood Pressure 139/86 Pulse Oximetry 98 Oxygen Delivery Method Room Air MDM - Extremity (Nontraumatic) <MELISSA Hurst Last Filed: 02/27/24 16:33> MDM Narrative Medical decision making narrative: ED course: This is a 68-year-old male presents to the emergency department due to possible gout flare-up. There was no signs of trauma and low concern for flexor tenosynovitis. We will not be able to treat with colchicine as patient was been told to not take anti-inflammatories as he was history of chronic kidney disease. We will attempt a course of prednisone to treat the symptoms and recommend he follow up with the primary care provider for outpatient testing. CC: Finger pain Complicating co-morbidities: History of CHF, CKD Data collected from: Previous notes Medical records reviewed: Patient was seen here 2 weeks ago due to a UTI. Prescribed levofloxacin. History of CHF, CKD, smoking, AFib, hypertension. Differential considered, but not limited to: Gout, flexor tenosynovitis, fracture, arthritis Exam documented above, pertinent findings include: No significant warmth of the area concern for flexor tenosynovitis Lab Test results independently reviewed as above. Pertinent findings: None obtained Imaging studies independently reviewed: None obtained Scores Used: None MIPS Elements: None Consultations: None Treatments: None Re-evaluations: None Discussion: Discussed plan with the patient was comfortable with the plan Diagnosis: Joint pain Disposition: see below, along with detailed discharge instructions that have been reviewed with patient as well as indications for ED re-evaluation and additional outpatient follow up Discharge Plan Departure Patient Disposition: Home Clinical Impression: Finger pain Activity Restrictions/Additional Instructions: Thank you for coming to the [facility] Emergency Department today. As we discussed this is not appear to be some that infection but this may be a possible gout flare. You will need to speak with the primary care provider for further testing to confirm this. Please take the medications as prescribed see if it helps with the symptoms. Please return to the emergency department if you develop any fevers, further redness spreading up your hand or arm, or any other concerning signs or symptoms. I hope you feel better soon. Please follow up with your primary care provider within a week if your symptoms continue. If you do not have a primary care provider please contact the [facility] Resource line at [phone]. They will ask some questions about your medical history and help you get set up with a provider in the community. Prescriptions: New prednisone 20 mg tablet 40 mg PO DAILY Qty: 14 0RF No Action bupropion HCl [Wellbutrin XL] 150 mg tablet extended release 24 hr 150 mg PO QAM Qty: 90 3RF Eliquis 5 mg tablet See Rx Instructions .ROUTE .COMPLEX Qty: 180 3RF Dose Instruction: Take 1 tablet by mouth twice daily Rx Instructions: Take 1 tablet by mouth twice daily lisinopril 20 mg tablet See Rx Instructions .ROUTE .COMPLEX Qty: 90 3RF Dose Instruction: Take 1 tablet by mouth once daily Rx Instructions: Take 1 tablet by mouth once daily diltiazem HCl [DILT-XR] 120 mg capsule,ext.rel 24h degradable See Rx Instructions .ROUTE .COMPLEX Qty: 90 3RF Dose Instruction: TAKE 1 BY MOUTH ONCE DAILY Rx Instructions: TAKE 1 BY MOUTH ONCE DAILY furosemide 40 mg tablet 40 mg PO DAILY Qty: 90 3RF metoprolol succinate 100 mg tablet extended release 24 hr 200 mg PO DAILY Qty: 180 3RF levofloxacin 750 mg tablet 750 mg PO DAILY Qty: 7 0RF Referrals: Crescencio Valadez MD [Primary Care Provider] - Stand Alone Forms: Patient Portal/API ED Sign-out <Leesa Jones DO - Last Filed: 03/08/24 07:29> Cosign ED Attending Linature Attestation: I was immediately available in the department for consultation.
[2024-02-27 16:38] VITALS: BP 129/83; PULSE 93; RESP 20; O2SAT 98
== END 2024-02-27 16:39 | disposition home or self-care (01) ==
PROVIDERS: Emergency Provider Physician Assistant Medical; PCP Family Medicine
DX: M79.644 Pain in right finger(s) (principal)
CPT/HCPCS: 99281; 99282

== ENCOUNTER 2024-07-10 15:56 | Emergency (ER) | payer MEDICARE, MEDICAID, SELFPAY ==
[2020-08-16 11:27] VITALS: BMI 25.9
[2024-07-10 15:59] VITALS: BP 153/71; PULSE 97; RESP 14; TEMP 36.4; O2SAT 100; BMI 25.7
[2024-07-10 16:11] VITALS: PULSE 95; O2SAT 100
[2024-07-10 16:12] VITALS: BP 142/90; PULSE 107; O2SAT 100
--- NOTE | 2024-07-10 16:16 | ED.MALEGU ---
HPI - Male Genitourinary <Amirah Peña PA-C - Last Filed: 07/10/24 19:14> General Chief complaint: Urogenital-Male Stated complaint: Urinary problem Time Seen by Provider: 07/10/24 16:16 Source: patient Mode of arrival: Ambulatory History of Present Illness HPI Narrative: 68-year-old male presents this evening for urinary symptoms. He states they started last night he has increased frequency and urgency of urination with pain. He is denying any penile symptoms, no flank pain, no blood in his urine and he denies any fever. He was last seen here February 17, 2024 for recurrent UTI. Review of his records the last 3 urine cultures grew E coli without resistance. Last treated with levofloxacin 7 day course. He reports no history of any prostatitis or enlargement. History is significant for nephrectomy 5 years ago for some type of cancer. His urologist retired and he is yet to reestablish. History also significant for atrial fibrillation and he takes Eliquis daily, he missed his dose today however. He also has hypertension, chronic kidney disease, and takes metoprolol, lisinopril, Lasix, diltiazem. He admits to not going to the doctor's frequently has he possibly should, review of his records show last lab work was from October of last year showing creatinine of 1.81 and a GFR of 41 consistent with his previous readings. All other systems are reviewed and are negative. Related Data Previous Rx's Medication Instructions Recorded apixaban 5 mg tablet (Eliquis) See Rx Instructions .Route 08/23/23 .COMPLEX #180 tabs bupropion HCl 150 mg 24 hr tablet, 150 mg PO QAM #90 tabs 08/23/23 extended release (Wellbutrin XL) diltiazem HCl 120 mg See Rx Instructions .Route 08/23/23 capsule,extended release 24 hr, .COMPLEX #90 caps controlled (DILT-XR) furosemide 40 mg tablet 40 mg PO DAILY #90 tabs 08/23/23 lisinopril 20 mg tablet See Rx Instructions .Route 08/23/23 .COMPLEX #90 tabs levofloxacin 750 mg tablet 750 mg PO DAILY #7 tabs 02/17/24 prednisone 20 mg tablet 40 mg (2 x 20 mg) PO DAILY #14 tabs 02/27/24 metoprolol succinate 100 mg 200 mg (2 x 100 mg) PO DAILY #180 06/12/24 tablet,extended release 24 hr tabs levofloxacin 750 mg tablet 750 mg PO DAILY #6 tabs 07/10/24 Allergies Allergy/AdvReac Type Severity Reaction Status Date / Time No Known Drug Allergies Allergy Verified 08/23/23 12:57 Patient History <Amirah Peña PA-C - Last Filed: 07/10/24 19:14> Medical History CHF (congestive heart failure) Other thrombophilia Chronic kidney disease, stage 3 History of cardioversion (10/2018) Diastolic heart failure Nonrheumatic mitral valve regurgitation Cancer of left kidney BPH w urinary obs/LUTS Left renal mass Smoking Left renal mass Rheumatic fever (~1961) Mumps (~1960) Measles (~1961) History of heart disease Cigarette nicotine dependence Atrial fibrillation with rapid ventricular response Hypertension Surgical History Hx of eye surgery Hx of circumcision Anesthesia History of neck surgery Family History Father Diabetes mellitus History of heart disease Hypertension Mother Diabetes mellitus Hypertension Brother History of bipolar disorder Sister Uterine cancer Diabetes mellitus Grandfather No problems noted. Grandmother History of heart disease Hypertension Stroke Grandfather Cancer Grandmother Diabetes mellitus Social History household members: none Smoking Status: Current every day smoker Tobacco: How many years used: 49 second hand exposure: No alcohol intake: current substance use type: does not use Smoking Status: Current every day smoker alcohol intake frequency: other Substance Use Type: marijuana Exam <Amirah Peña PA-C - Last Filed: 07/10/24 19:14> Initial Vital Signs Initial Vital Signs: Vital Signs Temperature 97.6 F 07/10/24 15:59 Pulse Rate 97 H 07/10/24 15:59 Respiratory Rate 14 07/10/24 15:59 Blood Pressure 153/71 H 07/10/24 15:59 Pulse Oximetry 100 07/10/24 15:59 Oxygen Delivery Method Room Air 07/10/24 15:59 Vital signs reviewed and are normal except for elevated systolic reading today. Const Other: Smiling, seated, no distress. Pleasantly conversing. Nontoxic appearing. Resp Auscultation: clear to auscultation bilaterally, no rales, no rhonchi and no wheezes Cardio Rate: regular rate Rhythm: regular rhythm GI Inspection: normal to inspection and non-distended Palpation: soft and no hepatosplenomegaly Percussion: normal to percussion Auscultation: normal bowel sounds Other: Postoperative scars well healed midline abdomen and laparoscopic. No CVA tenderness. Skin General: no rashes or lesions noted, elasticity normal and turgor normal <Daniel Cortez MD - Last Filed: 07/10/24 20:02> Initial Vital Signs Initial Vital Signs: Vital Signs Temperature 97.6 F 07/10/24 15:59 Pulse Rate 97 H 07/10/24 15:59 Respiratory Rate 14 07/10/24 15:59 Blood Pressure 153/71 H 07/10/24 15:59 Pulse Oximetry 100 07/10/24 15:59 Oxygen Delivery Method Room Air 07/10/24 15:59 Course <Amirah Peña PA-C - Last Filed: 07/10/24 19:14> Orders Ordered: ED Orders 07/10/24 16:14 EKG-12 Lead Stat 07/10/24 16:27 CMP [Comprehensive Metabolic Panel] Stat Complete Blood Count AUTO DIFF Stat 07/10/24 17:05 Urinalysis and Microscopic Stat Urine Culture Stat Discontinued Medications Aspirin (Aspirin 81 Mg Chew Tab) 324 mg PO NOW ONE Stop: 07/10/24 16:15 Last Admin: 07/10/24 16:35 Dose: Not Given Documented By: MIKE Levofloxacin (Levofloxacin 250 Mg Tablet) 750 mg PO NOW ONE Stop: 07/10/24 17:58 Last Admin: 07/10/24 18:25 Dose: 750 mg Documented By: MIKE Vital Signs Vital signs: Vital Signs - 8 hr 07/10/24 15:59 07/10/24 16:11 07/10/24 16:12 Temperature 97.6 F Pulse Rate 97 H 95 H 107 H Respiratory Rate 14 Blood Pressure 153/71 H Pulse Oximetry 100 100 100 Oxygen Delivery Method Room Air 07/10/24 16:12 07/10/24 16:30 07/10/24 16:30 Temperature Pulse Rate 103 H Respiratory Rate 18 Blood Pressure 142/90 H 135/78 Pulse Oximetry 99 Oxygen Delivery Method 07/10/24 17:00 07/10/24 17:00 07/10/24 18:21 Temperature Pulse Rate 96 H 85 Respiratory Rate 19 18 Blood Pressure 151/75 H Pulse Oximetry 99 97 Oxygen Delivery Method Room Air <Daniel Cortez MD - Last Filed: 07/10/24 20:02> Orders Ordered: ED Orders 07/10/24 16:14 EKG-12 Lead Stat 07/10/24 16:27 CMP [Comprehensive Metabolic Panel] Stat Complete Blood Count AUTO DIFF Stat 07/10/24 17:05 Urinalysis and Microscopic Stat Urine Culture Stat Discontinued Medications Aspirin (Aspirin 81 Mg Chew Tab) 324 mg PO NOW ONE Stop: 07/10/24 16:15 Last Admin: 07/10/24 16:35 Dose: Not Given Documented By: MIKE Levofloxacin (Levofloxacin 250 Mg Tablet) 750 mg PO NOW ONE Stop: 07/10/24 17:58 Last Admin: 07/10/24 18:25 Dose: 750 mg Documented By: MIKE Vital Signs Vital signs: Vital Signs - 8 hr 07/10/24 15:59 07/10/24 16:11 07/10/24 16:12 Temperature 97.6 F Pulse Rate 97 H 95 H 107 H Respiratory Rate 14 Blood Pressure 153/71 H Pulse Oximetry 100 100 100 Oxygen Delivery Method Room Air 07/10/24 16:12 07/10/24 16:30 07/10/24 16:30 Temperature Pulse Rate 103 H Respiratory Rate 18 Blood Pressure 142/90 H 135/78 Pulse Oximetry 99 Oxygen Delivery Method 07/10/24 17:00 07/10/24 17:00 07/10/24 18:21 Temperature Pulse Rate 96 H 85 Respiratory Rate 19 18 Blood Pressure 151/75 H Pulse Oximetry 99 97 Oxygen Delivery Method Room Air MDM - Male Genitourinary <Amirah Peña PA-C - Last Filed: 07/10/24 19:14> Lab Data Lab results narrative: CBC and basic metabolic panel were obtained. Creatinine is 1.60, GFR is 47 these are slightly improved from his previous labs. Urinalysis consistent with UTI as it shows 3+ blood, bacteria, leukocytes protein. Culture and sensitivity are pending. 07/10/24 16:27 07/10/24 16:27 Labs: Lab Results 07/10/24 07/10/24 07/10/24 Range/Units 16:27 16:27 16:27 WBC Cancelled 10.7 RBC Cancelled 4.91 Hgb Cancelled Hct MCV MCH MCHC RDW Plt Count Neut % (Auto) Lymph % (Auto) [place] % (Auto) Eos % (Auto) Baso % (Auto) Neut # (Auto) Lymph # (Auto) [place] # (Auto) Eos # (Auto) Baso # (Auto) Sodium Potassium Chloride Carbon Dioxide BUN Creatinine Estimated GFR BUN/Creatinine Ratio Glucose Calcium Magnesium Total Bilirubin AST ALT Alkaline Phosphatase Total Creatine Kinase Troponin I NT-Pro-B Natriuret Pep Total Protein Albumin Globulin Albumin/Globulin Ratio Lipase Urine Color Urine Appearance Urine pH (4.5-8.0) Ur Specific [place] (1.000-1.035) Urine Protein (Negative) Urine Glucose (UA) (Negative) g/dL Urine Ketones (NEGATIVE) Urine Occult Blood (Negative) Urine Nitrate (Negative) Urine Bilirubin (NEGATIVE) Urine Urobilinogen (0.2) E.U./dL Ur Leukocyte Esterase (NEGATIVE) Urine RBC (0-5/HPF) Urine WBC (0-5/HPF) Ur Squamous Epith Cells (0-5/HPF) Urine Bacteria (None) Urine Mucus (Negative) Ur Culture Indicated? Vol Urine Centrifuged 07/10/24 07/10/24 07/10/24 Range/Units 16:27 16:27 16:27 WBC RBC Hgb 15.2 Hct Cancelled 45.8 MCV Cancelled 93.2 MCH Cancelled MCHC RDW Plt Count Neut % (Auto) Lymph % (Auto) [place] % (Auto) Eos % (Auto) Baso % (Auto) Neut # (Auto) Lymph # (Auto) [place] # (Auto) Eos # (Auto) Baso # (Auto) Sodium Potassium Chloride Carbon Dioxide BUN Creatinine Estimated GFR BUN/Creatinine Ratio Glucose Calcium Magnesium Total Bilirubin AST ALT Alkaline Phosphatase Total Creatine Kinase Troponin I NT-Pro-B Natriuret Pep Total Protein Albumin Globulin Albumin/Globulin Ratio Lipase Urine Color Urine Appearance Urine pH (4.5-8.0) Ur Specific [place] (1.000-1.035) Urine Protein (Negative) Urine Glucose (UA) (Negative) g/dL Urine Ketones (NEGATIVE) Urine Occult Blood (Negative) Urine Nitrate (Negative) Urine Bilirubin (NEGATIVE) Urine Urobilinogen (0.2) E.U./dL Ur Leukocyte Esterase (NEGATIVE) Urine RBC (0-5/HPF) Urine WBC (0-5/HPF) Ur Squamous Epith Cells (0-5/HPF) Urine Bacteria (None) Urine Mucus (Negative) Ur Culture Indicated? Vol Urine Centrifuged 07/10/24 07/10/24 07/10/24 Range/Units 16:27 16:27 16:27 WBC RBC Hgb Hct MCV MCH 30.9 MCHC Cancelled 33.2 RDW Cancelled 14.7 Plt Count Cancelled Neut % (Auto) Lymph % (Auto) [place] % (Auto) Eos % (Auto) Baso % (Auto) Neut # (Auto) Lymph # (Auto) [place] # (Auto) Eos # (Auto) Baso # (Auto) Sodium Potassium Chloride Carbon Dioxide BUN Creatinine Estimated GFR BUN/Creatinine Ratio Glucose Calcium Magnesium Total Bilirubin AST ALT Alkaline Phosphatase Total Creatine Kinase Troponin I NT-Pro-B Natriuret Pep Total Protein Albumin Globulin Albumin/Globulin Ratio Lipase Urine Color Urine Appearance Urine pH (4.5-8.0) Ur Specific [place] (1.000-1.035) Urine Protein (Negative) Urine Glucose (UA) (Negative) g/dL Urine Ketones (NEGATIVE) Urine Occult Blood (Negative) Urine Nitrate (Negative) Urine Bilirubin (NEGATIVE) Urine Urobilinogen (0.2) E.U./dL Ur Leukocyte Esterase (NEGATIVE) Urine RBC (0-5/HPF) Urine WBC (0-5/HPF) Ur Squamous Epith Cells (0-5/HPF) Urine Bacteria (None) Urine Mucus (Negative) Ur Culture Indicated? Vol Urine Centrifuged 07/10/24 07/10/24 07/10/24 Range/Units 16:27 16:27 16:27 WBC RBC Hgb Hct MCV MCH MCHC RDW Plt Count 223 Neut % (Auto) Cancelled 74.5 Lymph % (Auto) Cancelled 14.5 L [place] % (Auto) Cancelled Eos % (Auto) Baso % (Auto) Neut # (Auto) Lymph # (Auto) [place] # (Auto) Eos # (Auto) Baso # (Auto) Sodium Potassium Chloride Carbon Dioxide BUN Creatinine Estimated GFR BUN/Creatinine Ratio Glucose Calcium Magnesium Total Bilirubin AST ALT Alkaline Phosphatase Total Creatine Kinase Troponin I NT-Pro-B Natriuret Pep Total Protein Albumin Globulin Albumin/Globulin Ratio Lipase Urine Color Urine Appearance Urine pH (4.5-8.0) Ur Specific [place] (1.000-1.035) Urine Protein (Negative) Urine Glucose (UA) (Negative) g/dL Urine Ketones (NEGATIVE) Urine Occult Blood (Negative) Urine Nitrate (Negative) Urine Bilirubin (NEGATIVE) Urine Urobilinogen (0.2) E.U./dL Ur Leukocyte Esterase (NEGATIVE) Urine RBC (0-5/HPF) Urine WBC (0-5/HPF) Ur Squamous Epith Cells (0-5/HPF) Urine Bacteria (None) Urine Mucus (Negative) Ur Culture Indicated? Vol Urine Centrifuged 07/10/24 07/10/24 07/10/24 Range/Units 16:27 16:27 16:27 WBC RBC Hgb Hct MCV MCH MCHC RDW Plt Count Neut % (Auto) Lymph % (Auto) [place] % (Auto) 8.1 Eos % (Auto) Cancelled 2.2 Baso % (Auto) Cancelled 0.7 Neut # (Auto) Cancelled Lymph # (Auto) [place] # (Auto) Eos # (Auto) Baso # (Auto) Sodium Potassium Chloride Carbon Dioxide BUN Creatinine Estimated GFR BUN/Creatinine Ratio Glucose Calcium Magnesium Total Bilirubin AST ALT Alkaline Phosphatase Total Creatine Kinase Troponin I NT-Pro-B Natriuret Pep Total Protein Albumin Globulin Albumin/Globulin Ratio Lipase Urine Color Urine Appearance Urine pH (4.5-8.0) Ur Specific [place] (1.000-1.035) Urine Protein (Negative) Urine Glucose (UA) (Negative) g/dL Urine Ketones (NEGATIVE) Urine Occult Blood (Negative) Urine Nitrate (Negative) Urine Bilirubin (NEGATIVE) Urine Urobilinogen (0.2) E.U./dL Ur Leukocyte Esterase (NEGATIVE) Urine RBC (0-5/HPF) Urine WBC (0-5/HPF) Ur Squamous Epith Cells (0-5/HPF) Urine Bacteria (None) Urine Mucus (Negative) Ur Culture Indicated? Vol Urine Centrifuged 07/10/24 07/10/24 07/10/24 Range/Units 16:27 16:27 16:27 WBC RBC Hgb Hct MCV MCH MCHC RDW Plt Count Neut % (Auto) Lymph % (Auto) [place] % (Auto) Eos % (Auto) Baso % (Auto) Neut # (Auto) 8000 H Lymph # (Auto) Cancelled 1600 [place] # (Auto) Cancelled 900 Eos # (Auto) Cancelled Baso # (Auto) Sodium Potassium Chloride Carbon Dioxide BUN Creatinine Estimated GFR BUN/Creatinine Ratio Glucose Calcium Magnesium Total Bilirubin AST ALT Alkaline Phosphatase Total Creatine Kinase Troponin I NT-Pro-B Natriuret Pep Total Protein Albumin Globulin Albumin/Globulin Ratio Lipase Urine Color Urine Appearance Urine pH (4.5-8.0) Ur Specific [place] (1.000-1.035) Urine Protein (Negative) Urine Glucose (UA) (Negative) g/dL Urine Ketones (NEGATIVE) Urine Occult Blood (Negative) Urine Nitrate (Negative) Urine Bilirubin (NEGATIVE) Urine Urobilinogen (0.2) E.U./dL Ur Leukocyte Esterase (NEGATIVE) Urine RBC (0-5/HPF) Urine WBC (0-5/HPF) Ur Squamous Epith Cells (0-5/HPF) Urine Bacteria (None) Urine Mucus (Negative) Ur Culture Indicated? Vol Urine Centrifuged 07/10/24 07/10/24 07/10/24 Range/Units 16:27 16:27 16:27 WBC RBC Hgb Hct MCV MCH MCHC RDW Plt Count Neut % (Auto) Lymph % (Auto) [place] % (Auto) Eos % (Auto) Baso % (Auto) Neut # (Auto) Lymph # (Auto) [place] # (Auto) Eos # (Auto) 200 Baso # (Auto) Cancelled 100 Sodium Cancelled 139 Potassium Cancelled Chloride Carbon Dioxide BUN Creatinine Estimated GFR BUN/Creatinine Ratio Glucose Calcium Magnesium Total Bilirubin AST ALT Alkaline Phosphatase Total Creatine Kinase Troponin I NT-Pro-B Natriuret Pep Total Protein Albumin Globulin Albumin/Globulin Ratio Lipase Urine Color Urine Appearance Urine pH (4.5-8.0) Ur Specific [place] (1.000-1.035) Urine Protein (Negative) Urine Glucose (UA) (Negative) g/dL Urine Ketones (NEGATIVE) Urine Occult Blood (Negative) Urine Nitrate (Negative) Urine Bilirubin (NEGATIVE) Urine Urobilinogen (0.2) E.U./dL Ur Leukocyte Esterase (NEGATIVE) Urine RBC (0-5/HPF) Urine WBC (0-5/HPF) Ur Squamous Epith Cells (0-5/HPF) Urine Bacteria (None) Urine Mucus (Negative) Ur Culture Indicated? Vol Urine Centrifuged 07/10/24 07/10/2407/10/24 Range/Units 16:27 16:27 16:27 WBC RBC Hgb Hct MCV MCH MCHC RDW Plt Count Neut % (Auto) Lymph % (Auto) [place] % (Auto) Eos % (Auto) Baso % (Auto) Neut # (Auto) Lymph # (Auto) [place] # (Auto) Eos # (Auto) Baso # (Auto) Sodium Potassium 5.3 H Chloride Cancelled 105 Carbon Dioxide Cancelled 28 BUN Cancelled Creatinine Estimated GFR BUN/Creatinine Ratio Glucose Calcium Magnesium Total Bilirubin AST ALT Alkaline Phosphatase Total Creatine Kinase Troponin I NT-Pro-B Natriuret Pep Total Protein Albumin Globulin Albumin/Globulin Ratio Lipase Urine Color Urine Appearance Urine pH (4.5-8.0) Ur Specific [place] (1.000-1.035) Urine Protein (Negative) Urine Glucose (UA) (Negative) g/dL Urine Ketones (NEGATIVE) Urine Occult Blood (Negative) Urine Nitrate (Negative) Urine Bilirubin (NEGATIVE) Urine Urobilinogen (0.2) E.U./dL Ur Leukocyte Esterase (NEGATIVE) Urine RBC (0-5/HPF) Urine WBC (0-5/HPF) Ur Squamous Epith Cells (0-5/HPF) Urine Bacteria (None) Urine Mucus (Negative) Ur Culture Indicated? Vol Urine Centrifuged 07/10/24 07/10/24 07/10/24 Range/Units 16:27 16:27 16:27 WBC RBC Hgb Hct MCV MCH MCHC RDW Plt Count Neut % (Auto) Lymph % (Auto) [place] % (Auto) Eos % (Auto) Baso % (Auto) Neut # (Auto) Lymph # (Auto) [place] # (Auto) Eos # (Auto) Baso # (Auto) Sodium Potassium Chloride Carbon Dioxide BUN 37 H Creatinine Cancelled 1.60 H Estimated GFR Cancelled 47 L BUN/Creatinine Ratio Cancelled Glucose Calcium Magnesium Total Bilirubin AST ALT Alkaline Phosphatase Total Creatine Kinase Troponin I NT-Pro-B Natriuret Pep Total Protein Albumin Globulin Albumin/Globulin Ratio Lipase Urine Color Urine Appearance Urine pH (4.5-8.0) Ur Specific [place] (1.000-1.035) Urine Protein (Negative) Urine Glucose (UA) (Negative) g/dL Urine Ketones (NEGATIVE) Urine Occult Blood (Negative) Urine Nitrate (Negative) Urine Bilirubin (NEGATIVE) Urine Urobilinogen (0.2) E.U./dL Ur Leukocyte Esterase (NEGATIVE) Urine RBC (0-5/HPF) Urine WBC (0-5/HPF) Ur Squamous Epith Cells (0-5/HPF) Urine Bacteria (None) Urine Mucus (Negative) Ur Culture Indicated? Vol Urine Centrifuged 07/10/24 07/10/24 07/10/24 Range/Units 16:27 16:27 16:27 WBC RBC Hgb Hct MCV MCH MCHC RDW Plt Count Neut % (Auto) Lymph % (Auto) [place] % (Auto) Eos % (Auto) Baso % (Auto) Neut # (Auto) Lymph # (Auto) [place] # (Auto) Eos # (Auto) Baso # (Auto) Sodium Potassium Chloride Carbon Dioxide BUN Creatinine Estimated GFR BUN/Creatinine Ratio 23.1 H Glucose Cancelled 119 H Calcium Cancelled 9.4 Magnesium Cancelled Total Bilirubin Cancelled AST ALT Alkaline Phosphatase Total Creatine Kinase Troponin I NT-Pro-B Natriuret Pep Total Protein Albumin Globulin Albumin/Globulin Ratio Lipase Urine Color Urine Appearance Urine pH (4.5-8.0) Ur Specific [place] (1.000-1.035) Urine Protein (Negative) Urine Glucose (UA) (Negative) g/dL Urine Ketones (NEGATIVE) Urine Occult Blood (Negative) Urine Nitrate (Negative) Urine Bilirubin (NEGATIVE) Urine Urobilinogen (0.2) E.U./dL Ur Leukocyte Esterase (NEGATIVE) Urine RBC (0-5/HPF) Urine WBC (0-5/HPF) Ur Squamous Epith Cells (0-5/HPF) Urine Bacteria (None) Urine Mucus (Negative) Ur Culture Indicated? Vol Urine Centrifuged 07/10/24 07/10/24 07/10/24 Range/Units 16:27 16:27 16:27 WBC RBC Hgb Hct MCV MCH MCHC RDW Plt Count Neut % (Auto) Lymph % (Auto) [place] % (Auto) Eos % (Auto) Baso % (Auto) Neut # (Auto) Lymph # (Auto) [place] # (Auto) Eos # (Auto) Baso # (Auto) Sodium Potassium Chloride Carbon Dioxide BUN Creatinine Estimated GFR BUN/Creatinine Ratio Glucose Calcium Magnesium Total Bilirubin 0.6 AST Cancelled 39 ALT Cancelled 30 Alkaline Phosphatase Cancelled Total Creatine Kinase Troponin I NT-Pro-B Natriuret Pep Total Protein Albumin Globulin Albumin/Globulin Ratio Lipase Urine Color Urine Appearance Urine pH (4.5-8.0) Ur Specific [place] (1.000-1.035) Urine Protein (Negative) Urine Glucose (UA) (Negative) g/dL Urine Ketones (NEGATIVE) Urine Occult Blood (Negative) Urine Nitrate (Negative) Urine Bilirubin (NEGATIVE) Urine Urobilinogen (0.2) E.U./dL Ur Leukocyte Esterase (NEGATIVE) Urine RBC (0-5/HPF) Urine WBC (0-5/HPF) Ur Squamous Epith Cells (0-5/HPF) Urine Bacteria (None) Urine Mucus (Negative) Ur Culture Indicated? Vol Urine Centrifuged 07/10/24 07/10/24 07/10/24 Range/Units 16:27 16:27 16:27 WBC RBC Hgb Hct MCV MCH MCHC RDW Plt Count Neut % (Auto) Lymph % (Auto) [place] % (Auto) Eos % (Auto) Baso % (Auto) Neut # (Auto) Lymph # (Auto) [place] # (Auto) Eos # (Auto) Baso # (Auto) Sodium Potassium Chloride Carbon Dioxide BUN Creatinine Estimated GFR BUN/Creatinine Ratio Glucose Calcium Magnesium Total Bilirubin AST ALT Alkaline Phosphatase 73 Total Creatine Kinase Cancelled Troponin I Cancelled NT-Pro-B Natriuret Pep Cancelled Total Protein Cancelled 8.0 Albumin Cancelled 4.2 Globulin Cancelled Albumin/Globulin Ratio Lipase Urine Color Urine Appearance Urine pH (4.5-8.0) Ur Specific [place] (1.000-1.035) Urine Protein (Negative) Urine Glucose (UA) (Negative) g/dL Urine Ketones (NEGATIVE) Urine Occult Blood (Negative) Urine Nitrate (Negative) Urine Bilirubin (NEGATIVE) Urine Urobilinogen (0.2) E.U./dL Ur Leukocyte Esterase (NEGATIVE) Urine RBC (0-5/HPF) Urine WBC (0-5/HPF) Ur Squamous Epith Cells (0-5/HPF) Urine Bacteria (None) Urine Mucus (Negative) Ur Culture Indicated? Vol Urine Centrifuged 07/10/24 07/10/24 07/10/24 Range/Units 16:27 16:27 17:05 WBC RBC Hgb Hct MCV MCH MCHC RDW Plt Count Neut % (Auto) Lymph % (Auto) [place] % (Auto) Eos % (Auto) Baso % (Auto) Neut # (Auto) Lymph # (Auto) [place] # (Auto) Eos # (Auto) Baso # (Auto) Sodium Potassium Chloride Carbon Dioxide BUN Creatinine Estimated GFR BUN/Creatinine Ratio Glucose Calcium Magnesium Total Bilirubin AST ALT Alkaline Phosphatase Total Creatine Kinase Troponin I NT-Pro-B Natriuret Pep Total Protein Albumin Globulin 3.8 Albumin/Globulin Ratio Cancelled 1.1 Lipase Cancelled Urine Color Yellow Urine Appearance Cloudy Urine pH 6.0 (4.5-8.0) Ur Specific [place] 1.020 (1.000-1.035) Urine Protein 2+ H (Negative) Urine Glucose (UA) Negative (Negative) g/dL Urine Ketones Negative (NEGATIVE) Urine Occult Blood 3+ H (Negative) Urine Nitrate Negative (Negative) Urine Bilirubin Negative (NEGATIVE) Urine Urobilinogen 1.0 (0.2) E.U./dL Ur Leukocyte Esterase Trace H (NEGATIVE) Urine RBC >100/hpf H (0-5/HPF) Urine WBC 5-10/hpf H (0-5/HPF) Ur Squamous Epith Cells 1-5 /hpf (0-5/HPF) Urine Bacteria Many (>30) H (None) Urine Mucus 2+ H (Negative) Ur Culture Indicated? Specimen cultured Vol Urine Centrifuged 10ml (spun) ECG Data Interpretation: Twelve lead ECG performed shows atrial fibrillation with a ventricular rate of 94 beats per minute, no ST segment changes, no T-wave abnormalities, he is asymptomatic. Comparison is made to the most recent tracing from May 11, 2020 no interval change. [facility] Narrative Medical decision making narrative: Symptoms are consistent with urinary tract infection, he states this symptoms are identical to his last treatment in February. He is afebrile and without any CVA tenderness or abdominal pain. No penile symptoms. He states he failed to follow up with Urology as his current one retired. Urine culture is pending. We will treat him with levofloxacin 750 mg daily for 7 day course. His 1st dose was given today. <Daniel Cortez MD - Last Filed: 07/10/24 20:02> Lab Data Labs: Lab Results 07/10/24 07/10/24 07/10/24 Range/Units 16:27 16:27 16:27 WBC Cancelled 10.7 RBC Cancelled 4.91 Hgb Cancelled Hct MCV MCH MCHC RDW Plt Count Neut % (Auto) Lymph % (Auto) [place] % (Auto) Eos % (Auto) Baso % (Auto) Neut # (Auto) Lymph # (Auto) [place] # (Auto) Eos # (Auto) Baso # (Auto) Sodium Potassium Chloride Carbon Dioxide BUN Creatinine Estimated GFR BUN/Creatinine Ratio Glucose Calcium Magnesium Total Bilirubin AST ALT Alkaline Phosphatase Total Creatine Kinase Troponin I NT-Pro-B Natriuret Pep Total Protein Albumin Globulin Albumin/Globulin Ratio Lipase Urine Color Urine Appearance Urine pH (4.5-8.0) Ur Specific [place] (1.000-1.035) Urine Protein (Negative) Urine Glucose (UA) (Negative) g/dL Urine Ketones (NEGATIVE) Urine Occult Blood (Negative) Urine Nitrate (Negative) Urine Bilirubin (NEGATIVE) Urine Urobilinogen (0.2) E.U./dL Ur Leukocyte Esterase (NEGATIVE) Urine RBC (0-5/HPF) Urine WBC (0-5/HPF) Ur Squamous Epith Cells (0-5/HPF) Urine Bacteria (None) Urine Mucus (Negative) Ur Culture Indicated? Vol Urine Centrifuged 07/10/24 07/10/24 07/10/24 Range/Units 16:27 16:27 16:27 WBC RBC Hgb 15.2 Hct Cancelled 45.8 MCV Cancelled 93.2 MCH Cancelled MCHC RDW Plt Count Neut % (Auto) Lymph % (Auto) [place] % (Auto) Eos % (Auto) Baso % (Auto) Neut # (Auto) Lymph # (Auto) [place] # (Auto) Eos # (Auto) Baso # (Auto) Sodium Potassium Chloride Carbon Dioxide BUN Creatinine Estimated GFR BUN/Creatinine Ratio Glucose Calcium Magnesium Total Bilirubin AST ALT Alkaline Phosphatase Total Creatine Kinase Troponin I NT-Pro-B Natriuret Pep Total Protein Albumin Globulin Albumin/Globulin Ratio Lipase Urine Color Urine Appearance Urine pH (4.5-8.0) Ur Specific [place] (1.000-1.035) Urine Protein (Negative) Urine Glucose (UA) (Negative) g/dL Urine Ketones (NEGATIVE) Urine Occult Blood (Negative) Urine Nitrate (Negative) Urine Bilirubin (NEGATIVE) Urine Urobilinogen (0.2) E.U./dL Ur Leukocyte Esterase (NEGATIVE) Urine RBC (0-5/HPF) Urine WBC (0-5/HPF) Ur Squamous Epith Cells (0-5/HPF) Urine Bacteria (None) Urine Mucus (Negative) Ur Culture Indicated? Vol Urine Centrifuged 07/10/24 07/10/2424 Range/Units 16:27 16:27 16:27 WBC RBC Hgb Hct MCV MCH 30.9 MCHC Cancelled 33.2 RDW Cancelled 14.7 Plt Count Cancelled Neut % (Auto) Lymph % (Auto) [place] % (Auto) Eos % (Auto) Baso % (Auto) Neut # (Auto) Lymph # (Auto) [place] # (Auto) Eos # (Auto) Baso # (Auto) Sodium Potassium Chloride Carbon Dioxide BUN Creatinine Estimated GFR BUN/Creatinine Ratio Glucose Calcium Magnesium Total Bilirubin AST ALT Alkaline Phosphatase Total Creatine Kinase Troponin I NT-Pro-B Natriuret Pep Total Protein Albumin Globulin Albumin/Globulin Ratio Lipase Urine Color Urine Appearance Urine pH (4.5-8.0) Ur Specific [place] (1.000-1.035) Urine Protein (Negative) Urine Glucose (UA) (Negative) g/dL Urine Ketones (NEGATIVE) Urine Occult Blood (Negative) Urine Nitrate (Negative) Urine Bilirubin (NEGATIVE) Urine Urobilinogen (0.2) E.U./dL Ur Leukocyte Esterase (NEGATIVE) Urine RBC (0-5/HPF) Urine WBC (0-5/HPF) Ur Squamous Epith Cells (0-5/HPF) Urine Bacteria (None) Urine Mucus (Negative) Ur Culture Indicated? Vol Urine Centrifuged 07/10/24 07/10/24 07/10/24 Range/Units 16:27 16:27 16:27 WBC RBC Hgb Hct MCV MCH MCHC RDW Plt Count 223 Neut % (Auto) Cancelled 74.5 Lymph % (Auto) Cancelled 14.5 L [place] % (Auto) Cancelled Eos % (Auto) Baso % (Auto) Neut # (Auto) Lymph # (Auto) [place] # (Auto) Eos # (Auto) Baso # (Auto) Sodium Potassium Chloride Carbon Dioxide BUN Creatinine Estimated GFR BUN/Creatinine Ratio Glucose Calcium Magnesium Total Bilirubin AST ALT Alkaline Phosphatase Total Creatine Kinase Troponin I NT-Pro-B Natriuret Pep Total Protein Albumin Globulin Albumin/Globulin Ratio Lipase Urine Color Urine Appearance Urine pH (4.5-8.0) Ur Specific [place] (1.000-1.035) Urine Protein (Negative) Urine Glucose (UA) (Negative) g/dL Urine Ketones (NEGATIVE) Urine Occult Blood (Negative) Urine Nitrate (Negative) Urine Bilirubin (NEGATIVE) Urine Urobilinogen (0.2) E.U./dL Ur Leukocyte Esterase (NEGATIVE) Urine RBC (0-5/HPF) Urine WBC (0-5/HPF) Ur Squamous Epith Cells (0-5/HPF) Urine Bacteria (None) Urine Mucus (Negative) Ur Culture Indicated? Vol Urine Centrifuged 07/10/24 07/10/24 07/10/24 Range/Units 16:27 16:27 16:27 WBC RBC Hgb Hct MCV MCH MCHC RDW Plt Count Neut % (Auto) Lymph % (Auto) [place] % (Auto) 8.1 Eos % (Auto) Cancelled 2.2 Baso % (Auto) Cancelled 0.7 Neut # (Auto) Cancelled Lymph # (Auto) [place] # (Auto) Eos # (Auto) Baso # (Auto) Sodium Potassium Chloride Carbon Dioxide BUN Creatinine Estimated GFR BUN/Creatinine Ratio Glucose Calcium Magnesium Total Bilirubin AST ALT Alkaline Phosphatase Total Creatine Kinase Troponin I NT-Pro-B Natriuret Pep Total Protein Albumin Globulin Albumin/Globulin Ratio Lipase Urine Color Urine Appearance Urine pH (4.5-8.0) Ur Specific [place] (1.000-1.035) Urine Protein (Negative) Urine Glucose (UA) (Negative) g/dL Urine Ketones (NEGATIVE) Urine Occult Blood (Negative) Urine Nitrate (Negative) Urine Bilirubin (NEGATIVE) Urine Urobilinogen (0.2) E.U./dL Ur Leukocyte Esterase (NEGATIVE) Urine RBC (0-5/HPF) Urine WBC (0-5/HPF) Ur Squamous Epith Cells (0-5/HPF) Urine Bacteria (None) Urine Mucus (Negative) Ur Culture Indicated? Vol Urine Centrifuged 07/10/24 07/10/24 07/10/24 Range/Units 16:27 16:27 16:27 WBC RBC Hgb Hct MCV MCH MCHC RDW Plt Count Neut % (Auto) Lymph % (Auto) [place] % (Auto) Eos % (Auto) Baso % (Auto) Neut # (Auto) 8000 H Lymph # (Auto) Cancelled 1600 [place] # (Auto) Cancelled 900 Eos # (Auto) Cancelled Baso # (Auto) Sodium Potassium Chloride Carbon Dioxide BUN Creatinine Estimated GFR BUN/Creatinine Ratio Glucose Calcium Magnesium Total Bilirubin AST ALT Alkaline Phosphatase Total Creatine Kinase Troponin I NT-Pro-B Natriuret Pep Total Protein Albumin Globulin Albumin/Globulin Ratio Lipase Urine Color Urine Appearance Urine pH (4.5-8.0) Ur Specific [place] (1.000-1.035) Urine Protein (Negative) Urine Glucose (UA) (Negative) g/dL Urine Ketones (NEGATIVE) Urine Occult Blood (Negative) Urine Nitrate (Negative) Urine Bilirubin (NEGATIVE) Urine Urobilinogen (0.2) E.U./dL Ur Leukocyte Esterase (NEGATIVE) Urine RBC (0-5/HPF) Urine WBC (0-5/HPF) Ur Squamous Epith Cells (0-5/HPF) Urine Bacteria (None) Urine Mucus (Negative) Ur Culture Indicated? Vol Urine Centrifuged 07/10/24 07/10/24 07/10/24 Range/Units 16:27 16:27 16:27 WBC RBC Hgb Hct MCV MCH MCHC RDW Plt Count Neut % (Auto) Lymph % (Auto) [place] % (Auto) Eos % (Auto) Baso % (Auto) Neut # (Auto) Lymph # (Auto) [place] # (Auto) Eos # (Auto) 200 Baso # (Auto) Cancelled 100 Sodium Cancelled 139 Potassium Cancelled Chloride Carbon Dioxide BUN Creatinine Estimated GFR BUN/Creatinine Ratio Glucose Calcium Magnesium Total Bilirubin AST ALT Alkaline Phosphatase Total Creatine Kinase Troponin I NT-Pro-B Natriuret Pep Total Protein Albumin Globulin Albumin/Globulin Ratio Lipase Urine Color Urine Appearance Urine pH (4.5-8.0) Ur Specific [place] (1.000-1.035) Urine Protein (Negative) Urine Glucose (UA) (Negative) g/dL Urine Ketones (NEGATIVE) Urine Occult Blood (Negative) Urine Nitrate (Negative) Urine Bilirubin (NEGATIVE) Urine Urobilinogen (0.2) E.U./dL Ur Leukocyte Esterase (NEGATIVE) Urine RBC (0-5/HPF) Urine WBC (0-5/HPF) Ur Squamous Epith Cells (0-5/HPF) Urine Bacteria (None) Urine Mucus (Negative) Ur Culture Indicated? Vol Urine Centrifuged 07/10/24 07/10/24 07/10/24 Range/Units 16:27 16:27 16:27 WBC RBC Hgb Hct MCV MCH MCHC RDW Plt Count Neut % (Auto) Lymph % (Auto) [place] % (Auto) Eos % (Auto) Baso % (Auto) Neut # (Auto) Lymph # (Auto) [place] # (Auto) Eos # (Auto) Baso # (Auto) Sodium Potassium 5.3 H Chloride Cancelled 105 Carbon Dioxide Cancelled 28 BUN Cancelled Creatinine Estimated GFR BUN/Creatinine Ratio Glucose Calcium Magnesium Total Bilirubin AST ALT Alkaline Phosphatase Total Creatine Kinase Troponin I NT-Pro-B Natriuret Pep Total Protein Albumin Globulin Albumin/Globulin Ratio Lipase Urine Color Urine Appearance Urine pH (4.5-8.0) Ur Specific [place] (1.000-1.035) Urine Protein (Negative) Urine Glucose (UA) (Negative) g/dL Urine Ketones (NEGATIVE) Urine Occult Blood (Negative) Urine Nitrate (Negative) Urine Bilirubin (NEGATIVE) Urine Urobilinogen (0.2) E.U./dL Ur Leukocyte Esterase (NEGATIVE) Urine RBC (0-5/HPF) Urine WBC (0-5/HPF) Ur Squamous Epith Cells (0-5/HPF) Urine Bacteria (None) Urine Mucus (Negative) Ur Culture Indicated? Vol Urine Centrifuged 07/10/24 07/10/24 07/10/24 Range/Units 16:27 16:27 16:27 WBC RBC Hgb Hct MCV MCH MCHC RDW Plt Count Neut % (Auto) Lymph % (Auto) [place] % (Auto) Eos % (Auto) Baso % (Auto) Neut # (Auto) Lymph # (Auto) [place] # (Auto) Eos # (Auto) Baso # (Auto) Sodium Potassium Chloride Carbon Dioxide BUN 37 H Creatinine Cancelled 1.60 H Estimated GFR Cancelled 47 L BUN/Creatinine Ratio Cancelled Glucose Calcium Magnesium Total Bilirubin AST ALT Alkaline Phosphatase Total Creatine Kinase Troponin I NT-Pro-B Natriuret Pep Total Protein Albumin Globulin Albumin/Globulin Ratio Lipase Urine Color Urine Appearance Urine pH (4.5-8.0) Ur Specific [place] (1.000-1.035) Urine Protein (Negative) Urine Glucose (UA) (Negative) g/dL Urine Ketones (NEGATIVE) Urine Occult Blood (Negative) Urine Nitrate (Negative) Urine Bilirubin (NEGATIVE) Urine Urobilinogen (0.2) E.U./dL Ur Leukocyte Esterase (NEGATIVE) Urine RBC (0-5/HPF) Urine WBC (0-5/HPF) Ur Squamous Epith Cells (0-5/HPF) Urine Bacteria (None) Urine Mucus (Negative) Ur Culture Indicated? Vol Urine Centrifuged 07/10/24 07/10/24 07/10/24 Range/Units 16:27 16:27 16:27 WBC RBC Hgb Hct MCV MCH MCHC RDW Plt Count Neut % (Auto) Lymph % (Auto) [place] % (Auto) Eos % (Auto) Baso % (Auto) Neut # (Auto) Lymph # (Auto) [place] # (Auto) Eos # (Auto) Baso # (Auto) Sodium Potassium Chloride Carbon Dioxide BUN Creatinine Estimated GFR BUN/Creatinine Ratio 23.1 H Glucose Cancelled 119 H Calcium Cancelled 9.4 Magnesium Cancelled Total Bilirubin Cancelled AST ALT Alkaline Phosphatase Total Creatine Kinase Troponin I NT-Pro-B Natriuret Pep Total Protein Albumin Globulin Albumin/Globulin Ratio Lipase Urine Color Urine Appearance Urine pH (4.5-8.0) Ur Specific [place] (1.000-1.035) Urine Protein (Negative) Urine Glucose (UA) (Negative) g/dL Urine Ketones (NEGATIVE) Urine Occult Blood (Negative) Urine Nitrate (Negative) Urine Bilirubin (NEGATIVE) Urine Urobilinogen (0.2) E.U./dL Ur Leukocyte Esterase (NEGATIVE) Urine RBC (0-5/HPF) Urine WBC (0-5/HPF) Ur Squamous Epith Cells (0-5/HPF) Urine Bacteria (None) Urine Mucus (Negative) Ur Culture Indicated? Vol Urine Centrifuged 07/10/24 07/10/24 07/10/24 Range/Units 16:27 16:27 16:27 WBC RBC Hgb Hct MCV MCH MCHC RDW Plt Count Neut % (Auto) Lymph % (Auto) [place] % (Auto) Eos % (Auto) Baso % (Auto) Neut # (Auto) Lymph # (Auto) [place] # (Auto) Eos # (Auto) Baso # (Auto) Sodium Potassium Chloride Carbon Dioxide BUN Creatinine Estimated GFR BUN/Creatinine Ratio Glucose Calcium Magnesium Total Bilirubin 0.6 AST Cancelled 39 ALT Cancelled 30 Alkaline Phosphatase Cancelled Total Creatine Kinase Troponin I NT-Pro-B Natriuret Pep Total Protein Albumin Globulin Albumin/Globulin Ratio Lipase Urine Color Urine Appearance Urine pH (4.5-8.0) Ur Specific [place] (1.000-1.035) Urine Protein (Negative) Urine Glucose (UA) (Negative) g/dL Urine Ketones (NEGATIVE) Urine Occult Blood (Negative) Urine Nitrate (Negative) Urine Bilirubin (NEGATIVE) Urine Urobilinogen (0.2) E.U./dL Ur Leukocyte Esterase (NEGATIVE) Urine RBC (0-5/HPF) Urine WBC (0-5/HPF) Ur Squamous Epith Cells (0-5/HPF) Urine Bacteria (None) Urine Mucus (Negative) Ur Culture Indicated? Vol Urine Centrifuged 07/10/24 07/10/24 07/10/24 Range/Units 16:27 16:27 16:27 WBC RBC Hgb Hct MCV MCH MCHC RDW Plt Count Neut % (Auto) Lymph % (Auto) [place] % (Auto) Eos % (Auto) Baso % (Auto) Neut # (Auto) Lymph # (Auto) [place] # (Auto) Eos # (Auto) Baso # (Auto) Sodium Potassium Chloride Carbon Dioxide BUN Creatinine Estimated GFR BUN/Creatinine Ratio Glucose Calcium Magnesium Total Bilirubin AST ALT Alkaline Phosphatase 73 Total Creatine Kinase Cancelled Troponin I Cancelled NT-Pro-B Natriuret Pep Cancelled Total Protein Cancelled 8.0 Albumin Cancelled 4.2 Globulin Cancelled Albumin/Globulin Ratio Lipase Urine Color Urine Appearance Urine pH (4.5-8.0) Ur Specific [place] (1.000-1.035) Urine Protein (Negative) Urine Glucose (UA) (Negative) g/dL Urine Ketones (NEGATIVE) Urine Occult Blood (Negative) Urine Nitrate (Negative) Urine Bilirubin (NEGATIVE) Urine Urobilinogen (0.2) E.U./dL Ur Leukocyte Esterase (NEGATIVE) Urine RBC (0-5/HPF) Urine WBC (0-5/HPF) Ur Squamous Epith Cells (0-5/HPF) Urine Bacteria (None) Urine Mucus (Negative) Ur Culture Indicated? Vol Urine Centrifuged 07/10/24 07/10/24 07/10/24 Range/Units 16:27 16:27 17:05 WBC RBC Hgb Hct MCV MCH MCHC RDW Plt Count Neut % (Auto) Lymph % (Auto) [place] % (Auto) Eos % (Auto) Baso % (Auto) Neut # (Auto) Lymph # (Auto) [place] # (Auto) Eos # (Auto) Baso # (Auto) Sodium Potassium Chloride Carbon Dioxide BUN Creatinine Estimated GFR BUN/Creatinine Ratio Glucose Calcium Magnesium Total Bilirubin AST ALT Alkaline Phosphatase Total Creatine Kinase Troponin I NT-Pro-B Natriuret Pep Total Protein Albumin Globulin 3.8 Albumin/Globulin Ratio Cancelled 1.1 Lipase Cancelled Urine Color Yellow Urine Appearance Cloudy Urine pH 6.0 (4.5-8.0) Ur Specific [place] 1.020 (1.000-1.035) Urine Protein 2+ H (Negative) Urine Glucose (UA) Negative (Negative) g/dL Urine Ketones Negative (NEGATIVE) Urine Occult Blood 3+ H (Negative) Urine Nitrate Negative (Negative) Urine Bilirubin Negative (NEGATIVE) Urine Urobilinogen 1.0 (0.2) E.U./dL Ur Leukocyte Esterase Trace H (NEGATIVE) Urine RBC >100/hpf H (0-5/HPF) Urine WBC 5-10/hpf H (0-5/HPF) Ur Squamous Epith Cells 1-5 /hpf (0-5/HPF) Urine Bacteria Many (>30) H (None) Urine Mucus 2+ H (Negative) Ur Culture Indicated? Specimen cultured Vol Urine Centrifuged 10ml (spun) Discharge Plan Departure Patient Disposition: Home Clinical Impression: Acute UTI Instructions: DI for Urinary Tract Infection (UTI) Activity Restrictions/Additional Instructions: You received your 1st antibiotic dose tonight, you will need to fill the remaining prescription tomorrow at [facility], please take the duration. I have listed a local urologist here so that you may reestablish care. Please do check in with Dr. Valadez as he is your PCP and you may be able to see him sooner. If you have any recurrence or worsening symptoms or any new worrisome symptoms please do not hesitate to return to the emergency department. Make sure you hydrate do not hold your bladder and I hope you have a good rest of the holiday weekend. Prescriptions: New levofloxacin 750 mg tablet 750 mg PO DAILY Qty: 6 0RF No Action metoprolol succinate 100 mg tablet extended release 24 hr 200 mg PO DAILY Qty: 180 0RF bupropion HCl [Wellbutrin XL] 150 mg tablet extended release 24 hr 150 mg PO QAM Qty: 90 3RF Eliquis 5 mg tablet See Rx Instructions .ROUTE .COMPLEX Qty: 180 3RF Dose Instruction: Take 1 tablet by mouth twice daily Rx Instructions: Take 1 tablet by mouth twice daily lisinopril 20 mg tablet See Rx Instructions .ROUTE .COMPLEX Qty: 90 3RF Dose Instruction: Take 1 tablet by mouth once daily Rx Instructions: Take 1 tablet by mouth once daily diltiazem HCl [DILT-XR] 120 mg capsule,ext.rel 24h degradable See Rx Instructions .ROUTE .COMPLEX Qty: 90 3RF Dose Instruction: TAKE 1 BY MOUTH ONCE DAILY Rx Instructions: TAKE 1 BY MOUTH ONCE DAILY furosemide 40 mg tablet 40 mg PO DAILY Qty: 90 3RF levofloxacin 750 mg tablet 750 mg PO DAILY Qty: 7 0RF prednisone 20 mg tablet 40 mg PO DAILY Qty: 14 0RF Referrals: Crescencio Valadez MD [Primary Care Provider] - Adam Jama MD [Physician] - (Patient needs to reestablish care, history of renal cancer 5 years ago with nephrectomy and recurrent UTIs.) Stand Alone Forms: Patient Portal/API/Survey ED Sign-out <Daniel Cortez MD - Last Filed: 07/10/24 20:02> Cosign ED Attending Cosignature Attestation: I was immediately available in the department for consultation. This documentation has been reviewed and I agree with assessment and plan. Supervised by Daniel Cortez MD
--- NOTE | 2024-07-10 16:18 | EKG_ITS ---
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
--- NOTE | 2024-07-10 16:22 | PC.NURSE ---
Addendum entered by Anish Vaughan R.N. 07/10/24 16:30: MELISSA Peña reviewed orders and asked me to stop all blood orders besides cbc and cmp and the chest x-ray. Original Note: This RN added the arrhythmia order set as patient stated he has palpations and has chronic a-fib.
[2024-07-10 16:30] VITALS: BP 135/78; PULSE 103; RESP 18; O2SAT 99
[2024-07-10 16:54] LABS: Add Manual Diff / Slide Review NO; Basophils Absolute Auto 100 /uL (0-100); Basophils Percent Auto 0.7 % (0-2); Eosinophils Absolute Auto 200 /uL (0-450); Eosinophils Percent Auto 2.2 % (2-4); Hematocrit 45.8 % (41-53); Hemoglobin 15.2 g/dL (13.5-17.5); Lymphocytes Absolute Auto 1600 /uL (1100-4500); Lymphocytes Percent Auto 14.5 % (25-40); Mean Corpuscular HGB Conc 33.2 % (30-36); Mean Corpuscular Hemoglobin 30.9 PG (26-34); Mean Corpuscular Volume 93.2 fL (80-100); Monocytes Absolute Auto 900 /uL (0-900); Monocytes Percent Auto 8.1 % (3-14); Neutrophils Absolute Auto 8000 /uL (1500-7000); Neutrophils Percent Auto 74.5 % (50-75); Platelet Count 223 X10^3/uL (150-400); Red Blood Cell Count 4.91 X10^6/uL (4.5-5.9); Red Cell Distribution Width 14.7 % (11.6-14.8); White Blood Cell Count 10.7 X10^3/uL (4.5-11.0)
[2024-07-10 16:59] LABS: Alanine Aminotransferase 30 IU/L (<50); Albumin 4.2 g/dL (3.5-5.0); Albumin Globulin Ratio 1.1 (1.0-2.8); Alkaline Phosphatase 73 U/L (38-126); BUN Creatinine Ratio 23.1 (6-22); Bilirubin Total 0.6 mg/dL (0.2-1.3); Blood Urea Nitrogen 37 mg/dL (9-20); Calcium 9.4 mg/dL (8.4-10.2); Carbon Dioxide 28 mmol/L (22-32); Chloride 105 mmol/L (98-107); Estimated Glomerular Filt Rate 47 mL/min (>60); Globulin 3.8 g/dL (1.7-4.1); Glucose 119 mg/dL (80-110); Sodium 139 mmol/L (137-145)
[2024-07-10 17:00] VITALS: BP 151/75; PULSE 96; RESP 19; O2SAT 99
[2024-07-10 17:10] LABS: Aspartate Aminotransferase 39 IU/L (17-59); HEMOLYSIS 74 (0-50); Potassium 5.3 mmol/L (3.4-5.1)
[2024-07-10 17:23] LABS: Bilirubin Urine UA NEGATIVE (NEGATIVE); Color Urine UA YELLOW; Glucose Urine UA NEGATIVE (Negative); Ketones Urine UA NEGATIVE (NEGATIVE); Leukocyte Esterase Urine UA TRACE (NEGATIVE); Nitrite Urine UA NEGATIVE (Negative); Occult Blood Urine UA 3+ (Negative); Protein Urine UA 2+ (Negative)
[2024-07-10 17:25] LABS: Appearance Urine UA CLOUDY
[2024-07-10 17:32] LABS: RBC Urine >100/HPF (0-5/HPF); Urine Volume 10mL (spun); WBC Urine 5-10/HPF (0-5/HPF)
[2024-07-10 17:33] LABS: Bacteria Urine Many (>30); Culture Indicated Urine Specimen Cultured; Mucus Urine 2+ (Negative); Squamous Epithelial Cell Urine 1-5 /HPF (0-5/HPF)
[2024-07-10 18:21] VITALS: PULSE 85; RESP 18; O2SAT 97
[2024-07-10] MEDS: levoFLOXacin 250 MG TABLET 750 MG PO (18:25)
== END 2024-07-10 18:26 | disposition home or self-care (01) ==
PROVIDERS: Emergency Provider Physician Assistant Medical; PCP Family Medicine
DX: N39.0 Urinary tract infection, site not specified (principal); I48.91 Unspecified atrial fibrillation; I12.9 Hypertensive chronic kidney disease with stage 1 through stage 4 chronic kidney disease, or unspecified chronic kidney disease; N18.9 Chronic kidney disease, unspecified; Z79.01 Long term (current) use of anticoagulants; F17.210 Nicotine dependence, cigarettes, uncomplicated
CPT/HCPCS: 36415; 80053; 81001; 85025; 87077; 87086; 87186; 93005; 99284

== ENCOUNTER → 2024-09-25 16:35 | Outpatient (CLI) | payer MEDICARE, MEDICAID, SELFPAY ==
[2020-08-16 11:27] VITALS: BMI 25.9
[2024-09-25 17:20] LABS: Hemoglobin 13.4 g/dL (13.5-17.5); Mean Corpuscular HGB Conc 33.6 % (30-36); Mean Corpuscular Hemoglobin 31.3 PG (26-34); Mean Corpuscular Volume 93.3 fL (80-100); Platelet Count 258 X10^3/uL (150-400); Red Blood Cell Count 4.29 X10^6/uL (4.5-5.9); White Blood Cell Count 8.1 X10^3/uL (4.5-11.0)
[2024-09-25 17:38] LABS: BUN Creatinine Ratio 17.4 (6-22); Blood Urea Nitrogen 29 mg/dL (9-20); Calcium 9.4 mg/dL (8.4-10.2); Carbon Dioxide 26 mmol/L (22-32); Chloride 107 mmol/L (98-107); Cholesterol 150 mg/dL (140-199); Estimated Glomerular Filt Rate 45 mL/min (>60); Glucose 152 mg/dL (80-110); HDL Cholesterol 34 mg/dL (40-60); HEMOLYSIS < 15 (0-50); LDL Cholesterol Calculated 93 mg/dL (<100); Potassium 5.4 mmol/L (3.4-5.1); Sodium 141 mmol/L (137-145); Triglycerides 113 mg/dL (35-150)
== END ==
LOC: LAB 16:36
PROVIDERS: PCP Family Medicine; Referring Provider Internal Medicine Cardiovascular Disease; Visit Provider Internal Medicine Cardiovascular Disease
DX: I10 Essential (primary) hypertension (principal); I48.19 Other persistent atrial fibrillation
CPT/HCPCS: 36415; 80048; 80061; 85027

== ENCOUNTER → 2024-10-16 15:35 | Outpatient (CLI) | payer MEDICARE, MEDICAID, SELFPAY ==
[2020-08-16 11:27] VITALS: BMI 25.9
[2024-10-16 17:09] LABS: BUN Creatinine Ratio 23.1 (6-22); Blood Urea Nitrogen 36 mg/dL (9-20); Calcium 9.4 mg/dL (8.4-10.2); Carbon Dioxide 26 mmol/L (22-32); Chloride 104 mmol/L (98-107); Estimated Glomerular Filt Rate 49 mL/min (>60); Glucose 168 mg/dL (80-110); HEMOLYSIS < 15 (0-50); Potassium 4.2 mmol/L (3.4-5.1); Sodium 141 mmol/L (137-145)
== END ==
LOC: LAB 15:36
PROVIDERS: PCP Family Medicine; Referring Provider Internal Medicine Cardiovascular Disease; Visit Provider Internal Medicine Cardiovascular Disease
DX: I10 Essential (primary) hypertension (principal)
CPT/HCPCS: 36415; 80048

== ENCOUNTER 2024-10-21 10:34 | Day surgery (SDC) | payer MEDICARE, MEDICAID, SELFPAY ==
[2020-08-16 11:27] VITALS: BMI 25.9
[2024-10-08 15:02] VITALS: BMI 27.3
[2024-10-21] VITALS (9 sets, daily range): BP systolic 88–110; BP diastolic 60–74; PULSE 65–89; RESP 16–23; TEMP 36.4–37.1; O2SAT 92–99; BMI 23.9
[2024-10-21] MEDS: LACTATED RINGERS 1,000 ML 42 ML IV (12:22)
[2024-10-21] MEDS: ACETAMINOPHEN 325 MG TABLET 975 MG PO (13:07)
[2024-10-21 13:11] LABS: BUN Creatinine Ratio 17.2 (6-22); Blood Urea Nitrogen 28 mg/dL (9-20); Carbon Dioxide 22 mmol/L (22-32); Chloride 105 mmol/L (98-107); Estimated Glomerular Filt Rate 46 mL/min (>60); Glucose 159 mg/dL (80-110); HEMOLYSIS < 15 (0-50); Potassium 3.8 mmol/L (3.4-5.1); Sodium 138 mmol/L (137-145)
[2024-10-21 13:29] LABS: Influenza A - CEPHEID Flu A NEGATIVE (NEGATIVE); Influenza B - CEPHEID Flu B NEGATIVE (NEGATIVE); Respiratory Syncytial Virus Negative (Negative)
[2024-10-21 13:30] LABS: COVID-19 CEPHEID 4-PLEX PCR Negative (Negative)
--- NOTE | 2024-10-21 14:31 | PM.HP.IH.1 ---
History of Present Illness History of Present Illness Date Patient Seen: 10/21/24 Time Patient Seen: 14:31 Chief complaint: Open L inguinal hernia repair w/mesh Narrative: 8-year-old white male, smoker, prior nephrectomy for renal cancer, atrial fibrillation on blood thinners, presents with a left inguinal hernia. He has pain during intercourse or during strenuous activity. He states last time he was using a chain saw to chop wood that he developed some pain afterward. The hernia has always been reducible for him, however. He denies any nausea vomiting or constipation. Patient shaved his own groin prior the procedure, though no one instructed him to do so. FORMERLY [facility], 1928–1983 Medical History Other thrombophilia Chronic kidney disease, stage 3 History of cardioversion (10/2018) Diastolic heart failure Nonrheumatic mitral valve regurgitation Cancer of left kidney BPH w urinary obs/LUTS Left renal mass Smoking Left renal mass Rheumatic fever (~1961) Mumps (~1960) Measles (~1961) History of heart disease CHF (congestive heart failure) Cigarette nicotine dependence Atrial fibrillation with rapid ventricular response Hypertension Surgical History History of left nephrectomy (07/12/20) Hx of eye surgery Hx of circumcision Anesthesia History of neck surgery Family History Father Diabetes mellitus History of heart disease Hypertension Mother Diabetes mellitus Hypertension Brother History of bipolar disorder Sister Uterine cancer Diabetes mellitus Grandfather No problems noted. Grandmother History of heart disease Hypertension Stroke Grandfather Cancer Grandmother Diabetes mellitus Social History household members: none occupational status: previously employed Smoking Status: Current every day smoker Tobacco: How many years used: 49 second hand exposure: No alcohol intake: current substance use type: does not use and marijuana Meds Home Medications and Allergies Home Medications Medication Instructions Recorded Confirmed Type apixaban 5 mg tablet (Eliquis) See Rx Instructions .Route 08/15/24 10/21/24 Rx .COMPLEX #180 tabs diltiazem HCl 120 mg See Rx Instructions .Route 08/15/24 10/21/24 Rx capsule,extended release 24 hr, .COMPLEX #90 caps controlled (DILT-XR) bupropion HCl 150 mg 24 hr tablet, 150 mg PO QAM #90 tabs 08/28/24 10/15/24 Rx extended release (Wellbutrin XL) furosemide 40 mg tablet 40 mg PO DAILY #90 tabs 08/28/24 10/21/24 Rx metoprolol succinate 100 mg 200 mg (2 x 100 mg) PO DAILY #180 09/08/24 10/21/24 Rx tablet,extended release 24 hr tabs amlodipine 5 mg tablet 5 mg PO DAILY 10/15/24 10/21/24 History Allergies Allergy/AdvReac Type Severity Reaction Status Date / Time No Known Drug Allergies Allergy Verified 10/21/24 12:33 Review of Systems Review of Systems ROS: Yes All systems reviewed with the patient and are negative except as otherwise documented Exam Vital Signs (past 8 hours): - 10/21/24 12:54 Temperature 97.6 F Pulse Rate 89 Respiratory Rate 16 Blood Pressure 105/74 Pulse Oximetry 98 Oxygen Delivery Method Room Air Oxygen Delivery Method Room Air Narrative Exam Narrative: Gen: NAD, sitting comfortably in bed, appears well HEENT: Sclera are anicteric, head is normocephalic and atraumatic, trachea is midline. CV: RRR, no JVD Resp: clear to auscultation bilaterally, equal chest wall movement bilaterally Abd: soft, nontender, normoactive bowel sounds Ext: no edema, full range of motion Neuro: Cranial nerves II-XII grossly intact, no focal deficits Skin: No erythema or ecchymosis Objective Labs 10/21/24 12:45 Labs: Laboratory Results - last 24 hr 10/21/24 10/21/24 12:30 12:45 Sodium 138 Potassium 3.8 Chloride 105 Carbon Dioxide 22 BUN 28 H Creatinine 1.63 H Estimated GFR 46 L BUN/Creatinine Ratio 17.2 Glucose 159 H Calcium 9.0 SARS-CoV-2 (PCR) Negative Influenza A (RT-PCR) Flu a negative Influenza B (RT-PCR) Flu b negative RSV (PCR) Negative Assessment & Plan Assessment and plan (1) Left inguinal hernia: Status: Acute Assessment & Plan narrative: Risks include but are not limited to bleeding, infection, 5% chance of chronic pain, 1 in a 1000 chance of needing mesh explantation in the future, 2% chance of recurrence of the hernia. Risks of observation include a 50% chance over the next 10 years of worsening pain that would drive him to have surgery regardless, unlikely chance of incarceration or strangulation. Patient agrees to proceed with: Open repair of left inguinal hernia with mesh. Given patient only has 1 kidney, and is on Eliquis, and has elevated creatinine we will avoid NSAIDs. Time-Based Coding :: [TOTAL MINUTES] spent with patient and on the chart (including review of chart, obtaining history, exam, reviewing outside data, placing orders, documenting exam and treatment plan, and counseling patient) on [DATE]. 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
[2024-10-21] MEDS: CEFAZOLIN 2 GM/100 ML PREMIX 100 ML IV (14:38)
[2024-10-21] MEDS: BUPIVACAINE 0.5% W/ EPI (PF) 30 ML VIAL INJ (14:43)
[2024-10-21] MEDS: LIDOCAINE 2% INJ SDV 5ML 20 ML INJ (14:43)
--- NOTE | 2024-10-21 14:47 | SUR.OPER ---
Supine on padded OR bed, head on pillow, arms secured on padded arm boards at <90 degrees abduction, legs uncrossed, safety belt at thigh, tape over blanket over lower legs.
--- NOTE | 2024-10-21 15:31 | P.OP_ITS ---
Operative Date/Time/Diagnoses Date of procedure: 10/21/24 Time of procedure: 15:31 Pre-op diagnosis: Left inguinal hernia Post-op diagnosis: same Procedure & Clinicians Procedure: Open repair of left inguinal hernia with mesh Same procedure as scheduled: Yes Indications: Left inguinal hernia Surgeon: Rene Miranda Click Yes if Unassisted: Yes Anesthesia Type: MAC +/- Operative Notes Findings: Indirect hernia containing fat Closure Type: primary Specimen(s): none sent Prosthetic devices, grafts, tissues, transplants, or devices: Large Bard PerFix plug and patch Estimated Blood Loss (mL): 5 Procedure in detail: Patient was brought to the operating room suite. General anesthesia was induced. The left groin was shaved prepped and draped in the usual fashion. Total 30 mL of 0.5% Marcaine was used to perform an ilioinguinal nerve block and cord block and field block. Transverse incision was made over the left groin and carried down to the external oblique fibers with Bovie electrocautery. The external oblique fibers were opened along the direction of the fibers and retracted superiorly and inferiorly. The floor of the inguinal canal was inspected to evaluate for direct defect. The cord structures were ensnared with a [place] drain. There was an indirect defect that was dissected free from the cord structures and along with the large cord lipoma was reduced back into the abdomen. A large Bard PerFix plug was placed through the indirect defect. A patch was placed over the floor. 2-0 PDS was used to affix the patch from José's ligament with a running stitch inferiorly along the inguinal ligament. The 2 leaflets and plug were all brought together and affixed to recreate the deep ring. Another 2-0 PDS suture was used to affix the mesh to the conjoined tendon thus reapproximating the floor. The ilioinguinal nerve was identified and neurolysis was performed. External oblique was closed with running 3-0 Vicryl. Flory's closed 3-0 Vicryl. Skin was closed with 4-0 Monocryl and Dermabond. Patient tolerated the procedure well was transferred to PACU in stable condition for anticipated same-day discharge. Complications: none Post-operative Condition: stable Disposition: PACU Plan for aftercare: Home
== END 2024-10-21 16:30 | disposition home or self-care (01) ==
PROVIDERS: Nurse Anesthetist, Certified Registered; PCP Family Medicine; Referring Provider Surgery; Visit Provider Surgery
PROC: (CPT 49505; principal; 2024-10-21 12:30)
DX: K40.90 Unilateral inguinal hernia, without obstruction or gangrene, not specified as recurrent (principal); I48.91 Unspecified atrial fibrillation; F17.210 Nicotine dependence, cigarettes, uncomplicated; Z85.528 Personal history of other malignant neoplasm of kidney; Z79.01 Long term (current) use of anticoagulants
CPT/HCPCS: 49505; 0241U; 80048; 82962; C1781; J0690; J2250; J2405; J2704; J3010

== ENCOUNTER 2024-10-25 17:10 | Emergency (ER) | payer MEDICARE, MEDICAID, SELFPAY ==
[2020-08-16 11:27] VITALS: BMI 25.9
[2024-10-25 17:15] VITALS: BP 156/91; PULSE 104; RESP 18; TEMP 36.4; O2SAT 98; BMI 27.1
--- NOTE | 2024-10-25 17:40 | PC.NURSE ---
Pt reports of increased swelling in bilateral feet. Has been ongoing for two weeks but substantially worse today. Pt also reports swelling in hand knuckles. Pt has history of CHF and afib. Reports he took double dose of lasix today to help with swelling.
--- NOTE | 2024-10-25 17:50 | EKG_ITS ---
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
[2024-10-25 17:55] VITALS: PULSE 91; RESP 16; O2SAT 98
[2024-10-25 18:00] VITALS: BP 140/76; PULSE 93; RESP 15; O2SAT 99
--- NOTE | 2024-10-25 18:14 | ED.EXTPRO ---
HPI - Extremity Problem General Chief complaint: Extremity Problem,Nontraumatic Stated complaint: post sx 10/21, hand and feet swelling Time Seen by Provider: 10/25/24 18:04 Source: patient Mode of arrival: Ambulatory History of Present Illness HPI Narrative: patient is 68-year-old male history of smoking, prior nephrectomy for renal cancer, atrial fibrillation on blood thinners presents today with swelling of hands and feet. He had an elective left inguinal hernia surgery 10/21/2024. today he says his hands and feet are swollen he has a hard time doing his pants has his hands are swollen. He doubled up his Lasix today which seems to help his feet. Denies any sort of chest pain shortness of breath or palpitations. He was in AFib but rate is controlled. No fever or chills no significant pain at incision site. Reports that he did have some hyperkalemia prior to surgery. However he had blood work done on the which does show potassium of 3.8. Related Data Home Medications Medication Instructions Recorded Confirmed amlodipine 5 mg tablet 5 mg PO DAILY 10/15/24 10/21/24 Previous Rx's Medication Instructions Recorded apixaban 5 mg tablet (Eliquis) See Rx Instructions .Route 08/15/24 .COMPLEX #180 tabs diltiazem HCl 120 mg See Rx Instructions .Route 08/15/24 capsule,extended release 24 hr, .COMPLEX #90 caps controlled (DILT-XR) bupropion HCl 150 mg 24 hr tablet, 150 mg PO QAM #90 tabs 08/28/24 extended release (Wellbutrin XL) furosemide 40 mg tablet 40 mg PO DAILY #90 tabs 08/28/24 metoprolol succinate 100 mg 200 mg (2 x 100 mg) PO DAILY #180 09/08/24 tablet,extended release 24 hr tabs oxycodone 5 mg tablet 5 mg PO Q8H PRN pain, severe #7 10/21/24 tabs tizanidine 2 mg tablet 2 mg PO Q8H PRN muscle spasticity 10/21/24 or pain #90 tabs Allergies Allergy/AdvReac Type Severity Reaction Status Date / Time No Known Drug Allergies Allergy Verified 10/21/24 12:33 Patient History Medical History Other thrombophilia Chronic kidney disease, stage 3 History of cardioversion (10/2018) Diastolic heart failure Nonrheumatic mitral valve regurgitation Cancer of left kidney BPH w urinary obs/LUTS Left renal mass Smoking Left renal mass Rheumatic fever (~1961) Mumps (~1960) Measles (~1961) History of heart disease CHF (congestive heart failure) Cigarette nicotine dependence Atrial fibrillation with rapid ventricular response Hypertension Surgical History History of left nephrectomy (07/12/20) Hx of eye surgery Hx of circumcision Anesthesia History of neck surgery Family History Father Diabetes mellitus History of heart disease Hypertension Mother Diabetes mellitus Hypertension Brother History of bipolar disorder Sister Uterine cancer Diabetes mellitus Grandfather No problems noted. Grandmother History of heart disease Hypertension Stroke Grandfather Cancer Grandmother Diabetes mellitus Social History household members: none occupational status: previously employed Smoking Status: Current every day smoker Tobacco: How many years used: 49 second hand exposure: No alcohol intake: current substance use type: does not use and marijuana Smoking Status: Current every day smoker tobacco type: cigarettes alcohol intake frequency: other Exam Initial Vital Signs Initial Vital Signs: Vital Signs Temperature 97.5 F L 10/25/24 17:15 Pulse Rate 104 H 10/25/24 17:15 Respiratory Rate 18 10/25/24 17:15 Blood Pressure 156/91 H 10/25/24 17:15 Pulse Oximetry 98 10/25/24 17:15 Oxygen Delivery Method Room Air 10/25/24 17:15 GENERAL: alert pleasant 68-year-old male HEENT: Head atraumatic,EOMI, pupils reactive, face symmetric, [moist] mucous membranes CARDIOVASCULAR: irregularly regular no murmur RESPIRATORY: Breath sounds equal bilaterally, no wheezes rales or rhonchi. no respiratory distress ABDOMEN: Soft, nontender. Normoactive bowel sounds all 4 quadrants. No guarding or rebound. Left inguinal groin incision Dermabond contusion noted no swelling minimal pain EXTREMITIES: Normal range of motion, no clubbing or edema. Neurovascularly intact NEUROLOGICAL: Alert and oriented x4.Normal gait and speech. Cranial nerves II through XII grossly intact. SKIN: Warm, dry, no laceration, no petechiae, no rashes or lesions. Course Orders Ordered: ED Orders 10/25/24 17:44 EKG-12 Lead Stat 10/25/24 19:08 CMP [Comprehensive Metabolic Panel] Stat Complete Blood Count AUTO DIFF Stat Vital Signs Vital signs: Vital Signs - 8 hr 10/25/24 17:15 10/25/24 17:55 10/25/24 18:00 Temperature 97.5 F L Pulse Rate 104 H 91 H Respiratory Rate 18 16 Blood Pressure 156/91 H 140/76 Pulse Oximetry 98 98 Oxygen Delivery Method Room Air 10/25/24 18:00 10/25/24 18:30 10/25/24 18:30 Temperature Pulse Rate 93 H 86 Respiratory Rate 15 22 Blood Pressure 135/80 Pulse Oximetry 99 97 Oxygen Delivery Method Room Air 10/25/24 19:00 10/25/24 19:22 10/25/24 19:22 Temperature Pulse Rate 97 H 97 H Respiratory Rate 32 H 17 Blood Pressure 146/81 H Pulse Oximetry 99 Oxygen Delivery Method Room Air MDM - Extremity (Nontraumatic) Lab Data 10/25/24 19:08 10/25/24 19:08 Labs: Lab Results 10/25/24 Range/Units 19:08 WBC 8.4 (4.5-11.0) X10^3/uL RBC 4.37 L (4.5-5.9) X10^6/uL Hgb 13.5 (13.5-17.5) g/dL Hct 39.8 L (41-53) % MCV 91.1 (80-100) fL MCH 30.8 (26-34) PG MCHC 33.8 (30-36) % RDW 14.4 (11.6-14.8) % Plt Count 225 (150-400) X10^3/uL Neut % (Auto) 74.7 (50-75) % Lymph % (Auto) 13.0 L (25-40) % [place] % (Auto) 8.9 (3-14) % Eos % (Auto) 2.5 (2-4) % Baso % (Auto) 0.9 (0-2) % Neut # (Auto) 6300 (0560-4934) /uL Lymph # (Auto) 1100 (0591-2515) /uL [place] # (Auto) 800 (0-900) /uL Eos # (Auto) 200 (0-450) /uL Baso # (Auto) 100 (0-100) /uL Sodium 139 (137-145) mmol/L Potassium 3.5 (3.4-5.1) mmol/L Chloride 104 (98-107) mmol/L Carbon Dioxide 24 (22-32) mmol/L BUN 27 H (9-20) mg/dL Creatinine 1.46 H (0.66-1.25) mg/dL Estimated GFR 53 L (>60) mL/min BUN/Creatinine Ratio 18.5 (6-22) Glucose 154 H (80-110) mg/dL Calcium 9.8 (8.4-10.2) mg/dL Total Bilirubin 0.5 (0.2-1.3) mg/dL AST 29 (17-59) IU/L ALT 25 (<50) IU/L Alkaline Phosphatase 80 (38-126) U/L Total Protein 8.2 (6.3-8.2) g/dL Albumin 4.1 (3.5-5.0) g/dL Globulin 4.1 (1.7-4.1) g/dL Albumin/Globulin Ratio 1.0 (1.0-2.8) ECG Data Attestation EKG: I personally reviewed and interpreted this ECG as follows: Prior ECG tracings: available for review Interpretation: atrial fibrillation rate [address] changes MDM Narrative Medical decision making narrative: patient is a 68-year-old male presenting today with swelling of hands and feet. He surgery on October 21. insert 100 and sites clean and dry no evidence of infection. He did take 2 tablets of Lasix today and already reports improvement of his feet. He was previously hyperkalemic however blood work earlier this week showed a potassium of 3.8. He was agreeable to rechecked potassium. Blood work reviewed electrolytes stable potassium 3.5 creatinine 1.46 previously 1.63 CBC does not show any abnormality He was an appointment with his primary care provider later this month. At this time no chest pain no shortness of breath swelling in all extremities I suspect from recent surgery and fluid overload during surgery. Recommend increasing Lasix to twice daily for the next few days checking weight daily. Discharge Plan Departure Patient Disposition: Home Clinical Impression: Edema, peripheral Instructions: DI for Peripheral Edema -- Bilateral Activity Restrictions/Additional Instructions: *You have been diagnosed with peripheral edema *What to do: At this time blood work is overall reassuring potassium within normal limits Weigh yourself daily right down the number,. If you notice weight gain more than 2-5 lb taken extra Lasix *Continue to take medications as directed Take furosemide 40 mg twice a day for the next 2-3 days then resume once daily *Follow up with your primary care provider in 2-3 days or call [phone] *Return to ER if you should have increasing chest pain shortness of breath swelling redness fever or any new, worsening or concerning symptoms Prescriptions: No Action diltiazem HCl [DILT-XR] 120 mg capsule,ext.rel 24h degradable See Rx Instructions .ROUTE .COMPLEX Qty: 90 0RF Dose Instruction: TAKE 1 BY MOUTH ONCE DAILY Rx Instructions: TAKE 1 BY MOUTH ONCE DAILY Eliquis 5 mg tablet See Rx Instructions .ROUTE .COMPLEX Qty: 180 0RF Dose Instruction: Take 1 tablet by mouth twice daily Rx Instructions: Take 1 tablet by mouth twice daily furosemide 40 mg tablet 40 mg PO DAILY Qty: 90 0RF bupropion HCl [Wellbutrin XL] 150 mg tablet extended release 24 hr 150 mg PO QAM Qty: 90 0RF metoprolol succinate 100 mg tablet extended release 24 hr 200 mg PO DAILY Qty: 180 0RF amlodipine 5 mg Tablet 5 mg PO DAILY tizanidine 2 mg tablet 2 mg PO Q8H PRN (Reason: muscle spasticity or pain) Qty: 90 0RF oxycodone 5 mg tablet 5 mg PO Q8H PRN (Reason: pain, severe) Qty: 7 0RF Referrals: Crescencio Valadez MD [Primary Care Provider] - Stand Alone Forms: Patient Portal/API/Survey
[2024-10-25 18:30] VITALS: BP 135/80; PULSE 86; RESP 22; O2SAT 97
[2024-10-25 19:00] VITALS: PULSE 97; RESP 32
[2024-10-25 19:19] LABS: Add Manual Diff / Slide Review NO; Basophils Absolute Auto 100 /uL (0-100); Basophils Percent Auto 0.9 % (0-2); Eosinophils Absolute Auto 200 /uL (0-450); Eosinophils Percent Auto 2.5 % (2-4); Hematocrit 39.8 % (41-53); Hemoglobin 13.5 g/dL (13.5-17.5); Lymphocytes Absolute Auto 1100 /uL (1100-4500); Mean Corpuscular HGB Conc 33.8 % (30-36); Mean Corpuscular Hemoglobin 30.8 PG (26-34); Mean Corpuscular Volume 91.1 fL (80-100); Monocytes Absolute Auto 800 /uL (0-900); Monocytes Percent Auto 8.9 % (3-14); Neutrophils Absolute Auto 6300 /uL (1500-7000); Neutrophils Percent Auto 74.7 % (50-75); Platelet Count 225 X10^3/uL (150-400); Red Blood Cell Count 4.37 X10^6/uL (4.5-5.9); Red Cell Distribution Width 14.4 % (11.6-14.8); White Blood Cell Count 8.4 X10^3/uL (4.5-11.0)
[2024-10-25 19:22] VITALS: BP 146/81; PULSE 97; RESP 17; O2SAT 99
[2024-10-25 19:29] LABS: Alanine Aminotransferase 25 IU/L (<50); Albumin 4.1 g/dL (3.5-5.0); Alkaline Phosphatase 80 U/L (38-126); Aspartate Aminotransferase 29 IU/L (17-59); BUN Creatinine Ratio 18.5 (6-22); Bilirubin Total 0.5 mg/dL (0.2-1.3); Blood Urea Nitrogen 27 mg/dL (9-20); Calcium 9.8 mg/dL (8.4-10.2); Carbon Dioxide 24 mmol/L (22-32); Chloride 104 mmol/L (98-107); Estimated Glomerular Filt Rate 53 mL/min (>60); Globulin 4.1 g/dL (1.7-4.1); Glucose 154 mg/dL (80-110); HEMOLYSIS < 15 (0-50); Potassium 3.5 mmol/L (3.4-5.1); Sodium 139 mmol/L (137-145); Total Protein 8.2 g/dL (6.3-8.2)
== END 2024-10-25 19:53 | disposition home or self-care (01) ==
PROVIDERS: Emergency Provider Emergency Medicine; PCP Family Medicine
DX: R60.0 Localized edema (principal); Z79.01 Long term (current) use of anticoagulants; I48.91 Unspecified atrial fibrillation; F17.210 Nicotine dependence, cigarettes, uncomplicated; Z85.528 Personal history of other malignant neoplasm of kidney
CPT/HCPCS: 80053; 85025; 93005; 99281; 99284